=== PATIENT | female | born 1950 | race Caucasian/White ===

== ENCOUNTER 2019-07-05 10:00 | Outpatient (RCR) | payer MEDICARE, SELFPAY | END 2019-07-13 00:01 | LOC: SPT 10:00 | PROVIDERS: Family Provider Family Medicine; Visit Provider Family Medicine | DX: M54.40 Lumbago with sciatica, unspecified side (principal) | CPT/HCPCS: 97161 ==

== ENCOUNTER → 2019-07-16 12:27 | Outpatient (BNVA) | payer MEDICARE, SELFPAY | PROVIDERS: Family Provider Family Medicine; PCP Family Medicine; Visit Provider Family Medicine | DX: E11.40 Type 2 diabetes mellitus with diabetic neuropathy, unspecified (principal); F41.1 Generalized anxiety disorder; E55.9 Vitamin D deficiency, unspecified; F33.1 Major depressive disorder, recurrent, moderate | CPT/HCPCS: 36415; 80053; 80061; 83036 ==

== ENCOUNTER → 2019-08-11 15:36 | Outpatient (BNVA) | payer MEDICARE, SELFPAY | PROVIDERS: Family Provider Family Medicine; PCP Family Medicine; Visit Provider Specialist | DX: M25.562 Pain in left knee (principal); M17.12 Unilateral primary osteoarthritis, left knee; Z96.659 Presence of unspecified artificial knee joint | CPT/HCPCS: 73560; 73565 ==

== ENCOUNTER 2019-09-09 08:57 | Outpatient (CLI) | payer MEDICARE, SELFPAY ==
--- NOTE | 2019-09-09 09:15 | CT_ITS ---
WS: [id number] CT LUNG CANCER SCREENING DLP: 86.67 mGy.cm DIvol: 2.72 mGy CLINICAL INFORMATION SCREENING VISIT: Baseline COMPARISON: 05/27/2017 CTA chest. FINDINGS Diagnostic quality: Satisfactory Comments: None. Lung Nodules: None. Lungs: Minimal linear scar atelectasis in the anterior RIGHT middle lobe. No pleural effusions. Heart: Normal size heart. Mild increased pericardial fat. There is heavy calcification noted within t he LEFT main, LEFT circumflex and anterior descending coronary artery. Additional heavy calcification in the RIGHT coronary. Other findings: Moderate atherosclerosis aorta. No aneurysm. Pulmonary artery size is normal. No medi astinal or hilar adenopathy. LEFT thyroid extends substernal and is enlarged. No change since 017. Prior cholecystectomy. Heavy calcification in the splenic artery similar to prior studies. CT/CT lung screening [id number] IMPRESSION: LUNG-RADS: 1S-Negative with Significant Findings FOLLOW UP: 12 Month: Continue annual screening with LDCT 1. Moderate to severe three-vessel coronary artery calcifications. 2. Prior cholecystectomy.
== END 2019-09-09 08:58 | disposition home or self-care (01) ==
PROVIDERS: Family Provider Family Medicine; PCP Family Medicine; Visit Provider Family Medicine
DX: Z12.2 Encounter for screening for malignant neoplasm of respiratory organs (principal); F17.211 Nicotine dependence, cigarettes, in remission
CPT/HCPCS: G0297

== ENCOUNTER → 2019-09-23 10:33 | Outpatient (BNVA) | payer MEDICARE, SELFPAY | PROVIDERS: Family Provider Family Medicine; PCP Family Medicine; Visit Provider Family Medicine | DX: E11.9 Type 2 diabetes mellitus without complications (principal); E78.5 Hyperlipidemia, unspecified; N39.3 Stress incontinence (female) (male) | CPT/HCPCS: 80053; 81000 ==

== ENCOUNTER 2019-11-22 08:59 | Day surgery (SDC) | payer MEDICARE, SELFPAY ==
[2019-11-19 09:40] VITALS: BMI 47.2
--- NOTE | 2019-11-22 08:30 | P.HP_ITS ---
Same Day Surgery H&P Indication for Procedure/HPI DATE OF PROCEDURE: November 22, 2019 CHIEF COMPLAINT/INDICATIONFOR SURGICAL PROCEDURE: History of colon polyps PREOP DIAGNOSIS: History of colon polyps PLANNED PROCEDRUE: Operation Date: 11/22/19 10:25 Proposed Procedures p Colonoscopy/EGD [id number] [id number] Z86.010 K52.9(Not Applicable) - Faraz Gaming MD s EGD(Not Applicable) - Faraz Gaming MD Medications/Allergies* Home Medications Medication Instructions Recorded Confirmed Type alendronate 70 mg tablet 70 mg PO .ONCE WEEKLY tab 07/08/19 11/19/19 History atorvastatin 40 mg tablet 40 mg PO ONCE 07/08/19 11/19/19 History diphenhydramine HCl 25 mg tablet 50 mg PO ONCE PRN tab 07/08/19 11/19/19 History Allergies/Adverse Reactions Allergy/AdvReac Type Severity Reaction Status Date / Time levofloxacin [From Levaquin] Allergy ALGY-Hives Verified 11/17/19 15:51 Pertinent History/Comorbid Conditions* Medical History (Updated 11/02/19 @ 13:45 by Lexy Bardales DO) Benign essential HTN Enrolled in chronic care management Fatty infiltration of liver Hyperlipidemia Osteopenia Postmenopausal Sjogren's syndrome with keratoconjunctivitis sicca Spondylosis without myelopathy or radiculopathy, lumbosacral region Type 2 diabetes mellitus without complications Unilateral primary osteoarthritis, left knee Vitamin D deficiency Surgical History (Updated 08/16/19 @ 10:19 by Lexy Bardales DO) H/O cornea transplant History of surgery on arm surgery on nerves History of toe surgery History of tonsillectomy S/P hysterectomy S/P knee replacement Status post removal of thyroid nodule Family History (Updated 07/08/19 @ 15:12 by Cristina Estrada LPN) Diabetes CAD (coronary artery disease) Father Lung disease Cancer Mother Sister Brother Social History Smoking and tobacco status: current every day smoker cigarettes Packs smoked per day: 1 Alcohol intake: never Lives independently: Yes Current occupational status: retired Pertinent Exam Findings alert, oriented x 3, clear to auscultation bilaterally, regular rate & rhythm, operative site marked and procedure specific exam findings Recommendations Surgery/Procedure today Coding Level of Care Code Acute Food Porter for Lori Montoya
[2019-11-22 09:15] VITALS: BP 163/84; PULSE 79; RESP 18; TEMP 37.1; O2SAT 92
[2019-11-22 09:39] LABS: Glucose Point of Care 144 mg/dL (70-110)
--- NOTE | 2019-11-22 09:46 | P.ANESASSM_ITS ---
Pre-Anesthetic Assessment Pre-Anesthetic Assessment: Height/Weight: Height 1.55 m Weight 113.398 kg Temp Pulse Resp BP Pulse Ox 98.7 F 79 18 163/84 92 11/22/19 09:15 11/22/19 09:15 11/22/19 09:15 11/22/19 09:15 11/22/19 09:15 Preop Diagnosis: History of colon polyps Proposed Procedure: Operation Date: 11/22/19 10:25 Proposed Procedures p Colonoscopy/EGD [id number] Z86.010 K52.9(Not Applicable) - Faraz Gaming MD s EGD(Not Applicable) - Faraz Gaming MD Familial anesthetic complications: Delayed awakening Was Beta Jose taken within 24 hours: Yes Last intake: NPO > 8 hrs Social: Social History: No alcohol and No tobacco Comment: former smoker Exam: Pre-Anes Outpt Exam: alert, oriented x 3, clear to auscultation bilaterally and regular rate & rhythm Airway: Cervical ROM: WNL Dentition: Chipped and Other (bridge ) Addit ional comments: missing Pulmonary: Pulmonary: Cough (6-7 months (dry)) and SOB (with walking, unable to do stairs due to bad hip and kene) Comments: sinus drainage from allergies CV/HEM: CV/HEM: HTN and Murmur (in her early 20s) Comments: hx rheumatic fever : : None reported Hepatic: Hepatic: None reported GI: GI: None reported Metabolic: Metabolic: DM, Hyperlipidemia, Morbid obesity and Thyroid Musc/skel: Musc/skel: OA/DJD Neuropsych: Neuropsych: None reported Anesthetic Plan: ASA status: 3 Anesthesia: MAC Risk of > 500 ml blood loss (7ml/kg in children): No PFSH Anesthesia PFSH: Social History Smoking and tobacco status: current every day smoker cigarettes Packs smoked per day: 1 Alcohol intake: never Lives independently: Yes Current occupational status: retired Female Reproductive History: Para: 2 Spontaneous abortions: Yes Data Anesthesia Other Labs: Laboratory Results - last 48 hr 11/22/19 09:35 POC Glucose 144 Cardiac Studies: No Data to Display
[2019-11-22] MEDS: sodium chloride 0.9% 1,000 ML 30 ML IV (09:58)
[2019-11-22 10:28] VITALS: BP 149/76; PULSE 63; RESP 16; TEMP 36.3; O2SAT 96
[2019-11-22 10:43] VITALS: BP 160/82; PULSE 65; RESP 16; O2SAT 94
[2019-11-23 14:15] LABS: H. Pylori / CLO Test Negative
== END 2019-11-22 11:05 | disposition home or self-care (01) ==
PROVIDERS: Family Provider Family Medicine; PCP Family Medicine; Visit Provider Internal Medicine
PROC: 0DJD8ZZ Inspection of Lower Intestinal Tract, Via Natural or Artificial Opening Endoscopic (ICD-10-PCS; CPT 45378; principal; 2019-11-22 10:20)
PROC: 0DJ08ZZ Inspection of Upper Intestinal Tract, Via Natural or Artificial Opening Endoscopic (ICD-10-PCS; CPT 43235; 2019-11-22 10:20)
DX: Z86.010 Personal history of colon polyps (principal); I10 Essential (primary) hypertension; E11.9 Type 2 diabetes mellitus without complications; E78.5 Hyperlipidemia, unspecified; E66.01 Morbid (severe) obesity due to excess calories; Z68.42 Body mass index [BMI] 45.0-49.9, adult; M19.90 Unspecified osteoarthritis, unspecified site; F17.210 Nicotine dependence, cigarettes, uncomplicated
CPT/HCPCS: 45378; 12345; 36416; 43239; 82274; 82962; 83630; 87077; 87493; 87506; 88305; J2001; J2704; J7030

== ENCOUNTER → 2019-11-29 11:55 | Outpatient (BNVA) | payer MEDICARE, SELFPAY | PROVIDERS: Family Provider Family Medicine; PCP Family Medicine; Visit Provider Family Medicine | DX: E11.9 Type 2 diabetes mellitus without complications (principal) | CPT/HCPCS: 83036 ==

== ENCOUNTER → 2020-01-10 13:21 | Outpatient (BNVA) | payer MEDICARE, SELFPAY | PROVIDERS: Family Provider Family Medicine; PCP Family Medicine; Visit Provider Family Medicine | DX: E55.9 Vitamin D deficiency, unspecified (principal) | CPT/HCPCS: 82306 ==

== ENCOUNTER 2020-02-28 12:28 | Emergency (ER) | payer MEDICARE, SELFPAY ==
[2020-02-28] VITALS (9 sets, daily range): BP systolic 136–159; BP diastolic 59–78; PULSE 8–89; RESP 16–22; TEMP 36.3–36.6; O2SAT 93–97; BMI 45.1
[2020-02-28 12:46] LABS: Glucose Point of Care 146 mg/dL (70-110)
--- NOTE | 2020-02-28 13:10 | ECG_ITS ---
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 Measurements Intervals [place] Rate: 84 P: 53 CT: 226 QRS: 33 QRSD: 94 T: 60 QT: 361 QTc: 428 Interpretive Statements SINUS RHYTHM WITH FIRST DEGREE AV BLOCK LOW QRS VOLTAGE IN PRECORDIAL LEADS [QRS DEFLECTION < 1.0 mV IN CHEST LEADS] Compared to ECG 10/12/2018 13:06:41 First degree AV block now present Sinus bradycardia no longer present Myocardial infarct finding no longer present Electronically Signed On 02-28-2020 18:59:25 CDT by Ana Ho M.D. [id number]
--- NOTE | 2020-02-28 13:10 | CT_ITS ---
WS: [id number] CT HEAD NONCONTRAST HISTORY: Symptoms of Acute Stroke TECHNIQUE: Contiguous axial imaging performed through the brain in 2.5 mm imaging. Bone and soft tiss ue windows. Sagittal and coronal reformats reviewed. All CT scans at [facility] use at le ast one of these dose optimization techniques: automated exposure control; mA and/or kV adjustment pe r patient size (includes targeted exams where dose is matched to clinical indication); or iterative r econstruction. DLP: 725.61 mGy-cm. COMPARISON: 08/08/2009 There is an area of increased density measuring 4 mm in the LEFT centrum semiovale. This was not pres ent on the prior examination but suspicious for an acute small parenchymal hemorrhage. There is a mod erate amount of diffuse low attenuation from chronic microvascular ischemic disease. No midline shift or mass effect. Mild atrophy. Ventricles: Normal size with no hydrocephalus. Paranasal sinuses: Mucoperiosteal thickening throughout the sinus cavities. Mastoid air cells: Well pneumatized. Calvarium and scalp: Skull is intact with no soft tissue edema or swelling. Notified Sergey Curry MD [facility] at 02/28/2020 1:[address]/CT head wo con* [id number] IMPRESSION: 1. Highly suspicious for 4 mm acute LEFT frontal lobe hemorrhage. 2. Moderate chronic microvascular ischemic changes.
--- NOTE | 2020-02-28 13:10 | XR_ITS ---
WS: [id number] EXAM: AP CHEST: PORTABLE UPRIGHT DATE OF EXAM: 02/28/2020, 1343 hours COMPARISON: Chest x-rays from 05/26/2017 and 12/19/2007. HISTORY: Patient is 69 years old with neurological symptoms. FINDINGS: The cardiac silhouette is stable. Considered upper limits to minimally enlarged. The mediastinal co ntours are similar. Calcified plaque in the aorta. The pulmonary vascularity is normal. The lungs are clear of infiltrate. There is no effusion or pneumothorax. No acute bony abnormality is seen. XR/XR chest 1V portable [id number] IMPRESSION: No acute pulmonary disease.
--- NOTE | 2020-02-28 13:11 | PC.NURSE ---
Slow to answer but answer correctly. States headace is getting worse.
--- NOTE | 2020-02-28 13:11 | W.ED.NEUROSD ---
HPI - Neuro Symptoms/Deficit General: Chief Complaint: Neuro Symptoms/Deficit Stated Complaint: high bs Time Seen by Provider: 02/28/20 12:36 Source: patient Mode of arrival: ambulatory History of Present Illness: HPI Narrative: 69-year-old female patient who comes into the emergency department with some neurologic symptoms. Earlier this morning she received a steroid shot in her left knee in the office of the orthopedic surgeon and when she got home around 11 AM she noticed her vision became blurry, developed a frontal headache. Her daughter also says she became confused. Because of all this she was brought in to be evaluated. The patient has been feeling unwell for a few days also but nothing specific. The patient's complaint today is the headache in her frontal area and her blurry vision Onset (ago): hour(s) (1.5) Last Observed Normal: 11:00 History of same: No Severity: moderate Relieving factors: none Context: sudden onset On Anticoagulants: No Associated symptoms: Reports headache(s), malaise and weakness; Deny chest pain, cough, diaphoresis, fevers/chills, anorexia, nausea, seizures, short of breath, syncope, tingling, vertigo or vomiting Review of Systems General: Reports: 10 or more systems reviewed and unremarkable except in HPI and below Const: Reports: malaise; Denies: diaphoresis Eyes: Denies: change in vision or blurry vision ENMT: Denies: throat pain, enlarged tonsils, odynophagia, hoarseness, mouth pain or swelling of lips/tongue Card: Denies: chest pain or syncope Resp: Denies: dyspnea, productive cough or non-productive cough GI: Denies: nausea or vomiting : Denies: flank pain, difficulty voiding, dysuria, urinary frequency, urinary urgency or urinary hesitancy Musc: Denies: neck pain, back pain or extremity swelling Skin/Breast: Denies: rash, pruritus or erythema Neuro: Reports: headache(s); Denies: vertigo Endo: Denies: polyuria, polydipsia or tired all the time PFS ED PFSH: Medical History (Reviewed 02/28/20 @ 17:51 by Sergey Curry MD, [facility] [place]) Benign essential HTN Enrolled in chronic care management Fatty infiltration of liver Hyperlipidemia Osteopenia Postmenopausal Sjogren's syndrome with keratoconjunctivitis sicca Spondylosis without myelopathy or radiculopathy, lumbosacral region Type 2 diabetes mellitus without complications Unilateral primary osteoarthritis, left knee Vitamin D deficiency Surgical History (Reviewed 02/28/20 @ 17:51 by Sergey Curry MD, [facility] [place] H/O cornea transplant History of surgery on arm surgery on nerves History of toe surgery History of tonsillectomy S/P hysterectomy S/P knee replacement Status post removal of thyroid nodule Family History (Reviewed 02/28/20 @ 17:51 by Sergey Curry MD, [facility] [place]) Father CAD (coronary artery disease) Mother Cancer Sister Cancer Brother Cancer Other Diabetes Lung disease Social History (Reviewed 02/28/20 @ 17:51 by Sergey Curry MD, [facility] [place]) Smoking and tobacco status: current every day smoker cigarettes Packs smoked per day: 1 Alcohol intake: never Lives independently: Yes Current occupational status: retired History of recent travel: No Female Reproductive History: Para: 2 Spontaneous abortions: Yes NIH stroke score NIHSS: Level Of Consciousness - 1a: 0 Level Of Consciousness Questions - 1b: Both Correct Level Of Consciousness Commands - 1c: Both Correct Best Gaze - 2: Normal Visual Yu - 3: Partial Hemianopia Facial Palsy - 4: Normal Motor Arm Right - 5: No Drift Motor Arm Left - 5: No Drift Motor Leg Right - 6: No Drift Motor Leg Left - 6: No Drift Limb Ataxia - 7: Present In One Limb Sensory - 8: Mild To Moderate Loss Best Language - 9: No Aphasia Dysarthia - 10: Normal Extinction And Inattention - 11: 0 Score: Total Score: 3 Physical Exam Const: COMMON NORMALS: no acute distress, average body habitus, patient oriented x3, no limitations, healthy appearing, alert and well nourished HENMT: COMMON NORMALS: normocephalic, atraumatic and moist oral mucous membranes HEAD & SCALP: normocephalic and atraumatic Eye: COMMON NORMALS: Equal, round and reactive pupils present, EOMs intact bilaterally, conjunctivae normal and no scleral icterus CONJUNCTIVA: Yes conjunctivae normal PUPIL: Yes Equal, round and reactive pupils present Neck/C-Spine: COMMON NORMALS: full ROM, supple, no meningeal signs, no JVD and No carotid bruits Chest: COMMONS NORMALS: normal inspection of the chest and normal palpation of entire chest wall Resp: COMMON NORMALS: normal respiratory effort, No retractions, No use of accessory muscles, clear to auscultation bilaterally and percussion normal AUSCULTATION: clear to auscultation bilaterally PERCUSSION: percussion normal Cardio: COMMON NORMALS: no JVD, regular rate, regular rhythm, S1 normal heart sound present, S2 normal heart sound present, No gallops present (Cardio), No clicks present (Cardio), No rub (Cardio) and Peripheral pulses 2+ throughout RATE: regular rate RHYTHM: regular rhythm HEART SOUNDS: S1 normal heart sound present, S2 normal heart sound present and Murmur heart sound present PERIPHERAL PULSES: Peripheral pulses 2+ throughout GI: COMMON NORMALS: Normal to inspection, nondistended, normoactive bowel sounds present, Soft to palpation, non-tender, No hepatosplenomegaly present, no masses and no bruits PALPATION: Yes Soft to palpation and Yes No hepatosplenomegaly present Extremity: COMMON NORMALS: normal to inspection, full ROM, capillary refill normal, no calf tenderness and no pedal edema Neuro: COMMON NORMALS: patient oriented x3 SENSORIUM/ORIENTATION: Yes alert MENINGEAL SIGNS: Yes no meningeal signs Skin: COMMON NORMALS: no rashes or lesions noted, no wounds, turgor normal, no jaundice, no petechiae and no mottling GENERAL SKIN EXAM: no rashes or lesions noted and turgor normal Course Consultations: Consultation #1: Dr. Gaytan, neurosurgeon at [facility] and she kindly accepted the patient to her service. Vital Signs: Vital signs: Vital Signs Temperature 97.8 F 02/28/20 16:46 Pulse Rate 84 02/28/20 16:46 Respiratory Rate 18 02/28/20 16:46 Blood Pressure 144/78 02/28/20 16:46 Pulse Oximetry 95 02/28/20 16:46 MDM - Neuro Symptoms/Deficit MDM Narrative: Medical decision making narrative: Patient who presented to the emergency department with neurologic symptoms. Because of the acuity of her symptoms a stroke alert was called. Head CT done was highly suggestive of an intracranial hemorrhage. She therefore needed to be transferred to level 1 trauma center. The patient and family's preference was for [facility] in [place] but when I called them they were on ER divert and all their brain bleeds apparently go to the emergency department. I therefore called [facility] and the patient was kindly accepted to the ICU. Her blood pressure was mildly elevated in the 140s and 150s on initial arrival in the emergency department and she was started on a nicardipine drip following which her blood pressure improved. Medical Records: Attestation: I reviewed the patient's medical records. Lab Data: Attestation: I reviewed the patient's lab results. Labs: Lab Results 02/28/20 02/28/20 02/28/20 Range/Units 12:34 12:55 12:55 WBC 8.6 (4.0-10.0) 10^3/ uL RBC 4.43 (4.1-5.3) 10^6/u L Hgb 13.0 (11.5-15.3) g/dL Hct 40.8 (37.0-47.0) % MCV 92.1 (81-99) fL MCH 29.3 (28.0-34.0) pg MCHC 31.9 (30.0-36.0) g/dL RDW 16.2 H (12.1-15.1) % Plt Count 284 (130-400) 10^3/c mm MPV 10.9 H (7.4-10.4) fL Neut % (Auto) 72.6 % Lymph % (Auto) 20.2 % Boyd % (Auto) 4.1 % Eos % (Auto) 2.0 % Baso % (Auto) 0.8 % Neut # (Auto) 6.25 (1.8-7.7) 10^3/u L Lymph # (Auto) 1.7 (0.8-4.8) 10^3/u L Boyd # (Auto) 0.4 (0.2-0.9) 10^3/u L Eos # (Auto) 0.2 (0.0-0.8) 10^3/u L Baso # (Auto) 0.1 (0.0-0.1) 10^3/u L Nucleated RBC % (a uto) 0 % Nucleated RBCs # 0.0 /100WBC PT 12.40 (12.1-14.9) SECO NDS INR 0.90 (0.8-1.2) APTT 33.0 (23.9-36.7) SECO NDS Sodium (136-145) mmol/L Potassium (3.5-5.1) mmol/L Chloride (98-107) mmol/L Carbon Dioxide (22-29) mmol/L Anion Gap (5-19) BUN (8-23) mg/dL Creatinine (0.5-0.9) mg/dL GFR Calculation Glucose (65-115) mg/dL POC Glucose 146 (70-110) mg/dL Calculated Osmolal ity (285-295) mOsm/k g Calcium (8.5-10.5) mg/dL Total Bilirubin (0.15-1.2) mg/dL AST (0-32) U/L ALT (0-33) U/L Alkaline Phosphata se (35-105) IU/L Total Protein (6.6-8.7) g/dL Albumin (3.5-5.2) g/dL Globulin (1.3-4.6) g/dL Urine Color (Yellow) Urine Appearance (CLEAR) Urine pH (5-7) Ur Specific Gravit y (1.005-1.030) Urine Protein (Negative) Urine Glucose (UA) (Normal) Urine Ketones (Negative) Urine Blood (Negative) Urine Nitrate (Negative) Urine Bilirubin (NEGATIVE) Urine Urobilinogen (Negative) mg/dL Ur Leukocyte Elizabeth ase (Negative) Urine Opiates Scre en (Negative) ng/mL Ur Barbiturates Sc reen (Negative) ng/mL Ur Phencyclidine S crn (Negative) ng/mL Ur Amphetamines Sc reen (Negative) ng/mL U Benzodiazepines Scrn (Negative) ng/mL Urine Cocaine Scre en (Negative) ng/mL U Marijuana (THC) Screen (Negative) ng/mL 02/28/20 02/28/20 02/28/20 Range/Units 12:55 13:25 13:25 WBC (4.0-10.0) 10^3/ uL RBC (4.1-5.3) 10^6/u L Hgb (11.5-15.3) g/dL Hct (37.0-47.0) % MCV (81-99) fL MCH (28.0-34.0) pg MCHC (30.0-36.0) g/dL RDW (12.1-15.1) % Plt Count (130-400) 10^3/c mm MPV (7.4-10.4) fL Neut % (Auto) % Lymph % (Auto) % Boyd % (Auto) % Eos % (Auto) % Baso % (Auto) % Neut # (Auto) (1.8-7.7) 10^3/u L Lymph # (Auto) (0.8-4.8) 10^3/u L Boyd # (Auto) (0.2-0.9) 10^3/u L Eos # (Auto) (0.0-0.8) 10^3/u L Baso # (Auto) (0.0-0.1) 10^3/u L Nucleated RBC % (a uto) % Nucleated RBCs # /100WBC PT (12.1-14.9) SECO NDS INR (0.8-1.2) APTT (23.9-36.7) SECO NDS Sodium 140 (136-145) mmol/L Potassium 4.0 (3.5-5.1) mmol/L Chloride 104 (98-107) mmol/L Carbon Dioxide 26 (22-29) mmol/L Anion Gap 14.0 (5-19) BUN 15 (8-23) mg/dL Creatinine 0.8 (0.5-0.9) mg/dL GFR Calculation Not Reportable Glucose 161 H (65-115) mg/dL POC Glucose (70-110) mg/dL Calculated Osmolal ity 290 (285-295) mOsm/k g Calcium 9.4 (8.5-10.5) mg/dL Total Bilirubin 0.2 (0.15-1.2) mg/dL AST 19 (0-32) U/L ALT 20 (0-33) U/L Alkaline Phosphata se 76 (35-105) IU/L Total Protein 6.9 (6.6-8.7) g/dL Albumin 4.0 (3.5-5.2) g/dL Globulin 2.9 (1.3-4.6) g/dL Urine Color Yellow (Yellow) Urine Appearance Clear (CLEAR) Urine pH 5 (5-7) Ur Specific Gravit y 1.015 (1.005-1.030) Urine Protein Neg (Negative) Urine Glucose (UA) Norm (Normal) Urine Ketones Negative (Negative) Urine Blood Neg (Negative) Urine Nitrate Negative (Negative) Urine Bilirubin Neg (NEGATIVE) Urine Urobilinogen Norm (Negative) mg/dL Ur Leukocyte Elizabeth ase Negative (Negative) Urine Opiates Scre en Positive H (Negative) ng/mL Ur Barbiturates Sc reen Negative (Negative) ng/mL Ur Phencyclidine S crn Negative (Negative) ng/mL Ur Amphetamines Sc reen Negative (Negative) ng/mL U Benzodiazepines Scrn Positive H (Negative) ng/mL Urine Cocaine Scre en Negative (Negative) ng/mL U Marijuana (THC) Screen Negative (Negative) ng/mL 02/28/20 Range/Units 13:31 WBC (4.0-10.0) 10^3/ uL RBC (4.1-5.3) 10^6/u L Hgb (11.5-15.3) g/dL Hct (37.0-47.0) % MCV (81-99) fL MCH (28.0-34.0) pg MCHC (30.0-36.0) g/dL RDW (12.1-15.1) % Plt Count (130-400) 10^3/c mm MPV (7.4-10.4) fL Neut % (Auto) % Lymph % (Auto) % Boyd % (Auto) % Eos % (Auto) % Baso % (Auto) % Neut # (Auto) (1.8-7.7) 10^3/u L Lymph # (Auto) (0.8-4.8) 10^3/u L Boyd # (Auto) (0.2-0.9) 10^3/u L Eos # (Auto) (0.0-0.8) 10^3/u L Baso # (Auto) (0.0-0.1) 10^3/u L Nucleated RBC % (a uto) % Nucleated RBCs # /100WBC PT (12.1-14.9) SECO NDS INR (0.8-1.2) APTT (23.9-36.7) SECO NDS Sodium (136-145) mmol/L Potassium (3.5-5.1) mmol/L Chloride (98-107) mmol/L Carbon Dioxide (22-29) mmol/L Anion Gap (5-19) BUN (8-23) mg/dL Creatinine (0.5-0.9) mg/dL GFR Calculation Glucose (65-115) mg/dL POC Glucose 164 (70-110) mg/dL Calculated Osmolal ity (285-295) mOsm/k g Calcium (8.5-10.5) mg/dL Total Bilirubin (0.15-1.2) mg/dL AST (0-32) U/L ALT (0-33) U/L Alkaline Phosphata se (35-105) IU/L Total Protein (6.6-8.7) g/dL Albumin (3.5-5.2) g/dL Globulin (1.3-4.6) g/dL Urine Color (Yellow) Urine Appearance (CLEAR) Urine pH (5-7) Ur Specific Gravit y (1.005-1.030) Urine Protein (Negative) Urine Glucose (UA) (Normal) Urine Ketones (Negative) Urine Blood (Negative) Urine Nitrate (Negative) Urine Bilirubin (NEGATIVE) Urine Urobilinogen (Negative) mg/dL Ur Leukocyte Elizabeth ase (Negative) Urine Opiates Scre en (Negative) ng/mL Ur Barbiturates Sc reen (Negative) ng/mL Ur Phencyclidine S crn (Negative) ng/mL Ur Amphetamines Sc reen (Negative) ng/mL U Benzodiazepines Scrn (Negative) ng/mL Urine Cocaine Scre en (Negative) ng/mL U Marijuana (THC) Screen (Negative) ng/mL Imaging Data^: CT Head: Radiologist's impression: [place] [address] CT Scan Report Signed Patient: Jacqueline Alcazar #: [id number] : 9Acct#:[id number] Age/Sex: 69 / FADM Date: 02/28/20 Loc: ERRoom/Bed: Attending Dr: Ordering Provider/Ordering MD: Sergye Curry MD, [facility] [place] Date of Service: 02/28/20 Procedure(s): CT head wo con* [id number] Accession Number(s): [id number] Report Number: [id number] WS: [id number] CT HEAD NONCONTRAST HISTORY: Symptoms of Acute Stroke TECHNIQUE: Contiguous axial imaging performed through the brain in 2.5 mm imaging. Bone and soft tissue windows. Sagittal and coronal reformats reviewed. All CT scans at [facility] use at least one of these dose optimization techniques: automated exposure control; mA and/or kV adjustment per patient size (includes targeted exams where dose is matched to clinical indication); or iterative reconstruction. DLP: 725.61 mGy-cm. COMPARISON: 08/08/2009 There is an area of increased density measuring 4 mm in the LEFT centrum semiovale. This was not present on the prior examination but suspicious for an acute small parenchymal hemorrhage. There is a moderate amount of diffuse low attenuation from chronic microvascular ischemic disease. No midline shift or mass effect. Mild atrophy. Ventricles: Normal size with no hydrocephalus. Paranasal sinuses: Mucoperiosteal thickening throughout the sinus cavities. Mastoid air cells: Well pneumatized. Calvarium and scalp: Skull is intact with no soft tissue edema or swelling. Notified Sergey Curry MD [facility] [place] at 02/28/2020 1:[address]/CT head wo con* [id number] IMPRESSION: 1. Highly suspicious for 4 mm acute LEFT frontal lobe hemorrhage. 2. Moderate chronic microvascular ischemic changes. Dictated By:Judi Thomson DO Signed By:Judi Thomson DOSigned Date/Time:02/28/20 1321 DD/ 1315 CXR: Radiologist's impression: [address] [address] XRay Report Signed Patient: Jacqueline Alcazar #: [id number] : 9Acct#:[id number] Age/Sex: 69 / FADM Date: 02/28/20 Loc: ERRoom/Bed: Attending Dr: Ordering Provider/Ordering MD: Sergey Curry MD, [facility] [place] Date of Service: 02/28/20 Procedure(s): XR chest 1V portable [id number] Accession Number(s): [id number] Report Number: [id number] WS: [id number] EXAM: AP CHEST: PORTABLE UPRIGHT DATE OF EXAM: 02/28/2020, 1343 hours COMPARISON: Chest x-rays from 05/26/2017 and 12/19/2007. HISTORY: Patient is 69 years old with neurological symptoms. FINDINGS: The cardiac silhouette is stable. Considered upper limits to minimally enlarged. The mediastinal contours are similar. Calcified plaque in the aorta. The pulmonary vascularity is normal. The lungs are clear of infiltrate. There is no effusion or pneumothorax. No acute bony abnormality is seen. XR/XR chest 1V portable [id number] IMPRESSION: No acute pulmonary disease. EKG Data^: EKG 1: Attestation: I personally reviewed and interpreted this EKG as follows: EKG interpretation date: 02/28/20 EKG interpretation time: 13:30 Prior EKG tracings: not available for review Interpretation: Sinus rhythm referred degree AV block. Heart rate 84 bpm. Normal axis. No ST changes. No STEMI. Discharge Plan Discharge Patient Disposition: Xfer Short-Term Hosp Clinical Impression: Acute intracerebral hemorrhage Condition: Stable Discharge Orders: Transfer Out of Facility (Order); Ordered 02/28/20 Ordered By: Sergey Curry Referrals: Lexy Bardales DO [Primary Care Provider] - Discharge Date/Time: 02/28/20 16:51 Coding Level of Care Code ED [employer] for Chg Lindsay
[2020-02-28 13:23] LABS: Basophils # 0.1 10^3/uL (0.0-0.1); Basophils % 0.8 %; Eosinophils # 0.2 10^3/uL (0.0-0.8); Hematocrit 40.8 % (37.0-47.0); Lymphocytes # 1.7 10^3/uL (0.8-4.8); Lymphocytes % 20.2 %; Mean Corpuscular HGB Conc 31.9 g/dL (30.0-36.0); Mean Corpuscular Hemoglobin 29.3 pg (28.0-34.0); Mean Corpuscular Volume 92.1 fL (81-99); Mean Platelet Volume 10.9 fL (7.4-10.4); Monocytes # 0.4 10^3/uL (0.2-0.9); Monocytes % 4.1 %; Neutrophils # 6.25 10^3/uL (1.8-7.7); Neutrophils % 72.6 %; Nucleated Red Blood Cells % 0 %; Platelet Count 284 10^3/cmm (130-400); Red Blood Count 4.43 10^6/uL (4.1-5.3); Red Cell Distribution Width 16.2 % (12.1-15.1); White Blood Count 8.6 10^3/uL (4.0-10.0)
[2020-02-28 13:33] LABS: Alanine Aminotransferase 20 U/L (0-33); Alkaline Phosphatase 76 IU/L (35-105); Aspartate Amino Transferase 19 U/L (0-32); Blood Urea Nitrogen 15 mg/dL (8-23); Calcium 9.4 mg/dL (8.5-10.5); Carbon Dioxide 26 mmol/L (22-29); Chloride 104 mmol/L (98-107); Creatinine Clr Calc Pharmacy 76.2397; Globulin 2.9 g/dL (1.3-4.6); Glucose 161 mg/dL (65-115); Osmolality Calculated 290 mOsm/kg (285-295); Sodium 140 mmol/L (136-145); Total Bilirubin 0.2 mg/dL (0.15-1.2); Total Protein 6.9 g/dL (6.6-8.7)
[2020-02-28 13:35] LABS: Glucose Point of Care 164 mg/dL (70-110)
[2020-02-28 13:51] LABS: Add Urine Microscopic? NO
[2020-02-28 14:02] LABS: Bilirubin Urine Neg (NEGATIVE); Blood Urine Neg (Negative); Glucose Urine UA Norm (Normal); Ketones Urine Negative (Negative); Leukocyte Esterase Urine Negative (Negative); Nitrate Urine Negative (Negative); Protein Urine Neg (Negative); Specific Gravity, Urine 1.015 (1.005-1.030); Urine Appearance Clear (CLEAR); Urine Color Yellow (Yellow); Urobilinogen Urine Norm (Negative); pH Urine 5 (5-7)
[2020-02-28 14:04] LABS: Amphetamines Screen Urine Negative (Negative); Barbiturates Screen Urine Negative (Negative); Benzodiazepines Screen Urine Positive (Negative); Cocaine Screen Urine Negative (Negative); Opiate Screen Urine Positive (Negative); PCP Screen Urine Negative (Negative); THC Screen Urine Negative (Negative)
--- NOTE | 2020-02-28 14:25 | PC.NURSE ---
Did not start the Cardene because BP is 134/67. Informed Dr Curry.
[2020-02-28] MEDS: nicardipine 20 MG/200 ML PREMIX 50 MG IV (14:33)
--- NOTE | 2020-02-28 14:37 | PC.NURSE ---
Blood Pressure is 147/68. Informed Dr Villegas and informed to start Cardene drip at 5mg/hr.
--- NOTE | 2020-02-28 16:06 | PC.NURSE ---
Put on a bed hwang.
== END 2020-02-28 16:51 | disposition short-term general hospital (02) ==
PROVIDERS: Emergency Provider Family Medicine; PCP Family Medicine
DX: I61.9 Nontraumatic intracerebral hemorrhage, unspecified (principal); I10 Essential (primary) hypertension; E78.5 Hyperlipidemia, unspecified; E11.9 Type 2 diabetes mellitus without complications; F17.210 Nicotine dependence, cigarettes, uncomplicated
CPT/HCPCS: 12345; 36416; 70450; 71045; 80053; 80306; 81003; 82962; 85025; 85610; 85730; 93005; 96365; 96366; 96375; 99284; 99285; J0131

== ENCOUNTER → 2020-03-15 09:27 | Outpatient (BNVA) | payer MEDICARE, SELFPAY | PROVIDERS: PCP Family Medicine; Referring Provider Family Medicine; Visit Provider Anesthesiology Pain Medicine | DX: M47.816 Spondylosis without myelopathy or radiculopathy, lumbar region (principal); M54.9 Dorsalgia, unspecified; M17.12 Unilateral primary osteoarthritis, left knee; I61.9 Nontraumatic intracerebral hemorrhage, unspecified; R51 Headache; I10 Essential (primary) hypertension; E11.40 Type 2 diabetes mellitus with diabetic neuropathy, unspecified; F17.210 Nicotine dependence, cigarettes, uncomplicated; Z79.891 Long term (current) use of opiate analgesic | CPT/HCPCS: 99205 ==

== ENCOUNTER 2020-03-24 06:00 | Outpatient (RCR) | payer MEDICARE, SELFPAY | END 2020-04-12 23:59 | disposition home or self-care (01) | LOC: SPT 06:00 | PROVIDERS: PCP Family Medicine; Referring Provider Neurological Surgery; Visit Provider Neurological Surgery | DX: Q28.3 Other malformations of cerebral vessels (principal) | CPT/HCPCS: 97110; 97161 ==

== ENCOUNTER 2020-04-13 06:00 | Outpatient (RCR) | payer MEDICARE, SELFPAY | END 2020-05-13 23:59 | disposition home or self-care (01) | LOC: SPT 06:00 | PROVIDERS: PCP Family Medicine; Referring Provider Neurological Surgery; Visit Provider Neurological Surgery | DX: Q28.3 Other malformations of cerebral vessels (principal) | CPT/HCPCS: 97110; 99214 ==

== ENCOUNTER → 2020-04-13 09:31 | Outpatient (BNVA) | payer MEDICARE, SELFPAY | PROVIDERS: PCP Family Medicine; Visit Provider Anesthesiology Pain Medicine | DX: M17.12 Unilateral primary osteoarthritis, left knee (principal); M47.816 Spondylosis without myelopathy or radiculopathy, lumbar region; M54.9 Dorsalgia, unspecified; E11.40 Type 2 diabetes mellitus with diabetic neuropathy, unspecified; I61.9 Nontraumatic intracerebral hemorrhage, unspecified; I10 Essential (primary) hypertension; F17.210 Nicotine dependence, cigarettes, uncomplicated; Z79.891 Long term (current) use of opiate analgesic | CPT/HCPCS: 99214 ==

== ENCOUNTER → 2020-05-04 13:12 | Outpatient (BNVA) | payer MEDICARE, SELFPAY | PROVIDERS: PCP Family Medicine; Visit Provider Family Medicine | DX: M79.642 Pain in left hand (principal) | CPT/HCPCS: 73130 ==

== ENCOUNTER → 2020-05-11 10:44 | Outpatient (BNVA) | payer MEDICARE, SELFPAY | PROVIDERS: PCP Family Medicine; Visit Provider Anesthesiology Pain Medicine | DX: M17.12 Unilateral primary osteoarthritis, left knee (principal); M47.816 Spondylosis without myelopathy or radiculopathy, lumbar region; M54.9 Dorsalgia, unspecified; E11.40 Type 2 diabetes mellitus with diabetic neuropathy, unspecified; I61.9 Nontraumatic intracerebral hemorrhage, unspecified; I10 Essential (primary) hypertension; F17.210 Nicotine dependence, cigarettes, uncomplicated; Z79.891 Long term (current) use of opiate analgesic | CPT/HCPCS: 99214 ==

== ENCOUNTER → 2020-05-12 10:13 | Outpatient (BNVA) | payer MEDICARE, SELFPAY | PROVIDERS: PCP Family Medicine; Visit Provider Family Medicine | DX: E11.9 Type 2 diabetes mellitus without complications (principal); F17.219 Nicotine dependence, cigarettes, with unspecified nicotine-induced disorders; I10 Essential (primary) hypertension | CPT/HCPCS: 80053; 83036 ==

== ENCOUNTER 2020-05-14 06:00 | Outpatient (RCR) | payer MEDICARE, SELFPAY | END 2020-06-12 23:59 | disposition home or self-care (01) | LOC: SPT 06:00 | PROVIDERS: PCP Family Medicine; Referring Provider Neurological Surgery; Visit Provider Neurological Surgery | DX: Q28.3 Other malformations of cerebral vessels (principal) | CPT/HCPCS: 97110 ==

== ENCOUNTER 2020-05-16 07:35 | Outpatient (CLI) | payer MEDICARE, SELFPAY ==
--- NOTE | 2020-05-16 07:59 | MR_ITS ---
WS: [id number] MRI HEAD WITH CONTRAST TECHNIQUE: Sagittal T1, T2 axial, T2 axial FLAIR, axial susceptibility weighted imaging, axial diffus ion weighted images, and coronal T2 images were obtained. Pre and post-T1 axial and post T1 coronal i mages. ADC and FSPGR images. CLINICAL INFORMATION: CAVERNOUS MALFORMATIONS COMPARISON: CT February 28, 2020 FINDINGS: No evidence of restricted diffusion to suggest acute ischemia. Ventricular system and basal cisterns are patent. Moderate to advanced small vessel changes with moderate parenchymal volume loss. Normal p osterior fossa. Normal vascular flow voids at the skull base. No extra-axial fluid collections. No ev idence of mass or mass effect. Mild mucosal thickening in the ethmoid air cells. Mastoid air cells ar e well aerated. Mild mucosal thickening at the mastoid tips. Small vessel changes in the agus. Susceptibility artifact in the left posterior frontal deep white matter measuring 7 mm corresponding to the findings on the prior CT. Associated serpiginous enhancement compatible with cavernoma with ve nous angioma. No evidence of new or recent hemorrhage. Normal optic chiasm and pituitary infundibulum . Normal dural venous sinuses. No other abnormal enhancing intracranial lesions. Moderate symmetric a trophy involving the temporal lobes and hippocampal formations. MR/MR head wo/w con [id number] IMPRESSION: 1. Susceptibility artifact in the left frontal lobe measuring 7 mm with adjace nt serpiginous enhancement compatible with cavernoma with venous angioma. 2. No evidence of recent hemorrhage. 3. No other visualized cavernous malformations. 4. Moderate to advanced small vessel changes with moderate parenchymal volume loss. 5. No other significant findings.
== END 2020-05-16 07:36 | disposition home or self-care (01) ==
LOC: RADWPI 07:39
PROVIDERS: PCP Family Medicine; Visit Provider Neurological Surgery
DX: Q28.3 Other malformations of cerebral vessels (principal)
CPT/HCPCS: 70553; A9579

== ENCOUNTER 2020-05-30 10:20 | Outpatient (CLI) | payer MEDICARE, SELFPAY ==
--- NOTE | 2020-05-30 10:44 | XRR_ITS ---
PROCEDURE INFORMATION: Exam: XR Lumbosacral Spine, 2 or 3 Views Exam date and time: 05/30/2020 10:45 AM Age: 69 years old Clinical indication: Low back pain TECHNIQUE: Imaging protocol: XR of the lumbosacral spine, 2 or 3 views. COMPARISON: CR Lumbar Spine Flex/Extens [id number] 10/28/2017 8:58 AM FINDINGS: Bones/joints: The lumbar vertebral bodies maintain height. There is multilevel disc degeneration and facet arthropathy in the lumbar spine. There is a 5 mm grade 1 degenerative spondylolisthesis of L4 on L5 in the neutral position, slightly worse than on the prior comparison exam. No acute fracture. Soft tissues: No acute soft tissue abnormality. XR/XR lumbar spine min 4V [id number] IMPRESSION: 1. Multilevel degenerative changes. 2. Slight worsening of grade 1 degenerative L4-L5 spondylolisthesis.
== END 2020-05-30 10:21 | disposition home or self-care (01) ==
PROVIDERS: PCP Family Medicine; Visit Provider Anesthesiology Pain Medicine
DX: M54.5 Low back pain (principal); M43.16 Spondylolisthesis, lumbar region
CPT/HCPCS: 72114

== ENCOUNTER → 2020-06-06 09:29 | Outpatient (BNVA) | payer MEDICARE, SELFPAY | PROVIDERS: PCP Family Medicine; Visit Provider Anesthesiology Pain Medicine | DX: M47.816 Spondylosis without myelopathy or radiculopathy, lumbar region (principal); M54.12 Radiculopathy, cervical region; M17.12 Unilateral primary osteoarthritis, left knee; M54.9 Dorsalgia, unspecified; R51.9 Headache, unspecified; M25.562 Pain in left knee; I61.9 Nontraumatic intracerebral hemorrhage, unspecified; I10 Essential (primary) hypertension; E11.40 Type 2 diabetes mellitus with diabetic neuropathy, unspecified; F17.210 Nicotine dependence, cigarettes, uncomplicated; Z79.891 Long term (current) use of opiate analgesic | CPT/HCPCS: 99214; 99215 ==

== ENCOUNTER 2020-06-13 06:00 | Outpatient (RCR) | payer MEDICARE, SELFPAY | END 2020-07-13 23:59 | disposition home or self-care (01) | LOC: SPT 06:00 | PROVIDERS: PCP Family Medicine; Referring Provider Neurological Surgery; Visit Provider Neurological Surgery | DX: Q28.3 Other malformations of cerebral vessels (principal) | CPT/HCPCS: 97110 ==

== ENCOUNTER → 2020-06-19 11:04 | Outpatient (BNVA) | payer MEDICARE, SELFPAY | PROVIDERS: PCP Family Medicine; Visit Provider Family Medicine | DX: Z00.00 Encounter for general adult medical examination without abnormal findings (principal); E78.2 Mixed hyperlipidemia; F17.219 Nicotine dependence, cigarettes, with unspecified nicotine-induced disorders | CPT/HCPCS: 80061 ==

== ENCOUNTER 2020-06-28 13:20 | Outpatient (CLI) | payer MEDICARE, SELFPAY ==
--- NOTE | 2020-06-28 13:28 | MM_ITS ---
WS: [id number] BILATERAL SCREENING DIGITAL MAMMOGRAM WITH CAD HISTORY: SCREENING COMPARISON: 05/07/2019, 04/17/2018 Bilateral CC and MLO views submitted. Computer aided detection analyzed. Breast composition: There are scattered areas of fibroglandular density. No suspicious masses, microc alcifications or architectural distortion. Benign lymph nodes towards the axillary tails of each [address] [place] MM/[place] [id number] IMPRESSION: BI-RADS: 2-Benign FOLLOW UP: 1 Year Follow-up
== END 2020-06-28 13:21 | disposition home or self-care (01) ==
LOC: RADSHAW 13:24
PROVIDERS: PCP Family Medicine; Visit Provider Family Medicine
DX: Z12.31 Encounter for screening mammogram for malignant neoplasm of breast (principal)
CPT/HCPCS: 77067

== ENCOUNTER → 2020-06-29 13:29 | Outpatient (BNVA) | payer MEDICARE, SELFPAY | PROVIDERS: PCP Family Medicine; Visit Provider Anesthesiology Pain Medicine | DX: M47.816 Spondylosis without myelopathy or radiculopathy, lumbar region (principal); M54.9 Dorsalgia, unspecified; F17.210 Nicotine dependence, cigarettes, uncomplicated | CPT/HCPCS: 64493; 64494; 64495; J1030; J3490 ==

== ENCOUNTER → 2020-07-17 09:16 | Outpatient (BNVA) | payer MEDICARE, SELFPAY | PROVIDERS: PCP Family Medicine; Visit Provider Anesthesiology Pain Medicine | DX: M79.18 Myalgia, other site (principal); M54.12 Radiculopathy, cervical region; M54.9 Dorsalgia, unspecified; R51.9 Headache, unspecified; M25.562 Pain in left knee; I61.9 Nontraumatic intracerebral hemorrhage, unspecified; I10 Essential (primary) hypertension; M17.12 Unilateral primary osteoarthritis, left knee; M47.816 Spondylosis without myelopathy or radiculopathy, lumbar region; E11.40 Type 2 diabetes mellitus with diabetic neuropathy, unspecified; F17.210 Nicotine dependence, cigarettes, uncomplicated | CPT/HCPCS: 20553; 72050; 99214; 99215; J1030; J3490 ==

== ENCOUNTER 2020-07-17 11:28 | Outpatient (CLI) | payer MEDICARE, SELFPAY ==
--- NOTE | 2020-07-17 11:37 | XR_ITS ---
WS: [id number] CERVICAL SPINE TECHNIQUE: 3 views of the cervical spine CLINICAL INFORMATION: M54.12 - Radiculopathy, cervical region COMPARISON: None. FINDINGS: Straightening of the normal cervical lordosis. Normal C1-C2 articulation. Normal prevertebral soft ti ssues. No instability on flexion-extension. Moderate facet arthropathy in mid cervical spine. XR/XR cervical spine 4-5V [id number] IMPRESSION: No instability on flexion-extension.
== END 2020-07-17 11:29 | disposition home or self-care (01) ==
LOC: RADWPI 11:32
PROVIDERS: PCP Family Medicine; Visit Provider Anesthesiology Pain Medicine
DX: M54.12 Radiculopathy, cervical region (principal)
CPT/HCPCS: 72050

== ENCOUNTER → 2020-07-18 11:15 | Outpatient (BNVA) | payer MEDICARE, SELFPAY | PROVIDERS: PCP Family Medicine; Visit Provider Nurse Practitioner | DX: Z20.828 Contact with and (suspected) exposure to other viral communicable diseases (principal); J20.9 Acute bronchitis, unspecified; J01.90 Acute sinusitis, unspecified | CPT/HCPCS: 87635 ==

== ENCOUNTER → 2020-08-02 14:04 | Outpatient (BNVA) | payer MEDICARE, SELFPAY | PROVIDERS: PCP Family Medicine; Visit Provider Anesthesiology Pain Medicine | DX: M47.816 Spondylosis without myelopathy or radiculopathy, lumbar region (principal); M54.9 Dorsalgia, unspecified | CPT/HCPCS: 64635; 64636; J1030 ==

== ENCOUNTER → 2020-08-16 09:32 | Outpatient (BNVA) | payer MEDICARE, SELFPAY | PROVIDERS: PCP Family Medicine; Visit Provider Anesthesiology Pain Medicine | DX: M79.18 Myalgia, other site (principal); M47.816 Spondylosis without myelopathy or radiculopathy, lumbar region; M51.17 Intervertebral disc disorders with radiculopathy, lumbosacral region; M54.9 Dorsalgia, unspecified; R51.9 Headache, unspecified; I61.9 Nontraumatic intracerebral hemorrhage, unspecified; M17.12 Unilateral primary osteoarthritis, left knee; F17.210 Nicotine dependence, cigarettes, uncomplicated; Z79.891 Long term (current) use of opiate analgesic | CPT/HCPCS: 20553; 99214; J1030; J3490 ==

== ENCOUNTER → 2020-08-21 11:50 | Outpatient (BNVA) | payer MEDICARE, SELFPAY | PROVIDERS: PCP Family Medicine; Visit Provider Anesthesiology Pain Medicine | DX: M47.816 Spondylosis without myelopathy or radiculopathy, lumbar region (principal); M54.9 Dorsalgia, unspecified; M17.12 Unilateral primary osteoarthritis, left knee; F17.210 Nicotine dependence, cigarettes, uncomplicated | CPT/HCPCS: 64635; 64636; J1030 ==

== ENCOUNTER 2020-08-29 16:34 | Observation (INO) | payer MEDICARE, SELFPAY ==
[2020-08-29] VITALS (9 sets, daily range): BP systolic 125–164; BP diastolic 66–84; PULSE 71–84; RESP 17–18; TEMP 36–37.2; O2SAT 92–98; BMI 45.5
--- NOTE | 2020-08-29 17:06 | ECG_ITS ---
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 Measurements Intervals [place] Rate: 72 P: 31 IN: 206 QRS: -11 QRSD: 106 T: 55 QT: 396 QTc: 435 Interpretive Statements SINUS RHYTHM WITH FIRST DEGREE AV BLOCK LOW QRS VOLTAGE IN PRECORDIAL LEADS [QRS DEFLECTION < 1.0 mV IN CHEST LEADS] INFERIOR MYOCARDIAL INFARCTION , OF INDETERMINATE AGE [40+ ms Q WAVE AND/OR ST/T ABNORMALITY IN II/aVF] Compared to ECG 02/28/2020 13:30:29 Myocardial infarct finding now present First degree AV block no longer present Electronically Signed On 08-29-2020 21:44:12 [employer] by Rosa Melgar M.D. [email or web address]
--- NOTE | 2020-08-29 17:06 | CTR_ITS ---
PROCEDURE INFORMATION: Exam: CT Head Without Contrast Exam date and time: 08/29/2020 5:08 PM Age: 70 years old Clinical indication: Speech disturbance; Other: Can't get thoughts out; Additional info: Symptoms of acute stroke TECHNIQUE: Imaging protocol: Computed tomography of the head without contrast. Radiation optimization: All CT scans at this facility use at least one of these dose optimization techniques: automated exposure control; mA and/or kV adjustment per patient size (includes targeted exams where dose is matched to clinical indication); or iterative reconstruction. COMPARISON: CT head wo con* [id number] 02/28/2020 1:04 PM RADIATION DOSE METRICS: Total DLP (mGy-cm): 741.71 FINDINGS: Brain: There are global involutional changes of the brain which are in keeping with the patient's age. Periventricular hypodensities are nonspecific but most likely reflect chronic microvascular ischemic disease. There is stable appearance of the previously described 4 mm hyperdensity in left frontal centrum semiovale. This likely reflects sequela remote prior parenchymal insult in this location. No acute intracranial hemorrhage identified. No abnormal extra-axial fluid collections are identified. No mass effect or midline shift is seen. Cerebral ventricles: No hydrocephalus. Bones/joints: No acute fracture. Paranasal sinuses: There is mild sinus mucosal disease, with no air-fluid level identified. Mastoid air cells: There is minimal partial opacification of the left mastoid air cells. CT/CT head wo con* [id number] IMPRESSION: 1. Stable appearance of previously described small hyperdensity in the left frontal centrum semiovale, likely sequela of remote prior parenchymal insult. 2. No acute hemorrhage, mass effect or midline shift. Radiation Dose CTDIVOL = (mGy): DLP = 741.71 (mGy-cm)
--- NOTE | 2020-08-29 17:06 | XR_ITS ---
WS: [id number] PORTABLE CHEST HISTORY: dyspnea COMPARISON: 02/28/2020 Lungs are clear and well expanded. No pleural effusion or pneumothorax. Cardiac size: Mildly enlarged cardiac silhouette. Mediastinum/Aorta: Mild atherosclerosis aorta. No osseous abnormality seen. XR/XR chest 1V portable [id number] IMPRESSION: Very mild cardiomegaly and atherosclerosis aorta.
--- NOTE | 2020-08-29 17:16 | W.ED.NEUROSD ---
HPI - Neuro Symptoms/Deficit General: Chief Complaint: Neuro Symptoms/Deficit Stated Complaint: Poss Stroke/ Confused/AMS Time Seen by Provider: 08/29/20 16:58 History of Present Illness: HPI Narrative: 70-year-old female who presented to the emergency room with length of right-sided weakness. Family found her at 2 PM this afternoon. They last had contact with her by phone and and knew her to be normal at 6 PM last night. She has weakness with arm drift on the right arm weakness in her legs as well complete inability to do [id number]. Initial head CT and labs done unremarkable. He reports previously having had a stroke although there is some confusion as to exactly what happened it was a mild brain bleed. Onset (ago): hour(s) (22+ hours) Time: 16:34 Last Observed Normal: 18:00 Timing confirmed by: family member Location: speech, left face, dysarthria, right arm, right leg, ataxia and altered History of same: No Severity: moderate Quality: weak and numb Relieving factors: none Exacerbating factors: none On Anticoagulants: No Associated symptoms: Reports anorexia, malaise and weakness; Deny chest pain, cough, diaphoresis, fevers/chills, headache(s), nausea, seizures, short of breath, syncope, tingling, vertigo or vomiting Treatments Prior to Arrival: none Review of Systems Const: Reports: malaise; Denies: diaphoresis ENMT: Denies: throat pain, ear or mastoid pain, nasal discharge or nasal congestion Card: Denies: chest pain or syncope Resp: Denies: dyspnea, productive cough or non-productive cough GI: Denies: nausea or vomiting : Denies: flank pain, difficulty voiding, dysuria, urinary frequency or urinary urgency Skin/Breast: Denies: rash or pruritus Neuro: Denies: headache(s) or vertigo PFS ED PFSH: Medical History Acute CVA (cerebrovascular accident) Benign essential HTN Fatty infiltration of liver Hyperlipidemia 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 Osteopenia Pain management contract signed Postmenopausal Sjogren's syndrome with keratoconjunctivitis sicca Spondylosis without myelopathy or radiculopathy, lumbosacral region TIA (transient ischemic attack) Type 2 diabetes mellitus without complications Unilateral primary osteoarthritis, left knee Vitamin D deficiency Surgical History H/O cornea transplant History of surgery on arm surgery on nerves History of toe surgery History of tonsillectomy S/P hysterectomy S/P knee replacement Status post removal of thyroid nodule Family History Father CAD (coronary artery disease) Mother Cancer Sister Cancer Brother Cancer Other Diabetes Lung disease Social History Smoking and tobacco status: current every day smoker cigarettes Packs smoked per day: 0.5 Quit status (tobacco): considering quitting Alcohol intake: never Lives independently: Yes Current occupational status: retired History of recent travel: No Female Reproductive History: Para: 2 Spontaneous abortions: Yes NIH stroke score NIHSS: Level Of Consciousness - 1a: 2 Level Of Consciousness Questions - 1b: One Correct Level Of Consciousness Commands - 1c: Both Correct Best Gaze - 2: Normal Visual Yu - 3: No Visual Loss Facial Palsy - 4: Minor Paralysis Motor Arm Right - 5: Drift Motor Arm Left - 5: No Drift Motor Leg Right - 6: Drift Motor Leg Left - 6: No Drift Limb Ataxia - 7: Present In Two Limbs Sensory - 8: Normal Best Language - 9: No Aphasia Dysarthia - 10: Mild/Moderate Dysarthia Extinction And Inattention - 11: 1 Score: Total Score: 10 Physical Exam Const: COMMON NORMALS: no acute distress GENERAL APPEARANCE: cooperative and comfortable HENMT: COMMON NORMALS: normocephalic, atraumatic, hearing grossly normal bilaterally, external ears normal, EAC's normal, TM's normal bilaterally, Normal nasal mucous membranes and turbinates present, moist oral mucous membranes and oropharynx normal HEAD & SCALP: normocephalic and atraumatic NOSE: Normal nasal mucous membranes and turbinates present EXTERNAL EAR: Yes external ears normal EXTERNAL AUDITORY CANAL: EAC's normal TYMPANIC MEMBRANE: TM's normal bilaterally Eye: COMMON NORMALS: Equal, round and reactive pupils present, EOMs intact bilaterally, conjunctivae normal and no scleral icterus CONJUNCTIVA: Yes conjunctivae normal PUPIL: Yes Equal, round and reactive pupils present Neck/C-Spine: COMMON NORMALS: full ROM, no lymphadenopathy, supple and no JVD Lymph: LYMPHATIC: no lymphadenopathy noted and no lymphedema noted Resp: COMMON NORMALS: normal respiratory effort, No retractions, No use of accessory muscles and clear to auscultation bilaterally AUSCULTATION: clear to auscultation bilaterally Cardio: COMMON NORMALS: no JVD, regular rate, regular rhythm and No murmurs present (Cardio) RATE: regular rate RHYTHM: regular rhythm GI: COMMON NORMALS: Soft to palpation and No hepatosplenomegaly present AUSCULTATION: Yes normoactive bowel sounds PALPATION: Yes Soft to palpation, No Tenderness to palpation present (GI), No Guarding due to palpation present (GI) and Yes No hepatosplenomegaly present Skin: COMMON NORMALS: no rashes or lesions noted GENERAL SKIN EXAM: no rashes or lesions noted Course Vital Signs: Vital signs: Vital Signs Temperature 98.9 F 08/30/20 07:50 Pulse Rate 70 08/30/20 12:46 Respiratory Rate 18 08/30/20 12:46 Blood Pressure 119/62 08/30/20 07:50 Pulse Oximetry 95 08/30/20 09:02 MDM - Neuro Symptoms/Deficit MDM Narrative: Medical decision making narrative: Patient to be admitted for acute CVA. She is little over 22 hours since her last known well. Her stroke score initially was 10. CTA was done was negative. She is not a candidate for TPA there is no identifiable thrombosis, and she has been on the window where we could safely get her to a facility where thrombectomy could be completed. We will go ahead and admit for acute new CVA discussed with the patient and with the family. Lab Data: Labs: Lab Results 08/29/20 08/29/20 08/29/20 Range/Units 17:10 17:10 17:10 WBC 12.9 H (4.0-10.0) 10^3/ uL RBC 4.84 (4.1-5.3) 10^6/u L Hgb 14.3 (11.5-15.3) g/dL Hct 44.7 (37.0-47.0) % MCV 92.4 (81-99) fL MCH 29.5 (28.0-34.0) pg MCHC 32.0 (30.0-36.0) g/dL RDW 14.8 (12.1-15.1) % Plt Count 298 (130-400) 10^3/c mm MPV 10.6 H (7.4-10.4) fL Neut % (Auto) 59.2 % Lymph % (Auto) 31.9 % [place] % (Auto) 6.5 % Eos % (Auto) 1.6 % Baso % (Auto) 0.5 % Neut # (Auto) 7.62 (1.8-7.7) 10^3/u L Lymph # (Auto) 4.1 (0.8-4.8) 10^3/u L [place] # (Auto) 0.8 (0.2-0.9) 10^3/u L Eos # (Auto) 0.2 (0.0-0.8) 10^3/u L Baso # (Auto) 0.1 (0.0-0.1) 10^3/u L Nucleated RBC % (a uto) 0 % Nucleated RBCs # 0.0 /100WBC PT 13.40 (12.1-14.9) SECO NDS INR 0.99 (0.8-1.2) APTT 30.8 (23.9-36.7) SECO NDS Sodium 138 (136-145) mmol/L Potassium 3.7 (3.5-5.1) mmol/L Chloride 100 (98-107) mmol/L Carbon Dioxide 28 (22-29) mmol/L Anion Gap 13.7 (5-19) BUN 15 (8-23) mg/dL Creatinine 0.9 (0.5-0.9) mg/dL GFR Calculation Not Reportable Glucose 142 H (65-115) mg/dL POC Glucose (70-110) mg/dL Calculated Osmolal ity 289 (285-295) mOsm/k g Calcium 9.1 (8.5-10.5) mg/dL Total Bilirubin 0.4 (0.15-1.2) mg/dL AST 17 (0-32) U/L ALT 22 (0-33) U/L Alkaline Phosphata se 88 (35-105) IU/L Total Protein 7.1 (6.6-8.7) g/dL Albumin 3.8 (3.5-5.2) g/dL Globulin 3.3 (1.3-4.6) g/dL 08/29/20 Range/Units 18:08 WBC (4.0-10.0) 10^3/ uL RBC (4.1-5.3) 10^6/u L Hgb (11.5-15.3) g/dL Hct (37.0-47.0) % MCV (81-99) fL MCH (28.0-34.0) pg MCHC (30.0-36.0) g/dL RDW (12.1-15.1) % Plt Count (130-400) 10^3/c mm MPV (7.4-10.4) fL Neut % (Auto) % Lymph % (Auto) % [place] % (Auto) % Eos % (Auto) % Baso % (Auto) % Neut # (Auto) (1.8-7.7) 10^3/u L Lymph # (Auto) (0.8-4.8) 10^3/u L [place] # (Auto) (0.2-0.9) 10^3/u L Eos # (Auto) (0.0-0.8) 10^3/u L Baso # (Auto) (0.0-0.1) 10^3/u L Nucleated RBC % (a uto) % Nucleated RBCs # /100WBC PT (12.1-14.9) SECO NDS INR (0.8-1.2) APTT (23.9-36.7) SECO NDS Sodium (136-145) mmol/L Potassium (3.5-5.1) mmol/L Chloride (98-107) mmol/L Carbon Dioxide (22-29) mmol/L Anion Gap (5-19) BUN (8-23) mg/dL Creatinine (0.5-0.9) mg/dL GFR Calculation Glucose (65-115) mg/dL POC Glucose 133 H (70-110) mg/dL Calculated Osmolal ity (285-295) mOsm/k g Calcium (8.5-10.5) mg/dL Total Bilirubin (0.15-1.2) mg/dL AST (0-32) U/L ALT (0-33) U/L Alkaline Phosphata se (35-105) IU/L Total Protein (6.6-8.7) g/dL Albumin (3.5-5.2) g/dL Globulin (1.3-4.6) g/dL Discharge Plan Discharge Patient Disposition: Placed in Observation Admit Provider: Manolo Kline Clinical Impression: Acute CVA (cerebrovascular accident), Benign essential HTN, Hyperlipidemia, Type 2 diabetes mellitus without complications, Morbid obesity with BMI of 45.0-49.9, adult Discharge Diet: Cardiac, Low Cholesterol and Low Fat Discharge Activity: Resume usual activity Coding Level of Care Code ED Channel Marketing Program Manager for Lori Montoya
[2020-08-29 17:22] LABS: Basophils # 0.1 10^3/uL (0.0-0.1); Basophils % 0.5 %; Eosinophils # 0.2 10^3/uL (0.0-0.8); Eosinophils % 1.6 %; Hematocrit 44.7 % (37.0-47.0); Hemoglobin 14.3 g/dL (11.5-15.3); Lymphocytes # 4.1 10^3/uL (0.8-4.8); Lymphocytes % 31.9 %; Mean Corpuscular Hemoglobin 29.5 pg (28.0-34.0); Mean Corpuscular Volume 92.4 fL (81-99); Mean Platelet Volume 10.6 fL (7.4-10.4); Monocytes # 0.8 10^3/uL (0.2-0.9); Monocytes % 6.5 %; Neutrophils # 7.62 10^3/uL (1.8-7.7); Neutrophils % 59.2 %; Nucleated Red Blood Cells % 0 %; Platelet Count 298 10^3/cmm (130-400); Red Blood Count 4.84 10^6/uL (4.1-5.3); Red Cell Distribution Width 14.8 % (12.1-15.1); White Blood Count 12.9 10^3/uL (4.0-10.0)
[2020-08-29 17:42] LABS: INR 0.99 (0.8-1.2)
[2020-08-29 17:43] LABS: Partial Thromboplastin Time 30.8 SECONDS (23.9-36.7)
[2020-08-29 17:47] LABS: Alanine Aminotransferase 22 U/L (0-33); Albumin Level 3.8 g/dL (3.5-5.2); Alkaline Phosphatase 88 IU/L (35-105); Anion Gap 13.7 (5-19); Aspartate Amino Transferase 17 U/L (0-32); Blood Urea Nitrogen 15 mg/dL (8-23); Calcium 9.1 mg/dL (8.5-10.5); Carbon Dioxide 28 mmol/L (22-29); Chloride 100 mmol/L (98-107); Globulin 3.3 g/dL (1.3-4.6); Glucose 142 mg/dL (65-115); Osmolality Calculated 289 mOsm/kg (285-295); Potassium 3.7 mmol/L (3.5-5.1); Sodium 138 mmol/L (136-145); Total Bilirubin 0.4 mg/dL (0.15-1.2); Total Protein 7.1 g/dL (6.6-8.7)
[2020-08-29 18:11] LABS: Glucose Point of Care 133 mg/dL (70-110)
--- NOTE | 2020-08-29 18:58 | P.HP_ITS ---
Providers/Chief Complaint Primary Care Provider: Lexy Bardales DO Chief Complaint: Poss Stroke/ Confused/AMS History of Present Illness Jacqueline Alcazar is a 70 year old female who presented today with chief complaint of slurred speech and right-sided weakness. Patient is stating that she woke up this morning and was not feeling well. She is describing feeling funny as lightheaded and dizzy. She went to the bathroom and then made coffee, for last few days her right shoulder has been very painful for which she took some Tylenol which seemed to relieve her pain, then she sat down in her chair to enjoy her coffee. Patient is stating that she is not able to recall what happened afterwards she had intermittent dizzy spells while she was sitting in a chair, when her granddaughter came to see her, her speech was mildly slurred and she was complaining of headache due to bright light. She was brought to the ER for further evaluation. Her symptoms resolved by the time she was evaluated in the ER at the time of my evaluation NIH score was 0 she was not a TPA candidate because of unknown last well time. CT head showed previous hyperdense stroke findings without acute pathological findings. I have requested CTA head and neck. EKG showing nonspecific T wave changes V1 V2 otherwise unremarkable for ischemic or infarct changes. Of note, 2 weeks ago she had left L3-S1 medial branch rhizotomy radiofrequency treatment, her right shoulder pain is chronic and she has been told it is due to her chronic degenerative spine disease Review of Systems Const: Reports: body aches, fatigue and malaise; Denies: fever(s) or chills Eyes: Reports: change in vision and seeing flashes ENMT: Denies: throat pain Card: Denies: chest pain Resp: Denies: dyspnea GI: Denies: abdominal pain : Denies: flank pain Musc: Denies: neck pain Skin/Breast: Denies: rash Neuro: Reports: headache(s), numbness in extremities, weakness in extremities, sensory changes and confusion Psych: Reports: anxiety Endo: Denies: polyuria Malcom/Lymph: Denies: easy bruising All/Imm: Denies: urticaria Medications/Allergies Home Medications Medication Instructions Recorded Confirmed Last Taken Type diphenhydramine HCl 25 mg tablet 50 mg PO ONCE PRN tab 07/08/19 08/21/20 Unknown History pantoprazole 40 mg tablet,delayed 40 mg PO DAILY #90 tab 09/07/19 08/21/20 02/28/20 Rx release lisinopril 40 mg tablet 40 mg PO DAILY #90 tab 01/27/20 08/21/20 02/28/20 Rx blood-glucose meter #1 each 02/10/20 08/21/20 Unknown Rx Test strips 1 strip MISCELLANEOUS .4 times 02/17/20 08/21/20 Unknown Rx daily #100 strip lancets #100 each 02/17/20 08/21/20 Unknown Rx cholecalciferol (vitamin D3) 50 mcg PO DAILY 02/28/20 08/21/20 02/28/20 History [Vitamin D3] qepzqzzu-zrt-kqlp-FA-lutein 1 tab PO DAILY 02/28/20 08/21/20 02/27/20 History [Centrum Silver Women] naloxone 4 mg/actuation nasal spray 4 mg INTRANASAL Q3M PRN #2 each 03/15/20 08/21/20 Unknown Rx triamcinolone acetonide 0.1 % 1 applic TOPICAL BID #30 gm 04/25/20 08/21/20 Unknown Rx topical ointment albuterol sulfate 2.5 mg INHALATION QID PRN #180 ml 05/25/20 08/21/20 Unknown Rx budesonide-formoterol HFA 160 2 puff INHALATION BID #10.2 g 05/31/20 08/21/20 Unknown Rx mcg-4.5 mcg/actuation aerosol inhaler hydrochlorothiazide 12.5 mg tablet 12.5 mg PO DAILY #30 tab 06/07/20 08/21/20 Unknown Rx gabapentin 300 mg capsule 600 mg PO BID cap 06/19/20 08/21/20 Unknown History duloxetine 60 mg capsule,delayed 60 mg PO DAILY #90 cap 06/27/20 08/21/20 Unknown Rx release lorazepam 0.5 mg tablet 0.5 mg PO DAILY PRN #30 tab 06/27/20 08/21/20 Unknown Rx sitagliptin 100 mg tablet 50 mg PO DAILY #90 tab 06/27/20 08/21/20 Unknown Rx trazodone 150 mg tablet 150 mg PO .qhs #30 tab 07/12/20 08/21/20 Unknown Rx sitagliptin 100 mg tablet 100 mg PO DAILY 07/17/20 08/21/20 Unknown History sitagliptin 50 mg tablet 50 mg PO DAILY 07/17/20 08/21/20 Unknown History amlodipine 10 mg tablet 10 mg PO DAILY #90 tab 08/01/20 08/21/20 Unknown Rx cyclobenzaprine 5 mg tablet 5 mg PO TID PRN 30 Days #90 tab 08/03/20 08/21/20 Unknown Rx gabapentin 600 mg tablet 600 mg PO QID 30 Days #120 tab 08/16/20 08/21/20 Unknown Rx morphine 15 mg immediate release 15 mg PO TID PRN 7 Days #21 tab 08/16/20 08/21/20 Unknown Rx tablet atorvastatin 40 mg tablet 40 mg PO .at bedtime #6 tab 08/24/20 Unknown Rx Allergies Allergy/AdvReac Type Severity Reaction Status Date / Time levofloxacin [From Levaquin] Allergy ALGY-Hives Verified 08/29/20 16:45 PFSH Acute PFSH: Medical History (Updated 08/29/20 @ 22:14 by Ana Cameron MD) Benign essential HTN Fatty infiltration of liver Hyperlipidemia 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 Osteopenia Pain management contract signed Postmenopausal Sjogren's syndrome with keratoconjunctivitis sicca Spondylosis without myelopathy or radiculopathy, lumbosacral region Type 2 diabetes mellitus without complications Unilateral primary osteoarthritis, left knee Vitamin D deficiency Surgical History H/O cornea transplant History of surgery on arm surgery on nerves History of toe surgery History of tonsillectomy S/P hysterectomy S/P knee replacement Status post removal of thyroid nodule Family History Father CAD (coronary artery disease) Mother Cancer Sister Cancer Brother Cancer Other Diabetes Lung disease Social History Smoking and tobacco status: current every day smoker cigarettes Packs smoked per day: 0.5 Quit status (tobacco): considering quitting Alcohol intake: never Lives independently: Yes Current occupational status: retired History of recent travel: No Female Reproductive History: Para: 2 Spontaneous abortions: Yes Vitals/I&O/Wt Last Vital Signs Temp 96.8 F L 08/29/20 16:36 Pulse 71 08/29/20 18:31 Resp 17 08/29/20 18:31 BP 164/79 08/29/20 18:31 Pulse Ox 96 08/29/20 18:31 Weight last 48 hrs Weight 112.945 kg Physical Exam Narrative: EXAM NARRATIVE: Very pleasant elderly female who appears more than stated age Currently not in any distress laying in her bed without any active neurological signs or symptoms NIH is 0 S1, S2 sinus rhythm Abdomen soft distended central obesity nontender Lower extremity no edema gangrene ulcer Patient has irritable mood due to her forgetfulness otherwise able to mention above HPI No skin ulcer or gangrene or cyanosis noted No joint swelling No acute respiratory distress No cerebellar signs Pupils are equal and reactive and symmetrical no scleral icterus or hyperemia Data : 08/29/20 17:10 08/29/20 17:10 A&P Assessment and plan (1) TIA (transient ischemic attack): NIH 0, her symptoms have resolved, CT head unremarkable however showing hyperdense chronic hemorrhagic infarct finding in left frontal lobe, which might be contributing to her intermittent confusion and dizzy spells however she has good insight and pleasant to communicate, I do not see any red flags regarding her personality change We will start her on dual antiplatelet therapy and high-dose statins however her NIH is 0 CT head and neck has been requested by ER physician I do not think she will need speech evaluation she has no slurred speech at the time of my evaluation, Physical therapy evaluation in the morning Status: Acute Additional A&P Information Degenerative joint disease: Has chronic right shoulder pain recently had rhizotomy from lumbar to sacral area for chronic back pain Insomnia: She uses trazodone at night Opiate dependence for back pain: Judicious use of opioids to avoid sed[facility] Full code Cardiac diet DVT prophylaxis Lovenox Attestations Medical Necessity Statement*: Anticipating discharge in less than 48 hours will need overnight monitoring of physical therapy evaluation the morning after recent TIA Time Spent in Patient Care: (>than 50% of time spent in counselling and/or direct pt care on unit) . 50mins Coding Level of Care Code Acute Fire Prevention Specialist for Chg Fwd Diagnoses TIA (transient ischemic attack) G45.9
--- NOTE | 2020-08-29 22:20 | CTR_ITS ---
PROCEDURE INFORMATION: Exam: CT Angiography Head With Contrast Exam date and time: 08/29/2020 10:28 PM Age: 70 years old Clinical indication: Cognitive deficit and numbness; Altered mental status; Prior surgery; Surgery type: Thyroid; Patient HX: Having trouble getting thoughts out. C/O weakness with right arm tingling. ; Additional info: GOLDEN TECHNIQUE: Imaging protocol: Computed tomography angiography of the head with intravenous contrast. 3D rendering (Not supervised by radiologist): MIP and/or 3D reconstructed images were created by the technologist. Radiation optimization: All CT scans at this facility use at least one of these dose optimization techniques: automated exposure control; mA and/or kV adjustment per patient size (includes targeted exams where dose is matched to clinical indication); or iterative reconstruction. Contrast material: OMNI 350; Contrast volume: 95 ml; Contrast route: INTRAVENOUS (IV); COMPARISON: CT head wo con* [id number] 08/29/2020 5:37 PM RADIATION DOSE METRICS: Total DLP (mGy-cm): 2414.28 FINDINGS: ANTERIOR CIRCULATION: Right internal carotid artery: Calcified plaque causes mild stenosis of the right intracranial ICA. Right middle cerebral artery: Unremarkable. No occlusion or significant stenosis. No aneurysm. Right anterior cerebral artery: Unremarkable. No occlusion or significant stenosis. No aneurysm. Left internal carotid artery: Calcified plaque causes mild stenosis of the left intracranial ICA. Left middle cerebral artery: Unremarkable. No occlusion or significant stenosis. No aneurysm. Left anterior cerebral artery: Unremarkable. No occlusion or significant stenosis. No aneurysm. POSTERIOR CIRCULATION: Right vertebral artery: Unremarkable. No occlusion or significant stenosis. No aneurysm. Left vertebral artery: Unremarkable. No occlusion or significant stenosis. No aneurysm. Basilar artery: Unremarkable. No occlusion or significant stenosis. No aneurysm. Right posterior cerebral artery: Unremarkable. No occlusion or significant stenosis. No aneurysm. Left posterior cerebral artery: Unremarkable. No occlusion or significant stenosis. No aneurysm. 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 PROCEDURE INFORMATION: Exam: CT Angiography Neck With Contrast Exam date and time: 08/29/2020 10:28 PM Age: 70 years old Clinical indication: Cognitive deficit and numbness; Altered mental status; Prior surgery; Surgery type: Thyroid; Patient HX: Having trouble getting thoughts out. C/O weakness with right arm tingling. ; Additional info: GOLDEN TECHNIQUE: Imaging protocol: Computed tomography angiography of the neck with intravenous contrast. 3D rendering (Not supervised by radiologist): MIP and/or 3D reconstructed images were created by the technologist. Radiation optimization: All CT scans at this facility use at least one of these dose optimization techniques: automated exposure control; mA and/or kV adjustment per patient size (includes targeted exams where dose is matched to clinical indication); or iterative reconstruction. Contrast material: OMNI 350; Contrast volume: 95 ml; Contrast route: INTRAVENOUS (IV); COMPARISON: CT head wo con* [id number] 08/29/2020 5:37 PM RADIATION DOSE METRICS: Total DLP (mGy-cm): 2414.28 FINDINGS: Right common carotid artery: No stenosis. No dissection or occlusion. Right internal carotid artery: Calcified plaque causes mild less than 50% stenosis of the right proximal ICA. Right external carotid artery: No occlusion or stenosis of the origin. Right vertebral artery: No stenosis. No dissection or occlusion. Left common carotid artery: No stenosis. No dissection or occlusion. Left internal carotid artery: Calcified plaque causes mild less than 50% stenosis of the left proximal ICA. Left external carotid artery: No occlusion or stenosis of the origin. Left vertebral artery: No stenosis. No dissection or occlusion. CT/CT angio headneck* [id number] IMPRESSION: Mild less than 50% stenosis of the proximal ICAs bilaterally. REFERENCES: NASCET CRITERIA. The degree of internal carotid artery stenosis is based on NASCET criteria. Normal is no stenosis. Mild is less than 50% stenosis. Moderate is 50-69% stenosis. Severe is 70% to 99% stenosis. Total occlusion is no detectable patent lumen. Radiation Dose CTDIVOL = (mGy): DLP = 2414.28~2414.28 (mGy-cm)
[2020-08-29 22:21] LABS: Urine Appearance Hazy (CLEAR); Urine Color Yellow (Yellow)
[2020-08-29 22:22] LABS: Add Urine Microscopic? YES; Bilirubin Urine Neg (Negative); Blood Urine Neg (Negative); Glucose Urine UA Norm (Normal); Ketones Urine Negative (Negative); Leukocyte Esterase Urine Negative (Negative); Nitrate Urine Negative (Negative); Protein Urine Neg (Negative); Urobilinogen Urine Norm (Negative); pH Urine 5 (5-7)
[2020-08-29 22:36] LABS: Add Urine Culture? No; Bacteria Urine 2+ /hpf; Calcium Oxalate Crystals Urine 55-80 /hpf; RBC Urine 0-4 /hpf (0-2); Squamous Epithelial Cell Urine 15-25 /hpf (0-5); Transitional Epi Cells Urine 0-4 /hpf
[2020-08-29 22:43] LABS: Amphetamines Screen Urine Negative (Negative); Barbiturates Screen Urine Negative (Negative); Benzodiazepines Screen Urine Positive (Negative); Cocaine Screen Urine Negative (Negative); Opiate Screen Urine Negative (Negative); PCP Screen Urine Negative (Negative); THC Screen Urine Negative (Negative)
[2020-08-29] MEDS: iohexol 350 mg/mL 100 mL Btl IV (22:58)
[2020-08-29] MEDS: atorvastatin 40 mg Tablet 80 MG PO (23:32)
[2020-08-30] VITALS (7 sets, daily range): BP systolic 107–119; BP diastolic 62–68; PULSE 70–85; RESP 18; TEMP 37.2; O2SAT 91–95
--- NOTE | 2020-08-30 00:23 | PC.NURSE ---
spoke with Dr. Cameron regarding this patient's trazodone. Dr. Cameron restarted this medication however it was after the cut off for the patient to receive the dose tonight. A one time order for trazodone for now was ordered for the patient.
[2020-08-30] MEDS: trazodone 150 mg Tablet PO (00:48)
[2020-08-30 06:10] LABS: Basophils # 0.1 10^3/uL (0.0-0.1); Basophils % 0.8 %; Eosinophils # 0.2 10^3/uL (0.0-0.8); Eosinophils % 1.5 %; Hemoglobin 12.6 g/dL (11.5-15.3); Lymphocytes # 4.2 10^3/uL (0.8-4.8); Lymphocytes % 39.5 %; Mean Corpuscular HGB Conc 32.3 g/dL (30.0-36.0); Mean Corpuscular Hemoglobin 29.6 pg (28.0-34.0); Mean Corpuscular Volume 91.8 fL (81-99); Mean Platelet Volume 11.2 fL (7.4-10.4); Monocytes # 0.7 10^3/uL (0.2-0.9); Neutrophils # 5.38 10^3/uL (1.8-7.7); Nucleated Red Blood Cells % 0 %; Platelet Count 273 10^3/cmm (130-400); Red Blood Count 4.25 10^6/uL (4.1-5.3); Red Cell Distribution Width 14.8 % (12.1-15.1); White Blood Count 10.6 10^3/uL (4.0-10.0)
[2020-08-30 06:50] LABS: Blood Urea Nitrogen 15 mg/dL (8-23); Calcium 9.1 mg/dL (8.5-10.5); Carbon Dioxide 28 mmol/L (22-29); Chloride 101 mmol/L (98-107); Glucose 107 mg/dL (65-115); Osmolality Calculated 289 mOsm/kg (285-295); Sodium 139 mmol/L (136-145); Thyroid Stimulating Hormone 0.35 uIU/mL (0.27-4.20)
[2020-08-30 07:09] LABS: Glucose Point of Care 129 mg/dL (70-110)
[2020-08-30] MEDS: aspirin 81 mg EC Tablet PO (10:49)
[2020-08-30] MEDS: duloxetine 60 mg Capsule PO (10:50)
[2020-08-30] MEDS: pantoprazole DR 40 mg Tablet PO (10:50)
[2020-08-30] MEDS: clopidogrel 75 mg Tablet PO (10:50)
[2020-08-30] MEDS: lisinopril 20 mg Tablet 40 MG PO (10:50)
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
== END 2020-08-30 12:30 | disposition home or self-care (01) ==
LOC: ER 18:18 → MEDSURG 08-30 08:05
PROVIDERS: Internal Medicine; Admitting Provider Internal Medicine; Emergency Provider Family Medicine; PCP Family Medicine; Visit Provider Internal Medicine
DX: G45.9 Transient cerebral ischemic attack, unspecified (principal); E78.5 Hyperlipidemia, unspecified; I10 Essential (primary) hypertension; E11.9 Type 2 diabetes mellitus without complications; F17.210 Nicotine dependence, cigarettes, uncomplicated
CPT/HCPCS: 36415; 36416; 70450; 70496; 70498; 71045; 80048; 80053; 80306; 81001; 82962; 84443; 85025; 85610; 85730; 93005; 99285; G0378; Q9967

== ENCOUNTER → 2020-09-05 11:02 | Outpatient (BNVA) | payer MEDICARE, SELFPAY | PROVIDERS: PCP Family Medicine; Visit Provider Anesthesiology Pain Medicine | DX: M17.12 Unilateral primary osteoarthritis, left knee (principal); M54.16 Radiculopathy, lumbar region; M54.12 Radiculopathy, cervical region; M47.816 Spondylosis without myelopathy or radiculopathy, lumbar region; M54.9 Dorsalgia, unspecified; I61.9 Nontraumatic intracerebral hemorrhage, unspecified; I10 Essential (primary) hypertension; M62.830 Muscle spasm of back; E11.40 Type 2 diabetes mellitus with diabetic neuropathy, unspecified; F17.210 Nicotine dependence, cigarettes, uncomplicated | CPT/HCPCS: 20610; 99214; J1030; J3490 ==

== ENCOUNTER 2020-10-02 13:10 | Outpatient (CLI) | payer MEDICARE, SELFPAY ==
--- NOTE | 2020-10-02 13:45 | MR_ITS ---
WS: [id number] MRI BRAIN WITHOUT CONTRAST HISTORY: acute cva COMPARISON: 05/16/[address] head 08/29/2020 TECHNIQUE: Diffusion imaging, multiplanar T1, T2 and FLAIR imaging obtained. No evidence for an acute infarct. Susceptibility weighted imaging is positive in the posterior LEFT f rontal lobe. Hemosiderin measuring 7 mm has been noted on prior studies. Thought to be a cavernoma wi th a small venous angioma. No increase in size or acute hemorrhage. There is extensive confluent and patchy T2 and FLAIR signal hyperintensities throughout the white matter. No prior large territory inf arct. Mild bilateral symmetric atrophy is stable. Ventricles and extra-axial spaces are normal. No inferior displacement of cerebellar tonsils. The sella turcica and pituitary gland are unremarkabl e. Posterior fossa is also unremarkable. Dural venous sinuses and oneida of Silva demonstrate no abnormality on this unenhanced studies. Paranasal sinuses: Clear. Mastoid air cells: Normal. Calvarium and scalp: Intact. MR/MR head wo con* [id number] IMPRESSION: 1. No evidence for an acute infarct or hemorrhage. 2. Susceptibility artifact in the posterior LEFT frontal lobe has been previou s the described consistent with a cavernous malformation. No acute hemorrhage. 3. Advanced chronic microvascular ischemic disease similar to the prior study from 05/16/2020.
--- NOTE | 2020-10-02 14:53 | USCV_ITS ---
Jacqueline Alcazar Age: 70 Gender: F : 1950 Exam Date: 10/02/2020 15:09 Ordering Phys: Lexy Bardales DO Technologist: MARY Exam Location: [facility] [place] Indication: CVA BP: 153 / 79 HR: 80 Rhythm: Sinus Technical Quality: Technically difficult study MEASUREMENTS (Male / Female) Normal Values 2D ECHO LV Diastolic Diameter PLAX 3.5 cm 4.2 - 5.9 / 3.9 - 5.3 cm LV Systolic Diameter PLAX 2.3 cm LV Chamber Size 2.9 cm IVS Diastolic Thickness 1.4 cm 0.6 - 1.0 / 0.6 - 0.9 cm IVS Systolic Thickness 1.4 cm LVPW Diastolic Thickness 1.4 cm 0.6 - 1.0 / 0.6 - 0.9 cm LVPW Systolic Thickness 1.6 cm RV Chamber Size 3.5 cm LVOT Diameter 2.1 cm LV Ejection Fraction 2D Teich 67.1 % LV Ejection Fraction MOD 2C 54.7 % LV Ejection Fraction 2C AL 53.1 % LA Diameter 2.5 cm LA Width 3.3 cm LA Height 4.6 cm RA Width 3.3 cm RA Height 3.4 cm Aorta at Sinotubular Diameter 2.7 cm M-MODE LV Diastolic Diameter MM 4.4 cm 4.2 - 5.9 / 3.9 - 5.3 cm LV Systolic Diameter MM 2.9 cm LV Ejection Fraction MM Teich 65.2 % IVS Diastolic Thickness MM 1.2 cm 0.6 - 1.0 / 0.6 - 0.9 cm IVS Systolic Thickness MM 1.1 cm LVPW Diastolic Thickness MM 1.1 cm 0.6 - 1.0 / 0.6 - 0.9 cm LVPW Systolic Thickness MM 2.2 cm Aortic Annulus Diameter 3.3 cm LA Ao Ratio MM 0.9 MV E Point Septal Separation 0.3 cm DOPPLER AV Peak Velocity 162.0 cm/s LVOT Peak Velocity 121.0 cm/s AV Area Cont Eq vti 3.0 cm squared AV Area Cont Eq pk 2.5 cm squared MV Area PHT 3.0 cm squared Mitral E to A Ratio 0.7 MV E' Velocity 38.0 cm/s Mitral E to MV E' Ratio 13.6 Mitral E to LV E' Lateral Ratio 16.3 Mitral E to LV E' Septal Ratio 11.6 TR Peak Velocity 137.6 cm/s TR Peak Gradient 7.6 mmHg TR Mean Velocity 111.2 cm/s TR Mean Gradient 5.4 mmHg TR Velocity Time Integral 36.6 cm TV Peak E Velocity 75.0 cm/s PV Peak Velocity 127.0 cm/s FINDINGS Left Ventricle Normal left ventricular size and systolic function, EF 65 %. No regional wall motion abnormalities. Mild left ventricular hypertrophy. Grade I/IV diastolic dysfunction (abnormal relaxation filling pattern), normal to mildly elevated filling pressures. Right Ventricle The right ventricle is normal in size and function. Right Atrium The right atrium is normal in size. Left Atrium Mildly increased left atrial size. Mitral Valve No gross abnormalities noted Aortic Valve No gross abnormalities noted Tricuspid Valve Trace to mild tricuspid valve regurgitation. Pulmonic Valve Not visualized well Pericardium Normal pericardium without effusion. Aorta Normal ascending aorta dimension. CONCLUSIONS Normal left ventricular size and systolic function, EF 65 %. No regional wall motion abnormalities. Mild left ventricular hypertrophy. Grade I/IV diastolic dysfunction (abnormal relaxation filling pattern), normal to mildly elevated filling pressures. Normal chamber sizes. No significant stenotic or regurgitant lesions. Tachycardic masses. No significant pericardial effusion Dr Greyson Klein MD FACC (Electronically Signed) Final Date: 02 October 2020 18:33 S
== END 2020-10-02 13:11 | disposition home or self-care (01) ==
LOC: RADSHAW 13:11
PROVIDERS: PCP Family Medicine; Visit Provider Family Medicine
DX: I63.9 Cerebral infarction, unspecified (principal); I67.82 Cerebral ischemia
CPT/HCPCS: 70551; 80053; 93306

== ENCOUNTER 2020-10-03 15:42 | Outpatient (CLI) | payer MEDICARE, SELFPAY ==
--- NOTE | 2020-10-03 16:00 | MR_ITS ---
WS: [id number] MRI CERVICAL SPINE NONCONTRAST HISTORY: M54.12 - Radiculopathy, cervical region COMPARISON: None available. Technique: Multiplanar, multisequence noncontrast imaging of the cervical spine. Moderate straightening of the normal cervical lordosis may be positional or due to spasm. Very mild d isc space narrowing and desiccation with osteophytes. Most significant osteophytosis at C5 and C6. Signal within the cervical cord is normal. Visualized posterior fossa is unremarkable. Craniocervical junction, C1 and C2 relationship, odontoid process and soft tissues are normal. C2-C3: Normal. C3-C4: Annular disc bulge with a central disc protrusion causing near contact upon the cord. No displ acement or high-grade stenosis. C4-C5: Diffuse annular disc bulge. Central disc protrusion with minimal encroachment upon the ventral thecal sac. C5-C6: Mild annular disc bulging and osteophytic ridging. Very mild central stenosis. No foraminal st enosis. C6-C7: Diffuse osteophytic ridging and annular disc bulging. Near complete effacement of ventral CSF. Smaller disc osteophyte in the foramen. Mild central and bilateral foraminal stenosis. C7-T1: Normal. Paraspinal soft tissue are normal. MR/MR cervical spin wo con* [id number] IMPRESSION: 1. No severe central or foraminal stenosis. 2. Multilevel mild spondylosis with no fractures. 3. Mild central and bilateral foraminal stenosis at C6-7 due to disc osteophyt e disease. 4. Small central disc protrusions at C3-4 and C4-5 with minimal encroachment u chely the ventral thecal sac. 5. Very minimal central stenosis at C5-6.
--- NOTE | 2020-10-03 16:45 | MR_ITS ---
WS: [id number] MRI LUMBAR SPINE NONCONTRAST HISTORY: M54.16 - Radiculopathy, lumbar region COMPARISON: 10/28/2017 TECHNIQUE: Sagittal and axial multisequence imaging is submitted. Mild S-shaped curvature thoracolumbar spine. No fractures. L4 anterolisthesis by 2 mm. 2 mm retrolisthesis of L1 and L2. Mild disc desiccation throughout the solo mbar spine with no fractures or marrow edema. Benign incidental hemangioma at T10. Conus terminates normally at L1. L1-L2: Moderate diffuse annular disc bulging slightly asymmetric to the LEFT. No focal disc protrusio ns. Mild progression of disc bulging since the prior study. Mild encroachment into the LEFT foramen w ith only minimal narrowing. L2-L3: Diffuse moderate annular disc bulging. New focal protrusion in the LEFT foramen abutting the u ndersurface of the L2 nerve root. There is mild disc encroachment upon the subarticular foramen with mild progression since the prior study, especially on the LEFT. L3-L4: Moderate annular disc bulge with mild facet and ligamentum flavum hypertrophy. Increase fluid in the facet joints. Bilateral foraminal stenosis is mild to moderate without change. L4-L5: Moderate diffuse annular disc bulging with marked ligamentum flavum hypertrophy and facet arth ritis. Nerve roots are becoming clumped within the periphery of the thecal sac. Mild central and LEFT foraminal stenosis. More moderate stenosis in the RIGHT foramen and contact on the L4 nerve root. Th ere is also narrowing of the subarticular recesses. L5-S1: Mild annular disc bulging. No focal protrusions. Increased fat within the renal sinuses. MR/MR lumbar spine wo con* [id number] IMPRESSION: 1. New disc protrusion in the LEFT foramen and subarticular recess at L2-3 enc roaching upon the L2 and L3 nerve roots. Only mild stenosis. 2. Mild central and bilateral subarticular recess stenosis with LEFT foraminal stenosis at L4-5 with moderate RIGHT foraminal stenosis. 3. Mild to moderate bilateral foraminal stenosis at L3-4 without significant c hange. 4. Facet joint arthritis is most significant at the L4-5 level.
== END 2020-10-03 15:43 | disposition home or self-care (01) ==
LOC: RADSHAW 15:45
PROVIDERS: PCP Family Medicine; Visit Provider Anesthesiology Pain Medicine
DX: M54.12 Radiculopathy, cervical region (principal); M51.26 Other intervertebral disc displacement, lumbar region; M48.061 Spinal stenosis, lumbar region without neurogenic claudication; M47.816 Spondylosis without myelopathy or radiculopathy, lumbar region
CPT/HCPCS: 72141; 72148

== ENCOUNTER → 2020-10-09 10:16 | Outpatient (BNVA) | payer MEDICARE, SELFPAY | PROVIDERS: PCP Family Medicine; Visit Provider Family Medicine | DX: N39.46 Mixed incontinence (principal); E78.5 Hyperlipidemia, unspecified; F17.219 Nicotine dependence, cigarettes, with unspecified nicotine-induced disorders | CPT/HCPCS: 80061 ==

== ENCOUNTER → 2020-10-24 09:22 | Outpatient (BNVA) | payer MEDICARE, SELFPAY | PROVIDERS: PCP Family Medicine; Visit Provider Anesthesiology Pain Medicine | DX: M51.17 Intervertebral disc disorders with radiculopathy, lumbosacral region (principal); M47.816 Spondylosis without myelopathy or radiculopathy, lumbar region; M54.9 Dorsalgia, unspecified; M17.12 Unilateral primary osteoarthritis, left knee; I61.9 Nontraumatic intracerebral hemorrhage, unspecified; I10 Essential (primary) hypertension; E11.40 Type 2 diabetes mellitus with diabetic neuropathy, unspecified; M62.830 Muscle spasm of back; F17.210 Nicotine dependence, cigarettes, uncomplicated; Z79.891 Long term (current) use of opiate analgesic | CPT/HCPCS: 99215 ==

== ENCOUNTER → 2020-11-16 10:31 | Outpatient (BNVA) | payer MEDICARE, SELFPAY | PROVIDERS: PCP Family Medicine; Referring Provider Anesthesiology Pain Medicine; Visit Provider Orthopaedic Surgery | DX: M54.16 Radiculopathy, lumbar region (principal) | CPT/HCPCS: 72110 ==

== ENCOUNTER → 2020-11-17 09:29 | Outpatient (BNVA) | payer MEDICARE, SELFPAY | PROVIDERS: PCP Family Medicine; Visit Provider Psychiatry & Neurology Psychiatry | DX: F41.1 Generalized anxiety disorder (principal); F33.1 Major depressive disorder, recurrent, moderate | CPT/HCPCS: 90792 ==

== ENCOUNTER → 2020-11-21 10:36 | Outpatient (BNVA) | payer MEDICARE, SELFPAY | PROVIDERS: PCP Family Medicine; Visit Provider Anesthesiology Pain Medicine | DX: M51.17 Intervertebral disc disorders with radiculopathy, lumbosacral region (principal); M47.816 Spondylosis without myelopathy or radiculopathy, lumbar region; M54.9 Dorsalgia, unspecified; M17.12 Unilateral primary osteoarthritis, left knee; R51.9 Headache, unspecified; M62.830 Muscle spasm of back; E11.40 Type 2 diabetes mellitus with diabetic neuropathy, unspecified; F17.210 Nicotine dependence, cigarettes, uncomplicated | CPT/HCPCS: 99213 ==

== ENCOUNTER → 2020-12-15 14:00 | Outpatient (BNVA) | payer MEDICARE, SELFPAY | PROVIDERS: PCP Family Medicine; Visit Provider Orthopaedic Surgery | DX: Z01.812 Encounter for preprocedural laboratory examination (principal); Z20.822 Contact with and (suspected) exposure to COVID-19 | CPT/HCPCS: 87635 ==

== ENCOUNTER → 2020-12-18 14:49 | Outpatient (BNVA) | payer MEDICARE, SELFPAY | PROVIDERS: PCP Family Medicine; Visit Provider Family Medicine | DX: N28.9 Disorder of kidney and ureter, unspecified (principal); E86.0 Dehydration; N10 Acute pyelonephritis | CPT/HCPCS: 80048 ==

== ENCOUNTER 2020-12-20 09:45 | Day surgery (SDC) | payer MEDICARE, SELFPAY ==
[2020-12-19 10:59] VITALS: BMI 45.7
--- NOTE | 2020-12-19 11:25 | P.ANESASSM_ITS ---
Pre-Anesthetic Assessment Pre-Anesthetic Assessment: Height/Weight: Height 1.57 m Weight 113.398 kg Preop Diagnosis: lumbar stenosis Proposed Procedure: Operation Date: 12/20/20 14:40 Proposed Procedures p Lumbar Spine Decompression [id number] M47.816 L4/5(Not Applicable) - Etienne Moy DO Familial anesthetic complications: None Social: Social History: No alcohol and No tobacco Exam: Pre-Anes Outpt Exam: alert, oriented x 3, clear to auscultation bilaterally and regular rate & rhythm Airway: Cervical ROM: WNL MP: 4 Dentition: Other (bridge) Additional comments: small mouht opening Pulmonary: Pulmonary: COPD Comments: former smoker CV/HEM: CV/HEM: None reported Comments: Recent hypotensive episode associated w/ possible bacteremia/sepsis - they stopped her lisinopril 10 mg, but is going to restart at a lower dose hx rheumatic fever Echo CONCLUSIONS Normal left ventricular size and systolic function, EF 65 %. No regional wall motion abnormalities. Mild left ventricular hypertrophy. Grade I/IV diastolic dysfunction (abnormal relaxation filling pattern), normal to mildly elevated filling pressures. Normal chamber sizes. No significant stenotic or regurgitant lesions. Tachycardic masses. 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 Osteopenia Pain management contract signed Postmenopausal Sjogren's syndrome with keratoconjunctivitis sicca Spondylosis without myelopathy or radiculopathy, lumbosacral region TIA (transient ischemic attack) Type 2 diabetes mellitus without complications Unilateral primary osteoarthritis, left knee Vitamin D deficiency Surgical History H/O cornea transplant History of surgery on arm surgery on nerves History of toe surgery History of tonsillectomy S/P hysterectomy S/P knee replacement Status post removal of thyroid nodule Family History Father CAD (coronary artery disease) Mother Cancer Sister Cancer Brother Cancer Other Diabetes Lung disease Social History Smoking and tobacco status: former smoker Quit status (tobacco): has quit using tobacco Alcohol intake: never Lives independently: Yes Current occupational status: retired History of recent travel: No Female Reproductive History: Para: 2 Spontaneous abortions: Yes Data Anesthesia CBC & Chem 7: 12/19/20 11:15 Cardiac Studies: No Data to Display
[2020-12-19 11:35] LABS: Chloride 99 mmol/L (98-107); Potassium 4.3 mmol/L (3.5-5.1); Sodium 138 mmol/L (136-145)
[2020-12-19 11:43] LABS: Anion Gap 17.4 (5-19); Blood Urea Nitrogen 20 mg/dL (8-23); Calcium 9.2 mg/dL (8.5-10.5); Carbon Dioxide 26 mmol/L (22-29); Glucose 126 mg/dL (65-115); Osmolality Calculated 290 mOsm/kg (285-295)
[2020-12-20] VITALS (8 sets, daily range): BP systolic 122–182; BP diastolic 70–103; PULSE 81–97; RESP 18–20; TEMP 36.2–36.9; O2SAT 95–98
--- NOTE | 2020-12-20 | XR_ITS ---
WS: [id number] Lumbar spine, C-arm fluoroscopy, 12/20/2020 Clinical Data: LUMBAR DECOMPRESSION Comparison: Lumbar spine, 11/16/2020. Findings: A lumbar decompression at L4-L5 versus performed by Dr. Moy. XR/XR lumbar spine 2-3V* [id number] Impression: Lumbar decompression of L4-L5.
--- NOTE | 2020-12-20 | SCC_ITS ---
Procedure: L4/5 Laminectomy with Bilateral partial facetectomy 12 seconds of fluoroscopic guidance, for a cumulative dose of 4.79 mGy, was provided to Dr. Moy by the radiology department. C-arm images of the lumbar spine were saved for the patient's permanent record. [facility] [place] DIVISIONMarisol
[2020-12-20] MEDS: sodium chloride 0.9% 1,000 ML 30 ML IV (10:32)
[2020-12-20 10:33] LABS: Glucose Point of Care 173 mg/dL (70-110)
--- NOTE | 2020-12-20 10:35 | P.ANESUD_ITS ---
Pre-Anesthetic Update Pre-Anesthetic Assessment: Date of Surgery/Procedure: 12/20/20 Preop Shania gnosis: lumbar stenosis Proposed Procedure: Operation Date: 12/20/20 11:10 Proposed Procedures p Lumbar Spine Decompression [id number] M47.816 L4/5(Not Applicable) - Etienne Moy, DO Any changes to Pre-Anesthetic Assessment?: No Last Intake: Intake Last Liquid Date 12/19/20 Last Liquid Time 21:30 Last Solid Date 12/19/20 Last Solid Time 19:30 Labs Last 48hrs: Laboratory Results - last 48 hr 12/19/20 12/20/20 11:15 10:25 Sodium 138 Potassium 4.3 Chloride 99 Carbon Dioxide 26 Anion Gap 17.4 BUN 20 Creatinine 0.9 GFR Calculation Not Reportable Glucose 126 H POC Glucose 173 H Calculated Osmolal ity 290 Calcium 9.2 Vitals: Temperature 97.4 F L 12/20/20 10:13 Temperature Source Temporal Artery S can 12/20/20 10:13 Pulse Rate 84 12/20/20 10:13 Respiratory Rate 18 12/20/20 10:13 Blood Pressure 144/86 12/20/20 10:13 Blood Pressure Keyla n 105 12/20/20 10:13 Pulse Oximetry 95 12/20/20 10:13 Oxygen Delivery Me thod 12/20/20 10:19 Exam: Pre-Anes Outpt Exam: alert, oriented x 3, clear to auscultation bilaterally and regular rate & rhythm Cardiac Studies: No Data to Display
--- NOTE | 2020-12-20 10:41 | P.HP_ITS ---
Providers/Chief Complaint Primary Care Provider: Lexy Bardales DO Chief Complaint: lumbar decompression History of Present Illness Jacqueline Alcazar is a 70 year old female patient states she complains of low back pain, they believed it to be osteoarthritis Onset: years ago, 40 years ago patient fell off of chair and had to be hospi talized and put into traction to realign spine Duration: constant Characteristics: sharp, mostly aching Severity: 04/22 Location: lower right side of back Radiating symptoms: left side of the lower back, tailbone, and legs Aggravating factors: movement Alleviating factors: position Neuro deficits: patient states she has numbness, weakness in her right foot but tingling, incontinence of bowel/bladder, saddle anesthesia. Prior tx: Radiofrequency ablation Associated symptoms: Denies chills or feve r(s) Review of Systems Narrative: General ROS: negative for weight changes, fever ENT ROS: negative for nasal congestion, drainage or bleeding, sore throat, dysphagia or ear pain Eyes: PERRL Hematological and Lymphatic ROS: negative for swollen glands or abnormal bleeding Endocrine ROS: negative for polyuria/polydpsia or new changes in weight Respiratory ROS: negative for cough, shortness of breath, or wheezing Cardiovascular ROS: negative for chest pain or dyspnea on exertion Gastrointestinal ROS: negative for reflux, abdominal pain, change in bowel habits, or black or bloody stools Musculoskeletal ROS: negative for back pain, neck pain, or joint pain or swelling except for current problem Neurological ROS: negative for TIA or stoke symptoms Skin: no rashes Medications/Allergies Home Medications Medication Instructions Recorded Confirmed Last Taken Type diphenhydramine HCl 25 mg tablet 50 mg PO ONCE PRN tab 07/08/19 12/20/20 Unknown History pantoprazole 40 mg tablet,delayed 40 mg PO DAILY #90 tab 09/07/19 12/20/20 12/19/20 Rx release blood-glucose meter #1 each 02/10/20 12/18/20 Unknown Rx Test strips 1 strip MISCELLANEOUS .4 times 02/17/20 12/18/20 Unknown Rx daily #100 strip lancets #100 each 02/17/20 12/18/20 Unknown Rx Centrum Silver Women 1 tab PO DAILY 02/28/20 12/20/20 12/19/20 History cholecalciferol (vitamin D3) 50 mcg PO DAILY 02/28/20 12/20/2012/19/21 History [Vitamin D3] naloxone 4 mg/actuation nasal spray 4 mg INTRANASAL Q3M PRN #2 each 03/15/20 12/20/20 12/12/20 Rx triamcinolone acetonide 0.1 % 1 applic TOPICAL BID #30 gm 04/25/20 12/19/20 Unknown Rx topical ointment albuterol sulfate 2.5 mg INHALATION QID PRN #180 ml 05/25/20 12/20/20 11/29/20 Rx lorazepam 0.5 mg tablet 0.5 mg PO DAILY PRN #30 tab 06/27/20 12/20/20 12/12/20 Rx mirtazapine 15 mg tablet 15 mg PO .po q hs #30 tab 10/05/20 12/20/20 12/19/20 Rx atorvastatin 80 mg tablet 80 mg PO DAILY #90 tab 10/10/20 12/20/20 12/19/20 Rx amlodipine 10 mg tablet 10 mg PO DAILY #90 tab 10/30/20 12/20/20 12/20/20 08:30 Rx duloxetine 60 mg capsule,delayed 60 mg PO BID 90 Days #180 cap 11/19/20 12/20/20 12/19/20 Rx release cyclobenzaprine 5 mg tablet 5 mg PO TID PRN 30 Days #90 tab 11/21/20 12/20/20 Unknown Rx gabapentin 600 mg tablet 600 mg PO QID 30 Days #120 tab 11/21/20 12/20/20 12/20/20 08:30 Rx hydrochlorothiazide 12.5 mg tablet 12.5 mg PO DAILY #30 tab 12/04/20 12/20/20 12/19/20 Rx budesonide-formoterol [Symbicort] 2 puff INHALATION BID 12/19/20 12/20/20 12/12/20 History sitagliptin [Januvia] 50 mg PO DAILY 12/19/20 12/20/20 12/19/20 History Allergies Allergy/AdvReac Type Severity Reaction Status Date / Time levofloxacin [From Levaquin] Allergy ALGY-Hives Verified 12/20/20 10:05 oxybutynin AdvReac Mild swelling Verified 12/20/20 10:05 PFSH Acute PFSH: Medical History Acute CVA (cerebrovascular accident) Benign essential HTN Fatty infiltration of liver 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 Osteopenia Pain management contract signed Postmenopausal Sjogren's syndrome with keratoconjunctivitis sicca Spondylosis without myelopathy or radiculopathy, lumbosacral region TIA (transient ischemic attack) Type 2 diabetes mellitus without complications Unilateral primary osteoarthritis, left knee Vitamin D deficiency Surgical History H/O cornea transplant History of surgery on arm surgery on nerves History of toe surgery History of tonsillectomy S/P hysterectomy S/P knee replacement Status post removal of thyroid nodule Family History Father CAD (coronary artery disease) Mother Cancer Sister Cancer Brother Cancer Other Diabetes Lung disease Social History Smoking and tobacco status: former smoker Quit status (tobacco): has quit using tobacco Alcohol intake: never Lives independently: Yes Current occupational status: retired History of recent travel: No Female Reproductive History: Para: 2 Spontaneous abortions: Yes Vitals/I&O/Wt Last Vital Signs Temp 97.4 F L 12/20/20 10:13 Pulse 84 12/20/20 10:13 Resp 18 12/20/20 10:13 BP 144/86 12/20/20 10:13 Pulse Ox 95 12/20/20 10:13 Weight last 48 hrs Weight 250 lb Weight 250 lb Physical Exam Narrative: EXAM NARRATIVE: CONSTITUTIONAL: The patient is a normal appearing [] in no apparent distress. GENERAL: Patient in no acute distress. CARDIAC: Regular rate and rhythm. CHEST: Normal inspiratory effort, normal respiratory rate. ABDOMEN: Soft and nontender. SKIN: Clear, warm and intact. NEURO?PSYCH: The patient is alert and oriented to person, place and time. Sensorv /SILT Motor StrengthShoulder abduction C5 5/5Wrist extension C6 5/5Elbow extension C7 5/5Hand Trade Manager C8 5/5Finger abduction T15/5 Radial/ Ulnar/ Median n intact LowerSensory (SILT)Motor StrengthHin flexion L2/3Ant/inner thigh 5/5Hip adduction L2/3 5/5Knee extension L4 Lat thigh, 5/5Toe dorsiflexion L5 5/5Ankle dorsiflexion L5/ [id number] flexion S1 5/5 DTRBleeps 2+Triceps 2+Brachioradialis 2+Patellar 2+Achilles 2+ MUSCULOSKELETAL: [] UPPEREXTREMITIES: The patient had full active ROM in fingers, wrist, elbow, and shoulder. The patient demonstrated ability to fully flex/extend/abduct/adduct fingers, make ok sign, cross 2nd/3rd digits, extend 1st digit fully.. Radial pulse 2+, CR<2 seconds. LOWER EXTREMITIES: Pt has full, active ROM of toes, ankle, knee, and hip. Dorsalis pedis/posterior tibialis pulses 2+, CR<2 seconds. SPINE: Skin warm, dry, intact. Data : 12/19/20 11:15 A&P Assessment and plan (1) Lumbar radiculopathy: L4/5 MIS decompression Status: Acute Attestations Medical Necessity Statement*: faile conservative treatment Coding Level of Care Code Acute Training Coordinator for [facility] Fwd Diagnoses Lumbar radiculopathy M54.16
--- NOTE | 2020-12-20 10:43 | W.PM.OPSUD ---
Surgery/Procedure H&P Update DATE OF PROCEDURE: December 20, 2020 DATE H&P PERFORMED: 12/20/20 H&P UPDATE INFORMATION: I have reviewed H&P completed within last 30 days and I have examined patient prior to procedure PREOP DIAGNOSIS: lumbar stenosis PLANNED PROCEDURE: Operation Date: 12/20/20 11:10 Proposed Procedures p Lumbar Spine Decompression [id number] M47.816 L4/5(Not Applicable) - Etienne Moy DO
--- NOTE | 2020-12-20 12:28 | PM.OP ---
Operative Report Date of procedure: December 20, 2020 Pre-op Diagnosis: lumbar stenosis Post-op diagnosis: same Post-op Findings: L4/5 Laminectomy with Bilateral partial facetectomy Surgeon: Etienne Moy Anesthesia: General Estimated blood loss (mL): 5 Condition: stable Disposition: PACU Procedure: L4/5 Laminectomy with Bilateral partial facetectomy Patient is brought to the operative suite. After undergoing anesthesia they are placed in the supine position. All areas of impingement are well padded. Patient is then prepped and draped in the normal sterile fashion. A skin incision is made over the L4/5 level. This is confirmed under c-arm guidance. A series of dilators are passed and the tubular retractor is docked on the L4 lamina. A bovie is used to clear the soft tissue off the lamina and the L 4/5 facet joint. A high speed francesco is then used to perform the laminectomy and take down the medial aspect of the L 4/5 facet joint. A kerrison rongeure was then used to take down the remaining lamina and smooth the edged of the laminectomy up to the point where the ligamentum flavum attaches. Attention was then brought to the medial aspect of the facet joint. The remaining medial aspect of the superior and inferior aspect of the facet joint were taken down with the kerrison from the pedicle of L4 to L 5. The facet joint had significant hypertrophy. Attention was then brought to the Ligamentum Flavum. The ligament was taken down from the lamina of L4 to L5 and out medially to the remaining facet joint. The ligament was thickened. The dura was then exposed. The dura was in good repair. The L4 nerve was then traced with a curette out the L4/5 foramen and found to be adequately decompressed. The L5 nerve was traced with a curette around the L5 pedicle. The lateral recess was opened with a kerrison helping to further decompress the L5 nerve. The tubular retractor was then tilted to the contralateral side. The bovie was used to take down the soft tissue on the spinous process. The high speed francesco was used to take down the spinous process and then the contralateral lamina of L4. The kerrison rongeur was used to take down the remaining lamina to the point where the ligamentum flavum attached and the ligamentum flavum was taken down from L4 to L5. The kerrison rongeur was then used to reach across and take down the medial aspect of the contralateral L4/5 facet joint.The currete was used to trace the contralateral L4 nerve out the L4/5 foramen to make sure it was decompressed adequatesly and the L5 was traced around the L5 pedicle. The lateral recess was opened further with the kerrison to ensure the L5 is adequately decompressed. Wound is then irrigated copiously with saline and surgiflo is used to stop any bleeding. The tubular retractor is removed and the wound is closed with vicryl and monocryl suture. Glue is then used to protect the wound. A sterile dressing is then placed. Patient was then placed in the supine position and transferred to the PACU in stable condition.
[2020-12-20] MEDS: HYDROcodone-acetaminophen 5-325 mg Tablet 1 TAB PO (14:10)
--- NOTE | 2020-12-20 15:37 | ANE.PACU2 ---
Inpatient post-anesthesia follow up: Airway intact: Yes Vital signs: Temperature 98.4 F Pulse Rate 81 Respiratory Rate 18 Blood Pressure 168/96 Pulse Oximetry 96 Oxygen Delivery Me thod Room Air Oxygen Flow Rate 6 Fraction of Inspir ed Oxygen Hydration adequate: Yes Nausea and vomiting: No Pain level: 2 Mental status: Baseline
== END 2020-12-20 14:52 | disposition home or self-care (01) ==
PROVIDERS: Anesthesiology; PCP Family Medicine; Visit Provider Orthopaedic Surgery
PROC: (CPT 63005; principal; 2020-12-20 11:10)
DX: M48.061 Spinal stenosis, lumbar region without neurogenic claudication (principal); J44.9 Chronic obstructive pulmonary disease, unspecified; Z87.891 Personal history of nicotine dependence; E11.9 Type 2 diabetes mellitus without complications; E78.5 Hyperlipidemia, unspecified; E66.01 Morbid (severe) obesity due to excess calories; Z68.42 Body mass index [BMI] 45.0-49.9, adult; E55.9 Vitamin D deficiency, unspecified; Z86.73 Personal history of transient ischemic attack (TIA), and cerebral infarction without residual deficits; Z82.49 Family history of ischemic heart disease and other diseases of the circulatory system; Z83.3 Family history of diabetes mellitus
CPT/HCPCS: 63047; 36415; 36416; 72100; 76000; 80048; 82962; J0690; J1100; J2704; J2710; J3010; J3490; J7030

== ENCOUNTER 2020-12-23 15:28 | Emergency (ER) | payer MEDICARE, SELFPAY ==
[2020-12-23 16:05] VITALS: BP 169/84; PULSE 94; RESP 18; TEMP 37.6; O2SAT 93; BMI 47.0
--- NOTE | 2020-12-23 16:43 | XRR_ITS ---
PROCEDURE INFORMATION: Exam: XR Chest Exam date and time: 12/23/2020 4:43 PM Age: 70 years old Clinical indication: Shortness of breath; Prior surgery; Surgery type: Back; Additional info: Reduced breath sounds TECHNIQUE: Imaging protocol: XR of the chest. Views: 1 view. COMPARISON: CR XR chest 1V portable [id number] 08/29/2020 5:06 PM FINDINGS: Lungs: Lungs are clear. Pleural spaces: There is no pleural effusion or pneumothorax. Heart/Mediastinum: Cardiomediastinal contours are unremarkable. Bones/joints: Bones are unremarkable. XR/XR chest 1V portable [id number] IMPRESSION: No acute findings.
--- NOTE | 2020-12-23 16:44 | ECG_ITS ---
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 Measurements Intervals Dixie Rate: 93 P: 34 MD: 195 QRS: -15 QRSD: 98 T: 33 QT: 336 QTc: 420 Interpretive Statements SINUS RHYTHM LOW QRS VOLTAGE IN PRECORDIAL LEADS [QRS DEFLECTION < 1.0 mV IN CHEST LEADS] POSSIBLE ANTERIOR MYOCARDIAL INFARCTION [30 ms Q WAVE IN V3/V4, OR R < 0.2 mV IN V4], OF INDETERMINATE AGE INFERIOR MYOCARDIAL INFARCTION [40+ ms Q WAVE AND/OR ST/T ABNORMALITY IN II/aVF], OF INDETERMINATE AGE No previous ECG available for comparison Electronically Signed On 12-23-2020 20:21:20 CDT by Rosa Melgar M.D. [id number]
[2020-12-23 17:22] VITALS: BP 171/80; PULSE 91; RESP 16; O2SAT 92
--- NOTE | 2020-12-23 17:39 | USR_ITS ---
PROCEDURE INFORMATION: Exam: US Duplex Right Lower Extremity Veins, Limited Exam date and time: 12/23/2020 5:39 PM Age: 70 years old Clinical indication: Pain; Leg, upper and leg, lower; Right; Prior surgery; Surgery date: 6+ months; Surgery type: PT had recent back surgery. PT has had RT knee total replacement; Patient HX: HX of 2 cvas. Brain bleed. RT. Total knee replacement; Additional info: Pain. Dvt? TECHNIQUE: Imaging protocol: Real-time Duplex ultrasound of the Right Lower Extremity with 2-D kirby scale, color Doppler flow and spectral waveform analysis with image documentation. Limited exam was focused on the right lower extremity veins. COMPARISON: No relevant prior studies available. FINDINGS: Right deep veins: Unremarkable. The common femoral, femoral, proximal profunda femoral and popliteal veins are patent without thrombus. Normal Doppler waveforms. Normal compressibility and/or augmentation response. Right superficial veins: Unremarkable. Saphenofemoral junction is patent without thrombus. Soft tissues: Unremarkable. US/[place] [id number] IMPRESSION: No evidence of deep vein thrombosis.
[2020-12-23] MEDS: acetaminophen 325 mg Tablet 650 MG PO (17:53)
[2020-12-23 17:55] LABS: Basophils # 0.1 10^3/uL (0.0-0.1); Basophils % 0.9 %; Eosinophils # 0.8 10^3/uL (0.0-0.8); Eosinophils % 5.8 %; Hematocrit 41.5 % (37.0-47.0); Hemoglobin 13.6 g/dL (11.5-15.3); Lymphocytes # 2.7 10^3/uL (0.8-4.8); Lymphocytes % 18.5 %; Mean Corpuscular HGB Conc 32.8 g/dL (30.0-36.0); Mean Corpuscular Hemoglobin 29.6 pg (28.0-34.0); Mean Corpuscular Volume 90.4 fL (81-99); Mean Platelet Volume 11.4 fL (7.4-10.4); Monocytes # 0.9 10^3/uL (0.2-0.9); Monocytes % 6.3 %; Neutrophils # 9.74 10^3/uL (1.8-7.7); Neutrophils % 68.1 %; Nucleated Red Blood Cells % 0 %; Platelet Count 312 10^3/cmm (130-400); Red Blood Count 4.59 10^6/uL (4.1-5.3); White Blood Count 14.3 10^3/uL (4.0-10.0)
[2020-12-23] MEDS: sodium chloride 0.9% 1,000 ML 999 ML IV (17:56)
[2020-12-23] MEDS: vancomycin 1,000 MG in sodium chloride 0.9% 250 ML 250 MG IV (17:58)
[2020-12-23 18:05] LABS: D Dimer 2.05 ug/mIFEU (0-0.59)
[2020-12-23 18:09] LABS: Lactate (Lactic Acid level) 1.9 mmol/L (0.5-2.2)
[2020-12-23 18:10] LABS: Alanine Aminotransferase 26 U/L (0-33); Albumin Level 4.1 g/dL (3.5-5.2); Alkaline Phosphatase 94 IU/L (35-105); Anion Gap 15.6 (5-19); Aspartate Amino Transferase 24 U/L (0-32); Blood Urea Nitrogen 17 mg/dL (8-23); Carbon Dioxide 27 mmol/L (22-29); Chloride 97 mmol/L (98-107); Globulin 3.1 g/dL (1.3-4.6); Glucose 196 mg/dL (65-115); Osmolality Calculated 289 mOsm/kg (285-295); Potassium 3.6 mmol/L (3.5-5.1); Sodium 136 mmol/L (136-145); Total Bilirubin 0.2 mg/dL (0.15-1.2); Total Protein 7.2 g/dL (6.6-8.7)
--- NOTE | 2020-12-23 18:20 | CTR_ITS ---
PROCEDURE INFORMATION: Exam: CT Lumbar Spine With Contrast Exam date and time: 12/23/2020 6:20 PM Age: 70 years old Clinical indication: Low back pain; Prior surgery; Surgery date: 3-7 days post-operative; Patient HX: 3 days post op lami C/O lbp radiating down R leg; Additional info: Lower back pain shooting to right leg. Fever. Surgery pod 4 TECHNIQUE: Imaging protocol: Computed tomography images of the lumbar spine with intravenous contrast. Radiation optimization: All CT scans at this facility use at least one of these dose optimization techniques: automated exposure control; mA and/or kV adjustment per patient size (includes targeted exams where dose is matched to clinical indication); or iterative reconstruction. Contrast material: OMNI 350; Contrast volume: 95 ml; Contrast route: INTRAVENOUS (IV); COMPARISON: MR lumbar spine wo con* [id number] 10/03/2020 4:22 PM RADIATION DOSE METRICS: Total DLP (mGy-cm): 1935.81 FINDINGS: Vertebrae: Grade 1 anterior non-spondylitic spondylolisthesis of L4 on L5 with borderline central spinal stenosis and prominent facet degenerative changes. Status post right L4-L5 laminectomy. Mild bilateral L5-S1 facet hypertrophy and degenerative change. L1-L2: Moderate degenerative disc disease and spondylosis. L2-L3: Moderate degenerative disc disease and spondylosis. L3-L4: Mild degenerative disc disease and spondylosis. L4-L5: Mild L4-L5 posterior disc bulge. Interval appearance of borderline right L4-L5 lateral recess stenosis with possible right posterolateral disc protrusion or inflammation obliterating visualization of the traversing right L5 nerve root. Interval appearance of inflammation the region of the right L4-L5 foramen with possible foraminal stenosis. L5-S1: No significant disc protrusion. No severe spinal canal stenosis. No significant neural foraminal narrowing. Vasculature: Calcification of the abdominal aorta and/or iliac arteries consistent with atherosclerotic vessel disease. L5 spinal canal: Possible 1.3 x 1.2 x 0.7 cm lesion in the right posterolateral L5 spinal canal just medial to the right ligamentum flavum with some distortion of the thecal sac suggesting possible postoperative hematoma or fluid collection. Axial series 3, image 64. CT/CT lumbar spine w con [id number] IMPRESSION: 1. Grade 1 anterior non-spondylitic spondylolisthesis of L4 on L5 with borderline central spinal stenosis and prominent facet degenerative changes. 2. Status post right L4-L5 laminectomy. 3. Mild L4-L5 posterior disc bulge. 4. Interval appearance of borderline right L4-L5 lateral recess stenosis with possible right posterolateral disc protrusion or inflammation obliterating visualization of the traversing right L5 nerve root. 5. Interval appearance of inflammation the region of the right L4-L5 foramen with possible foraminal stenosis. 6. Mild bilateral L5-S1 facet hypertrophy and degenerative change. 7. Possible 1.3 x 1.2 x 0.7 cm lesion in the right posterolateral L5 spinal canal just medial to the right ligamentum flavum with some distortion of the thecal sac suggesting possible postoperative hematoma or fluid collection. Axial series 3, image 64. Radiation Dose CTDIVOL = (mGy): DLP = 1935.81 (mGy-cm)
--- NOTE | 2020-12-23 18:21 | CTR_ITS ---
PROCEDURE INFORMATION: Exam: CTA Chest With Contrast Exam date and time: 12/23/2020 6:21 PM Age: 70 years old Clinical indication: Fever and shortness of breath; Patient HX: 3 days post op back surgery C/O fever and SOB; Additional info: Fever, dyspnea. Post op day 4 for laminectomy. TECHNIQUE: Imaging protocol: Computed tomographic angiography of the chest with contrast. 3D rendering (Not supervised by radiologist): MIP and/or 3D reconstructed images were created by the technologist. Radiation optimization: All CT scans at this facility use at least one of these dose optimization techniques: automated exposure control; mA and/or kV adjustment per patient size (includes targeted exams where dose is matched to clinical indication); or iterative reconstruction. Contrast material: OMNI 350; Contrast volume: 72 ml; Contrast route: INTRAVENOUS (IV); COMPARISON: CTA Chest-Pulmonary Emb [id number] 05/27/2017 10:23 AM RADIATION DOSE METRICS: Total DLP (mGy-cm): 500.71 FINDINGS: Pulmonary arteries: No pulmonary embolus or aortic dissection. Aorta: Unremarkable. No aortic aneurysm. No aortic dissection. Great vessels off aortic arch: Calcification of the thoracic aorta and/or great vessels consistent with atherosclerotic vessel disease. Lungs: Unremarkable. No consolidation. No masses. Pleural spaces: Unremarkable. No pneumothorax. No pleural effusion. Heart: Severe calcified coronary artery disease. 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 Lymph nodes: Unremarkable. No enlarged lymph nodes. Gallbladder and bile ducts: Interval cholecystectomy since the previous exam. Bones/joints: Unremarkable. No acute fracture. Soft tissues: Unremarkable. CT/CT angio chest PE protcl [id number] IMPRESSION: 1. 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 2. Severe calcified coronary artery disease. 3. Interval cholecystectomy since the previous exam. 4. No pulmonary embolus or aortic dissection. Radiation Dose CTDIVOL = (mGy): DLP = 500.71 (mGy-cm)
--- NOTE | 2020-12-23 18:23 | CTR_ITS ---
PROCEDURE INFORMATION: Exam: CT Cervical Spine Without Contrast Exam date and time: 12/23/2020 6:23 PM Age: 70 years old Clinical indication: Numbness; Patient HX: C/O tingling b hands; Additional info: [place] in hands TECHNIQUE: Imaging protocol: Computed tomography images of the cervical spine without contrast. Radiation optimization: All CT scans at this facility use at least one of these dose optimization techniques: automated exposure control; mA and/or kV adjustment per patient size (includes targeted exams where dose is matched to clinical indication); or iterative reconstruction. COMPARISON: MR cervical spin wo con* [id number] 10/03/2020 3:57 PM RADIATION DOSE METRICS: Total DLP (mGy-cm): 746.71 FINDINGS: There is some straightening of the normal cervical lordosis. This may be due to muscle spasm or patient positioning. There is no evidence of fracture or subluxation. The vertebral bodies are of normal height. The disc spaces are well-maintained. The prevertebral soft tissues and the predental space are unremarkable. There is some calcification about the ligaments near the C1-C2 articulation. There is no significant central stenosis. There is no evidence for epidural hematoma. No significant neural foraminal stenosis is identified. The lung apices are clear. Carotid calcifications are noted. CT/CT cervical spin wo con* [id number] IMPRESSION: No evidence of fracture subluxation or significant stenosis. Radiation Dose CTDIVOL = (mGy): DLP = 746.71 (mGy-cm)
--- NOTE | 2020-12-23 18:31 | CTR_ITS ---
PROCEDURE INFORMATION: Exam: CT Head Without Contrast Exam date and time: 12/23/2020 6:31 PM Age: 70 years old Clinical indication: Speech disturbance; Patient HX: Slurred speech this am PT is 3 days post op back surgery; Additional info: Slurred speech this morning. H/o CVA / tias TECHNIQUE: Imaging protocol: Computed tomography of the head without contrast. Radiation optimization: All CT scans at this facility use at least one of these dose optimization techniques: automated exposure control; mA and/or kV adjustment per patient size (includes targeted exams where dose is matched to clinical indication); or iterative reconstruction. COMPARISON: CT head wo con* [id number] 08/29/2020 5:37 PM RADIATION DOSE METRICS: Total DLP (mGy-cm): 802 FINDINGS: There is mild generalized atrophy. There are mild areas of decreased attenuation in the periventricular white matter which is nonspecific but likely relates to small vessel ischemic change. There is no evidence for acute infarct. There is no evidence for mass. In the left frontal white matter, there is a 4 mm focus of increased density. It was present back in August but is slightly more conspicuous. Previous MRI also demonstrated susceptibility artifact in this region. 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 Acute hemorrhage is considered unlikely. No additional areas of hemorrhage are identified. There are no extra-axial fluid collections. There is no midline shift. The skull is intact. The visualized paranasal sinuses are well aerated. There is atherosclerotic change of the cavernous carotid arteries. CT/CT head wo con* [id number] IMPRESSION: 1. 4 mm focus of increased density in the left frontal white matter. This is slightly more conspicuous and back in August of 2020. 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 Hemorrhage is considered unlikely. 2. No evidence for acute infarct. Radiation Dose CTDIVOL = (mGy): DLP = 802 (mGy-cm)
[2020-12-23] MEDS: iohexol 350 mg/mL 100 mL Btl IV (19:22)
[2020-12-23 20:22] LABS: Add Urine Microscopic? NO; Charge for UA Resulting for Rev
[2020-12-23 20:30] LABS: Bilirubin Urine Neg (Negative); Blood Urine Neg (Negative); Glucose Urine UA Trace (Normal); Ketones Urine Negative (Negative); Leukocyte Esterase Urine Negative (Negative); Nitrate Urine Negative (Negative); Protein Urine Neg (Negative); Specific Gravity, Urine 1.005 (1.005-1.030); Urine Appearance Clear (CLEAR); Urine Color Yellow (Yellow); Urobilinogen Urine Norm (Negative); pH Urine 5 (5-7)
[2020-12-23 21:11] VITALS: BP 163/84; PULSE 82; RESP 18; TEMP 36.9; O2SAT 92
[2020-12-23] MEDS: cephALEXin 500 mg Capsule PO (21:24)
--- NOTE | 2020-12-23 21:24 | W.ED.GENADLT ---
HPI - General Adult General: Chief complaint: General Medical Stated complaint: o[place]; unable to walk; sleeping alot s/p back op Time Seen by Provider: 12/23/20 16:42 History of Present Illness: HPI narrative: The patient is a 70-year-old female with past medical history hypertension and diabetes who comes to the ER postoperative day 3 after a L4-L5 laminectomy. She complains of continued low back pain radiating to the posterior right thigh which is similar to prior to the surgery though she feels like it is slightly worse since she got home and has been moving around. She also complains she has difficulty walking. Her biggest concern though is that the past couple nights she has woke up in sweats and been feeling feverish. She did not measure her temperature at home. Temp on arrival was 99.6. She also complains and tingling in both of her fingers on both sides. She has had this sometimes chronically related to neck pain. She also has a history of a stroke in the past and multiple TIAs with slurring of speech. She says she has recently had an episode of slurring speech and that they told her nothing could be done about this. I recommended she follow-up with a neurologist [facility] and discuss statin and baby aspirin with her primary care physician later this week. She has had none of those symptoms in the ER today. Onset (ago): day(s) (4) Associated symptoms: Deny chest pain, confusion, dyspnea, headache(s), rash or palpitations Review of Systems General: Reports: 10 or more systems reviewed and unremarkable except in HPI and below Const: Denies: fatigue Eyes: Denies: change in vision, blurry vision or eye redness ENMT: Denies: throat pain, swelling of lips/tongue, ear or mastoid pain or nasal congestion Card: Denies: chest pain, palpitations, irregular heart rhythm, edema, dyspnea on exertion or orthopnea Resp: Denies: dyspnea, productive cough or non-productive cough GI: Denies: abdominal pain, diarrhea or GI cramping : Denies: flank pain, difficulty voiding, urinary frequency or urinary urgency Musc: Reports: back pain; Denies: neck pain, extremity pain, joint pain, joint redness, limited range of motion or muscle weakness Skin/Breast: Denies: rash, pruritus, erythema, skin pain or skin tenderness Neuro: Denies: headache(s), numbness in extremities, weakness in extremities, sensory changes, difficulty walking, dizziness, confusion or Slurred speech present Psych: Denies: anxiety or depression Endo: Denies: polyuria All/Imm: Denies: urticaria, throat swelling or tongue swelling PFSH ED PFSH: Medical History Acute CVA (cerebrovascular accident) Benign essential HTN Fatty infiltration of liver Hyperlipidemia 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 Osteopenia Pain management contract signed Postmenopausal Sjogren's syndrome with keratoconjunctivitis sicca Spondylosis without myelopathy or radiculopathy, lumbosacral region TIA (transient ischemic attack) Type 2 diabetes mellitus without complications Unilateral primary osteoarthritis, left knee Vitamin D deficiency Surgical History H/O cornea transplant History of surgery on arm surgery on nerves History of toe surgery History of tonsillectomy S/P hysterectomy S/P knee replacement Status post removal of thyroid nodule Family History Father CAD (coronary artery disease) Mother Cancer Sister Cancer Brother Cancer Other Diabetes Lung disease Social History Smoking and tobacco status: former smoker Quit status (tobacco): has quit using tobacco Alcohol intake: never Lives independently: Yes Current occupational status: retired History of recent travel: No Female Reproductive History: Para: 2 Spontaneous abortions: Yes Physical Exam Const: COMMON NORMALS: no acute distress, average body habitus, patient oriented x3, no limitations, healthy appearing, alert and well nourished GENERAL APPEARANCE: cooperative, comfortable, well kempt and well developed ORIENTATION/CONSCIOUSNESS: Yes awake, Yes oriented to person, Yes oriented to place and Yes oriented to time HENMT: COMMON NORMALS: normocephalic, external ears normal and Normal external nose present HEAD & SCALP: normal to inspection and normocephalic NOSE: Normal external nose present EXTERNAL EAR: Yes external ears normal MOUTH: Normal oral and palatal mucosa present THROAT: posterior oropharynx normal Eye: COMMON NORMALS: Equal, round and reactive pupils present and EOMs intact bilaterally GENERAL EYE: appearance normal, both eyes and all related structures PUPIL: Yes Equal, round and reactive pupils present Neck/C-Spine: COMMON NORMALS: full ROM, no lymphadenopathy, no meningeal signs and no JVD GENERAL: Yes normal visual inspection Lymph: LYMPHATIC: no lymphadenopathy noted Chest: COMMONS NORMALS: normal inspection of the chest and normal palpation of entire chest wall Resp: COMMON NORMALS: normal respiratory effort, No retractions, No use of accessory muscles, clear to auscultation bilaterally and percussion normal EFFORT & INSPECTION: Yes able to speak in complete sentences AUSCULTATION: clear to auscultation bilaterally PERCUSSION: percussion normal Cardio: COMMON NORMALS: no JVD, regular rate, regular rhythm, S1 normal heart sound present, S2 normal heart sound present and Peripheral pulses 2+ throughout RATE: regular rate RHYTHM: regular rhythm HEART SOUNDS: S1 normal heart sound present and S2 normal heart sound present PERIPHERAL PULSES: Peripheral pulses 2+ throughout GI: COMMON NORMALS: Normal to inspection, nondistended, normoactive bowel sounds present, Soft to palpation, non-tender and no masses INSPECTION: Yes normal to inspection PALPATION: Yes Soft to palpation : COMMON NORMALS: Yes no CVA tenderness BLADDER/KIDNEY EXAM: Yes no CVA tenderness Back/Pelvis: COMMON NORMALS: no CVA tenderness, thoracic and lumbar spine normal to inspection, no thoracic nor lumbar tenderness and thoraco-lumbar ROM normal OTHER: Normally healing surgical scar lower back in the midline. Extremity: COMMON NORMALS: normal to inspection, full ROM, capillary refill normal, no joint enlargement and no pedal edema GENERAL: Yes normal exam except as noted Neuro: COMMON NORMALS: patient oriented x3, CN's II-XII intact bilaterally, moves all extremities, no focal motor deficits, no sensory deficits noted and gait normal SENSORIUM/ORIENTATION: Yes alert, Yes oriented to person, Yes oriented to place and Yes oriented to time MENINGEAL SIGNS: Yes no meningeal signs Psych: COMMON NORMALS: mental status grossly normal, Normal thought process present, cooperative, normal affect and speech normal APPEARANCE: Yes well kempt ATTITUDE: Yes calm SPEECH: Yes normal speech THOUGHT PROCESS: Normal thought process present Skin: COMMON NORMALS: no rashes or lesions noted GENERAL SKIN EXAM: no rashes or lesions noted Course Vital Signs: Vital signs: Vital Signs Temperature 98 F 12/23/20 21:40 Pulse Rate 87 12/23/20 21:40 Respiratory Rate 18 12/23/20 21:40 Blood Pressure 163/86 12/23/20 21:40 Pulse Oximetry 95 12/23/20 21:40 MDM - General Adult MDM Narrative: Medical decision making narrative: The patient came to the ER primarily complaining of low back pain shooting to her right leg and having fevers at night. She does have a small white count but it is difficult to tell whether this is a postoperative healing reaction or from an infection process. Her surgical scar is healing well. Discussed with Dr. Moy the CT results of the lumbar spine as well and he recommends pain control and follow-up in clinic Friday. I gave her some extra hydrocodone as she is nearly out and she can follow-up Friday. Her elevated temperature on arrival reduced after Tylenol and she was stable for discharge. She also complained of tingling in her hands and some slurred speech early in the morning. She apparently has these episodes on and off chronically and they are thought to be possible TIAs. Imaging was negative for any acute stroke process. I also noted she is not on baby aspirin and a statin. She said she has been on a statin in the past but she is not currently. I recommended she talk to her primary care doctor this week about those 2 medications and whether or not they are appropriate for her. She will do so and I also recommended she follow-up with neurology [facility]. She understands the plan and will do so. Lab Data: Labs: Lab Results 12/23/20 12/23/20 12/23/20 Range/Units 17:38 17:38 17:38 WBC 14.3 H (4.0-10.0) 10^3/ uL RBC 4.59 (4.1-5.3) 10^6/u L Hgb 13.6 (11.5-15.3) g/dL Hct 41.5 (37.0-47.0) % MCV 90.4 (81-99) fL MCH 29.6 (28.0-34.0) pg MCHC 32.8 (30.0-36.0) g/dL RDW 14.0 (12.1-15.1) % Plt Count 312 (130-400) 10^3/c mm MPV 11.4 H (7.4-10.4) fL Neut % (Auto) 68.1 % Lymph % (Auto) 18.5 % [place] % (Auto) 6.3 % Eos % (Auto) 5.8 % Baso % (Auto) 0.9 % Neut # (Auto) 9.74 H (1.8-7.7) 10^3/u L Lymph # (Auto) 2.7 (0.8-4.8) 10^3/u L [place] # (Auto) 0.9 (0.2-0.9) 10^3/u L Eos # (Auto) 0.8 (0.0-0.8) 10^3/u L Baso # (Auto) 0.1 (0.0-0.1) 10^3/u L Nucleated RBC % (a uto) 0 % Nucleated RBCs # 0.0 /100WBC D-Dimer (0-0.59) ug/mIFE U Sodium 136 (136-145) mmol/L Potassium 3.6 (3.5-5.1) mmol/L Chloride 97 L (98-107) mmol/L Carbon Dioxide 27 (22-29) mmol/L Anion Gap 15.6 (5-19) BUN 17 (8-23) mg/dL Creatinine 0.8 (0.5-0.9) mg/dL GFR Calculation Not Reportable Glucose 196 H (65-115) mg/dL Calculated Osmolal ity 289 (285-295) mOsm/k g Lactate 1.9 (0.5-2.2) mmol/L Calcium 9.0 (8.5-10.5) mg/dL Total Bilirubin 0.2 (0.15-1.2) mg/dL AST 24 (0-32) U/L ALT 26 (0-33) U/L Alkaline Phosphata se 94 (35-105) IU/L Total Protein 7.2 (6.6-8.7) g/dL Albumin 4.1 (3.5-5.2) g/dL Globulin 3.1 (1.3-4.6) g/dL Urine Color (Yellow) Urine Appearance (CLEAR) Urine pH (5-7) Ur Specific Gravit y (1.005-1.030) Urine Protein (Negative) Urine Glucose (UA) (Normal) Urine Ketones (Negative) Urine Blood (Negative) Urine Nitrate (Negative) Urine Bilirubin (Negative) Urine Urobilinogen (Negative) mg/dL Ur Leukocyte Elizabeth ase (Negative) 12/23/20 12/23/20 Range/Units 17:40 20:16 WBC (4.0-10.0) 10^3/ uL RBC (4.1-5.3) 10^6/u L Hgb (11.5-15.3) g/dL Hct (37.0-47.0) % MCV (81-99) fL MCH (28.0-34.0) pg MCHC (30.0-36.0) g/dL RDW (12.1-15.1) % Plt Count (130-400) 10^3/c mm MPV (7.4-10.4) fL Neut % (Auto) % Lymph % (Auto) % [place] % (Auto) % Eos % (Auto) % Baso % (Auto) % Neut # (Auto) (1.8-7.7) 10^3/u L Lymph # (Auto) (0.8-4.8) 10^3/u L [place] # (Auto) (0.2-0.9) 10^3/u L Eos # (Auto) (0.0-0.8) 10^3/u L Baso # (Auto) (0.0-0.1) 10^3/u L Nucleated RBC % (a uto) % Nucleated RBCs # /100WBC D-Dimer 2.05 H (0-0.59) ug/mIFE U Sodium (136-145) mmol/L Potassium (3.5-5.1) mmol/L Chloride (98-107) mmol/L Carbon Dioxide (22-29) mmol/L Anion Gap (5-19) BUN (8-23) mg/dL Creatinine (0.5-0.9) mg/dL GFR Calculation Glucose (65-115) mg/dL Calculated Osmolal ity (285-295) mOsm/k g Lactate (0.5-2.2) mmol/L Calcium (8.5-10.5) mg/dL Total Bilirubin (0.15-1.2) mg/dL AST (0-32) U/L ALT (0-33) U/L Alkaline Phosphata se (35-105) IU/L Total Protein (6.6-8.7) g/dL Albumin (3.5-5.2) g/dL Globulin (1.3-4.6) g/dL Urine Color Yellow (Yellow) Urine Appearance Clear (CLEAR) Urine pH 5 (5-7) Ur Specific Gravit y 1.005 (1.005-1.030) Urine Protein Neg (Negative) Urine Glucose (UA) Trace H (Normal) Urine Ketones Negative (Negative) Urine Blood Neg (Negative) Urine Nitrate Negative (Negative) Urine Bilirubin Neg (Negative) Urine Urobilinogen Norm (Negative) mg/dL Ur Leukocyte Elizabeth ase Negative (Negative) Discharge Plan Discharge Patient Disposition: Home Clinical Impression: Low back pain Condition: Stable Prescriptions: New cephalexin 500 mg capsule 500 mg PO BID 7 Days Qty: 14 RF: 0 hydrocodone-acetaminophen 5-325 mg tablet 1 tab PO Q6H PRN (Reason: pain) Qty: 12 RF: 0 No Action naloxone 4 mg/actuation spray,non-aerosol 4 mg INTRANASAL Q3M PRN (Reason: opioid overdose) Qty: 2 RF: 0 triamcinolone acetonide 0.1 % ointment 1 applic TOPICAL BID Qty: 30 RF: 1 methylprednisolone acetate [Depo-Medrol] 40 mg/mL suspension 40 mg intra-articular ONCE Qty: 1 RF: 0 bupivacaine (PF) 0.25 % (2.5 mg/mL) solution 1 ml intra-articular ONCE Qty: 1 RF: 0 diphenhydramine HCl [Benadryl Allergy] 25 mg tablet 50 mg PO DAILY PRN (Reason: Itching) RF: 0 cyclobenzaprine 5 mg tablet 5 mg PO TID PRN (Reason: muscle spasm) 30 Days Qty: 90 RF: 1 (DME) blood-glucose meter Kit See Rx Instructions .ROUTE .MEDSUPPLY Qty: 1 RF: 0 (DME) lancets Misc See Rx Instructions .ROUTE .MEDSUPPLY Qty: 100 RF: 3 Test strips 1 strip miscellaneous .4 times daily Qty: 100 RF: 3 albuterol sulfate 2.5 mg /3 mL (0.083 %) solution for nebulization 2.5 mg inhalation QID PRN (Reason: shortness of breath or wheezing) Qty: 180 RF: 0 lorazepam [Ativan] 0.5 mg tablet 0.5 mg PO DAILY PRN (Reason: anxiety) Qty: 30 RF: 3 gabapentin 600 mg tablet 1,200 mg PO BID@1000,2200 RF: 0 hydrocodone-acetaminophen 5-325 mg tablet 1 - 2 tab PO Q4H PRN (Reason: Pain) RF: 0 amlodipine 10 mg tablet 10 mg PO DAILY@1000 RF: 0 Protonix 40 mg tablet,delayed release (DR/EC) 40 mg PO DAILY@1000 RF: 0 Remeron 15 mg tablet 15 mg PO BEDTIME@220 RF: 0 duloxetine 60 mg capsule,delayed release(DR/EC) 60 mg PO BID@1000,220 RF: 0 hydrochlorothiazide 12.5 mg tablet 12.5 mg PO DAILY@1000 RF: 0 cholecalciferol (vitamin D3) [Vitamin D3] 50 mcg (2,000 unit) Tablet 50 mcg PO DAILY@220 RF: 0 Centrum Silver Women 8 mg iron-400 mcg-300 mcg Tablet 1 tab PO DAILY@2199 RF: 0 Januvia 50 mg tablet 50 mg PO DAILY@1000 RF: 0 budesonide-formoterol [Symbicort] 160-4.5 mcg/actuation HFA aerosol inhaler 2 puff inhalation BID RF: 0 Discharge Orders: Discharge ED (Routine); Ordered 12/23/20 Ordered By: Teddy Varghese Referrals: Lexy Bardales DO [Primary Care Provider] - Discharge Diet: Advance as tolerated Discharge Activity: Resume usual activity Patient Instructions: Fever - Adult, Back Pain (ED), Opioid Safety Activity Restrictions/Additional Instructions: Who comes to the ER complaining of increased low back pain and possible fever at home. Please take Tylenol and the Keflex to treat a possible postoperative infection at home although it is not of the surgical site. The surgical site looks like it is healing well. I discussed the CT findings with Dr. Moy who recommends following up in his clinic Friday. I have also given you a few extra days of hydrocodone to help with your pain. Return to the ER with worsening symptoms at any time. Otherwise follow-up with Dr. Moy Friday and your primary care physician later that week. Also discussed with your doctor starting a cholesterol medicine as you have had a stroke in the past and likely have heart disease. Coding Level of Care Code ED Correction Officer for Lori Montoya
[2020-12-23 21:40] VITALS: BP 163/86; PULSE 87; RESP 18; TEMP 36.6; O2SAT 95
--- NOTE | 2020-12-25 06:32 | PC.NURSE ---
pt had a 1 of 4 positive blood culture for gram positive cocci in clusters prelim. Dr Patiño notified.
--- NOTE | 2020-12-25 06:34 | PC.NURSE ---
dr order to wait on final results.
== END 2020-12-23 21:42 | disposition home or self-care (01) ==
PROVIDERS: Emergency Provider Family Medicine; PCP Family Medicine
DX: M54.5 Low back pain (principal); I10 Essential (primary) hypertension; E11.9 Type 2 diabetes mellitus without complications; Z87.891 Personal history of nicotine dependence; Z79.84 Long term (current) use of oral hypoglycemic drugs; M79.651 Pain in right thigh
CPT/HCPCS: 36415; 70450; 71045; 71275; 72125; 72132; 80053; 81003; 83605; 85025; 85378; 87040; 87205; 93005; 93971; 96365; 99284; J3370; J7030; J7050; Q9967

== ENCOUNTER → 2021-01-05 09:15 | Outpatient (BNVA) | payer MEDICARE, SELFPAY | PROVIDERS: PCP Family Medicine; Visit Provider Psychiatry & Neurology Psychiatry | DX: F41.1 Generalized anxiety disorder (principal); F33.1 Major depressive disorder, recurrent, moderate | CPT/HCPCS: 99214 ==

== ENCOUNTER → 2021-02-05 10:31 | Outpatient (BNVA) | payer MEDICARE, SELFPAY | PROVIDERS: PCP Family Medicine; Visit Provider Social Worker | DX: F33.1 Major depressive disorder, recurrent, moderate (principal); F32.9 Major depressive disorder, single episode, unspecified; F41.1 Generalized anxiety disorder | CPT/HCPCS: 90834 ==

== ENCOUNTER → 2021-02-16 08:19 | Outpatient (BNVA) | payer MEDICARE, SELFPAY | PROVIDERS: PCP Family Medicine; Visit Provider Psychiatry & Neurology Psychiatry | DX: F41.1 Generalized anxiety disorder (principal); F33.1 Major depressive disorder, recurrent, moderate | CPT/HCPCS: 99214 ==

== ENCOUNTER → 2021-02-19 10:36 | Outpatient (BNVA) | payer MEDICARE, SELFPAY | PROVIDERS: PCP Family Medicine; Visit Provider Social Worker | DX: F41.1 Generalized anxiety disorder (principal); E11.9 Type 2 diabetes mellitus without complications; E87.2 Acidosis | CPT/HCPCS: 90834; 80053; 82043; 83036 ==

== ENCOUNTER → 2021-03-05 09:48 | Outpatient (BNVA) | payer MEDICARE, SELFPAY | PROVIDERS: PCP Family Medicine; Visit Provider Social Worker | DX: F41.1 Generalized anxiety disorder (principal) | CPT/HCPCS: 90834 ==

== ENCOUNTER 2021-03-13 13:12 | Outpatient (CLI) | payer MEDICARE, SELFPAY ==
--- NOTE | 2021-03-13 13:30 | US_ITS ---
WS: [id number] THYROID ULTRASOUND (TI-RADS CRITERIA) History: Goiter.. Technique: Ultrasound examination of the thyroid and adjacent soft tissues is performed. FINDINGS: Right lobe: Status post RIGHT thyroidectomy. No recurrent thyroid tissue or mass at the thyroid bed. No lymph nodes. Left lobe: 6.2 cm x 2.8 cm x 2.7 cm. Volume: 24.4 cm3. Enlarged thyroid with multiple nodules. There are hypoechoic nodules scattered throughout with mild i ncreased vascularity. Some of these nodules are colloid cysts. Majority of the nodules are subcentime ter. Lymph nodes: None. NODULE: Labeled #2 Size: 1.4 x 1.4 x 1.3 cm. Location: Inferior LEFT Composition: Mixed cystic and solid (1) Echogenicity: Hypoechoic (2) Shape: Not taller than wide (0) Margins: Cannot determine (0) Echogenic foci: Punctate echogenic foci (3) ACR TI-RADS total points: 5 ACR TI-RADS risk category: TR 4 Isthmus: 0.5 cm. US/US thyroid 50230 Impression: TR4 Recommendation:Follow up ultrasound in 1, 2, 3 and 5 years. If thyroid nodule(s) change on follow-up examinations the recommendations will be altered as necessary.
== END 2021-03-13 13:13 | disposition home or self-care (01) ==
LOC: US 13:13
PROVIDERS: PCP Family Medicine; Visit Provider Family Medicine
DX: E04.9 Nontoxic goiter, unspecified (principal)
CPT/HCPCS: 76536

== ENCOUNTER → 2021-03-15 10:16 | Outpatient (BNVA) | payer MEDICARE, SELFPAY | PROVIDERS: PCP Family Medicine; Visit Provider Psychiatry & Neurology Psychiatry | DX: F41.1 Generalized anxiety disorder (principal); F33.1 Major depressive disorder, recurrent, moderate | CPT/HCPCS: 99214 ==

== ENCOUNTER 2021-04-16 08:19 | Outpatient (CLI) | payer MEDICARE, SELFPAY ==
--- NOTE | 2021-04-16 08:42 | MR_ITS ---
WS: [id number] MRI LUMBAR SPINE NONCONTRAST HISTORY: M54.16 - Radiculopathy, lumbar region, recent surgery. COMPARISON: 10/03/2020 TECHNIQUE: Sagittal and axial multisequence imaging is submitted. Mild thoracolumbar scoliosis. Mild increase in lumbar lordosis. 2 mm retrolisthesis of L2 is similar to the prior study. 2 mm anterolisthesis of L4 is similar to the prior study. No acute marrow edema. No fractures. Mild disc space narrowing and desiccation and endplate osteophytes throughout the lumbar spine. Simil ar to the prior study. Conus terminates normally at L1. Soft tissue edema in the L4-5 paravertebral soft tissues from the prior surgery. Increasing fluid in the facet joints at this level. L1-L2: Moderate annular disc bulging is slightly asymmetric to the LEFT. Broad-based disc protrusion in the LEFT foramen similar to the prior study with mild foraminal narrowing. L2-L3: Moderate annular disc bulging with the disc extending into the subarticular recesses and jerica en. Similar to the prior study. Focal disc protrusion in the LEFT foramen causing mild displacement o f the exiting L2 nerve root. There is additional smaller disc protrusion in the RIGHT foramen contact ing the undersurface of the RIGHT L2 nerve root also. The RIGHT foraminal disc protrusion is more issa arent than on the prior study. Mild narrowing of the subarticular recesses greatest on the LEFT. Very mild facet and ligamentum flavum hypertrophy. L3-L4: Diffuse annular disc bulging slightly asymmetric to the LEFT. Far lateral LEFT disc protrusion resulting in mild contact on the exiting L3 nerve root. Mild LEFT foraminal narrowing. Mild bilatera l ligamentum flavum hypertrophy and facet arthritis with fluid in the facet joints. L4-L5: Mild osteophytic ridging and annular disc bulging. RIGHT hemilaminectomy defect. Moderate liga mentum flavum hypertrophy and fluid in the facet joints and bony hypertrophy. Increasing fluid in the facet joints bilaterally, RIGHT greater than LEFT. Very mild central stenosis. Mild disc encroachmen t upon the RIGHT exiting L4 nerve root. Mild RIGHT foraminal stenosis is stable. There is less disc c ontact upon the exiting L5 nerve roots as compared to the prior study. L5-S1: Mild disc bulging and a few small fissures. No stenosis. RIGHT renal cyst measures 4.8 cm. MR/MR lumbar spine wo con* [id number] IMPRESSION: 1. Postsurgical changes are noted at L4-5 with a RIGHT hemilaminectomy defect. Less disc contacting the traversing L5 nerve roots at this level. 2. Increase fluid in the facet joints at L4-5, greatest on the RIGHT with very minimal central stenosis. Mild persistent RIGHT foraminal narrowing at L4-5 is unchanged. 3. LEFT foraminal disc protrusions at L1-2 and L2-3 with mild contact on the e xiting nerve roots on the LEFT at each level. Similar to the prior study. No di splacement of the nerve roots. 4. Mild progression of the RIGHT foraminal disc protrusion at L2-3 with more contact on the exiting L2 nerve root on the RIGHT.
== END 2021-04-16 08:20 | disposition home or self-care (01) ==
PROVIDERS: PCP Family Medicine Adult Medicine; Visit Provider Orthopaedic Surgery
DX: M54.16 Radiculopathy, lumbar region (principal); Z98.890 Other specified postprocedural states; M51.26 Other intervertebral disc displacement, lumbar region
CPT/HCPCS: 72148

== ENCOUNTER 2021-04-16 10:53 | Outpatient (CLI) | payer MEDICARE, SELFPAY ==
--- NOTE | 2021-04-16 11:00 | FL_ITS ---
WS: [id number] FL barium swallow modifd [id number] REASON FOR EXAM: Difficulty swallowing FLUOROSCOPY TIME: 2.1 minutes FINDINGS: The swallowing of multiple consistencies of barium meal was observed and recorded fluoroscopically fo r later review. A detailed report of the swallowing will be rendered by the speech therapy department following the analysis of the fluoroscopy recording. No aspiration was identified. No significant tertiary contractions. FL/FL barium swallow modifd 07000 IMPRESSION: Modified barium swallow as above.
== END 2021-04-16 10:54 | disposition home or self-care (01) ==
LOC: RAD 10:56
PROVIDERS: PCP Family Medicine Adult Medicine; Visit Provider Otolaryngology
DX: R13.10 Dysphagia, unspecified (principal)
CPT/HCPCS: 74230; 92611

== ENCOUNTER → 2021-04-24 11:26 | Outpatient (BNVA) | payer MEDICARE, SELFPAY | PROVIDERS: PCP Family Medicine Adult Medicine; Visit Provider Physician Assistant | DX: M54.16 Radiculopathy, lumbar region (principal) | CPT/HCPCS: 72100 ==

== ENCOUNTER → 2021-05-01 11:01 | Outpatient (BNVA) | payer MEDICARE, SELFPAY | PROVIDERS: PCP Family Medicine Adult Medicine; Visit Provider Social Worker | DX: F41.1 Generalized anxiety disorder (principal) | CPT/HCPCS: 90834; 84439; 84481 ==

== ENCOUNTER → 2021-05-15 11:00 | Outpatient (BNVA) | payer MEDICARE, SELFPAY | PROVIDERS: PCP Family Medicine Adult Medicine; Visit Provider Social Worker | DX: F41.1 Generalized anxiety disorder (principal) | CPT/HCPCS: 90834 ==

== ENCOUNTER → 2021-05-18 10:43 | Outpatient (BNVA) | payer MEDICARE, SELFPAY | PROVIDERS: PCP Family Medicine; Visit Provider Psychiatry & Neurology Psychiatry | DX: F41.1 Generalized anxiety disorder (principal); F33.1 Major depressive disorder, recurrent, moderate | CPT/HCPCS: 99214 ==

== ENCOUNTER → 2021-06-05 10:34 | Outpatient (BNVA) | payer MEDICARE, SELFPAY | PROVIDERS: PCP Family Medicine Adult Medicine; Visit Provider Social Worker | DX: F41.1 Generalized anxiety disorder (principal) | CPT/HCPCS: 90837; 90834 ==

== ENCOUNTER → 2021-06-13 11:45 | Day surgery (SDC) | payer MEDICARE, SELFPAY | PROVIDERS: PCP Family Medicine Adult Medicine; Visit Provider Orthopaedic Surgery | DX: Z01.818 Encounter for other preprocedural examination (principal) | CPT/HCPCS: 93005 ==

== ENCOUNTER → 2021-06-13 13:17 | Outpatient (BNVA) | payer MEDICARE, SELFPAY | PROVIDERS: PCP Family Medicine Adult Medicine; Visit Provider Orthopaedic Surgery | DX: Z20.822 Contact with and (suspected) exposure to COVID-19 (principal); Z01.812 Encounter for preprocedural laboratory examination | CPT/HCPCS: 87635 ==

== ENCOUNTER 2021-06-20 11:27 | Inpatient (IN) | payer MEDICARE, SELFPAY ==
[2021-06-13 11:36] VITALS: BMI 45.5
--- NOTE | 2021-06-13 11:45 | ECG_ITS ---
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 Measurements Intervals [place] Rate: 88 P: 39 CA: 176 QRS: -25 QRSD: 98 T: 33 QT: 360 QTc: 438 Interpretive Statements SINUS RHYTHM LOW QRS VOLTAGE IN PRECORDIAL LEADS [QRS DEFLECTION < 1.0 mV IN CHEST LEADS] POSSIBLE ANTERIOR MYOCARDIAL INFARCTION , OF INDETERMINATE AGE [30 ms Q WAVE IN V3/V4, OR R < 0.2 mV IN V4] INFERIOR MYOCARDIAL INFARCTION , PROBABLY OLD [40+ ms Q WAVE AND/OR ST/T ABNORMALITY IN II/aVF] Compared to ECG 12/23/2020 16:56:42 No significant changes Electronically Signed On 06-13-2021 23:54:56 BUS PERSON by Greyson Klein M.D. [id number]
[2021-06-13 12:10] LABS: Basophils # 0.1 10^3/uL (0.0-0.1); Basophils % 0.8 %; Eosinophils # 0.2 10^3/uL (0.0-0.8); Hematocrit 45.4 % (37.0-47.0); Hemoglobin 14.6 g/dL (11.5-15.3); Lymphocytes # 2.6 10^3/uL (0.8-4.8); Lymphocytes % 22.5 %; Mean Corpuscular HGB Conc 32.2 g/dL (30.0-36.0); Mean Corpuscular Hemoglobin 29.8 pg (28.0-34.0); Mean Corpuscular Volume 92.7 fl (81-99); Mean Platelet Volume 10.9 fL (7.4-10.4); Monocytes # 0.6 10^3/uL (0.2-0.9); Monocytes % 5.4 %; Neutrophils # 7.78 10^3/uL (1.8-7.7); Neutrophils % 68.9 %; Nucleated Red Blood Cells % 0 %; Platelet Count 275 10^3/cmm (130-400); Red Cell Distribution Width 14.5 % (12.1-15.1); White Blood Count 11.3 10^3/uL (4.0-10.0)
[2021-06-13 12:55] LABS: Anion Gap 18.4 (5-19); Blood Urea Nitrogen 16 mg/dL (8-23); Calcium 9.3 mg/dL (8.5-10.5); Carbon Dioxide 26 mmol/L (22-29); Chloride 100 mmol/L (98-107); Glucose 143 mg/dL (65-115); Osmolality Calculated 294 mOsm/kg (285-295); Potassium 4.4 mmol/L (3.5-5.1); Sodium 140 mmol/L (136-145)
--- NOTE | 2021-06-13 17:36 | ANES.PREANE2 ---
Pre-Anesthetic Assessment Pre-Anesthetic Assessment: Height/Weight: Height 1.57 m Weight 112.945 kg Preop Diagnosis: Spondylolisthesis L4-5 Proposed Procedure: Operation Date: 06/20/21 10:20 Proposed Procedures p Posterior Lumbar Interbody Fusion L4/5 59680 [id number] M43.16(Not Applicable) - Etienne Moy DO Was Beta Jose taken within 24 hours: N/A Was Clonidine taken within 24 hours: N/A Social: Social History: Tobacco and No alcohol Exam: Pre-Anes Outpt Exam: alert, oriented x 3 and regular rate & rhythm Airway: Submandibular: WNL Cervical ROM: WNL MP: 2 Dentition: Chipped Pulmonary: Pulmonary: COPD CV/HEM: CV/HEM: CHF (Diastolic dysfxn) and HTN GI: GI: GERD Metabolic: Metabolic: DM, Hyperlipidemia and Morbid obesity Musc/skel: Musc/skel: Lower Back Pain Neuropsych: Neuropsych: Anxiety, Depression, Neuropathy and TIA Anesthetic Plan: ASA status: 3 Anesthesia: General Risk of > 500 ml blood loss (7ml/kg in children): No PFSH Anesthesia PFSH: Medical History Chronic gastritis COPD (chronic obstructive pulmonary disease) CVD (cerebrovascular disease) Diastolic CHF Dysphagia Enrolled in chronic care management Essential hypertension Fatty infiltration of liver History of cardiac murmur History of colon polyps History of rheumatic fever Hyperlipidemia correction (current) use of opiate analgesic Osteoarthritis involving multiple joints on both sides of body Osteopenia Pain management contract signed Postmenopausal Psychiatric care Sjogren's syndrome with keratoconjunctivitis sicca Skin cancer of nose Spondylosis without myelopathy or radiculopathy, lumbosacral region TIA (transient ischemic attack) Type 2 diabetes mellitus without complications Unilateral primary osteoarthritis, left knee Vitamin D deficiency Surgical History H/O cornea transplant History of surgery on arm surgery on nerves History of toe surgery History of tonsillectomy Previous back surgery S/P cholecystectomy S/P hysterectomy S/P knee replacement Status post removal of thyroid nodule Family History Father CAD (coronary artery disease) Mother Cancer Sister Cancer Brother Cancer Other Diabetes Lung disease Social History Smoking and tobacco status: never smoked Quit status (tobacco): has quit using tobacco Year quit tobacco: 2020 Former quit date comment: 1 PPD X 5 YEARS Alcohol intake: never Lives independently: Yes Current occupational status: retired History of recent travel: No Female Reproductive History: Para: 2 Spontaneous abortions: Yes Data Anesthesia CBC & Chem 7: 06/13/21 12:00 06/13/21 12:00 Other Labs: Laboratory Results - last 48 hr 06/13/21 06/13/21 12:00 12:00 WBC 11.3 H RBC 4.90 Hgb 14.6 Hct 45.4 MCV 92.7 MCH 29.8 MCHC 32.2 RDW 14.5 Plt Count 275 MPV 10.9 H Neut % (Auto) 68.9 Lymph % (Auto) 22.5 [place] % (Auto) 5.4 Eos % (Auto) 2.0 Baso % (Auto) 0.8 Neut # (Auto) 7.78 H Lymph # (Auto) 2.6 [place] # (Auto) 0.6 Eos # (Auto) 0.2 Baso # (Auto) 0.1 Nucleated RBC % (auto) 0 Nucleated RBCs # 0.0 Sodium 140 Potassium 4.4 Chloride 100 Carbon Dioxide 26 Anion Gap 18.4 BUN 16 Creatinine 0.9 GFR Calculation Not Reportable Glucose 143 H Calculated Osmolality 294 Calcium 9.3 Cardiac Studies: No Data to Display
[2021-06-20] VITALS (54 sets, daily range): BP systolic 91–163; BP diastolic 48–94; PULSE 84–103; RESP 12–33; TEMP 33.4–36.6; O2SAT 90–99
--- NOTE | 2021-06-20 | XR_ITS ---
WS: [id number] INTRAOPERATIVE TECHNIQUE: 5 Spot fluoroscopic images for intraoperative purposes. FLUOROSCOPY TIME: 13 seconds CLINICAL INFORMATION: Spondylosithesis lumbar region COMPARISON: None. FINDINGS: Pedicle screw fixation L4-5 with interbody fusion XR/XR lumbar spine 2-3V* [id number] IMPRESSION: Images obtained for intraoperative purposes.
--- NOTE | 2021-06-20 | SCC_ITS ---
Procedure Done: 1. L4/5 Interbody fusion with posterolateral fusion 2. Instrumentation L4/5 3. Cage at L4/5 4. Laminectomy L4 5. use of autograft from same incision 6. allograft 7. Bone marrow aspirate from right iliac crest 8. use of computer navigation/ stereotactic for spine 13 seconds of fluoroscopic guidance, for a cumulative dose of 72.2 mGy, was provided to Dr. Moy by the radiology department. C-arm images of the lumbar spine were saved for the patient's permanent record. KRISSY
--- NOTE | 2021-06-20 06:42 | P.ANESUD_ITS ---
Pre-Anesthetic Update Pre-Anesthetic Assessment: Date of Surgery/Procedure: 06/20/21 Preop Shania gnosis: lumbar stenosis Proposed Procedure: Operation Date: 06/20/21 07:00 Proposed Procedures p Posterior Lumbar Interbody Fusion L4/5 [id number] M43.16(Not Applicable) - Etienne Moy, DO Any changes to Pre-Anesthetic Assessment?: No Last Intake: Intake Last Liquid Date 06/19/21 Last Liquid Time 22:00 Last Solid Date 06/19/21 Last Solid Time 22:30 Vitals: Temperature 92.2 F L 06/20/21 06:09 Temperature Source Temporal Artery S can 06/20/21 06:09 Pulse Rate 88 06/20/21 06:09 Respiratory Rate 20 H 06/20/21 06:09 Blood Pressure 163/94 06/20/21 06:09 Blood Pressure Keyla n 117 06/20/21 06:09 Pulse Oximetry 95 06/20/21 06:09 Oxygen Delivery Me thod 06/20/21 06:14 Exam: Pre-Anes Outpt Exam: alert, oriented x 3, clear to auscultation bilaterally and regular rate & rhythm Cardiac Studies: No Data to Display
[2021-06-20] MEDS: sodium chloride 0.9% 1,000 ML 30 ML IV (06:45)
--- NOTE | 2021-06-20 06:47 | P.HP_ITS ---
Providers/Chief Complaint Primary Care Provider: Jean Claude Love MD Chief Complaint: Spondylolisthesis lumbar region History of Present Illness Jacqueline Alcazar is a 70 year old female her L4/5 Laminectomy with Bilateral partial facetectomy DOS: 12/20/20 Patient is 18 weeks post operative. Patient states she continues to have pain to the lumbar spine that has increased since her last visit, She states that her legs and feet have numbness and tingling. Nothing makes the pain better, She is unable to sleep at night. She rates her pain at 8/10 at this time. Associated symptoms: Reports dysuria Review of Systems Narrative: General ROS: negative for weight changes, fever ENT ROS: negative for nasal congestion, drainage or bleeding, sore throat, dysphagia or ear pain Eyes: PERRL Hematological and Lymphatic ROS: negative for swollen glands or abnormal bleeding Endocrine ROS: negative for polyuria/polydpsia or new changes in weight Respiratory ROS: negative for cough, shortness of breath, or wheezing Cardiovascular ROS: negative for chest pain or dyspnea on exertion Gastrointestinal ROS: negative for reflux, abdominal pain, change in bowel habits, or black or bloody stools Musculoskeletal ROS: negative for back pain, neck pain, or joint pain or swelling except for current problem Neurological ROS: negative for TIA or stoke symptoms Skin: no rashes Medications/Allergies Home Medications Medication Instructions Recorded Confirmed Last Taken Type diphenhydramine HCl 25 mg tablet 50 mg PO DAILY PRN tab 07/08/19 06/13/21 Unknown History blood-glucose meter #1 each 02/10/20 06/12/21 Unknown Rx Test strips 1 strip MISCELLANEOUS .4 times 02/17/20 06/12/21 Unknown Rx daily #100 strip lancets #100 each 02/17/20 06/12/21 Unknown Rx Centrum Silver Women 1 tab PO DAILY@219902/28/20 06/20/21 06/19/21 History cholecalciferol (vitamin D3) 50 mcg PO DAILY@219902/28/20 06/20/21 06/19/21 History [Vitamin D3] naloxone 4 mg/actuation nasal spray 4 mg INTRANASAL Q3M PRN #2 each 03/15/20 06/13/21 12/12/20 Rx duloxetine 60 mg capsule,delayed 60 mg PO BID 90 Days #180 cap 03/15/21 06/20/21 06/19/21 Rx release albuterol sulfate 2.5 mg INHALATION QID PRN #180 ml 03/22/21 06/13/21 Unknown Rx atorvastatin 80 mg tablet 80 mg PO DAILY #90 tab 03/22/21 06/20/21 06/19/21 Rx budesonide-formoterol HFA 160 2 puff INHALATION BID #10.2 g 03/22/21 06/13/21 Unknown Rx mcg-4.5 mcg/actuation aerosol inhaler gabapentin 600 mg tablet 1,200 mg PO BID@1000,2200 30 Days 03/22/21 06/20/21 06/20/21 Rx #120 tab hydrochlorothiazide 12.5 mg tablet 12.5 mg PO DAILY@1000 #90 tab 03/22/21 06/20/21 06/19/21 Rx lisinopril 40 mg tablet 40 mg PO DAILY #90 tab 03/22/21 06/20/21 06/19/21 Rx pantoprazole 40 mg tablet,delayed 40 mg PO DAILY@1000 #90 tab 03/22/21 06/20/21 06/19/21 Rx release rixgonc-xjyzrukxfwsuz-uzbzrwxy 250 1 tab PO Q6H PRN 04/10/21 06/13/21 Unknown History mg-250 mg-65 mg tablet ibuprofen 200 mg capsule 200 mg PO Q6H PRN 04/10/21 06/13/21 Unknown History isosorbide mononitrate 30 mg 30 mg PO DAILY #90 tab 04/10/21 06/20/21 06/20/21 Rx tablet,extended release 24 hr lorazepam 0.5 mg tablet 0.5 mg PO .hs tab 05/08/21 06/13/21 Unknown History cyclobenzaprine 5 mg tablet 5 mg PO TID tab 05/29/21 06/13/21 Unknown History triamcinolone acetonide 0.1 % 1 applic TOPICAL BID PRN gm 05/29/21 06/13/21 Unknown History topical ointment meloxicam 15 mg tablet See Rx Instructions .ROUTE 06/06/21 06/20/21 06/19/21 Rx .COMPLEX #90 tab mirtazapine 30 mg tablet 30 mg PO .qhs 30 Days #90 tab 06/06/21 06/20/21 06/19/21 Rx sitagliptin 50 mg tablet 50 mg PO DAILY@1000 #90 tab 06/18/21 06/19/21 Rx Allergies Allergy/AdvReac Type Severity Reaction Status Date / Time honey Allergy ALGY-Difficulty Verified 06/13/21 11:31 Breathing levofloxacin [From Levaquin] Allergy ALGY-Hives Verified 06/13/21 11:31 venom-honey bee Allergy ALGY-Difficulty Verified 06/13/21 11:31 Breathing venom-wasp Allergy ALGY-Difficulty Verified 06/13/21 11:31 Breathing oxybutynin AdvReac Mild swelling Verified 06/13/21 11:31 PFSH Acute PFSH: Medical History Chronic gastritis COPD (chronic obstructive pulmonary disease) CVD (cerebrovascular disease) Diastolic CHF Dysphagia Enrolled in chronic care management Essential hypertension Fatty infiltration of liver History of cardiac murmur History of colon polyps History of rheumatic fever Hyperlipidemia snf (current) use of opiate analgesic Osteoarthritis involving multiple joints on both sides of body Osteopenia Pain management contract signed Postmenopausal Psychiatric care Sjogren's syndrome with keratoconjunctivitis sicca Skin cancer of nose Spondylosis without myelopathy or radiculopathy, lumbosacral region TIA (transient ischemic attack) Type 2 diabetes mellitus without complications Unilateral primary osteoarthritis, left knee Vitamin D deficiency Surgical History H/O cornea transplant History of surgery on arm surgery on nerves History of toe surgery History of tonsillectomy Previous back surgery S/P cholecystectomy S/P hysterectomy S/P knee replacement Status post removal of thyroid nodule Family History Father CAD (coronary artery disease) Mother Cancer Sister Cancer Brother Cancer Other Diabetes Lung disease Social History Smoking and tobacco status: never smoked Quit status (tobacco): has quit using tobacco Year quit tobacco: 2020 Former quit date comment: 1 PPD X 5 YEARS Alcohol intake: never Lives independently: Yes Current occupational status: retired History of recent travel: No Female Reproductive History: Para: 2 Spontaneous abortions: Yes Vitals/I&O/Wt Last Vital Signs Temp 92.2 F L 06/20/21 06:09 Pulse 88 12/08/21 06:09 Resp 20 H 06/20/21 06:09 BP 163/94 06/20/21 06:09 Pulse Ox 95 06/20/21 06:09 Physical Exam Narrative: EXAM NARRATIVE: CONSTITUTIONAL: The patient is a normal appearing [] in no apparent distress. GENERAL: Patient in no acute distress. CARDIAC: Regular rate and rhythm. CHEST: Normal inspiratory effort, normal respiratory rate. ABDOMEN: Soft and nontender. SKIN: Clear, warm and intact. NEURO?PSYCH: The patient is alert and oriented to person, place and time. Sensorv /SILT Motor StrengthShoulder abduction C5 5/5Wrist extension C6 5 /5Elbow extension C7 5/5Hand Assistant [employer] C8 5/5Finger abduction T15/5 Radial/ Ulnar/ Median n intact LowerSensory (SILT)Motor StrengthHin flexion L2/3Ant/inner thigh 5/5Hip adduction L2/3 5/5Knee extension L4 Lat thigh, 5/5Toe dorsiflexion L5 5/5Ankle dorsiflexion L5/ A89Opbswcr flexion S1 5/5 DTRBleeps 2+Triceps 2+Brachioradialis 2+Patellar 2+Achilles 2+ MUSCULOSKELETAL: [] UPPEREXTREMITIES: The patient had full active ROM in fingers, wrist, elbow, and shoulder. The patient demonstrated ability to fully flex/extend/abduct/adduct fingers, make ok sign, cross 2nd/3rd digits, extend 1st digit fully.. Radial pulse 2+, CR<2 seconds. LOWER EXTREMITIES: Pt has full, active ROM of toes, ankle, knee, and hip. Dorsalis pedis/posterior tibialis pulses 2+, CR<2 seconds. SPINE: Skin warm, dry, intact. Data : 06/13/21 12:00 06/13/21 12:00 A&P Assessment and plan (1) Spondylolisthesis at L4-L5 level: L4/5 PLIF Status: Acute Attestations Medical Necessity Statement*: failed conservative tx Coding Level of Care Code Acute [facility] Fwd Diagnoses Spondylolisthesis at L4-L5 level M43.16
[2021-06-20 06:54] LABS: Glucose Point of Care 175 mg/dL (70-110)
[2021-06-20] MEDS: heparin, porcine 1,000 unit/mL INJ 10 mL 10000 UNIT IRRIGATION (08:07)
--- NOTE | 2021-06-20 09:48 | P.OP_ITS ---
Operative Report Date of procedure: June 20, 2021 Pre-op Diagnosis: lumbar stenosis with neurogenic claudication Post-op diagnosis: same Procedure Done: 1. L4/5 Interbody fusion with posterolateral fusion 2. Instrumentation L4/5 3. Cage at L4/5 4. Laminectomy L4 5. use of autograft from same incision 6. allograft 7. Bone marrow aspirate from right iliac crest 8. use of computer navigation/ stereotactic for spine Surgeon: Etienne Moy Anesthesia: General Estimated blood loss (mL): 200 Condition: stable Disposition: PACU Procedure: 1. L4/5 Interbody fusion with posterolateral fusion 2. Instrumentation L4/5 3. Cage at L4/5 4. Laminectomy L4 5. use of autograft from same incision 6. allograft 7. Bone marrow aspirate from right iliac crest 8. use of computer navigation/ stereotactic for spine Patient is brought to the operative suite. After undergoing anesthesia, the patient had neuro monitoring attached. Patient was then placed in the prone position on the Layo table. All areas of impingement were well-padded. Patient was then prepped and draped in the normal sterile fashion. Skin incision was then made over the L4-L5 space. Subperiosteal dissection was made out to the transverse processes of L4 and L5. Once the exposure was complete attention was then brought to obtaining bone marrow aspirate. The [employer] bone marrow aspirate kit was used to aspirate bone marrow aspirate from the right iliac crest. This was done by using the sharp probe to open up the bone. Aspiration was performed and then the blunt probe was then used to dissect down to through the bone tunnel. An aspirating well drawn back a millimeter approximately 20 cc of bone marrow aspirate was used. Admixed with the allograft and autograft bone that will be used. Next attention was brought to placing the fiducial for the computer navigation. 2 pins were placed into the iliac crest. The fusion was attached. The C-arm was brought in information was sent from the C arm to the fiducial to the computer length altogether in order to facilitate using computer navigation for placing the pedicle screws. The technique for placing the pedicle screws was to use a drill followed by the gearshift probe linked to computer navigation. Followed by the ball probe to feel the superior inferior medial lateral hart of the pedicles with computer navigation. Then placement of the screws. Was done at each pedicle. Screws were placed at L4 bilaterally and L5. Next attention was brought to performing the laminectomy of L4. This was done using the high-speed bur Kerrisons and curettes. Once the lamina was removed and then attention was brought to performing a partial facetectomy on the contralateral side. This was done again using the high-speed bur curettes and Kerrisons. The ligamentum flavum was taken down bilaterally from L4 to L5. Attention was then brought to the facet on the ipsilateral side. The facet was taken down. The L5 nerve was decompressed as it passed around the L5 pedicle. The laminectomy was done for purposes of decompressing the nerve as well as placement of the cage. The L4 nerve was identified as it traversed through the L4/5 foramen. The thecal sac was identified and retracted. The L4/5 disc base was identified. Using a knife the disc base was opened. And then sequential stefania were placed. The first shaver was a 6 and the last shaver was a 11. Using a pituitary and down going curette the endplates were scraped and disc material was removed from the space. Once adequate decompression of the disc base was felt to be had. Osteoamp sponge was packed into the anterior aspect of the disc base. Then a size 11 cage from [employer] was placed after packing osteoamp into the cage. While placing the cage the thecal sac and L5 nerve was protected. C arm was used to ensure that the cages placed in the appropriate position. Attention was then brought to attaching the rods to the screws placed in the L4 to L5 bilaterally. Caps were torqued into position. Locking the construct in place. Wound was copiously irrigated and then attention was brought to decorticating the facets and transverse processes laterally. Bone that was taken down from the lamina was used along with osteoamp fibers and sponges were packed into the lateral gutters along the facet joints. This was done bilaterally. Wound was then closed in a layered fashion starting with the thoracolumbar fascia. 0-vicryl was used the sub cutaneous tissue was closed with 2-0 vicryl and skin with 4-0 monocryl. Glue was then used to seal the skin and a steril dressing was applied. Patient was then placed in the supine position. The endotracheal tube was removed and patient was transferred to the PACU in stable condition.
--- NOTE | 2021-06-20 10:49 | SUR.PHASEI ---
RECIEVED PT TO PACU INTUBED ET AT 22 AT LIP, PT PLACED ON VENT FIO2 100% RATE 16 CMP, TV 450, PEEP 3 , IV PATENT TO RT HAND #20 , CUMMINS TO DD WITH STATLOCK TO RT THIGH , BILAT SCDS ON , PT SX ORALY WITH YANKER AND INLINE NEEDED PT NOW OPENS EYES TO DR COLIN AT BEDSIDE AND FOLLOWS SIMPLE COMMANDS BUT DOES NOT MOVE FEET OR HANDS, PT QUICKLY BACK TO SLEEP PT SX ORALLY WITH NO GAG REFLEX NOTED LUNGS BILAT WITH SCATTERED RHONCI NO WHEEZES TO ALL LOBES.
--- NOTE | 2021-06-20 11:04 | PM.CONSULT ---
Providers/Reason For Consult Consulting Physician/Specialty*: Spencer Sanchez MD, hospitalist Reason for Consult*: Medical management of problems as well as respiratory failure Attending Physician: Etienne Moy DO Primary Care Provider: Jean Claude Love MD History of Present Illness History of Present Illness Jacqueline Alcazar is a 70 year old female who underwent an L4/5 fusion with instrumentation earlier this morning per Dr. Moy. Following surgery she was slow to regain level of alertness to enable extubation. Secondary to this and reduced responsiveness I was consulted and arrangements were made for the patient to transition to ICU for ventilator need. From my understanding the patient has COPD, with history per patient of increased secretions. She has not been ill lately. Surgery was without complication and no evidence of severe blood loss during surgery. Estimated blood loss perhaps 100 cc. Further history is unable to obtain from the patient currently as she is intubated, and somewhat lethargic. Review of Systems General: Reports: ROS unobtainable due to mental status Meds/Allergies Home Medications and Allergies Home Medications Medication Instructions Recorded Confirmed Last Taken Type diphenhydramine HCl 25 mg tablet 50 mg PO DAILY PRN tab 07/08/19 06/13/21 Unknown History blood-glucose meter #1 each 02/10/20 06/12/21 Unknown Rx Test strips 1 strip MISCELLANEOUS .4 times 02/17/20 06/12/21 Unknown Rx daily #100 strip lancets #100 each 02/17/20 06/12/21 Unknown Rx Centrum Silver Women 1 tab PO DAILY@0 02/28/20 06/20/21 06/19/21 History cholecalciferol (vitamin D3) 50 mcg PO DAILY@2200 02/28/20 06/20/21 06/19/21 History [Vitamin D3] naloxone 4 mg/actuation nasal spray 4 mg INTRANASAL Q3M PRN #2 each 03/15/20 06/13/21 12/12/20 Rx duloxetine 60 mg capsule,delayed 60 mg PO BID 90 Days #180 cap 03/15/21 06/20/21 06/19/21 Rx release albuterol sulfate 2.5 mg INHALATION QID PRN #180 ml 03/22/21 06/13/21 Unknown Rx atorvastatin 80 mg tablet 80 mg PO DAILY #90 tab 03/22/21 06/20/21 06/19/21 Rx budesonide-formoterol HFA 160 2 puff INHALATION BID #10.2 g 03/22/21 06/13/21 Unknown Rx mcg-4.5 mcg/actuation aerosol inhaler gabapentin 600 mg tablet 1,200 mg PO BID@1000,2200 30 Days 03/22/21 06/20/21 06/20/21 Rx #120 tab hydrochlorothiazide 12.5 mg tablet 12.5 mg PO DAILY@1000 #90 tab 03/22/21 06/20/21 06/19/21 Rx lisinopril 40 mg tablet 40 mg PO DAILY #90 tab 03/22/21 06/20/21 06/19/21 Rx pantoprazole 40 mg tablet,delayed 40 mg PO DAILY@1000 #90 tab 03/22/21 06/20/21 06/19/21 Rx release zhktvkj-dspmairdaaaig-otqqhxid 250 1 tab PO Q6H PRN 04/10/21 06/13/21 Unknown History mg-250 mg-65 mg tablet ibuprofen 200 mg capsule 200 mg PO Q6H PRN 04/10/21 06/13/21 Unknown History isosorbide mononitrate 30 mg 30 mg PO DAILY #90 tab 04/10/21 06/20/21 06/20/21 Rx tablet,extended release 24 hr lorazepam 0.5 mg tablet 0.5 mg PO .hs tab 05/08/21 06/13/21 Unknown History cyclobenzaprine 5 mg tablet 5 mg PO TID tab 05/29/21 06/13/21 Unknown History triamcinolone acetonide 0.1 % 1 applic TOPICAL BID PRN gm 05/29/21 06/13/21 Unknown History topical ointment meloxicam 15 mg tablet See Rx Instructions .ROUTE 06/06/21 06/20/21 06/19/21 Rx .COMPLEX #90 tab mirtazapine 30 mg tablet 30 mg PO .qhs 30 Days #90 tab 06/06/21 06/20/21 06/19/21 Rx sitagliptin 50 mg tablet 50 mg PO DAILY@1000 #90 tab 06/18/21 06/19/21 Rx Allergies Allergy/AdvReac Type Severity Reaction Status Date / Time honey Allergy ALGY-Difficulty Verified 06/13/21 11:31 Breathing levofloxacin [From Levaquin] Allergy ALGY-Hives Verified 06/13/21 11:31 venom-honey bee Allergy ALGY-Difficulty Verified 06/13/21 11:31 Breathing venom-wasp Allergy ALGY-Difficulty Verified 06/13/21 11:31 Breathing oxybutynin AdvReac Mild swelling Verified 06/13/21 11:31 Current Medications Current Medications Generic Name Dose Route Start Last Admin Trade Name Freq PRN Reason Stop Dose Admin Sodium Chloride 1,000 mls @ 30 mls/hr 06/20/21 06:00 06/20/21 06:45 Sodium Chloride 0.9% IV 06/21/21 05:59 30 mls/hr .Q24H MABEL Administration PFSH Acute PFSH: Medical History (Updated 06/20/21 @ 11:10 by Spencer Sanchez MD) Chronic gastritis COPD (chronic obstructive pulmonary disease) CVD (cerebrovascular disease) Diastolic CHF Dysphagia Enrolled in chronic care management Essential hypertension Euthyroid goiter Fatty infiltration of liver PIERRE (generalized anxiety disorder) History of cardiac murmur History of colon polyps History of rheumatic fever Hyperlipidemia group home (current) use of opiate analgesic Major depressive disorder Osteoarthritis involving multiple joints on both sides of body Osteopenia Pain management contract signed Postmenopausal Psychiatric care Sjogren's syndrome with keratoconjunctivitis sicca Skin cancer of nose Spondylosis without myelopathy or radiculopathy, lumbosacral region TIA (transient ischemic attack) Type 2 diabetes mellitus without complications Unilateral primary osteoarthritis, left knee Vitamin D deficiency Surgical History H/O cornea transplant History of surgery on arm surgery on nerves History of toe surgery History of tonsillectomy Previous back surgery S/P cholecystectomy S/P hysterectomy S/P knee replacement Status post removal of thyroid nodule Family History Father CAD (coronary artery disease) Mother Cancer Sister Cancer Brother Cancer Other Diabetes Lung disease Social History Smoking and tobacco status: never smoked Quit status (tobacco): has quit using tobacco Year quit tobacco: 2020 Former quit date comment: 1 PPD X 5 YEARS Alcohol intake: never Lives independently: Yes Current occupational status: retired History of recent travel: No Female Reproductive History: Para: 2 Spontaneous abortions: Yes Vitals/I&O/Wt Last Vital Signs Temp 97.3 F L 06/20/21 10:20 Pulse 88 06/20/21 10:50 Resp 16 06/20/21 10:50 BP 108/51 06/20/21 10:50 Pulse Ox 98 06/20/21 10:50 06/19/21 06/20/21 06/20/21 22:59 06:59 14:59 Intake Total 1110 / 1110 Output Total 200 / 200 Balance 910 / 910 Physical Exam Narrative: EXAM NARRATIVE: General exam is a white female, intubated, who upon stimulation by me can open her eyes and follow some minor directions such as trying to open her mouth, and wiggling her toes. HEENT: Pupils equally round. Head is atraumatic and normocephalic. Oropharynx demonstrates endotracheal tube. Neck is supple no lymphadenopathy Cardiovascular regular rate and rhythm without murmur Lungs diminished breath sounds. Few wheezes. Abdomen is soft with positive bowel sounds. Obese. No obvious organomegaly exam demonstrates Hoang Extremities no cyanosis clubbing or edema, cap refill brisk Skin no rash Neuro unable to cooperate with full exam currently. Urinary Catheter Management^: Hoang: Cath Placed During This Visit: yes Urinary Catheter Date of Insertion: 06/20/21 Urinary Catheter Time of Insertion: 07:20 A&P Assessment and plan (1) Chronic back pain: Status post L4/5 fusion. From my understanding no complications with surgery Status: Acute (2) Respiratory failure: Difficult to awaken after surgery and placed on ventilator. During my assessment it appears the patient is becoming more alert, and may be able to be extubated soon. She will transition to the ICU until this happens. We will check glucose, CBC, CMP If level of alertness does not improve we will consider imaging studies and other testing but considering her current clinical improvement this may not be necessary. Status: Acute (3) COPD (chronic obstructive pulmonary disease): DuoNeb every 4 hours scheduled We will continue her home medications after review Status: Acute (4) Essential hypertension: Review home medicines and continue as appropriate Status: Acute (5) Diastolic CHF: No evidence of acute diastolic heart failure currently. Continue home medications. Status: Acute Qualifiers: Heart failure chronicity: chronic Qualified Code(s): I50.32 - Chronic diastolic (congestive) heart failure (6) Type 2 diabetes mellitus without complications: Sliding scale insulin Status: Chronic Qualifiers: Diabetes mellitus correction insulin use: without filler leaf cutter long use Qualified Code(s): E11.9 - Type 2 diabetes mellitus without complications Additional A&P Information Multiple other medical problems as outlined by past medical history Lovenox for DVT prophylaxis Consult Attestations Medical Necessity Statement: As per primary Time Spent in Patient Care: Greater than 35 minutes Coding Level of Care Code Acute Kiln Burner Helper for [facility] Diagnoses Chronic back pain M54.9; G89.29 Respiratory failure J96.90 COPD (chronic obstructive pulmonary disease) J44.9 Essential hypertension I10 Diastolic CHF I50.32 Heart failure chronicity: chronic Type 2 diabetes mellitus without complications E11.9 Diabetes mellitus filler leaf cutter long insulin use: without filler leaf cutter long use
[2021-06-20] MEDS: fentaNYL 50 mcg/mL INJ 2mL IVP (11:06)
--- NOTE | 2021-06-20 11:49 | SUR.PHASEI ---
1128 PT TO ICU PER BED PT BAGGED BY RESP, HANDOFF AT BEDSIDE, PT AWAKE ALERT FOLLOWING COMMANDS RESP AT BEDSIDE, DRAIN COMPRESSED DRESSING D/I VSS.
[2021-06-20 11:50] LABS: Glucose Point of Care 255 mg/dL (70-110)
[2021-06-20] MEDS: insulin lispro 100 unit/1 mL SUBCUT ×3 (12:08→22:46)
[2021-06-20] MEDS: ketorolac 30 mg/mL INJ IVP (13:28)
--- NOTE | 2021-06-20 13:41 | ANE.PACU2 ---
Inpatient post-anesthesia follow up: Airway intact: No Vital signs: Temperature 97.8 F Pulse Rate 93 Respiratory Rate 19 Blood Pressure 119/60 Pulse Oximetry 91 Oxygen Delivery Me thod Mechanical Ventila tion Oxygen Flow Rate 40 Fraction of Inspir ed Oxygen 40 Hydration adequate: Yes Nausea and vomiting: No Pain level: 2 Mental status: Baseline Additional Comments: Patient with delayed awakening. Still unreponsive 1 hr after anesthesia terminated with small tidal volumes, sat 89% on 100% FIO2. Decided to leave intubated. Patient waking up and responding in PACU, brought to ICU
[2021-06-20] MEDS: HYDROcodone-acetaminophen 5-325 mg Tablet PO ×2 (14:42→19:59)
[2021-06-20] MEDS: cyclobenzaprine 10 mg Tablet 5 MG PO ×2 (15:57→22:45)
[2021-06-20] MEDS: ipratropium-albuterol 3 mL Neb INHALATION ×3 (16:44→23:45)
[2021-06-20 17:34] LABS: Glucose Point of Care 284 mg/dL (70-110)
[2021-06-20] MEDS: docusate sodium 100 mg Capsule PO (17:39)
[2021-06-20] MEDS: duloxetine 60 mg Capsule PO (17:40)
[2021-06-20] MEDS: ibuprofen 200 mg Tablet PO (18:10)
--- NOTE | 2021-06-20 19:23 | PC.NURSE ---
Shift Note Patient came from surgery to ICU 4 via bed around 1130. Patient alert and able to more all extremities. Patient came intubated and not sedated. Patient was extubated around 1300. Patient able to talk and able to swallow ice. Patient alert and oriented. Patient's granddaughter at bedside. Granddaughter brought patient's phone and wallet. Patient ambulated with PT. Patient had back pain. Frequent safety and comfort rounds continue. Orders and/or nursing care completed as indicated. Patient monitored for response to intervention and treatment(s). Education provided includes medications, care plan, and new results. Patient and/or vendor representatives verbalized understanding.
[2021-06-20 21:54] LABS: Glucose Point of Care 226 mg/dL (70-110)
[2021-06-20] MEDS: gabapentin 400 mg Capsule 1200 MG PO (22:45)
[2021-06-20] MEDS: cholecalciferol (vitamin D3) 1,000 unit Tablet 2000 UNIT PO (22:45)
[2021-06-20] MEDS: LORazepam 0.5 mg Tablet PO (22:46)
[2021-06-20] MEDS: lactated ringers 1,000 ML 90 ML IV (22:46)
[2021-06-21] VITALS (42 sets, daily range): BP systolic 114–151; BP diastolic 60–100; PULSE 76–99; RESP 10–30; TEMP 36.6–36.9; O2SAT 91–98
[2021-06-21] MEDS: mirtazapine 15 mg Tablet 30 MG PO ×2 (00:07→20:34)
[2021-06-21] MEDS: ipratropium-albuterol 3 mL Neb INHALATION ×4 (03:33→19:43)
[2021-06-21] MEDS: enoxaparin 40 mg/0.4 mL Syringe SUBCUT (07:19)
--- NOTE | 2021-06-21 07:25 | PM.PN ---
Documented by User: JOSE Watson 06/21/21 07:27 Subjective Subjective: Interval history: POD 1 Patient resting comfortably. Denies any shortness of breath, chest pain, headaches. Her back pain is much improved legs have improved as well. Vitals/I&O/Wt Last Vital Signs Temp 98.2 F 06/21/21 06:00 Pulse 95 06/21/21 06:00 Resp 14 06/21/21 06:00 BP 128/77 06/21/21 06:00 Pulse Ox 92 06/21/21 06:00 06/20/21 06/21/21 06/21/21 22:59 06:59 14:59 Intake Total 1730 / 2840 580 / 3420 Output Total 500 / 700 100 / 800 2700 / 2700 Balance 1230 / 2140 480 / 2620 -2700 / -2700 Physical Exam Narrative: EXAM NARRATIVE: Patient presents alert and oriented x3 with a good general appearance normal normal affect. Mild tenderness around the incisional site with the incision appears clean and dry. Hemovac intact. 5/5 motor strength both lower extremities with negative straight leg raise bilaterally. Calves are supple no medial thigh tenderness. Pulses are 2+ at the dorsalis pedis and posterior tibial region. Good capillary refill throughout normal sensation light touch both lower extremities. Urinary Catheter Management^: Hoang: Cath Placed During This Visit: yes Reason for Continuing Indwelling Catheter: Accurate Measurement of Urinary Output in Critically Ill Patients Urinary Catheter Date of Insertion: 06/20/21 Urinary Catheter Time of Insertion: 07:20 Data : 06/21/21 07:33 06/21/21 07:33 A&P Assessment and plan (1) Status post lumbar spinal fusion: We will discontinue Hoang catheter and the Hemovac drain. Seen with physical therapy and a walker. We will consult home health care social worker for placement. Continue incentive spirometry for pulmonary toilet. Status: Acute Attestations Medical Necessity Statement*: DC tomorrow if medially stable Coding Level of Care Code Acute Rotary Saw Operator for [facility] Diagnoses Status post lumbar spinal fusion Z98.1 Lumbar stenosis with neurogenic claudication M48.062 Documented by User: Etienne Moy DO 06/21/21 09:14 Physical Exam Urinary Catheter Management^: Hoang: Cath Placed During This Visit: no Data : 06/21/21 07:33 06/21/21 07:33 A&P Assessment and plan (1) Lumbar stenosis with neurogenic claudication: Patient doing well will plan on discharging today if okay with Dr. Roman. Patient had difficulty extubating but is doing fine my understanding is she is in the ICU now because there is no beds available on the floor. Status: Acute Coding Level of Care Code Acute Rotary Saw Operator for [facility] Diagnoses Status post lumbar spinal fusion Z98.1 Lumbar stenosis with neurogenic claudication M48.062
[2021-06-21 07:43] LABS: Basophils % 0.2 %; Eosinophils % 0.1 %; Hematocrit 35.1 % (37.0-47.0); Hemoglobin 11.1 g/dL (11.5-15.3); Lymphocytes # 2.6 10^3/uL (0.8-4.8); Lymphocytes % 15.1 %; Mean Corpuscular HGB Conc 31.6 g/dL (30.0-36.0); Mean Corpuscular Hemoglobin 29.5 pg (28.0-34.0); Mean Corpuscular Volume 93.4 fl (81-99); Mean Platelet Volume 10.7 fL (7.4-10.4); Monocytes # 0.9 10^3/uL (0.2-0.9); Monocytes % 5.1 %; Neutrophils # 13.49 10^3/uL (1.8-7.7); Nucleated Red Blood Cells % 0 %; Platelet Count 232 10^3/cmm (130-400); Red Blood Count 3.76 10^6/uL (4.1-5.3); Red Cell Distribution Width 14.8 % (12.1-15.1); White Blood Count 17.1 10^3/uL (4.0-10.0)
--- NOTE | 2021-06-21 07:48 | XR_ITS ---
WS: [id number] Exam: XR chest 1V portable [id number] Date/Time of Exam: 06/21/2021 7:58 AM Reason For Exam: hypoxia Comparison 12/23/2020. The lungs are clear and fully expanded. Normal heart size. Widening of the superior mediastinum and r ightward tracheal deviation. No pleural effusions. Monitoring leads superimpose the chest. XR/XR chest 1V portable [id number] IMPRESSION: 1. No acute cardiopulmonary finding. 2. Rightward tracheal deviation and prominence of the superior mediastinum appa rently secondary to thyroid gland enlargement. This appears chronic.
[2021-06-21 08:04] LABS: Alanine Aminotransferase 34 U/L (0-33); Albumin Level 3.3 g/dL (3.5-5.2); Alkaline Phosphatase 65 IU/L (35-105); Anion Gap 13.4 (5-19); Aspartate Amino Transferase 50 U/L (0-32); Blood Urea Nitrogen 17 mg/dL (8-23); Carbon Dioxide 26 mmol/L (22-29); Chloride 110 mmol/L (98-107); Globulin 2.3 g/dL (1.3-4.6); Glucose 149 mg/dL (65-115); Osmolality Calculated 304 mOsm/kg (285-295); Potassium 4.4 mmol/L (3.5-5.1); Sodium 145 mmol/L (136-145); Total Bilirubin 0.2 mg/dL (0.15-1.2); Total Protein 5.6 g/dL (6.6-8.7)
[2021-06-21 08:29] LABS: Glucose Point of Care 144 mg/dL (70-110)
[2021-06-21] MEDS: insulin lispro 100 unit/1 mL SUBCUT ×4 (08:33→20:25)
[2021-06-21] MEDS: gabapentin 400 mg Capsule 1200 MG PO ×2 (08:34→20:28)
[2021-06-21] MEDS: pantoprazole DR 40 mg Tablet PO (08:34)
[2021-06-21] MEDS: isosorbide mononitrate ER 30 mg Tablet PO (08:34)
[2021-06-21] MEDS: docusate sodium 100 mg Capsule PO ×2 (08:34→17:11)
[2021-06-21] MEDS: duloxetine 60 mg Capsule PO ×2 (08:34→17:11)
[2021-06-21] MEDS: hydroCHLOROthiazide 25 mg Tablet 12.5 MG PO (08:34)
[2021-06-21] MEDS: atorvastatin 40 mg Tablet 80 MG PO (08:35)
[2021-06-21] MEDS: cyclobenzaprine 10 mg Tablet 5 MG PO ×3 (08:35→20:27)
[2021-06-21] MEDS: lisinopril 20 mg Tablet 40 MG PO (08:35)
[2021-06-21] MEDS: HYDROcodone-acetaminophen 5-325 mg Tablet PO ×3 (08:58→22:20)
--- NOTE | 2021-06-21 09:14 | PM.DCS ---
Discharge Providers Date of Admission: 06/20/21 11:27 Date of Discharge: June 21, 2021 Attending Provider at Admission: Etienne Moy DO Attending Provider at Discharge: Etienne Moy DO Primary Care Provider: Jean Claude Love MD Diagnoses at Discharge Discharge Diagnosis (1) Lumbar stenosis with neurogenic claudication: Status: Acute Reason for Visit Reason for Visit: Spondylolisthesis lumbar region Hospital Course Hospital Course Patient is mated on 06/20/2021 she had a posterior lumbar interbody fusion. She had difficulty extubating which ultimately led her to staying in the ICU. She was not able to be transferred to the floor because of no beds available. This point she be discharged on 06/21/2021. Physical Exam Urinary Catheter Management^: Hoang: Cath Placed During This Visit: yes Reason for Continuing Indwelling Catheter: Accurate Measurement of Urinary Output in Critically Ill Patients Urinary Catheter Date of Insertion: 06/20/21 Urinary Catheter Time of Insertion: 07:20 Discharge Data Data Completed and Pending: Completed Studies During Hospitalization Category Date Time Status XR chest 1V adam ble [id number] Routine Exams 06/21/21 07:48 Completed XR lumbar spine 2 -3V* [id number] Routine Exams 06/20/21 Completed Pending at discharge Category Date Time Status Complete Blood Co unt w/Auto Stat Lab 06/20/21 10:58 Uncollected Comprehensive Met abolic Panel Stat Lab 06/20/21 10:57 Uncollected Labs from last 24 hours 06/21/21 06/21/21 06/21/21 08:26 07:33 07:33 WBC 17.1 H RBC 3.76 L Hgb 11.1 L Hct 35.1 L MCV 93.4 MCH 29.5 MCHC 31.6 RDW 14.8 Plt Count 232 MPV 10.7 H Neut % (Auto) 79.0 Lymph % (Auto) 15.1 [place] % (Auto) 5.1 Eos % (Auto) 0.1 Baso % (Auto) 0.2 Neut # (Auto) 13.49 H Lymph # (Auto) 2.6 [place] # (Auto) 0.9 Eos # (Auto) 0.0 Baso # (Auto) 0.0 Nucleated RBC % (a uto) 0 Nucleated RBCs # 0.0 Sodium 145 Potassium 4.4 Chloride 110 H Carbon Dioxide 26 Anion Gap 13.4 BUN 17 Creatinine 0.9 GFR Calculation Not Reportable Glucose 149 H POC Glucose 144 H Calculated Osmolal ity 304 H Calcium 8.0 L Total Bilirubin 0.2 AST 50 H ALT 34 H Alkaline Phosphata se 65 Total Protein 5.6 L Albumin 3.3 L Globulin 2.3 06/20/21 06/20/21 06/20/21 21:51 17:29 11:24 WBC RBC Hgb Hct MCV MCH MCHC RDW Plt Count MPV Neut % (Auto) Lymph % (Auto) [place] % (Auto) Eos % (Auto) Baso % (Auto) Neut # (Auto) Lymph # (Auto) [place] # (Auto) Eos # (Auto) Baso # (Auto) Nucleated RBC % (a uto) Nucleated RBCs # Sodium Potassium Chloride Carbon Dioxide Anion Gap BUN Creatinine GFR Calculation Glucose POC Glucose 226 H 284 H 255 H Calculated Osmolal ity Calcium Total Bilirubin AST ALT Alkaline Phosphata se Total Protein Albumin Globulin Vitals: Last Vital Signs Temp 98.2 F 06/21/21 06:00 Pulse 83 06/21/21 08:25 Resp 16 06/21/21 08:25 BP 128/77 06/21/21 06:00 Pulse Ox 95 06/21/21 08:25 Discharge Plan Discharge Patient Disposition: Home Condition: Stable Prescriptions: New hydrocodone-acetaminophen 5-325 mg tablet 1 - 2 tab PO .Q4-6H Qty: 40 RF: 0 Continued naloxone 4 mg/actuation spray,non-aerosol 4 mg INTRANASAL Q3M PRN (Reason: opioid overdose) Qty: 2 RF: 0 Lipitor 80 mg tablet 80 mg PO DAILY Qty: 90 RF: 3 triamcinolone acetonide 0.1 % ointment 1 applic TOPICAL BID PRN (Reason: Allergy Symptoms) RF: 0 cyclobenzaprine 5 mg tablet 5 mg PO TID RF: 0 lorazepam [Ativan] 0.5 mg tablet 0.5 mg PO .hs RF: 0 diphenhydramine HCl [Benadryl Allergy] 25 mg tablet 50 mg PO DAILY PRN (Reason: Itching) RF: 0 duloxetine 60 mg capsule,delayed release(DR/EC) 60 mg PO BID 90 Days Qty: 180 RF: 1 Excedrin Migraine 250-250-65 mg tablet 1 tab PO Q6H PRN (Reason: Pain) RF: 0 ibuprofen 200 mg capsule 200 mg PO Q6H PRN (Reason: Pain) RF: 0 isosorbide mononitrate 30 mg tablet extended release 24 hr 30 mg PO DAILY Qty: 90 RF: 3 (DME) blood-glucose meter Kit See Rx Instructions .ROUTE .MEDSUPPLY Qty: 1 RF: 0 (DME) lancets Misc See Rx Instructions .ROUTE .MEDSUPPLY Qty: 100 RF: 3 Test strips 1 strip miscellaneous .4 times daily Qty: 100 RF: 3 albuterol sulfate 2.5 mg /3 mL (0.083 %) solution for nebulization 2.5 mg inhalation QID PRN (Reason: shortness of breath or wheezing) Qty: 180 RF: 3 gabapentin 600 mg tablet 1,200 mg PO BID@1000,2200 30 Days Qty: 120 RF: 5 hydrochlorothiazide 12.5 mg tablet 12.5 mg PO DAILY@1000 Qty: 90 RF: 3 lisinopril 40 mg tablet 40 mg PO DAILY Qty: 90 RF: 3 Protonix 40 mg tablet,delayed release (DR/EC) 40 mg PO DAILY@1000 Qty: 90 RF: 3 meloxicam 15 mg tablet See Rx Instructions .ROUTE .COMPLEX Qty: 90 RF: 1 mirtazapine 30 mg tablet 30 mg PO .qhs 30 Days Qty: 90 RF: 0 Januvia 50 mg tablet 50 mg PO DAILY@1000 Qty: 90 RF: 0 cholecalciferol (vitamin D3) [Vitamin D3] 50 mcg (2,000 unit) Tablet 50 mcg PO DAILY@2200 RF: 0 Centrum Silver Women 8 mg iron-400 mcg-300 mcg Tablet 1 tab PO DAILY@2200 RF: 0 budesonide-formoterol [Symbicort] 160-4.5 mcg/actuation HFA aerosol inhaler 2 puff inhalation BID Qty: 10.2 RF: 3 Discharge Orders: Discharge Order (Routine); Ordered 06/21/21 Ordered By: Etienne Moy Discharge Diet: Advance as tolerated Discharge Activity: Limit activity as instructed Patient Instructions: Opioid Safety Activity Restrictions/Additional Instructions: Thank you for [facility] for your care! The following is a list of instructions, from your provider, to follow upon your discharge to ensure you have the optimal recovery from your recent injury orsurgery. Follow-up care is a meier part of your treatment and safety. Be sure to make and go to all appointments, and call your doctor if you are having problems. If you do not already have a follow-up appointment made, call Dr. Moy office in the next 1-3 days to make follow up appointment for 1 weeks at [phone]. It is also a good idea to know your test results and keep a list of the medicines you take. Medications will be prescribed for you at your provider's discretion. These medications are to be used as instructed; if they are taken more often that prescribed they will not be refilled early and in most cases will not be refilled at all. > When a refill is needed,you should contact vielka carrillo 2-3 business days before your prescription runs out. Medications will NOT be refilled by information technology manager providers after hours! > Many pain medications contain Tylenol (Acetaminophen). Do not consume more than 4,000 mg of Tylenol per day in total with any combination ofmedications. > Pain medications can cause constipation. Please use an over the counter stool softener as directed, while taking pain medications. Consulty our local pharmacist with questions or recommendations on stool softeners. If constipation persists, contact our office or your primary care provider. > While under our care,you are not to receive pain medications or other controlled substances from any other provider unless our office is notified and approves. Any attempts to do so will result in refusal to prescribe any further pain medications and possible dismissal from our practice. ? keep dressing on at all times will change in clinic ? Walking is essential for the healing process after surgery. We would like you to slowly advance your walking. This should be done on relatively flat clear ground (inside or out) or can be done on a treadmill. Remember this goal does not have to happen all at once, slowly increase your distance and duration. This can be broken into more more than one walk per day as tolerated. Patients who walk as directed after surgery rarely require Physical Therapy. In the unlikely event this issue arises your provider will direct hospital staff to make the appropriate arrangements. ? No lifting over 5 pounds {a gallon of milk) or bending/twisting until further notice. Each of these activities places an unnecessary amount of stress onto the body and can impede the delicate healing process. > Instead of bending at the waist, keep your back straight and bend at the knees. > Instead of twisting your torso, keep your back straight and turn your entire body with your feet. ? You may sleep in any position which makes you comfortable. Many patients find comfort sleeping in a reclining chair. It is not abnormal to have difficulty sleeping for the first several weeks following your surgery. We recommend trying Benadry! or Tylenol PM as directed to help with your sleeping difficulties. Both medications are over the counter and available withoutprescription. ? NO SMOKING!!! Smoking dramatically increases the probability of developing postoperative wound infections. ? Common complaints after lumbar and/or thoracic spine surgery include, but are not limited to: numbness and/or tingling in the legs, pain around the incision and surrounding tissues, muscle spasms, or stiffness of the middle to low back. Contact our office if these symptoms persist or if an acute change occurs. ? No driving for the first 3-5days, and not while taking narcotics [] until seen at your follow-up appointment and cleared. There are no restrictions for riding on short trips, however if you take a longer trip, arrangements should be made to make regular stops to get out of the vehicle and stretch . ? Swelling is an unfortunate event that will take place with any surgery and is the primary source of your postoperative discomfort. While walking and regular approved activities helps control inflammation, there are additional steps you can take to minimizeswelling. > Place ice over the surgical site and surrounding tissue for twenty minutes, followed by applying a low/medium heat (heating pad) for an additional twenty minutes every 1-2 hours as needed for painrelief. > You may use of over the counter anti-inflammatory medications (Ibuprofen, Motrin, Aleve, Advil, etc) as directed on the package label. These types of medicines wm significantly reduce the amount of discomfort you experience after surgery from swelling. It should be noted that if you have and allergy to any of these medications, or a history of ulcers or kidney disease you should consult you primary care provider prior to starting these medications. Discharge Attestations Time Spent in Discharge Care*: less than 30 min Quality Metrics Clinical Quality Measures During this hospital stay, did patient experience: None Coding Level of Care Code Acute [facility] note Diagnoses Lumbar stenosis with neurogenic claudication M48.062
[2021-06-21 11:11] LABS: Glucose Point of Care 210 mg/dL (70-110)
[2021-06-21] MEDS: ibuprofen 200 mg Tablet PO (11:18)
--- NOTE | 2021-06-21 12:04 | PM.PN ---
Subjective Subjective: Interval history: Shelley reports she is doing okay. Slightly short of breath this morning. Medications: Reviewed: Yes Vitals/I&O/Wt Last Vital Signs Temp 98.2 F 06/21/21 06:00 Pulse 83 06/21/21 08:25 Resp 16 06/21/21 08:25 BP 128/77 06/21/21 06:00 Pulse Ox 95 06/21/21 08:25 06/20/21 06/21/21 06/21/21 22:59 06:59 14:59 Intake Total 1730 / 2840 580 / 3420 180 / 180 Output Total 500 / 700 100 / 800 2700 / 2700 Balance 1230 / 2140 480 / 2620 -2520 / -2520 Physical Exam Narrative: EXAM NARRATIVE: General exam no distress Neck is supple no lymphadenopathy Cardiovascular regular rate and rhythm without murmur Lungs diminished breath sounds. No wheezing currently Abdomen is soft with positive bowel sounds. Obese. No obvious organomegaly Extremities no cyanosis clubbing or edema, cap refill brisk. Able to dorsiflex bilaterally Urinary Catheter Management^: Hoang: Cath Placed During This Visit: yes, but has since been removed by the nurse Reason for Continuing Indwelling Catheter: Accurate Measurement of Urinary Output in Critically Ill Patients Urinary Catheter Date of Insertion: 06/20/21 Urinary Catheter Time of Insertion: 07:20 Date Urinary Catheter Removed: 06/21/21 Time Urinary Catheter Discontinued: 09:50 Data : 06/21/21 07:33 06/21/21 07:33 A&P Assessment and plan (1) Chronic back pain: Postoperative day #1 status post L4/5 fusion. Status: Acute (2) Respiratory failure: Difficult to awaken after surgery and placed on ventilator. She was extubated June 20 Chest x-ray obtained today demonstrates no infiltrate Status: Acute (3) COPD (chronic obstructive pulmonary disease): Continue DuoNeb every 4 hours scheduled Status: Acute (4) Essential hypertension: Review home medicines and continue as appropriate Status: Acute (5) Diastolic CHF: No evidence of acute diastolic heart failure currently. Continue home medications. Status: Acute Qualifiers: Heart failure chronicity: chronic Qualified Code(s): I50.32 - Chronic diastolic (congestive) heart failure (6) Type 2 diabetes mellitus without complications: Sliding scale insulin Status: Chronic Qualifiers: Diabetes mellitus medical terminologist insulin use: without group home use Qualified Code(s): E11.9 - Type 2 diabetes mellitus without complications Additional A&P Information Elevated white blood cell count. Check urinalysis. Multiple other medical problems as outlined by past medical history Lovenox for DVT prophylaxis Attestations Medical Necessity Statement*: Needs continued hospital stay for close monitoring status post fusion with respiratory failure directly after surgery. Coding Level of Care Code Acute Customer Care Voice Consultant for [facility] Fwd Diagnoses Chronic back pain M54.9; G89.29 Respiratory failure J96.90 COPD (chronic obstructive pulmonary disease) J44.9 Essential hypertension I10 Diastolic CHF I50.32 Heart failure chronicity: chronic Type 2 diabetes mellitus without complications E11.9 Diabetes mellitus group home insulin use: without group home use
[2021-06-21] MEDS: FUROsemide 10 mg/mL SDV 2mL 20 MG IVP (13:07)
[2021-06-21 14:49] LABS: Add Urine Culture? No; Bacteria Urine TRACE /hpf; Bilirubin Urine Neg (Negative); Blood Urine Neg (Negative); Glucose Urine UA Norm (Normal); Ketones Urine Negative (Negative); Leukocyte Esterase Urine Trace (Negative); Nitrate Urine Negative (Negative); Protein Urine Neg (Negative); Specific Gravity, Urine 1.015 (1.005-1.030); Squamous Epithelial Cell Urine 15-25 /hpf (0-5); Urine Appearance SL Hazy (CLEAR); Urine Color Straw (Yellow); Urobilinogen Urine Norm (Negative); pH Urine 5 (5-7)
[2021-06-21 17:10] LABS: Glucose Point of Care 179 mg/dL (70-110)
--- NOTE | 2021-06-21 17:45 | PC.NURSE ---
Shift Note Frequent safety and comfort rounds continue. Orders and nursing care completed as indicated. Pt walked with family member and PT around nurses station, tolerated well. Pt continues to need assistance of oxygen, requiring 2L NC. Hoang catheter removed earlier this am, pt tolerated well. Hemo-vac removed per physician's orders, 4x4 and tegaderm dressing placed. Family visited today aware of D/C plans for tomorrow, verbalized understanding. No drainage noted, pt tolerated well. Patient monitored for response to intervention and treatments. Education provided includes new medications, oxygen safety, activity importance, and s/s of infection. Patient and family verbalized understanding.Will continue to monitor.
[2021-06-21] MEDS: cholecalciferol (vitamin D3) 1,000 unit Tablet 2000 UNIT PO (20:26)
[2021-06-21] MEDS: LORazepam 0.5 mg Tablet PO (20:26)
[2021-06-21 20:31] LABS: Glucose Point of Care 252 mg/dL (70-110)
[2021-06-22] VITALS (7 sets, daily range): BP systolic 122–153; BP diastolic 63–67; PULSE 81–91; RESP 15–18; TEMP 36.5–36.7; O2SAT 85–95
[2021-06-22] MEDS: ipratropium-albuterol 3 mL Neb INHALATION (04:15)
[2021-06-22] MEDS: enoxaparin 40 mg/0.4 mL Syringe SUBCUT (06:03)
[2021-06-22 06:37] LABS: Basophils # 0.1 10^3/uL (0.0-0.1); Basophils % 0.5 %; Eosinophils # 0.2 10^3/uL (0.0-0.8); Eosinophils % 1.6 %; Hematocrit 35.9 % (37.0-47.0); Hemoglobin 11.4 g/dL (11.5-15.3); Lymphocytes # 3.8 10^3/uL (0.8-4.8); Lymphocytes % 28.2 %; Mean Corpuscular HGB Conc 31.8 g/dL (30.0-36.0); Mean Corpuscular Hemoglobin 29.7 pg (28.0-34.0); Mean Corpuscular Volume 93.5 fl (81-99); Mean Platelet Volume 11.7 fL (7.4-10.4); Monocytes % 7.7 %; Neutrophils # 8.19 10^3/uL (1.8-7.7); Neutrophils % 61.5 %; Nucleated Red Blood Cells % 0 %; Platelet Count 221 10^3/cmm (130-400); Red Blood Count 3.84 10^6/uL (4.1-5.3); White Blood Count 13.3 10^3/uL (4.0-10.0)
--- NOTE | 2021-06-22 06:48 | P.PN_ITS ---
Documented by User: JOSE Watson 06/22/21 06:56 Subjective Subjective: Interval history: POD 2 Patient resting comfortably reporting some left hip and groin pain. Mild SOB, CP. Vitals/I&O/Wt Last Vital Signs Temp 97.7 F 06/22/21 03:23 Pulse 84 06/22/21 04:13 Resp 15 06/22/21 04:13 BP 122/67 06/22/21 03:23 Pulse Ox 92 06/22/21 04:13 06/21/21 06/21/21 06/22/21 14:59 22:59 06:59 Intake Total 1611 / 1611 440 / 2051 1400 / 3451 Output Total 3100 / 3100 1900 / 5000 500 / 5500 Balance -1489 / -1489 -1460 / -2949 900 / -2049 Physical Exam Narrative: EXAM NARRATIVE: Patient presents alert and oriented x3 with a good general appearance normal normal affect. Normal coordination normal stability. Mild tenderness around the incisional site with the incision appear to be healing nicely. No signs of erythema or drainage. No signs of infection. Patient denies any fevers or chills. 5/5 motor strength both lower extremities with negative straight leg raise bilaterally. Calves are supple no medial thigh tenderness. Pulses are 2+ at the dorsalis pedis and posterior tibial region. Good capillary refill throughout normal sensation light touch both lower extremities. Urinary Catheter Management^: Hoang: Cath Placed During This Visit: yes, but has since been removed by the nurse Reason for Continuing Indwelling Catheter: Accurate Measurement of Urinary Output in Critically Ill Patients Urinary Catheter Date of Insertion: 06/20/21 Urinary Catheter Time of Insertion: 07:20 Date Urinary Catheter Removed: 06/21/21 Time Urinary Catheter Discontinued: 09:50 Data : 06/22/21 05:21 06/22/21 05:21 A&P Assessment and plan (1) Status post lumbar spinal fusion: Continue incentive spirometer for pulmonary we will see her back in the office in 1 week's time for wound check. She will call if she is having problems. Status: Acute Attestations Medical Necessity Statement*: defer to medical team Coding Level of Care Code Acute Restaurant Operations Manager for [facility] Diagnoses Status post lumbar spinal fusion Z98.1 Documented by User: Etienne Moy DO 06/22/21 08:25 Physical Exam Urinary Catheter Management^: Hoang: Cath Placed During This Visit: no Data : 06/22/21 05:21 06/22/21 05:21 A&P Assessment and plan (1) Status post lumbar spinal fusion: d/c home with home O2 today Status: Acute Attestations Medical Necessity Statement*: d/c today on Home O2 Coding Level of Care Code Acute Restaurant Operations Manager for [facility] Diagnoses Status post lumbar spinal fusion Z98.1
[2021-06-22 07:06] LABS: Anion Gap 16.9 (5-19); Blood Urea Nitrogen 20 mg/dL (8-23); Calcium 8.3 mg/dL (8.5-10.5); Carbon Dioxide 25 mmol/L (22-29); Chloride 103 mmol/L (98-107); Glucose 138 mg/dL (65-115); Osmolality Calculated 297 mOsm/kg (285-295); Potassium 3.9 mmol/L (3.5-5.1); Sodium 141 mmol/L (136-145)
--- NOTE | 2021-06-22 08:29 | ECG_ITS ---
[facility] Test Date: 2021-06-22 Pat Name: Jacqueline Alcazar Department: Room: 272 Gender: Female Dental Treatment Coordinator: : 1950 Requested By: Spencer Driver Order Number: [id number] Malina MD: Sandro Basilio M.D. Measurements Intervals [place] Rate: 89 P: 48 MN: 194 QRS: -3 QRSD: 93 T: 50 QT: 341 QTc: 415 Interpretive Statements SINUS RHYTHM LOW QRS VOLTAGE IN PRECORDIAL LEADS [QRS DEFLECTION < 1.0 mV IN CHEST LEADS] INCOMPLETE RIGHT BUNDLE BRANCH BLOCK [90+ ms QRS DURATION, TERMINAL R IN V1/V2, 40+ ms S IN I/aVL/V4/V5/V6] POSSIBLE INFERIOR MYOCARDIAL INFARCTION , OF INDETERMINATE AGE [30 ms Q WAVE IN II/aVF] Compared to ECG 06/13/2021 12:11:49 Incomplete right bundle-branch block now present Myocardial infarct finding still present Electronically Signed On 06-23-2021 7:45:55 MOTOR VEHICLE REPRESENTATIVE by Sandro Basilio M.D. [email or web address]
[2021-06-22 08:59] LABS: Troponin T (5th) Once 13 ng/L (0-10)
[2021-06-22 09:28] LABS: D Dimer 1.58 ug/mIFEU (0-0.59)
--- NOTE | 2021-06-22 10:31 | CT_ITS ---
WS: [id number] CT CHEST ANGIOGRAPHY WITH REFORMATS HISTORY: elevated dimer TECHNIQUE: Contiguous axial images are obtained through the chest during arterial injection of intrav enous contrast. Images are reconstructed to evaluate the pulmonary arteries. MIP imaging also reviewe d. All CT scans at [facility] use at least one of these dose optimization techniques: automat ed exposure control; mA and/or kV adjustment per patient size (includes targeted exams where dose is matched to clinical indication); or iterative reconstruction. CONTRAST: Visipaque 320; 84 mL IV. DLP: 556.88 mGy.cm COMPARISON: 12/23/2020 Suboptimal evaluation of the pulmonary arteries due to paucity habitus. There is a large amount of st reak artifact through the thorax. No pulmonary emboli are identified on this examination. There is no RIGHT heart strain. Mild atherosclerosis aorta. No cardiac enlargement. Diffuse groundglass attenuation and haziness throughout both lungs but greatest on the RIGHT. No dens e consolidation. No pneumothorax or pleural effusion. There are a few mildly reactive hilar lymph nod es. Enlarged substernal LEFT thyroid. Liver is enlarged and mildly heterogeneous with hepatic steatosis. Prior cholecystectomy. No adrenal mass. CT/CT angio chest PE protcl [id number] IMPRESSION: 1. Suboptimal evaluation of the pulmonary arteries. No pulmonary emboli identi fied. 2. No RIGHT heart strain. 3. Diffuse bilateral groundglass attenuation, greatest on the RIGHT.
[2021-06-22] MEDS: predniSONE 20 mg Tablet 40 MG PO (10:33)
[2021-06-22] MEDS: cyclobenzaprine 10 mg Tablet 5 MG PO (10:34)
[2021-06-22] MEDS: lisinopril 20 mg Tablet 40 MG PO (10:35)
[2021-06-22] MEDS: isosorbide mononitrate ER 30 mg Tablet PO (10:35)
[2021-06-22] MEDS: hydroCHLOROthiazide 25 mg Tablet 12.5 MG PO (10:35)
[2021-06-22] MEDS: atorvastatin 40 mg Tablet 80 MG PO (10:35)
[2021-06-22] MEDS: gabapentin 400 mg Capsule 1200 MG PO (10:35)
[2021-06-22] MEDS: docusate sodium 100 mg Capsule PO (10:36)
[2021-06-22] MEDS: pantoprazole DR 40 mg Tablet PO (10:37)
[2021-06-22] MEDS: duloxetine 60 mg Capsule PO (10:37)
[2021-06-22] MEDS: insulin lispro 100 unit/1 mL SUBCUT ×2 (10:38→13:14)
[2021-06-22] MEDS: nicotine 21 mg Patch 1 PATCH TRANSDERMA (10:45)
[2021-06-22] MEDS: HYDROcodone-acetaminophen 5-325 mg Tablet PO (10:45)
[2021-06-22] MEDS: doxycycline 100 mg Tablet PO (10:48)
[2021-06-22 11:52] LABS: Troponin T (5th) Once 10 ng/L (0-10)
[2021-06-22] MEDS: iodixanol 320 mg/mL 100mL Btl IV (13:08)
--- NOTE | 2021-06-22 13:38 | PM.PN ---
Subjective Subjective: Interval history: Jacqueline was wheezing this morning. She had a little bit of discomfort when she took a deep breath. Elevated dimer was noted so further studies ordered. When I followed up with her she is feeling much better this afternoon. Less wheezing. Less short of breath. Able to ambulate with oxygen. No chest tightness. Medications: Reviewed: Yes Vitals/I&O/Wt Last Vital Signs Temp 98.1 F 06/22/21 12:00 Pulse 91 06/22/21 12:00 Resp 18 06/22/21 12:00 BP 148/64 06/22/21 12:00 Pulse Ox 95 06/22/21 12:00 06/21/21 06/22/21 06/22/21 22:59 06:59 14:59 Intake Total 440 / 2051 1400 / 3451 Output Total 1900 / 5000 500 / 5500 Balance -1460 / -2949 900 / -2049 Physical Exam Narrative: EXAM NARRATIVE: General exam no distress Neck is supple no lymphadenopathy Cardiovascular regular rate and rhythm without murmur Lungs diminished breath sounds. A few faint expiratory wheezes Abdomen is soft with positive bowel sounds. Obese. No obvious organomegaly Extremities no cyanosis clubbing or edema, cap refill brisk. Able to dorsiflex bilaterally Urinary Catheter Management^: Hoang: Cath Placed During This Visit: yes, but has since been removed by the nurse Reason for Continuing Indwelling Catheter: Accurate Measurement of Urinary Output in Critically Ill Patients Urinary Catheter Date of Insertion: 06/20/21 Urinary Catheter Time of Insertion: 07:20 Date Urinary Catheter Removed: 06/21/21 Time Urinary Catheter Discontinued: 09:50 Data : 06/22/21 05:21 06/22/21 05:21 A&P Assessment and plan (1) Chronic back pain: Postoperative day #2 status post L4/5 fusion. Status: Acute (2) Respiratory failure: Difficult to awaken after surgery and placed on ventilator. She was extubated June 20 Chest x-ray obtained today demonstrates no infiltrate CTA performed today secondary to elevated dimer demonstrated no pulmonary embolism. Some groundglass opacities at the bases were noted. Currently she appears to clinically have a mild COPD exacerbation and will finish a course of prednisone and doxycycline. Status: Acute (3) COPD (chronic obstructive pulmonary disease): Continue pulmonary toilet at home Home oxygen 2 L Prednisone 40 mg a day for 4 days, doxycycline 100 mg twice daily for 7 days Status: Acute (4) Essential hypertension: Review home medicines and continue as appropriate Status: Acute (5) Diastolic CHF: No evidence of acute diastolic heart failure currently. Continue home medications. Status: Acute Qualifiers: Heart failure chronicity: chronic Qualified Code(s): I50.32 - Chronic diastolic (congestive) heart failure (6) Type 2 diabetes mellitus without complications: Sliding scale insulin Status: Chronic Qualifiers: Diabetes mellitus retirement insulin use: without machine long goods helper use Qualified Code(s): E11.9 - Type 2 diabetes mellitus without complications Additional A&P Information Elevated white blood cell count. Urinalysis appeared contaminated, no evidence of gross infection. Multiple other medical problems as outlined by past medical history Lovenox for DVT prophylaxis Ready for discharge today. Follow-up with your primary care provider discussed as well as home medicine regimen, and to return if any worsening breathing difficulty. Attestations Medical Necessity Statement*: As per primary Coding Level of Care Code Acute Novelty Printing Machine Operator for [facility] Fw Diagnoses Chronic back pain M54.9; G89.29 Respiratory failure J96.90 COPD (chronic obstructive pulmonary disease) J44.9 Essential hypertension I10 Diastolic CHF I50.32 Heart failure chronicity: chronic Type 2 diabetes mellitus without complications E11.9 Diabetes mellitus machine long goods helper insulin use: without retirement use
--- NOTE | 2021-06-22 14:39 | PC.CHAP ---
Pastoral Care Encounter/Spiritual Assessment Type of Contact [] Declined product merchandiser visit [] Patient/Family/Request visit [] Outpatient visit [] Follow-up visit [] Physician referral [] Code/Alert [xx] Routine visit [] Staff referral [] Actively dying [] Patient sleeping [] Family support [] [] Out of room [] Palliative care [] [] Receiving care in room [] Pre-surgical visit [] Trauma [] Long length of stay [] ICU visit [] Other: Relational/Emotional Strength [xx] Patient feels connected with others/family/visitors/staff [] Distress [] Loneliness/isolation [] Abandonment Spirituality of Patient [xx] Person of Irais [] Attends Latter-Day of their Irais [xx] Believes in Prayer [] Reads Bible or Lutheran materials [] There are Spiritual issues to be addressed District Scout Executive Interventions [] Prayer [xx] Active listening [xx] Non-anxious presence [] Spiritual/emotional support [] Crisis/trauma care [] Spiritual counseling [] Bereavement support [] Provided bereavement packet [] Provided Bible/devotional materials [] Provided toy/stuffed animal, coloring book to patient or family member [] Provided Communion [] Anointing/Maurice [] Salvation [xx] Completed spiritual assessment [] Other: Impact on Illness or Injury [] Angry [] Fearful [] Anxious [] Often cries [] Exhaustion [] Unable to work [] Unable to attend anglican [] Unable to walk/stand [] Unable to read [] Unable to drive [] Unable to eat/drink [] Unable to sleep [] Unable to be with family [] Patient intubated [] Other: Summary Daughter was present with patient. Short visit with no chance to pray as staff came to take patient for CT scan and daughter was going with her to extent possible. Revisit later. Time spent with patient 2 minutes
[2021-06-22 21:32] LABS: Glucose Point of Care 250 mg/dL (70-110)
[2021-06-22 21:32] LABS: Glucose Point of Care 251 mg/dL (70-110)
--- NOTE | 2021-06-25 14:42 | P.DS_ITS ---
Discharge Providers Date of Admission: 06/20/21 11:27 Date of Discharge: June 22, 2021 Attending Provider at Admission: Etienne Moctezuma DO Attending Provider at Discharge: Etienne Moctezuma DO Primary Care Provider: Jean Claude Love MD Diagnoses at Discharge Discharge Diagnosis (1) Chronic back pain: Status: Acute (2) Respiratory failure: Status: Acute (3) COPD (chronic obstructive pulmonary disease): Status: Acute (4) Essential hypertension: Status: Acute (5) Diastolic CHF: Status: Acute Qualifiers: Heart failure chronicity: chronic Qualified Code(s): I50.32 - Chronic diastolic (congestive) heart failure (6) Type 2 diabetes mellitus without complications: Status: Chronic Qualifiers: Diabetes mellitus nursing home insulin use: without middle or intermediate school principal use Qualified Code(s): E11.9 - Type 2 diabetes mellitus without complications Reason for Visit Reason for Visit: Spondylolisthesis lumbar region Hospital Course Hospital Course Patient is mated on 06/20/2021 she had a posterior lumbar interbody fusion. She had difficulty extubating which ultimately led her to staying in the ICU. She was not able to be transferred to the floor because of no beds available. This point she be discharged on 06/22/2021. Physical Exam Urinary Catheter Management^: Hoang: Cath Placed During This Visit: yes, but has since been removed by the nurse Reason for Continuing Indwelling Catheter: Accurate Measurement of Urinary Output in Critically Ill Patients Urinary Catheter Date of Insertion: 06/20/21 Urinary Catheter Time of Insertion: 07:20 Date Urinary Catheter Removed: 06/21/21 Time Urinary Catheter Discontinued: 09:50 Discharge Data Data Completed and Pending: Completed Studies During Hospitalization Category Date Time Status CT angio chest PE protcl [id number] Rout ine Cat Scan 06/22/21 10:31 Completed XR chest 1V adam ble [id number] Routine Exams 06/21/21 07:48 Completed XR lumbar spine 2 -3V* [id number] Routine Exams 06/20/21 Completed Vitals: Last Vital Signs Temp 98.1 F 06/22/21 14:56 Pulse 91 06/22/21 14:56 Resp 18 06/22/21 14:56 BP 148/64 06/22/21 14:56 Pulse Ox 95 06/22/21 14:56 Discharge Plan Discharge Patient Disposition: Home Condition: Stable Prescriptions: New hydrocodone-acetaminophen 5-325 mg tablet 1 - 2 tab PO .Q4-6H Qty: 40 RF: 0 prednisone 20 mg Tablet 40 mg PO DAILY Qty: 8 RF: 0 doxycycline monohydrate 100 mg Tablet 100 mg PO BID Qty: 14 RF: 0 Continued naloxone 4 mg/actuation spray,non-aerosol 4 mg INTRANASAL Q3M PRN (Reason: opioid overdose) Qty: 2 RF: 0 Lipitor 80 mg tablet 80 mg PO DAILY Qty: 90 RF: 3 triamcinolone acetonide 0.1 % ointment 1 applic TOPICAL BID PRN (Reason: Allergy Symptoms) RF: 0 cyclobenzaprine 5 mg tablet 5 mg PO TID RF: 0 lorazepam [Ativan] 0.5 mg tablet 0.5 mg PO BEDTIME RF: 0 diphenhydramine HCl [Benadryl Allergy] 25 mg tablet 50 mg PO DAILY PRN (Reason: Itching) RF: 0 Excedrin Migraine 250-250-65 mg tablet 1 tab PO Q6H PRN (Reason: Pain) RF: 0 ibuprofen 200 mg capsule 200 - 400 mg PO Q6H PRN (Reason: Pain) RF: 0 isosorbide mononitrate 30 mg tablet extended release 24 hr 30 mg PO DAILY Qty: 90 RF: 3 (DME) blood-glucose meter Kit See Rx Instructions .ROUTE .MEDSUPPLY Qty: 1 RF: 0 (DME) lancets Misc See Rx Instructions .ROUTE .MEDSUPPLY Qty: 100 RF: 3 Test strips 1 strip miscellaneous .4 times daily Qty: 100 RF: 3 albuterol sulfate 2.5 mg /3 mL (0.083 %) solution for nebulization 2.5 mg inhalation QID PRN (Reason: shortness of breath or wheezing) Qty: 180 RF: 3 gabapentin 600 mg tablet 1,200 mg PO BID@1000,2200 30 Days Qty: 120 RF: 5 hydrochlorothiazide 12.5 mg tablet 12.5 mg PO DAILY@1000 Qty: 90 RF: 3 Protonix 40 mg tablet,delayed release (DR/EC) 40 mg PO DAILY@1000 Qty: 90 RF: 3 Januvia 50 mg tablet 50 mg PO DAILY@1000 Qty: 90 RF: 0 cholecalciferol (vitamin D3) [Vitamin D3] 50 mcg (2,000 unit) Tablet 50 mcg PO QAM RF: 0 Centrum Silver Women 8 mg iron-400 mcg-300 mcg Tablet 1 tab PO DAILY@2200 RF: 0 meloxicam 15 mg tablet 15 mg PO DAILY RF: 0 mirtazapine 30 mg tablet 30 mg PO BEDTIME RF: 0 lisinopril 40 mg tablet 40 mg PO QAM RF: 0 duloxetine 60 mg capsule,delayed release(DR/EC) 120 mg PO QAM RF: 0 Symbicort 160-4.5 mcg/actuation Hfa Aerosol Inhaler 2 puff INHALATION BID PRN (Reason: pts granddaughter states the pt uses prn) RF: 0 Discharge Orders: Discharge Order (Routine); Ordered 06/21/21 Ordered By: Etienne Moctezuma Other Ambulatory Orders: DME: Oxygen (Order) Location: None Selected Ordered By: Spencer Sanchez Referrals: Etienne Moctezuma, [Physician] - 06/26/21 3:15 pm (THIS FOLLOW UP APPOINTMENT BEEN SCHEDULED ,DR[facility] . FOR DATE OF JUNE 26, 2021 AT 3:15 PM ) Jean Claude Love MD [Primary Care Provider] - 4-7 days (follow up of COPD exacerbation) [facility], [Staff Physician] - ([facility] has accepted you to their services. If you have any questions or concerns please call them at [phone].) Discharge Diet: Advance as tolerated Discharge Activity: Limit activity as instructed Patient Instructions: Hydrocodone/Acetaminophen (By mouth), Using Oxygen at Home (DC), Lumbar Spinal Stenosis (DC), Lumbar Spinal Fusion (DC), Opioid Safety Activity Restrictions/Additional Instructions: Thank you for [facility] for your care! The following is a list of instructions, from your provider, to follow upon your discharge to ensure you have the optimal recovery from your recent injury orsurgery. Follow-up care is a meier part of your treatment and safety. Be sure to make and go to all appointments, and call your doctor if you are having problems. If you do not already have a follow-up appointment made, call Dr. Moctezuma office in the next 1-3 days to make follow up appointment for 1 weeks at [phone]. It is also a good idea to know your test results and keep a list of the medicines you take. Medications will be prescribed for you at your provider's discretion. These medications are to be used as instructed; if they are taken more often that prescribed they will not be refilled early and in most cases will not be refilled at all. > When a refill is needed,you should contact vielka carrillo 2-3 business days before your prescription runs out. Medications will NOT be refilled by communications tower climber providers after hours! > Many pain medications contain Tylenol (Acetaminophen). Do not consume more than 4,000 mg of Tylenol per day in total with any combination ofmedications. > Pain medications can cause constipation. Please use an over the counter stool softener as directed, while taking pain medications. Consulty our local pharmacist with questions or recommendations on stool softeners. If constipation persists, contact our office or your primary care provider. > While under our care,you are not to receive pain medications or other controlled substances from any other provider unless our office is notified and approves. Any attempts to do so will result in refusal to prescribe any further pain medications and possible dismissal from our practice. ? keep dressing on at all times will change in clinic ? Walking is essential for the healing process after surgery. We would like you to slowly advance your walking. This should be done on relatively flat clear ground (inside or out) or can be done on a treadmill. Remember this goal does not have to happen all at once, slowly increase your distance and duration. This can be broken into more more than one walk per day as tolerated. Patients who walk as directed after surgery rarely require Physical Therapy. In the unlikely event this issue arises your provider will direct hospital staff to make the appropriate arrangements. ? No lifting over 5 pounds {a gallon of milk) or bending/twisting until further notice. Each of these activities places an unnecessary amount of stress onto the body and can impede the delicate healing process. > Instead of bending at the waist, keep your back straight and bend at the knees. > Instead of twisting your torso, keep your back straight and turn your entire body with your feet. ? You may sleep in any position which makes you comfortable. Many patients find comfort sleeping in a reclining chair. It is not abnormal to have difficulty sleeping for the first several weeks following your surgery. We recommend trying Benadry! or Tylenol PM as directed to help with your sleeping difficulties. Both medications are over the counter and available withoutprescription. ? NO SMOKING!!! Smoking dramatically increases the probability of developing postoperative wound infections. ? Common complaints after lumbar and/or thoracic spine surgery include, but are not limited to: numbness and/or tingling in the legs, pain around the incision and surrounding tissues, muscle spasms, or stiffness of the middle to low back. Contact our office if these symptoms persist or if an acute change occurs. ? No driving for the first 3-5days, and not while taking narcotics [] until seen at your follow-up appointment and cleared. There are no restrictions for riding on short trips, however if you take a longer trip, arrangements should be made to make regular stops to get out of the vehicle and stretch . ? Swelling is an unfortunate event that will take place with any surgery and is the primary source of your postoperative discomfort. While walking and regular approved activities helps control inflammation, there are additional steps you can take to minimizeswelling. > Place ice over the surgical site and surrounding tissue for twenty minutes, followed by applying a low/medium heat (heating pad) for an additional twenty minutes every 1-2 hours as needed for painrelief. > You may use of over the counter anti-inflammatory medications (Ibuprofen, Motrin, Aleve, Advil, etc) as directed on the package label. These types of medicines wm significantly reduce the amount of discomfort you experience after surgery from swelling. It should be noted that if you have and allergy to any of these medications, or a history of ulcers or kidney disease you should consult you primary care provider prior to starting these medications. return for any worsening breathing difficulties Coding Level of Care Code Acute [facility] note Diagnoses Chronic back pain M54.9; G89.29 Respiratory failure J96.90 COPD (chronic obstructive pulmonary disease) J44.9 Essential hypertension I10 Diastolic CHF I50.32 Heart failure chronicity: chronic Type 2 diabetes mellitus without complications E11.9 Diabetes mellitus middle or intermediate school principal insulin use: without nursing home use
== END 2021-06-22 14:56 | disposition home health service (06) | DRG 460 ==
LOC: ICU 11:27 → MEDSURG 06-22 02:53
PROVIDERS: Anesthesiology; Internal Medicine; Admitting Provider Orthopaedic Surgery; PCP Family Medicine Adult Medicine; Visit Provider Orthopaedic Surgery
PROC: 0SG00AJ Fusion of Lumbar Vertebral Joint with Interbody Fusion Device, Posterior Approach, Anterior Column, Open Approach (ICD-10-PCS; CPT 22612; principal; 2021-06-20 07:00)
DX: M48.062 Spinal stenosis, lumbar region with neurogenic claudication (principal); I50.32 Chronic diastolic (congestive) heart failure; M43.16 Spondylolisthesis, lumbar region; K29.50 Unspecified chronic gastritis without bleeding; J44.9 Chronic obstructive pulmonary disease, unspecified; I11.0 Hypertensive heart disease with heart failure; K76.0 Fatty (change of) liver, not elsewhere classified; E78.5 Hyperlipidemia, unspecified; Z79.891 Long term (current) use of opiate analgesic; M19.90 Unspecified osteoarthritis, unspecified site; Z78.0 Asymptomatic menopausal state; M35.01 Sjogren syndrome with keratoconjunctivitis; Z85.828 Personal history of other malignant neoplasm of skin; Z86.73 Personal history of transient ischemic attack (TIA), and cerebral infarction without residual deficits; E11.9 Type 2 diabetes mellitus without complications; E55.9 Vitamin D deficiency, unspecified; Z96.652 Presence of left artificial knee joint; Z87.891 Personal history of nicotine dependence; G89.29 Other chronic pain; Z79.51 Long term (current) use of inhaled steroids; Z79.84 Long term (current) use of oral hypoglycemic drugs
CPT/HCPCS: 36415; 36416; 51702; 71045; 71275; 72100; 76000; 80048; 80053; 81001; 82962; 84484; 85025; 85378; 86850; 86900; 93005; 94002; 94640; 94799; 96372; 97161; 97530; C1713; J0690; J1100; J1644; J1650; J1815; J1885; J1940; J2370; J2405; J2704; J3010; J3490; J7030; J7512; P9041; Q9967

== ENCOUNTER → 2021-07-24 11:28 | Outpatient (BNVA) | payer MEDICARE, SELFPAY | PROVIDERS: PCP Family Medicine Adult Medicine; Visit Provider Physician Assistant | DX: Z48.89 Encounter for other specified surgical aftercare (principal) | CPT/HCPCS: 72100 ==

== ENCOUNTER → 2021-07-25 11:02 | Outpatient (BNVA) | payer MEDICARE, SELFPAY | PROVIDERS: PCP Family Medicine Adult Medicine; Visit Provider Specialist | DX: M17.12 Unilateral primary osteoarthritis, left knee (principal) | CPT/HCPCS: 73560; 73565 ==

== ENCOUNTER → 2021-08-23 11:26 | Outpatient (BNVA) | payer MEDICARE, SELFPAY | PROVIDERS: PCP Family Medicine Adult Medicine; Visit Provider Physician Assistant | DX: Z48.89 Encounter for other specified surgical aftercare (principal); Z98.1 Arthrodesis status; E11.8 Type 2 diabetes mellitus with unspecified complications; I10 Essential (primary) hypertension; E78.5 Hyperlipidemia, unspecified | CPT/HCPCS: 72100; 80053; 80061; 83036; 85025 ==

== ENCOUNTER → 2021-12-06 12:43 | Outpatient (BNVA) | payer MEDICARE, SELFPAY | PROVIDERS: PCP Family Medicine Adult Medicine; Visit Provider Internal Medicine Cardiovascular Disease | DX: R06.02 Shortness of breath (principal); I50.33 Acute on chronic diastolic (congestive) heart failure; I10 Essential (primary) hypertension | CPT/HCPCS: 36415; 80048; 83880; 99214; 99215 ==

== ENCOUNTER → 2021-12-13 08:25 | Outpatient (BNVA) | payer MEDICARE, SELFPAY | PROVIDERS: PCP Family Medicine Adult Medicine; Visit Provider Specialist | DX: M17.12 Unilateral primary osteoarthritis, left knee (principal); E66.01 Morbid (severe) obesity due to excess calories; Z68.42 Body mass index [BMI] 45.0-49.9, adult | CPT/HCPCS: 20610; J1100; J2795; J3301 ==

== ENCOUNTER → 2022-01-02 09:21 | Outpatient (BNVA) | payer MEDICARE, SELFPAY | PROVIDERS: PCP Family Medicine Adult Medicine; Visit Provider Anesthesiology Pain Medicine | DX: G89.29 Other chronic pain (principal); M47.816 Spondylosis without myelopathy or radiculopathy, lumbar region; M17.12 Unilateral primary osteoarthritis, left knee; Z98.1 Arthrodesis status; Z79.891 Long term (current) use of opiate analgesic | CPT/HCPCS: 99215 ==

== ENCOUNTER 2022-01-16 08:18 | Outpatient (CLI) | payer MEDICARE, SELFPAY ==
[2022-01-16 08:42] VITALS: BMI 47.0
--- NOTE | 2022-01-16 08:57 | ECG_ITS ---
[facility] Test Date: 2022-01-16 Pat Name: Jacqueline Alcazar Department: Room: Gender: Female Furnace Checker: Crystal Tovar : 1950 Requested By: Greyson Klein Order Number: [id number] Malina MD: Sandro Basilio M.D. Interpretive Statements NAME OF STUDY: LEXISCAN SESTAMIBI STRESS TEST INDICATION: [CHF] Procedure: At the baseline, the blood pressure was 123/70 mmHg with a heart rate of 72 bpm. The electrocardiogram showed normal sinus rhythm, normal axis with normal ST and T's. The Lexiscan was infused over a period of 20 seconds. A total of 0.4 mg of Lexiscan was infused. The stress phase was continued for a total of 5 minutes. Heart rate was at the end of stress phase was 83 bpm and a blood pressure of 150/76 mmHg. The EKG at the peak infusion revealed since normal sinus rhythm with no significant ST-T wave changes. Sestamibi was injected 20 seconds after the Lexiscan infusion. Blood pressure at the end of recovery phase was 151/76 mmHg with a heart rate of 80 bpm. Conclusion: 1. Normal EKG response to Lexiscan infusion 2. No Lexiscan induced chest pain or cardiac arrhythmia. 3. Normal blood pressure and heart rate response. 4. Sestamibi/sestamibi perfusion scan pending; see separate report. Electronically Signed On 02-02-2022 12:07:41 CDT by Sandro Basilio M.D. [id number]
--- NOTE | 2022-01-16 08:58 | NMCV_ITS ---
NM gonzalez perf SPECT r/s* [id number] Jacqueline Alcazar Age: 71 Gender: F : 1950 Exam Date: 01/16/2022 08:58 Ordering Phys: Greyson Klein MD ([email or web address]) Technologist: ALVARO Kendrick Exam Location: [facility] Indications: CHRONIC DIASTOLIC CONGESTIVE HEART FAILURE STRESS TEST Please [facility] for [facility] IMAGE PROTOCOL Rest/Stress 1 Radiopharmaceutical Dose (mCi) Administration Site Administered by Rest: Tc-99m 10.8 IV ALVARO Brown Sestamibi Stress:Tc-99m 32.3 IV ALVARO Brown Sestamibi Rest: 16-Jan-2022 60 Discovery 630 Stress: 16-Jan-2022 30 Discovery 630 Images obtained in supine and prone position. Supine position only as patient was unable to lay prone. SPECT RESULTS Technical Quality: Excellent Raw Data Analysis: Normal Image Corrections: No attenuation or motion correction applied Summed Stress Score: 7 Summed Rest Score: 13 Summed Difference Score: 0 PERFUSION FINDINGS Moderate area of decreased tracer uptake in the mid anterolateral, inferolateral, apical lateral and LV apex. No significant reversibility was noted in these regions FUNCTIONAL RESULTS (calculated via Gated SPECT) Stress Image LV EF (%): 81 Stress EDV (mL):67 TID: 0.88 Stress ESV (mL):13 FUNCTIONAL FINDINGS: Segmental wall motion analysis revealing no gross wall motion abnormalities IMPRESSIONS 1. Myocardial perfusion imaging revealing a moderate area of persistent decreased tracer uptake in the anterolateral, inferolateral and apical regions, suggestive of myocardial scarring versus attenuation artifact. 2. Normal LV ejection fraction of 81%. 3. LV wall motion analysis revealing no gross wall motion abnormalities. 4. Normal LV volume. No similar previous studies are available for comparison Low probability for coronary ischemia, based on the above findings Dr Greyson Klein MD FACC (Electronically Signed) Final Date: 17 January 2022 08:00 S
[2022-01-16] MEDS: regadenoson 0.4 Mg/5 ml Syringe IVP (11:00)
[2022-01-16 11:09] VITALS: BP 151/76; PULSE 81
== END 2022-01-16 08:19 | disposition home or self-care (01) ==
LOC: CDL 08:22
PROVIDERS: PCP Family Medicine Adult Medicine; Visit Provider Internal Medicine Cardiovascular Disease
DX: I50.32 Chronic diastolic (congestive) heart failure (principal)
CPT/HCPCS: 78452; 93017; A9500; J2785

== ENCOUNTER 2022-01-26 13:59 | Emergency (ER) | payer MEDICARE, SELFPAY ==
[2022-01-26 14:12] VITALS: BP 169/82; PULSE 81; RESP 16; TEMP 36.9; O2SAT 95
--- NOTE | 2022-01-26 15:49 | XRR_ITS ---
PROCEDURE INFORMATION: Exam: XR Chest Exam date and time: 01/26/2022 4:23 PM Age: 71 years old Clinical indication: Shortness of breath; Additional info: SOB TECHNIQUE: Imaging protocol: Radiologic exam of the chest. Views: 1 view. COMPARISON: CR XR chest 1V portable [id number] 06/21/2021 7:53 AM FINDINGS: Lungs: Unremarkable. No consolidation. Pleural spaces: Unremarkable. No pleural effusion. No pneumothorax. Heart/Mediastinum: Similar cardiomegaly. Bones/joints: Unremarkable. XR/XR chest 1V portable [id number] IMPRESSION: Stable exam, no acute findings.
--- NOTE | 2022-01-26 18:19 | W.ED.SOB ---
HPI - SOB/Dyspnea General: Chief Complaint: Shortness of Breath/Dyspnea Stated Complaint: Chest pain, headache, cough Time Seen by Provider: 01/26/22 18:09 Source: patient History of Present Illness: HPI Narrative: 71-year-old female with increasing shortness of breath, wheezing, and dry cough for the past 2 to 3 days. She notes that she tested negative for COVID twice at home. She has had some b neck aches, along with fever. She has a sore throat. 3 days ago she had some diarrhea which is now resolved. MD elicited complaint: shortness of breath, cough and chest pain (with cough) Pertinent past history: COPD Onset (ago): day(s) (2-3) Timing: constant and progressively worsening Severity: moderate Exacerbating factors: lying flat and exertion Relieving factors: oxygen and bronchodilators Known history of: COPD Associated symptoms: Reports chest congestion, chest pain, cough and orthopnea; Deny abdominal pain, extremity pain, fever(s), nausea or palpitations Treatment prior to arrival: oxygen and bronchodilator Review of Systems Const: Denies: fever(s) Eyes: Denies: change in vision ENMT: Reports: throat pain and odynophagia; Denies: hoarseness Card: Reports: chest pain and orthopnea; Denies: palpitations Resp: Reports: dyspnea, non-productive cough, wheezing, pain on inspiration and chest congestion; Denies: stridor GI: Denies: abdominal pain or nausea Musc: Denies: extremity pain PFSH ED PFSH: Medical History Chronic gastritis COPD (chronic obstructive pulmonary disease) CVD (cerebrovascular disease) Diabetes mellitus type 2 with complications Diastolic CHF Dupuytren's contracture syndrome Enrolled in chronic care management Essential hypertension Euthyroid goiter Fatty infiltration of liver PIERRE (generalized anxiety disorder) History of cardiac murmur History of colon polyps History of rheumatic fever 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 Major depressive disorder Osteoarthritis involving multiple joints on both sides of body Osteopenia Pain management contract signed Pneumonia Postmenopausal Preoperative clearance Psychiatric care Sjogren's syndrome with keratoconjunctivitis sicca Skin cancer of nose Spondylosis without myelopathy or radiculopathy, lumbosacral region TIA (transient ischemic attack) Vitamin D deficiency Surgical History H/O cornea transplant History of surgery on arm surgery on nerves History of toe surgery History of tonsillectomy Previous back surgery S/P cholecystectomy S/P hysterectomy S/P knee replacement Right Status post laminectomy Status post removal of thyroid nodule Family History Father CAD (coronary artery disease) Mother Cancer Lung disease Sister Cancer Lung disease Dementia Diabetes Brother Cancer Lung disease Diabetes Family/Other Diabetes Suicide Denies family history of Clotting disorder Chronic kidney disease (CKD) Anesthesia complication Bleeding disorder Stroke Social History Smoking and tobacco status: never smoked Quit status (tobacco): has quit using tobacco Year quit tobacco: 2020 Former quit date comment: 1 PPD X 5 YEARS Alcohol intake: never Lives independently: Yes Current occupational status: retired History of recent travel: No Female Reproductive History: Para: 2 Spontaneous abortions: Yes Physical Exam Const: GENERAL APPEARANCE: cooperative and well kempt HENMT: COMMON NORMALS: normocephalic, atraumatic and Normal external nose present HEAD & SCALP: normocephalic and atraumatic FACE & SINUS: normal facial exam and face symmetric NOSE: Normal external nose present and Normal nares present THROAT: posterior oropharynx abnormal erythema Eye: COMMON NORMALS: Equal, round and reactive pupils present and EOMs intact bilaterally GENERAL EYE: appearance normal, both eyes and all related structures PUPIL: Yes Equal, round and reactive pupils present Neck/C-Spine: GENERAL: Yes trachea midline Chest: CHEST: Yes Symmetrical chest wall rise and Yes tenderness (L>R ant chest) Resp: COMMON NORMALS: normal respiratory effort and No use of accessory muscles AUSCULTATION: no rhonchi and wheezes Cardio: COMMON NORMALS: regular rate and regular rhythm RATE: regular rate RHYTHM: regular rhythm GI: COMMON NORMALS: Normal to inspection, nondistended, normoactive bowel sounds present, Soft to palpation and non-tender PALPATION: Yes Soft to palpation Extremity: COMMON NORMALS: no pedal edema Neuro: NARCISO COMA SCALE: document GCS findings Narciso coma scale eye opening: Spontaneous Narciso coma scale verbal response: Orientated [place] coma scale motor response: Obey commands [place] coma scale total score: 15 Psych: APPEARANCE: Yes well kempt Course Vital Signs: Vital signs: Vital Signs Temperature 98.4 F 01/26/22 14:12 Pulse Rate 87 01/26/22 20:23 Respiratory Rate 20 H 01/26/22 20:23 Blood Pressure 157/62 01/26/22 20:23 Pulse Oximetry 98 01/26/22 20:23 MDM - SOB/Dyspnea Medical Decision Making Chest x-ray is negative. She's feeling better after breathing treatment here. She will be treated for COPD exacerbation. Lab Data : 01/26/22 19:02 01/26/22 19:02 Labs/Radiology: Radiology Impressions Chest X-Ray 01/26/22 15:49 IMPRESSION: Stable exam, no acute findings. Laboratory Results WBC 8.6 10^3/uL (4.0-10.0) 01/26/22 19: RBC 4.50 10^6/uL (4.1-5.3) 01/26/22 19:02 Hgb 13.6 g/dL (11.5-15.3) 01/26/22 19:02 Hct 40.8 % (37.0-47.0) 01/26/22 19:02 MCV 90.7 fl (81-99) 01/26/22 19:02 MCH 30.2 pg (28.0-34.0) 01/26/22 19: MCHC 33.3 g/dL (30.0-36.0) 01/26/22 19:02 RDW 14.0 % (12.1-15.1) 01/26/22 19:02 Plt Count 240 10^3/cmm (130-400) 01/26/22 19:02 MPV 10.9 fL (7.4-10.4) H 01/26/22 19:02 Neut % (Auto) 53.2 % 01/26/22 19:02 Lymph % (Auto) 32.5 % 01/26/22 19:02 [place] % (Auto) 10.4 % 01/26/22 19:02 Eos % (Auto) 2.2 % 01/26/22 19:02 Baso % (Auto) 1.0 % 01/26/22 19:02 Neut # (Auto) 4.58 10^3/uL (1.8-7.7) 01/26/22 19:02 Lymph # (Auto) 2.8 10^3/uL (0.8-4.8) 01/26/22 19:02 [place] # (Auto) 0.9 10^3/uL (0.2-0.9) 01/26/22 19:02 Eos # (Auto) 0.2 10^3/uL (0.0-0.8) 01/26/22 19:02 Baso # (Auto) 0.1 10^3/uL (0.0-0.1) 01/26/22 19:02 Nucleated RBC % (auto) 0 % 01/26/22 19:02 Nucleated RBCs # 0.0 /100WBC 01/26/22 19:02 Sodium 141 mmol/L (136-145) 01/26/22 19:02 Potassium 3.4 mmol/L (3.5-5.1) L 01/26/22 19:02 Chloride 100 mmol/L (98-107) 01/26/22 19:02 Carbon Dioxide 28 mmol/L (22-29) 01/26/22 19:02 Anion Gap 16.4 (5-19) 01/26/22 19:02 BUN 19 mg/dL (8-23) 01/26/22 19:02 Creatinine 1.0 mg/dL (0.5-0.9) H 01/26/22 19:02 GFR Calculation Not Reportable 01/26/22 19:02 Glucose 181 mg/dL (65-115) H 01/26/22 19:02 Calculated Osmolality 299 mOsm/kg (285-295) H 01/26/22 19:02 Calcium 9.4 mg/dL (8.5-10.5) 01/26/22 19:02 Total Bilirubin 0.2 mg/dL (0.15-1.2) 01/26/22 19:02 AST 25 U/L (0-32) 01/26/22 19:02 ALT 31 U/L (0-33) 01/26/22 19:02 Alkaline Phosphatase 90 IU/L (35-105) 01/26/22 19:02 Total Protein 6.8 g/dL (6.6-8.7) 01/26/22 19:02 Albumin 3.9 g/dL (3.5-5.2) 01/26/22 19:02 Globulin 2.9 g/dL (1.3-4.6) 01/26/22 19:02 Discharge Plan Discharge Patient Disposition: Home Clinical Impression: Acute exacerbation of chronic obstructive pulmonary disease Condition: Stable Prescriptions: New Medrol (Ronaldo) 4 mg tablets,dose pack See Rx Instructions .ROUTE .COMPLEX Qty: 21 0RF Rx Instructions: orally per package directions doxycycline hyclate 100 mg capsule 100 mg PO BID 7 Days Qty: 14 0RF No Action naloxone 4 mg/actuation spray,non-aerosol 4 mg INTRANASAL Q3M PRN (Reason: opioid overdose) Qty: 2 0RF Rx Instructions: spray 1 dose into ONE nostril; alternate nostrils w each dose until help arrives triamcinolone acetonide 0.1 % ointment 1 applic TOPICAL BID PRN (Reason: Allergy Symptoms) 0RF Rx Instructions: Apply twice daily to affected areas on the arms, trunk, and legs x1 to 2 weeks as needed diphenhydramine HCl [Benadryl Allergy] 25 mg tablet 50 mg PO DAILY PRN (Reason: Itching) 0RF Excedrin Migraine 250-250-65 mg tablet 1 tab PO Q6H PRN (Reason: Pain) 0RF ibuprofen 200 mg capsule 200 - 400 mg PO Q6H PRN (Reason: Pain) 0RF isosorbide mononitrate 30 mg tablet extended release 24 hr 30 mg PO DAILY Qty: 90 3RF benzonatate 100 mg capsule 100 mg PO TID PRN (Reason: cough) Qty: 30 0RF duloxetine 60 mg capsule,delayed release(DR/EC) 120 mg PO QAM 30 Days Qty: 60 3RF mirtazapine 30 mg tablet 30 mg PO .qhs 30 Days Qty: 30 3RF gabapentin 600 mg tablet 1,200 mg PO BID@1000,2200 30 Days Qty: 120 5RF lorazepam [Ativan] 0.5 mg tablet 0.5 mg PO BEDTIME 30 Days Qty: 30 3RF Jardiance 25 mg tablet 25 mg PO DAILY Qty: 90 1RF (DME) blood-glucose meter Kit See Rx Instructions .ROUTE .MEDSUPPLY Qty: 1 0RF Rx Instructions: test four times daily (DME) lancets Misc See Rx Instructions .ROUTE .MEDSUPPLY Qty: 100 3RF Rx Instructions: As directed to test blood sugar 4 times daily Test strips 1 strip miscellaneous .4 times daily Qty: 100 3RF albuterol sulfate 2.5 mg /3 mL (0.083 %) solution for nebulization 2.5 mg inhalation QID PRN (Reason: shortness of breath or wheezing) Qty: 180 3RF hydrochlorothiazide 12.5 mg tablet 12.5 mg PO DAILY@1000 Qty: 90 3RF Protonix 40 mg tablet,delayed release (DR/EC) 40 mg PO DAILY@1000 Qty: 90 3RF atorvastatin 80 mg tablet See Rx Instructions .ROUTE .COMPLEX Qty: 90 3RF Dose Instruction: TAKE 1 TABLET BY MOUTH EVERY DAY Rx Instructions: TAKE 1 TABLET BY MOUTH EVERY DAY Januvia 100 mg tablet 100 mg PO DAILY Qty: 90 1RF hydrocodone-acetaminophen 5-325 mg tablet 1 tab PO BID PRN (Reason: pain) 30 Days Qty: 60 0RF meloxicam 15 mg tablet See Rx Instructions .ROUTE .COMPLEX Qty: 90 1RF Dose Instruction: TAKE 1 TABLET BY MOUTH EVERY DAY NEEDED FOR ARTHRITIS PAIN Rx Instructions: TAKE 1 TABLET BY MOUTH EVERY DAY NEEDED FOR ARTHRITIS PAIN cholecalciferol (vitamin D3) [Vitamin D3] 50 mcg (2,000 unit) Tablet 50 mcg PO QAM 0RF Centrum Silver Women 8 mg iron-400 mcg-300 mcg Tablet 1 tab PO DAILY@2200 0RF lisinopril 40 mg tablet 40 mg PO QAM 0RF Discharge Orders: Discharge ED (Routine); Ordered 01/26/22 Ordered By: Tip Jara Referrals: Jean Claude Love MD [Primary Care Provider] - Discharge Diet: Advance as tolerated and Diabetic Discharge Activity: Increase activity as tolerated Patient Instructions: COPD (Chronic Obstructive Pulmonary Disease) (ED) Activity Restrictions/Additional Instructions: Antibiotics and steroids as directed. The steroids will drive your sugar up for a few days. Return for fever despite 3-4 doses of antibiotics, worsening shortness of breath despite treatment, worsening chest pain, any other concerning symptoms. Use your albuterol nebulizer every 4 hours while awake for the next 48 hours, then as needed. Coding Level of Care Code ED Information Clerk for Chg Fwd Exam Comprehensive
--- NOTE | 2022-01-26 18:21 | ECG_ITS ---
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 Measurements Intervals [place] Rate: 83 P: 33 DC: 187 QRS: -32 QRSD: 100 T: 39 QT: 362 QTc: 426 Interpretive Statements SINUS RHYTHM LOW QRS VOLTAGE IN PRECORDIAL LEADS [QRS DEFLECTION < 1.0 mV IN CHEST LEADS] POSSIBLE ANTERIOR MYOCARDIAL INFARCTION , OF INDETERMINATE AGE [30 ms Q WAVE IN V3/V4, OR R < 0.2 mV IN V4] INFERIOR MYOCARDIAL INFARCTION , PROBABLY OLD [40+ ms Q WAVE AND/OR ST/T ABNORMALITY IN II/aVF] Compared to ECG 06/22/2021 09:42:21 Incomplete right bundle-branch block no longer present Myocardial infarct finding still present Electronically Signed On 01-28-2022 8:10:48 CDT by Sandro Basilio M.D. [id number]
[2022-01-26 18:35] VITALS: PULSE 73; RESP 18; O2SAT 98
[2022-01-26] MEDS: ipratropium-albuterol 3 mL Neb INHALATION (18:35)
[2022-01-26 18:42] VITALS: PULSE 74
--- NOTE | 2022-01-26 19:00 | PC.NURSE ---
REPORT GIVEN TO GINA JALLOH ASSUMED CARE.
[2022-01-26 19:11] LABS: Basophils # 0.1 10^3/uL (0.0-0.1); Eosinophils # 0.2 10^3/uL (0.0-0.8); Eosinophils % 2.2 %; Hematocrit 40.8 % (37.0-47.0); Hemoglobin 13.6 g/dL (11.5-15.3); Lymphocytes # 2.8 10^3/uL (0.8-4.8); Lymphocytes % 32.5 %; Mean Corpuscular HGB Conc 33.3 g/dL (30.0-36.0); Mean Corpuscular Hemoglobin 30.2 pg (28.0-34.0); Mean Corpuscular Volume 90.7 fl (81-99); Mean Platelet Volume 10.9 fL (7.4-10.4); Monocytes # 0.9 10^3/uL (0.2-0.9); Monocytes % 10.4 %; Neutrophils # 4.58 10^3/uL (1.8-7.7); Neutrophils % 53.2 %; Nucleated Red Blood Cells % 0 %; Platelet Count 240 10^3/cmm (130-400); White Blood Count 8.6 10^3/uL (4.0-10.0)
[2022-01-26 19:34] LABS: Alanine Aminotransferase 31 U/L (0-33); Albumin Level 3.9 g/dL (3.5-5.2); Alkaline Phosphatase 90 IU/L (35-105); Anion Gap 16.4 (5-19); Aspartate Amino Transferase 25 U/L (0-32); Blood Urea Nitrogen 19 mg/dL (8-23); Calcium 9.4 mg/dL (8.5-10.5); Carbon Dioxide 28 mmol/L (22-29); Chloride 100 mmol/L (98-107); Globulin 2.9 g/dL (1.3-4.6); Glucose 181 mg/dL (65-115); Osmolality Calculated 299 mOsm/kg (285-295); Potassium 3.4 mmol/L (3.5-5.1); Sodium 141 mmol/L (136-145); Total Bilirubin 0.2 mg/dL (0.15-1.2); Total Protein 6.8 g/dL (6.6-8.7)
[2022-01-26 19:37] VITALS: BP 124/65; PULSE 80; RESP 18; O2SAT 95
[2022-01-26 20:23] VITALS: BP 157/62; PULSE 87; RESP 20; O2SAT 98
== END 2022-01-26 20:24 | disposition home or self-care (01) ==
PROVIDERS: Emergency Medicine; Emergency Provider Emergency Medicine; PCP Family Medicine Adult Medicine
DX: J44.1 Chronic obstructive pulmonary disease with (acute) exacerbation (principal); E11.9 Type 2 diabetes mellitus without complications; I11.0 Hypertensive heart disease with heart failure; I50.30 Unspecified diastolic (congestive) heart failure; E78.5 Hyperlipidemia, unspecified; Z86.73 Personal history of transient ischemic attack (TIA), and cerebral infarction without residual deficits; Z87.891 Personal history of nicotine dependence
CPT/HCPCS: 36415; 71045; 80053; 85025; 93005; 94640; 96374; 99285; J2930

== ENCOUNTER → 2022-02-07 09:14 | Outpatient (BNVA) | payer MEDICARE, SELFPAY | PROVIDERS: PCP Family Medicine Adult Medicine; Visit Provider Anesthesiology Pain Medicine | DX: G89.29 Other chronic pain (principal); M47.816 Spondylosis without myelopathy or radiculopathy, lumbar region; M17.12 Unilateral primary osteoarthritis, left knee; Z98.1 Arthrodesis status; Z79.891 Long term (current) use of opiate analgesic | CPT/HCPCS: 99215 ==

== ENCOUNTER → 2022-03-07 12:06 | Outpatient (BNVA) | payer MEDICARE, SELFPAY | PROVIDERS: PCP Family Medicine Adult Medicine; Visit Provider Nurse Practitioner Family | DX: I50.32 Chronic diastolic (congestive) heart failure (principal) | CPT/HCPCS: 82607; 82746; 99214 ==

== ENCOUNTER → 2022-03-27 13:02 | Outpatient (BNVA) | payer MEDICARE, SELFPAY | PROVIDERS: PCP Family Medicine Adult Medicine; Visit Provider Anesthesiology Pain Medicine | DX: G89.29 Other chronic pain (principal); M47.816 Spondylosis without myelopathy or radiculopathy, lumbar region; Z01.812 Encounter for preprocedural laboratory examination; M17.12 Unilateral primary osteoarthritis, left knee; Z98.1 Arthrodesis status; F17.290 Nicotine dependence, other tobacco product, uncomplicated; E11.8 Type 2 diabetes mellitus with unspecified complications | CPT/HCPCS: 36416; 64635; 64636; 82962; J1030 ==

== ENCOUNTER → 2022-03-28 08:30 | Outpatient (BNVA) | payer MEDICARE, SELFPAY | PROVIDERS: PCP Family Medicine Adult Medicine; Visit Provider Specialist | DX: M17.12 Unilateral primary osteoarthritis, left knee (principal); Z71.89 Other specified counseling | CPT/HCPCS: 20610; J1100; J2795; J3301 ==

== ENCOUNTER → 2022-04-03 12:25 | Outpatient (BNVA) | payer MEDICARE, SELFPAY | PROVIDERS: PCP Family Medicine Adult Medicine; Visit Provider Nurse Practitioner Family | DX: I50.32 Chronic diastolic (congestive) heart failure (principal); F17.290 Nicotine dependence, other tobacco product, uncomplicated | CPT/HCPCS: 99213 ==

== ENCOUNTER → 2022-04-10 13:05 | Outpatient (BNVA) | payer MEDICARE, SELFPAY | PROVIDERS: PCP Family Medicine Adult Medicine; Visit Provider Anesthesiology Pain Medicine | DX: M47.816 Spondylosis without myelopathy or radiculopathy, lumbar region (principal); G89.29 Other chronic pain; E11.8 Type 2 diabetes mellitus with unspecified complications; F17.290 Nicotine dependence, other tobacco product, uncomplicated | CPT/HCPCS: 36416; 64635; 64636; 82962; J1030 ==

== ENCOUNTER 2022-04-15 12:07 | Emergency (ER) | payer MEDICARE, SELFPAY ==
--- NOTE | 2022-04-15 12:13 | XR_ITS ---
WS: [id number] PORTABLE CHEST HISTORY: chest pain COMPARISON: 01/26/2022 Lungs are clear and well expanded. No pleural effusion or pneumothorax. Cardiac size: Mild cardiomegaly. Mediastinum/Aorta: Mild atherosclerosis aorta. No osseous abnormality seen. XR/XR chest 1V portable [id number] IMPRESSION: Stable chest. No acute cardiopulmonary disease.
--- NOTE | 2022-04-15 12:13 | ECG_ITS ---
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 Measurements Intervals [place] Rate: 90 P: 66 [place]: 181 QRS: -31 QRSD: 97 T: 57 QT: 356 QTc: 437 Interpretive Statements SINUS RHYTHM LOW QRS VOLTAGE IN PRECORDIAL LEADS [QRS DEFLECTION < 1.0 mV IN CHEST LEADS] POSSIBLE RIGHT VENTRICULAR CONDUCTION DELAY [RSR (QR) IN V1/V2] INFERIOR MYOCARDIAL INFARCTION , OF INDETERMINATE AGE [40+ ms Q WAVE AND/OR ST/T ABNORMALITY IN II/aVF] ANTEROLATERAL MYOCARDIAL INFARCTION , PROBABLY OLD [40+ ms Q WAVE IN I/aVL/V3-V6] Compared to ECG 01/26/2022 14:11:23 No significant changes Electronically Signed On 04-15-2022 17:36:34 CDT by Sandro Basilio M.D. [id number]
[2022-04-15 12:22] VITALS: BP 150/80; PULSE 91; RESP 18; TEMP 36.9; O2SAT 95; BMI 44.2
[2022-04-15 12:44] LABS: Basophils # 0.1 10^3/uL (0.0-0.1); Basophils % 0.7 %; Eosinophils # 0.2 10^3/uL (0.0-0.8); Hematocrit 45.7 % (37.0-47.0); Hemoglobin 14.4 g/dL (11.5-15.3); Lymphocytes # 2.8 10^3/uL (0.8-4.8); Lymphocytes % 28.5 %; Mean Corpuscular HGB Conc 31.5 g/dL (30.0-36.0); Mean Corpuscular Hemoglobin 30.2 pg (28.0-34.0); Mean Corpuscular Volume 95.8 fl (81-99); Monocytes # 0.6 10^3/uL (0.2-0.9); Monocytes % 6.2 %; Neutrophils # 6.06 10^3/uL (1.8-7.7); Neutrophils % 62.2 %; Nucleated Red Blood Cells % 0 %; Platelet Count 257 10^3/cmm (130-400); Red Blood Count 4.77 10^6/uL (4.1-5.3); Red Cell Distribution Width 13.6 % (12.1-15.1); White Blood Count 9.7 10^3/uL (4.0-10.0)
--- NOTE | 2022-04-15 12:53 | W.ED.CHESTPA ---
HPI - Chest Pain General: Chief Complaint: Chest Pain Stated Complaint: Chest Pain Time Seen by Provider: 04/15/22 12:53 Source: patient Mode of arrival: ambulatory History of Present Illness: 21-year-old female presents emergency room with complaint of chest pain and shoulder pain. This seems to be clearly 2 different pains. She has pain when she moves her shoulder at all. A few weeks ago she fell he has been mildly aching since then the last couple of days of sharp pain. Additionally she has sharp chest wall pain on the left under the breast laterally is reproducible with palpation and deep inhalation. MD complaint: chest pain Onset (ago): day(s) Timing of current episode: constant Prior episodes: Yes Onset: during rest Pain location: left chest Pain radiation: none Relieving factors: rest Exacerbating factors: palpation and movement Associated symptoms: Deny abdominal pain, diaphoresis, dyspnea, fever(s), leg edema, nausea, palpitations, sense of impending doom, syncope or vomiting Review of Systems Const: Denies: fever(s), chills, fatigue, malaise or diaphoresis ENMT: Denies: throat pain, ear or mastoid pain, nasal discharge or nasal congestion Card: Reports: chest pain; Denies: palpitations, irregular heart rhythm, edema or syncope Resp: Denies: dyspnea GI: Denies: abdominal pain, nausea or vomiting : Denies: flank pain, difficulty voiding, dysuria, urinary frequency or urinary urgency Musc: Reports: joint pain (Left shoulder) Skin/Breast: Denies: rash or pruritus PFSH ED PFSH: Medical History Chronic gastritis COPD (chronic obstructive pulmonary disease) CVD (cerebrovascular disease) Diabetes mellitus type 2 with complications Diastolic CHF Dupuytren's contracture syndrome Enrolled in chronic care management Essential hypertension Euthyroid goiter Facet arthritis, degenerative, lumbar spine Fatty infiltration of liver PIERRE (generalized anxiety disorder) History of cardiac murmur History of colon polyps History of rheumatic fever 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 Major depressive disorder Mixed incontinence Osteoarthritis involving multiple joints on both sides of body Osteopenia Pain management contract signed Postmenopausal Preoperative clearance Primary osteoarthritis of left knee Psychiatric care Sjogren's syndrome with keratoconjunctivitis sicca Skin cancer of nose Spondylosis without myelopathy or radiculopathy, lumbosacral region TIA (transient ischemic attack) Vitamin D deficiency Surgical History H/O cornea transplant History of back surgery History of surgery on arm surgery on nerves History of toe surgery History of tonsillectomy Previous back surgery S/P cholecystectomy S/P hysterectomy S/P knee replacement Right Status post laminectomy Status post lumbar spinal fusion 06/20/2021 L4 & L5 fusion, after L4-L5 laminectomy 12/20/2020, by Dr. Moy Status post removal of thyroid nodule Family History Father CAD (coronary artery disease) Mother Cancer Lung disease Sister Cancer Lung disease Dementia Diabetes Brother Cancer Lung disease Diabetes Family/Other Diabetes Suicide Denies family history of Clotting disorder Chronic kidney disease (CKD) Anesthesia complication Bleeding disorder Stroke Social History Smoking and tobacco status: current every day smoker (vape) Quit status (tobacco): has quit using tobacco Year quit tobacco: 2020 Former quit date comment: 1 PPD X 5 YEARS Alcohol intake: never Lives independently: Yes Current occupational status: retired History of recent travel: No Female Reproductive History: Para: 2 Spontaneous abortions: Yes Physical Exam Const: GENERAL APPEARANCE: cooperative and comfortable ORIENTATION/CONSCIOUSNESS: Yes awake, Yes oriented to person, Yes oriented to place and Yes oriented to time HENMT: COMMON NORMALS: normocephalic, atraumatic and hearing grossly normal bilaterally HEAD & SCALP: normocephalic and atraumatic Resp: COMMON NORMALS: normal respiratory effort, No retractions, No use of accessory muscles and clear to auscultation bilaterally AUSCULTATION: clear to auscultation bilaterally Cardio: COMMON NORMALS: regular rate, regular rhythm and No murmurs present (Cardio) RATE: regular rate RHYTHM: regular rhythm GI: COMMON NORMALS: Soft to palpation and No hepatosplenomegaly present AUSCULTATION: Yes normoactive bowel sounds PALPATION: Yes Soft to palpation, No Tenderness to palpation present (GI), No Guarding due to palpation present (GI) and Yes No hepatosplenomegaly present Extremity: COMMON NORMALS: normal to inspection, capillary refill normal, no clubbing, cyanosis or edema, no calf tenderness and no pedal edema NARRATIVE EXTREMITY EXAM: Any flexion or abduction range of motion palpation of the shoulder causes exquisite pain. At rest patient has comfortable. Neuro: SENSORIUM/ORIENTATION: Yes oriented to person, Yes oriented to place and Yes oriented to time Skin: COMMON NORMALS: no rashes or lesions noted GENERAL SKIN EXAM: no rashes or lesions noted Course Vital Signs: Vital signs: Vital Signs Temperature 98.5 F 04/15/22 12: Pulse Rate 80 04/15/22 15:00 Respiratory Rate 16 04/15/22 15:00 Blood Pressure 132/84 04/15/22 15:00 Pulse Oximetry 96 04/15/22 15:00 Oxygen Delivery Me thod 04/15/22 15:00 MDM - Chest Pain Medical Decision Making Chest pain is reproducible with inspiration and palpation in the lower anterior chest and with range of motion and palpation in the left shoulder. Discharge patient home this most likely musculoskeletal. Medical Records I reviewed the patient's medical records. Lab Data I reviewed the patient's lab results. : 04/15/22 12:33 04/15/22 12:33 Radiology Impressions Chest X-Ray 04/15/22 12:13 IMPRESSION: Stable chest. No acute cardiopulmonary disease. Laboratory Results WBC 9.7 10^3/uL (4.0-10.0) 04/15/22 12:33 RBC 4.77 10^6/uL (4.1-5.3) 04/15/22 12:33 Hgb 14.4 g/dL (11.5-15.3) 04/15/22 12:33 Hct 45.7 % (37.0-47.0) 04/15/22 12:33 MCV 95.8 fl (81-99) 04/15/22 12:33 MCH 30.2 pg (28.0-34.0) 04/15/22 12:33 MCHC 31.5 g/dL (30.0-36.0) 04/15/22 12:33 RDW 13.6 % (12.1-15.1) 04/15/22 12:33 Plt Count 257 10^3/cmm (130-400) 04/15/22 12:33 MPV 11.0 fL (7.4-10.4) H 04/15/22 12:33 Neut % (Auto) 62.2 % 04/15/22 12:33 Lymph % (Auto) 28.5 % 04/15/22 12:33 [place] % (Auto) 6.2 % 04/15/22 12:33 Eos % (Auto) 2.0 % 04/15/22 12:33 Baso % (Auto) 0.7 % 04/15/22 12:33 Neut # (Auto) 6.06 10^3/uL (1.8-7.7) 04/15/22 12:33 Lymph # (Auto) 2.8 10^3/uL (0.8-4.8) 04/15/22 12:33 [place] # (Auto) 0.6 10^3/uL (0.2-0.9) 04/15/22 12:33 Eos # (Auto) 0.2 10^3/uL (0.0-0.8) 04/15/22 12:33 Baso # (Auto) 0.1 10^3/uL (0.0-0.1) 04/15/22 12:33 Nucleated RBC % (auto) 0 % 04/15/22 12:33 Nucleated RBCs # 0.0 /100WBC 04/15/22 12:33 Sodium 137 mmol/L (136-145) 04/15/22 12:33 Potassium 3.7 mmol/L (3.5-5.1) 04/15/22 12:33 Chloride 100 mmol/L (98-107) 04/15/22 12:33 Carbon Dioxide 23 mmol/L (22-29) 04/15/22 12:33 Anion Gap 17.7 (5-19) 04/15/22 12:33 BUN 20 mg/dL (8-23) 04/15/22 12:33 Creatinine 1.0 mg/dL (0.5-0.9) H 04/15/22 12:33 GFR Calculation Not Reportable 04/15/22 12:33 Glucose 285 mg/dL (65-115) H 04/15/22 12:33 Calculated Osmolality 297 mOsm/kg (285-295) H 04/15/22 12:33 Calcium 9.2 mg/dL (8.5-10.5) 04/15/22 12:33 Troponin T Baseline 10 ng/L (0-10) 04/15/22 12:33 Troponin T 120 Minute 8.10 ng/L (0-10) 04/15/22 15:12 Delta Troponin T 1.9 ABS# (0-10) 04/15/22 15:12 Discharge Plan Discharge Patient Disposition: Home Clinical Impression: Chest wall pain, Left shoulder pain Condition: Stable Prescriptions: New hydrocodone-acetaminophen 5-325 mg tablet 1 tab PO Q6H PRN (Reason: pain) Qty: 10 0RF prednisone 20 mg tablet 20 mg PO TID Qty: 15 0RF Rx Instructions: 1 p.o. 3 times daily x3 days, 1 p.o. twice daily x2 days, 1 p.o. daily x2 days No Action gabapentin 600 mg tablet 1,200 mg PO BID@1000,2200 30 Days Qty: 120 5RF (DME) MOBILITY SCOOTER ANY See Rx Instructions .Route .MEDSUPPLY Qty: 1 0RF Rx Instructions: As directed duloxetine 60 mg capsule,delayed release(DR/EC) 120 mg PO QAM 30 Days Qty: 60 3RF lorazepam [Ativan] 0.5 mg tablet 0.5 mg PO BEDTIME 30 Days Qty: 30 3RF Jardiance 25 mg tablet 25 mg PO DAILY Qty: 90 1RF Januvia 100 mg tablet 100 mg PO DAILY Qty: 90 1RF Protonix 40 mg tablet,delayed release (DR/EC) 40 mg PO DAILY@1000 Qty: 90 3RF Centrum Silver Women 8 mg iron-400 mcg-300 mcg tablet 1 tab PO DAILY@2200 Qty: 90 3RF hydrochlorothiazide 12.5 mg tablet 12.5 mg PO DAILY@1000 Qty: 90 3RF cholecalciferol (vitamin D3) [Vitamin D3] 50 mcg (2,000 unit) tablet 50 mcg PO QAM Qty: 90 3RF (DME) blood-glucose meter Kit See Rx Instructions .ROUTE .MEDSUPPLY Qty: 1 0RF Rx Instructions: test four times daily albuterol sulfate 2.5 mg /3 mL (0.083 %) solution for nebulization 2.5 mg inhalation QID PRN (Reason: shortness of breath or wheezing) Qty: 180 3RF hydrocodone-acetaminophen 5-325 mg tablet 1 tab PO BID PRN (Reason: pain) 30 Days Qty: 60 0RF Rx Instructions: may fill 30 days after previous. lisinopril 10 mg tablet 10 mg PO DAILY PRN (Reason: blood pressure and kidney) Qty: 90 3RF Hold Instructions: hypotension Rx Instructions: TAKE IF BP ABOVE 140 (DME) lancets Misc See Rx Instructions .ROUTE .MEDSUPPLY Qty: 100 3RF Rx Instructions: As directed to test blood sugar 3 times daily (DME) Accu-Chek Guide test strips Strip See Rx Instructions .Route Qty: 100 6RF Rx Instructions: As directed, test blood sugar, 3 times, daily. (DME) mobility scooter See Rx Instructions .Route .MEDSUPPLY Qty: 1 0RF Rx Instructions: As directed isosorbide mononitrate 30 mg tablet extended release 24 hr 30 mg PO DAILY Qty: 30 0RF atorvastatin 80 mg tablet 80 mg PO QPM mirtazapine 30 mg tablet 30 mg PO QPM Benadryl Allergy 25 mg tablet 50 mg PO QPM PRN (Reason: Itching and post nasal drip) Discharge Orders: Discharge ED (Routine); Ordered 04/15/22 Ordered By: Arjun Fay Referrals: Jean Claude Love MD [Primary Care Provider] - Patient Instructions: Opioid Safety, Pain Management Activity Restrictions/Additional Instructions: This management make arrangements for her to follow-up with orthopedics regarding the left shoulder. Coding Level of Care Code ED Director Of Speech Pathology for Lori Montoya
[2022-04-15 12:59] VITALS: BP 142/95; PULSE 85; RESP 18; O2SAT 94
[2022-04-15 13:01] LABS: Troponin(5th) Baseline 10 ng/L (0-10)
[2022-04-15 13:02] LABS: Anion Gap 17.7 (5-19); Blood Urea Nitrogen 20 mg/dL (8-23); Calcium 9.2 mg/dL (8.5-10.5); Carbon Dioxide 23 mmol/L (22-29); Chloride 100 mmol/L (98-107); Glucose 285 mg/dL (65-115); Osmolality Calculated 297 mOsm/kg (285-295); Potassium 3.7 mmol/L (3.5-5.1); Sodium 137 mmol/L (136-145)
[2022-04-15 15:00] VITALS: BP 132/84; PULSE 80; RESP 16; O2SAT 96
[2022-04-15 16:10] LABS: Troponin 5 2HR Delta 1.9 ABS# (0-10)
--- NOTE | 2022-04-16 07:10 | DCPLANNER ---
Addendum entered by Niki Pena 07/03/22 11:05: This appointment was cancelled Addendum entered by Niki Pena 04/17/22 15:38: Patient has a follow up appointment scheduled for Sunday April 24, 2022 at 3:[address] Raymundo at ortho. Clinic will call patient with appointment information. Original Note: system administration manager had message to schedule a follow up appointment for patient with ortho. system administration manager sent patients information to the front office staff at ortho. Patients information will be printed and reviewed. Clinic will call patient with appointment information.
== END 2022-04-15 16:36 | disposition home or self-care (01) ==
PROVIDERS: Emergency Medicine; Emergency Provider Family Medicine; PCP Family Medicine Adult Medicine
DX: R07.89 Other chest pain (principal); M25.512 Pain in left shoulder; I11.0 Hypertensive heart disease with heart failure; I50.30 Unspecified diastolic (congestive) heart failure; E11.9 Type 2 diabetes mellitus without complications; E78.5 Hyperlipidemia, unspecified; J44.9 Chronic obstructive pulmonary disease, unspecified; F17.290 Nicotine dependence, other tobacco product, uncomplicated; Z86.73 Personal history of transient ischemic attack (TIA), and cerebral infarction without residual deficits
CPT/HCPCS: 36415; 71045; 80048; 84484; 85025; 93005; 99285

== ENCOUNTER → 2022-04-26 15:43 | Outpatient (BNVA) | payer MEDICARE, SELFPAY | PROVIDERS: PCP Family Medicine Adult Medicine; Visit Provider Family Medicine Adult Medicine | DX: I10 Essential (primary) hypertension (principal); G25.0 Essential tremor; E11.40 Type 2 diabetes mellitus with diabetic neuropathy, unspecified; E11.8 Type 2 diabetes mellitus with unspecified complications; Z23 Encounter for immunization; Z09 Encounter for follow-up examination after completed treatment for conditions other than malignant neoplasm; M54.9 Dorsalgia, unspecified; G89.29 Other chronic pain; F41.1 Generalized anxiety disorder; F33.1 Major depressive disorder, recurrent, moderate; M15.9 Polyosteoarthritis, unspecified; I50.32 Chronic diastolic (congestive) heart failure; J44.9 Chronic obstructive pulmonary disease, unspecified; I67.9 Cerebrovascular disease, unspecified; E78.2 Mixed hyperlipidemia; E66.01 Morbid (severe) obesity due to excess calories; Z68.42 Body mass index [BMI] 45.0-49.9, adult; F17.219 Nicotine dependence, cigarettes, with unspecified nicotine-induced disorders | CPT/HCPCS: 83036; 84443; 85025 ==

== ENCOUNTER 2022-04-30 12:09 | Outpatient (CLI) | payer MEDICARE, SELFPAY ==
--- NOTE | 2022-04-30 13:08 | XRR_ITS ---
PROCEDURE INFORMATION: Exam: XR Left Shoulder Exam date and time: 04/30/2022 1:10 PM Age: 71 years old Clinical indication: Injury or trauma; Fall; Blunt trauma (contusions or hematomas); Left; Injury details: History--lt shoulder pain, PT fell 1 1/2 months ago; Additional info: M25.512 - pain in left shoulder TECHNIQUE: Imaging protocol: Radiologic exam of the Left shoulder. Views: 2 or more views. COMPARISON: CR XR chest 1V portable [id number] 04/15/2022 12:43 PM FINDINGS: Bones/joints: No dislocation. However, possible prior impaction injury of the proximal humerus as can be seen with a anterior subcoracoid dislocation. Has the patient ever had a dislocation? The glenohumeral and acromioclavicular joints are within normal limits. Soft tissues: No acute soft tissue abnormality. XR/XR shoulder LT min 2V* [id number] IMPRESSION: Possible prior humeral impaction injury. Has the patient ever had a humeral head dislocation?
== END 2022-04-30 12:10 | disposition home or self-care (01) ==
LOC: RAD 12:15
PROVIDERS: PCP Family Medicine Adult Medicine; Visit Provider Anesthesiology Pain Medicine
DX: G89.29 Other chronic pain (principal); M25.512 Pain in left shoulder; M47.816 Spondylosis without myelopathy or radiculopathy, lumbar region; M17.12 Unilateral primary osteoarthritis, left knee; Z98.1 Arthrodesis status; F17.290 Nicotine dependence, other tobacco product, uncomplicated
CPT/HCPCS: 73030; 99214

== ENCOUNTER → 2022-05-09 10:24 | Outpatient (BNVA) | payer MEDICARE, SELFPAY | PROVIDERS: PCP Family Medicine Adult Medicine; Visit Provider Anesthesiology Pain Medicine | DX: M79.18 Myalgia, other site (principal); G89.29 Other chronic pain; M17.12 Unilateral primary osteoarthritis, left knee; M25.512 Pain in left shoulder; M47.816 Spondylosis without myelopathy or radiculopathy, lumbar region; F17.290 Nicotine dependence, other tobacco product, uncomplicated; Z98.1 Arthrodesis status | CPT/HCPCS: 20553; 99213 ==

== ENCOUNTER 2022-05-28 08:18 | Outpatient (CLI) | payer MEDICARE, SELFPAY ==
--- NOTE | 2022-05-28 08:27 | XR_ITS ---
WS: [id number] Exam: XR lumbar spine min 4V [id number] Date/Time of Exam: 05/28/2022 8:48 AM Reason For Exam: M47.816 - Spondylosis without myelopathy or radiculopathy... Comparison 08/23/2021. There is posterior fusion of the spine at the L4-5 disc level with pedicle screws and posterior rods. An intervening disc spacer is noted. The fusion remains in good alignment without change. No sign of hardware failure. Degenerative disc changes noted at the L1-2, L2-3 and T12-L1. Mild spondylosis. Os teopenia. XR/XR lumbar spine min 4V [id number] IMPRESSION: 1. Stable-appearing interbody fusion at L4-5. No significant change or complica tion. 2. Degenerative changes and osteopenia.
== END 2022-05-28 08:19 | disposition home or self-care (01) ==
LOC: RAD 08:20
PROVIDERS: PCP Family Medicine Adult Medicine; Visit Provider Anesthesiology Pain Medicine
DX: G89.29 Other chronic pain (principal); M47.816 Spondylosis without myelopathy or radiculopathy, lumbar region; M54.16 Radiculopathy, lumbar region; M17.12 Unilateral primary osteoarthritis, left knee; M25.512 Pain in left shoulder; Z98.1 Arthrodesis status; F17.290 Nicotine dependence, other tobacco product, uncomplicated
CPT/HCPCS: 72110; 99214

== ENCOUNTER → 2022-06-10 09:42 | Outpatient (BNVA) | payer MEDICARE, SELFPAY | PROVIDERS: PCP Family Medicine Adult Medicine; Visit Provider Anesthesiology Pain Medicine | DX: G89.29 Other chronic pain (principal); M54.50 Low back pain, unspecified; M17.12 Unilateral primary osteoarthritis, left knee; M25.512 Pain in left shoulder; Z98.1 Arthrodesis status; F17.290 Nicotine dependence, other tobacco product, uncomplicated | CPT/HCPCS: 99214 ==

== ENCOUNTER → 2022-06-20 12:18 | Outpatient (BNVA) | payer MEDICARE, SELFPAY | PROVIDERS: PCP Family Medicine Adult Medicine; Visit Provider Anesthesiology Pain Medicine | DX: M54.16 Radiculopathy, lumbar region (principal); E11.8 Type 2 diabetes mellitus with unspecified complications; G89.29 Other chronic pain; Z79.84 Long term (current) use of oral hypoglycemic drugs | CPT/HCPCS: 36416; 62323; 82962 ==

== ENCOUNTER 2022-06-24 10:26 | Outpatient (CLI) | payer MEDICARE, SELFPAY ==
--- NOTE | 2022-06-24 10:44 | MM_ITS ---
WS: [id number] BILATERAL SCREENING DIGITAL TOMOSYNTHESIS MAMMOGRAM WITH CAD HISTORY: SCREENING COMPARISON: 06/28/2020, 05/07/2019 Bilateral CC and MLO views with tomosynthesis and synthetic mammography submitted. Computer aided det ection analyzed. Breast composition: There are scattered areas of fibroglandular density. No suspicious masses, microc alcifications or architectural distortion. MM/[place] [id number] IMPRESSION: BI-RADS: 1-Negative FOLLOW UP: 1 Year Follow-up
== END 2022-06-24 10:27 | disposition home or self-care (01) ==
LOC: RAD 10:26
PROVIDERS: PCP Family Medicine Adult Medicine; Visit Provider Family Medicine Adult Medicine
DX: Z12.31 Encounter for screening mammogram for malignant neoplasm of breast (principal)
CPT/HCPCS: 77063; 77067

== ENCOUNTER → 2022-07-01 09:01 | Outpatient (BNVA) | payer MEDICARE, SELFPAY | PROVIDERS: PCP Family Medicine Adult Medicine; Visit Provider Anesthesiology Pain Medicine | DX: G89.29 Other chronic pain (principal); M54.50 Low back pain, unspecified; M17.12 Unilateral primary osteoarthritis, left knee; M25.512 Pain in left shoulder | CPT/HCPCS: 99213 ==

== ENCOUNTER → 2022-07-04 08:30 | Outpatient (BNVA) | payer MEDICARE, SELFPAY | PROVIDERS: PCP Family Medicine Adult Medicine; Visit Provider Specialist | DX: M17.12 Unilateral primary osteoarthritis, left knee (principal); Z71.89 Other specified counseling | CPT/HCPCS: 20610; J1100; J2795; J3301 ==

== ENCOUNTER 2022-07-18 16:49 | Outpatient (CLI) | payer MEDICARE, SELFPAY ==
--- NOTE | 2022-07-18 17:00 | CTR_ITS ---
PROCEDURE INFORMATION: Exam: CT Lumbar Spine Without Contrast Exam date and time: 07/18/2022 5:41 PM Age: 72 years old Clinical indication: Prior surgery; Surgery type: Lumbar; Patient HX: History--worsening low back pain, denies recent injury; Additional info: M54.16 - radiculopathy, lumbar region TECHNIQUE: Imaging protocol: Computed tomography of the lumbar spine without contrast. Radiation optimization: All CT scans at this facility use at least one of these dose optimization techniques: automated exposure control; mA and/or kV adjustment per patient size (includes targeted exams where dose is matched to clinical indication); or iterative reconstruction. COMPARISON: MR lumbar spine wo con* [id number] 04/16/2021 8:53 AM RADIATION DOSE METRICS: Total DLP (mGy-cm): 1168.83 FINDINGS: Bones/joints: No acute fracture. There is mild S shaped scoliosis. There is grade 1 retrolisthesis of L2 on L3 and anterolisthesis of L4 on L5, unchanged. There is posterior laminectomy and posterior fusion with bilateral pedicle screws at L4-L5. There is mild lucency surrounding the L5 screws. There is interbody fusion graft well positioned within the L4-L5 disc space. There is mild persistent disc space loss at L4-L5. There is greater disc space loss with vacuum phenomena at T12-L1 through L2-L3. There are small marginal osteophytes, generalized disc bulges, and facet degenerative changes. There appears to be development of spinal stenosis from comparison MRI L2-L3 and L3-L4 likely [id number]. Spinal canal is obscured at L4-L5 but is surgically decompressed. Remaining levels show no significant stenosis. There is similar and [id number] lumbar neural foraminal narrowing from L1-L2 through L4-L5. Vasculature: There is atherosclerotic change without aneurysm. Soft tissues: There are posterior postsurgical soft tissue changes. CT/CT lumbar spine wo con* [id number] IMPRESSION: 1. L4-L5 fusion with lucency around bilateral L5 screws. Hardware is intact and well positioned. 2. Degenerative changes and scoliosis are described.
== END 2022-07-18 16:50 | disposition home or self-care (01) ==
PROVIDERS: PCP Family Medicine Adult Medicine; Visit Provider Anesthesiology Pain Medicine
DX: M54.16 Radiculopathy, lumbar region (principal); Z98.1 Arthrodesis status
CPT/HCPCS: 72131

== ENCOUNTER → 2022-08-22 10:59 | Outpatient (BNVA) | payer MEDICARE, SELFPAY | PROVIDERS: PCP Family Medicine Adult Medicine; Visit Provider Physician Assistant | DX: Z48.89 Encounter for other specified surgical aftercare (principal); Z98.1 Arthrodesis status; M17.10 Unilateral primary osteoarthritis, unspecified knee | CPT/HCPCS: 72100; 99213 ==

== ENCOUNTER → 2022-09-06 15:16 | Outpatient (BNVA) | payer MEDICARE, SELFPAY | PROVIDERS: PCP Family Medicine Adult Medicine; Visit Provider Family Medicine Adult Medicine | DX: G25.81 Restless legs syndrome (principal); J44.9 Chronic obstructive pulmonary disease, unspecified; G47.30 Sleep apnea, unspecified; G47.00 Insomnia, unspecified; E11.40 Type 2 diabetes mellitus with diabetic neuropathy, unspecified; E11.8 Type 2 diabetes mellitus with unspecified complications; I63.9 Cerebral infarction, unspecified; F41.1 Generalized anxiety disorder; N39.46 Mixed incontinence; I10 Essential (primary) hypertension; E78.2 Mixed hyperlipidemia; E66.01 Morbid (severe) obesity due to excess calories; Z68.42 Body mass index [BMI] 45.0-49.9, adult; F17.219 Nicotine dependence, cigarettes, with unspecified nicotine-induced disorders | CPT/HCPCS: 80053; 80061; 83036; 85025 ==

== ENCOUNTER → 2022-09-17 09:23 | Outpatient (BNVA) | payer MEDICARE, SELFPAY | PROVIDERS: PCP Family Medicine Adult Medicine; Visit Provider Anesthesiology Pain Medicine | DX: G89.29 Other chronic pain (principal); R51.9 Headache, unspecified; M54.50 Low back pain, unspecified; M25.562 Pain in left knee; M25.512 Pain in left shoulder; Z98.1 Arthrodesis status | CPT/HCPCS: 99213 ==

== ENCOUNTER → 2022-10-10 09:48 | Outpatient (BNVA) | payer MEDICARE, SELFPAY | PROVIDERS: PCP Family Medicine Adult Medicine; Visit Provider Specialist | DX: M17.12 Unilateral primary osteoarthritis, left knee (principal) | CPT/HCPCS: 20610; J1100; J2795; J3301 ==

== ENCOUNTER 2022-10-28 12:21 | Emergency (ER) | payer MEDICARE, SELFPAY ==
[2022-10-28 12:32] VITALS: BP 141/83; PULSE 80; RESP 18; TEMP 36.6; O2SAT 95; BMI 45.5
--- NOTE | 2022-10-28 14:52 | XR_ITS ---
WS: [email or web address] Portable AP upright chest, 10/28/2022 Clinical Data: SOB Comparison: Portable chest, 04/15/2022 Findings: No nodules, masses or effusions are seen. The heart is normal. The pulmonary vascularity is not increased. No pneumonia or pneumothorax is seen. The aortic arch and descending thoracic aorta s how minimal tortuosity and calcification. XR/XR chest 1V portable [id number] Impression: Atherosclerosis.
[2022-10-28 16:03] LABS: Basophils # 0.1 10^3/uL (0.0-0.1); Eosinophils # 0.3 10^3/uL (0.0-0.8); Eosinophils % 3.9 %; Hematocrit 41.8 % (37.0-47.0); Hemoglobin 13.3 g/dL (11.5-15.3); Lymphocytes # 3.1 10^3/uL (0.8-4.8); Lymphocytes % 43.2 %; Mean Corpuscular HGB Conc 31.8 g/dL (30.0-36.0); Mean Corpuscular Hemoglobin 29.2 pg (28.0-34.0); Mean Corpuscular Volume 91.7 fl (81-99); Mean Platelet Volume 10.6 fL (7.4-10.4); Monocytes # 0.4 10^3/uL (0.2-0.9); Neutrophils # 3.24 10^3/uL (1.8-7.7); Neutrophils % 45.5 %; Nucleated Red Blood Cells % 0 %; Platelet Count 266 10^3/cmm (130-400); Red Blood Count 4.56 10^6/uL (4.1-5.3); Red Cell Distribution Width 13.8 % (12.1-15.1); White Blood Count 7.1 10^3/uL (4.0-10.0)
[2022-10-28 16:27] LABS: Alanine Aminotransferase 32 U/L (0-33); Albumin Level 3.7 g/dL (3.5-5.2); Alkaline Phosphatase 76 U/L (35-105); Anion Gap 14.4 (5-19); Aspartate Amino Transferase 22 U/L (0-32); Blood Urea Nitrogen 19 mg/dL (8-23); Calcium 9.7 mg/dL (8.5-10.5); Carbon Dioxide 29 mmol/L (22-29); Chloride 100 mmol/L (98-107); Globulin 2.8 g/dL (1.3-4.6); Glucose 184 mg/dL (65-115); NT Pro B Type Natriuretic Pept 199 pg/mL (0-125); Osmolality Calculated 297 mOsm/kg (285-295); Potassium 3.4 mmol/L (3.5-5.1); Sodium 140 mmol/L (136-145); Total Bilirubin 0.2 mg/dL (0.15-1.2); Total Protein 6.5 g/dL (6.6-8.7)
--- NOTE | 2022-10-28 17:30 | W.ED.SOB ---
HPI - SOB/Dyspnea General: Chief Complaint: Back Pain/Injury Stated Complaint: back pain Time Seen by Provider: 10/28/22 17:29 History of Present Illness: HPI Narrative: 72-year-old lady with history of chronic back pain presenting due to worsening back pain. There is radiation down the back of the right leg. Medications have not helped. She has also endorses right lower extremity swelling which is atypical from normal. Intensity symptoms is moderate to severe. Course has worsened. No other specific changes in health, exacerbating, or alleviating factors identified. Onset (ago): day(s) Timing: constant Exacerbating factors: exertion and movement Associated symptoms: Reports no associated symptoms Review of Systems General: Reports: 10 or more systems reviewed and unremarkable except in HPI and below PFSH ED PFSH: Medical History Chronic gastritis COPD (chronic obstructive pulmonary disease) CVD (cerebrovascular disease) Diabetes mellitus type 2 with complications Diastolic CHF Dupuytren's contracture syndrome Enrolled in chronic care management Essential hypertension Essential tremor Facet arthritis, degenerative, lumbar spine PIERRE (generalized anxiety disorder) History of rheumatic fever Hx of heart murmur Hyperlipidemia Insomnia 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 Major depressive disorder Mixed incontinence Osteoarthritis involving multiple joints on both sides of body Osteopenia Pain management contract signed Primary osteoarthritis of left knee Psychiatric care Restless legs syndrome (RLS) Sjogren's syndrome with keratoconjunctivitis sicca Sleep apnea Spondylosis without myelopathy or radiculopathy, lumbosacral region TIA (transient ischemic attack) Vitamin D deficiency Surgical History H/O cornea transplant History of back surgery History of surgery on arm surgery on nerves History of toe surgery History of tonsillectomy Previous back surgery S/P cholecystectomy S/P hysterectomy S/P knee replacement Right Status post laminectomy Status post lumbar spinal fusion 06/20/2021 L4 & L5 fusion, after L4-L5 laminectomy 12/20/2020, by Dr. Moy Status post removal of thyroid nodule Family History Father CAD (coronary artery disease) Mother Cancer Lung disease Sister Cancer Lung disease Dementia Diabetes Brother Cancer Lung disease Diabetes Family/Other Diabetes Suicide Denies family history of Clotting disorder Chronic kidney disease (CKD) Anesthesia complication Bleeding disorder Stroke Social History Smoking and tobacco status: current every day smoker (vape) Quit status (tobacco): has quit using tobacco Year quit tobacco: 2020 Former quit date comment: 1 PPD X 5 YEARS Alcohol intake: never Substance/Drug Use: never Lives independently: Yes Female Reproductive History: Para: 2 Spontaneous abortions: Yes Physical Exam Const: COMMON NORMALS: alert GENERAL APPEARANCE: cooperative and well developed HENMT: COMMON NORMALS: normocephalic and atraumatic HEAD & SCALP: normocephalic and atraumatic Eye: COMMON NORMALS: conjunctivae normal CONJUNCTIVA: Yes conjunctivae normal SCLERA: sclerae normal Neck/C-Spine: COMMON NORMALS: supple GENERAL: Yes trachea midline Resp: COMMON NORMALS: normal respiratory effort EFFORT & INSPECTION: Yes able to speak in complete sentences Cardio: COMMON NORMALS: regular rate and regular rhythm RATE: regular rate RHYTHM: regular rhythm GI: COMMON NORMALS: Soft to palpation PALPATION: Yes Soft to palpation and No Tenderness to palpation present (GI) Back/Pelvis: OTHER: Lumbar and right paraspinal tenderness palpation, right SI joint tenderness palpation. Extremity: GENERAL: Yes normal exam except as noted and No edema Neuro: COMMON NORMALS: moves all extremities SENSORIUM/ORIENTATION: Yes alert and No Orientation impaired Psych: COMMON NORMALS: mental status grossly normal and Normal thought process present THOUGHT PROCESS: Normal thought process present Course Vital Signs: Vital signs: Vital Signs Temperature 97.8 F 10/28/22 12:32 Pulse Rate 70 10/28/22 18:22 Respiratory Rate 16 10/28/22 20:35 Blood Pressure 163/73 10/28/22 18:22 Pulse Oximetry 94 10/28/22 18:22 Oxygen Delivery Me thod Room Air 10/28/22 18:22 MDM - SOB/Dyspnea Medical Decision Making 72-year-old lady presenting with possible respiratory symptoms, right lower extremity swelling, exacerbation of chronic back pain. Patient does have radicular components and tenderness at the SI joint. Of note she has missed a spinal injection with pain management which may explain worsening. EKG demonstrates sinus rhythm with left axis deviation first-degree AV block, no STEMI. Labs with no significant hematologic or metabolic abnormality to explain symptoms. Negative range 2R delta troponin. BNP is only minimally elevated. Negative DVT study. CT with chronic findings the likely correlating symptoms for severity. With multiple redoses of multimodal approach to analgesia patient has some improvement. No red flag symptoms, patient is satisfactory for continued outpatient management. The results of ED evaluation were discussed with the patient including prescriptions and/or symptomatic cares (if applicable) including appropriate and responsible use, followup plan, and return precautions. The patient verbalized understanding and felt safe for discharge. Medical Records I reviewed the patient's medical records. Lab Data I reviewed the patient's lab results. 10/28/22 15:50 10/28/22 15:50 Labs/Radiology: Radiology Impressions Chest X-Ray 10/28/22 14:52 Impression: Atherosclerosis. Venous Duplex 10/28/22 17:39 IMPRESSION: No evidence of deep vein thrombosis. Lumbar Spine CT 10/28/22 18:32 IMPRESSION: 1. No acute fracture. 2. Stable intact L4-L5 fusion. 3. Multilevel degenerative changes as described. 4. The most significant central canal stenosis is estimated at moderate at L3-L4. 5. The most significant foraminal stenosis is severe on the right at L3-L4 and moderate on the left at L2-L3 and L3-L4. Laboratory Results WBC 7.1 10^3/uL (4.0-10.0) 10/28/22 15:50 RBC 4.56 10^6/uL (4.1-5.3) 10/28/22 15:50 Hgb 13.3 g/dL (11.5-15.3) 10/28/22 15:50 Hct 41.8 % (37.0-47.0) 10/28/22 15:50 MCV 91.7 fl (81-99) 10/28/22 15:50 MCH 29.2 pg (28.0-34.0) 10/28/22 15:50 MCHC 31.8 g/dL (30.0-36.0) 10/28/22 15:50 RDW 13.8 % (12.1-15.1) 10/28/22 15:50 Plt Count 266 10^3/cmm (130-400) 10/28/22 15:50 MPV 10.6 fL (7.4-10.4) H 10/28/22 15:50 Neut % (Auto) 45.5 % 10/28/22 15:50 Lymph % (Auto) 43.2 % 10/28/22 15:50 [place] % (Auto) 6.0 % 10/28/22 15:50 Eos % (Auto) 3.9 % 10/28/22 15:50 Baso % (Auto) 1.0 % 10/28/22 15:50 Neut # (Auto) 3.24 10^3/uL (1.8-7.7) 10/28/22 15:50 Lymph # (Auto) 3.1 10^3/uL (0.8-4.8) 10/28/22 15:50 [place] # (Auto) 0.4 10^3/uL (0.2-0.9) 10/28/22 15:50 Eos # (Auto) 0.3 10^3/uL (0.0-0.8) 10/28/22 15:50 Baso # (Auto) 0.1 10^3/uL (0.0-0.1) 10/28/22 15:50 Nucleated RBC % (auto) 0 % 10/28/22 15:50 Nucleated RBCs # 0.0 /100WBC 10/28/22 15:50 Sodium 140 mmol/L (136-145) 10/28/22 15:50 Potassium 3.4 mmol/L (3.5-5.1) L 10/28/22 15:50 Chloride 100 mmol/L (98-107) 10/28/22 15:50 Carbon Dioxide 29 mmol/L (22-29) 10/28/22 15:50 Anion Gap 14.4 (5-19) 10/28/22 15:50 BUN 19 mg/dL (8-23) 10/28/22 15:50 Creatinine 0.8 mg/dL (0.5-0.9) 10/28/22 15:50 GFR Calculation Not Reportable 10/28/22 15:50 Glucose 184 mg/dL (65-115) H 10/28/22 15:50 Calculated Osmolality 297 mOsm/kg (285-295) H 10/28/22 15:50 Calcium 9.7 mg/dL (8.5-10.5) 10/28/22 15:50 Total Bilirubin 0.2 mg/dL (0.15-1.2) 10/28/22 15:50 AST 22 U/L (0-32) 10/28/22 15:50 ALT 32 U/L (0-33) 10/28/22 15:50 Alkaline Phosphatase 76 U/L (35-105) 10/28/22 15:50 Troponin T Baseline 9 ng/L (0-10) 10/28/22 14:52 Troponin T 120 Minute 9.16 ng/L (0-10) 10/28/22 17:39 Delta Troponin T 0.16 ABS# (0-10) 10/28/22 17:39 Troponin T Hi Sens 6Hr 11.06 ng/L (0-10) H 10/28/22 21:00 Troponin T Hi Sens 6Hr Delta 2.06 ng/L (0-12) 10/28/22 21:00 NT-Pro-B Natriuret Pep 199 pg/mL (0-125) H 10/28/22 15:50 Total Protein 6.5 g/dL (6.6-8.7) L 10/28/22 15:50 Albumin 3.7 g/dL (3.5-5.2) 10/28/22 15:50 Globulin 2.8 g/dL (1.3-4.6) 10/28/22 15:50 Discharge Plan Discharge Patient Disposition: Home Clinical Impression: Leg swelling, Lumbar radiculopathy, Degenerative disc disease Condition: Stable Prescriptions: New oxycodone 5 mg tablet 5 mg PO Q4H PRN (Reason: pain) Qty: 20 0RF prednisone 5 mg tablet See Rx Instructions .ROUTE .COMPLEX Qty: 36 0RF Rx Instructions: prednisone 5 mg: take 8 tablets (40 mg) on Day 1; 7 tablets (35 mg) on Day 2; then decrease by 1 tablet every day until finished No Action (DME) MOBILITY SCOOTER ANY See Rx Instructions .Route .MEDSUPPLY Qty: 1 0RF Rx Instructions: As directed duloxetine 60 mg capsule,delayed release(DR/EC) 120 mg PO QAM 30 Days Qty: 60 3RF lorazepam [Ativan] 0.5 mg tablet 0.5 mg PO BEDTIME 30 Days Qty: 30 3RF Centrum Silver Women 8 mg iron-400 mcg-300 mcg tablet 1 tab PO DAILY@2200 Qty: 90 3RF hydrochlorothiazide 12.5 mg tablet 12.5 mg PO DAILY@1000 Qty: 90 3RF cholecalciferol (vitamin D3) [Vitamin D3] 50 mcg (2,000 unit) tablet 50 mcg PO QAM Qty: 90 3RF albuterol sulfate 2.5 mg /3 mL (0.083 %) solution for nebulization 2.5 mg inhalation QID PRN (Reason: shortness of breath or wheezing) Qty: 180 3RF tolterodine [Detrol] 2 mg tablet 2 mg PO BID Qty: 60 5RF hydrocodone-acetaminophen 5-325 mg tablet 1 tab PO BID PRN (Reason: pain) 30 Days Qty: 60 0RF Rx Instructions: may fill 30 days after previous. ropinirole 0.5 mg tablet 0.5 mg PO .qhs Qty: 30 5RF doxepin 10 mg capsule 10 mg PO .qhs PRN (Reason: sleep) Qty: 30 5RF Protonix 40 mg tablet,delayed release (DR/EC) 40 mg PO DAILY@1000 Qty: 90 3RF fluconazole [Diflucan] 200 mg tablet 200 mg PO DAILY Qty: 10 0RF Myrbetriq 25 mg tablet extended release 24 hr 25 mg PO DAILY Qty: 30 6RF isosorbide mononitrate 30 mg tablet extended release 24 hr 30 mg PO DAILY Qty: 90 3RF gabapentin 600 mg tablet 1,200 mg PO BID@1000,2200 30 Days Qty: 120 5RF pioglitazone [Actos] 30 mg tablet 30 mg PO DAILY Qty: 90 3RF propranolol 10 mg tablet 10 mg PO TID Qty: 90 5RF Januvia 100 mg tablet 100 mg PO DAILY Qty: 90 1RF mirtazapine 30 mg tablet 30 mg PO QPM Discharge Orders: Discharge ED (Routine); Ordered 10/28/22 Ordered By: Ismael Harry Referrals: Jean Claude Love MD [Primary Care Provider] - Discharge Diet: Usual diet Discharge Activity: Increase activity as tolerated Patient Instructions: Leg Edema (ED), Lumbar Radiculopathy (ED), Opioid Safety Activity Restrictions/Additional Instructions: Thank you for visiting the emergency department. You were seen and evaluated for leg swelling and back pain. The exact cause of your symptoms is unclear though likely secondary to nerve root irritation. We are pleased that you had some improvement with treatment in the emergency department Please follow-up with your specialist and primary care provider. Return to the emergency department for uncontrolled symptoms, any new neurologic symptoms, changes inability to control bowel or bladder, or anything else that you are concerned about and feel needs emergency department evaluation. Coding Level of Care Code ED Early Childhood Associate for Lori Montoya
--- NOTE | 2022-10-28 17:39 | USR_ITS ---
PROCEDURE INFORMATION: Exam: US Duplex Right Lower Extremity Veins, Limited Exam date and time: 10/28/2022 6:11 PM Age: 72 years old Clinical indication: Pain; Leg, lower; Right; Prior surgery; Surgery date: 6+ months; Surgery type: Knee replacement 15-20 years ago; Additional info: Swelling, pain, atraumatic TECHNIQUE: Imaging protocol: Real-time duplex ultrasound of the right extremity with 2-D kirby scale, color Doppler flow and spectral waveform analysis including responses to compression and other maneuvers (when performed) with image documentation. Limited exam was focused on the right lower extremity veins. COMPARISON: No relevant prior studies available. FINDINGS: Right deep veins: Unremarkable. The common femoral, femoral, proximal profunda femoral and popliteal veins are patent without thrombus. Normal Doppler waveforms. Normal compressibility and/or augmentation response. Right superficial veins: Unremarkable. Saphenofemoral junction is patent without thrombus. Soft tissues: Unremarkable. US/[place] [id number] IMPRESSION: No evidence of deep vein thrombosis.
[2022-10-28 17:40] VITALS: BP 142/79; PULSE 70; RESP 16; O2SAT 93
--- NOTE | 2022-10-28 17:40 | ECG_ITS ---
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 Measurements Intervals [place] Rate: 69 P: 88 WA: 210 QRS: -20 QRSD: 97 T: 34 QT: 393 QTc: 423 Interpretive Statements SINUS RHYTHM WITH FIRST DEGREE AV BLOCK LOW QRS VOLTAGE IN PRECORDIAL LEADS [QRS DEFLECTION < 1.0 mV IN CHEST LEADS] POSSIBLE ANTERIOR MYOCARDIAL INFARCTION , PROBABLY OLD [30 ms Q WAVE IN V3/V4, OR R < 0.2 mV IN V4] Compared to ECG 04/15/2022 12:17:39 First degree AV block now present Myocardial infarct finding still present Electronically Signed On 10-29-2022 15:03:56 CDT by Sandro Basilio M.D. [id number]
[2022-10-28 17:53] VITALS: RESP 16; O2SAT 94
[2022-10-28] MEDS: morphine 4 mg/mL SDV 1 mL IVP (17:53)
[2022-10-28] MEDS: ketorolac 30 mg/mL INJ 15 MG IVP (17:54)
[2022-10-28 18:22] VITALS: BP 163/73; PULSE 70; RESP 16; O2SAT 94
[2022-10-28 18:28] LABS: Troponin(5th) Baseline 9 ng/L (0-10)
[2022-10-28 18:29] LABS: Troponin 5 2HR 9.16 ng/L (0-10)
--- NOTE | 2022-10-28 18:32 | CTR_ITS ---
PROCEDURE INFORMATION: Exam: CT Lumbar Spine Without Contrast Exam date and time: 10/28/2022 7:46 PM Age: 72 years old Clinical indication: Low back pain; Prior surgery; Surgery date: 6+ months; Surgery type: Spine; Additional info: Low back pain, acute on chronic, R radiculopathy TECHNIQUE: Imaging protocol: Computed tomography of the lumbar spine without contrast. Radiation optimization: All CT scans at this facility use at least one of these dose optimization techniques: automated exposure control; mA and/or kV adjustment per patient size (includes targeted exams where dose is matched to clinical indication); or iterative reconstruction. REPORTING DATA: Count of CT and Cardiac NM exams in prior 12 months: This patient has received 2 known CTs and 0 known cardiac nuclear medicine studies in the 12 months prior to the current study. COMPARISON: CT lumbar spine wo con* [id number] 07/18/2022 5:41 PM RADIATION DOSE METRICS: Total DLP (mGy-cm): 3075 FINDINGS: Bones/joints: The vertebral body alignment and stature is maintained. Posterior mechanical fusion of L4-L5 with anterior spacer. Stable mild anterior subluxation of L4 on L5. L4 decompressive laminectomies. Severe disc space narrowing with degenerative endplate changes from T12-L1 through L2-L3. Resection of the inferior left L4 facet. The facets are otherwise intact with degenerative changes. No acute fracture. T12-L1: Trace posterior disc bulge. No foraminal or central canal stenosis. L1-L2: Circumferential disc bulge. Mild left foraminal stenosis. No right foraminal stenosis. No central canal stenosis. L2-L3: Mild circumferential disc bulge. Moderate left and mild right foraminal stenosis. Mild central canal stenosis. L3-L4: Posterior disc bulge. Moderate left and severe right foraminal stenosis. Moderate central canal stenosis. L4-L5: Partial discectomy with mild posterior disc bulge. Mild bilateral foraminal stenosis. No central canal stenosis. L5-S1: Trace posterior disc bulge. No foraminal or central canal stenosis. Soft tissues: Postsurgical scar in the lumbar soft tissues. CT/CT lumbar spine wo con* [id number] IMPRESSION: 1. No acute fracture. 2. Stable intact L4-L5 fusion. 3. Multilevel degenerative changes as described. 4. The most significant central canal stenosis is estimated at moderate at L3-L4. 5. The most significant foraminal stenosis is severe on the right at L3-L4 and moderate on the left at L2-L3 and L3-L4.
[2022-10-28 18:40] LABS: Troponin 5 2HR Delta 0.16 ABS# (0-10)
[2022-10-28] MEDS: dexamethasone 10 mg/mL INJ IVP (18:46)
[2022-10-28] MEDS: diazePAM 2 mg Tablet PO (18:48)
[2022-10-28 20:35] VITALS: RESP 16
[2022-10-28] MEDS: acetaminophen 500 mg Tablet 1000 MG PO (20:35)
[2022-10-28] MEDS: HYDROmorphone 1 mg/mL INJ 1 mL 0.5 MG IVP (20:35)
[2022-10-28 21:31] LABS: Troponin 5 6HR 11.06 ng/L (0-10)
[2022-10-28 21:34] LABS: Troponin 5 6HR Delta 2.06 ng/L (0-12)
== END 2022-10-28 21:20 | disposition home or self-care (01) ==
PROVIDERS: Family Medicine; Emergency Provider Emergency Medicine; PCP Family Medicine Adult Medicine
DX: M51.16 Intervertebral disc disorders with radiculopathy, lumbar region (principal); M79.89 Other specified soft tissue disorders; F17.290 Nicotine dependence, other tobacco product, uncomplicated; J44.9 Chronic obstructive pulmonary disease, unspecified; E11.9 Type 2 diabetes mellitus without complications; I11.0 Hypertensive heart disease with heart failure; I50.9 Heart failure, unspecified; E78.5 Hyperlipidemia, unspecified; Z86.73 Personal history of transient ischemic attack (TIA), and cerebral infarction without residual deficits
CPT/HCPCS: 36415; 71045; 72131; 80053; 83880; 84484; 85025; 93005; 93971; 96374; 96375; 99285; J1100; J1170; J1885; J2270

== ENCOUNTER → 2022-10-29 13:01 | Outpatient (BNVA) | payer MEDICARE, SELFPAY | PROVIDERS: PCP Family Medicine Adult Medicine; Visit Provider Internal Medicine Cardiovascular Disease | DX: I11.0 Hypertensive heart disease with heart failure (principal); I50.32 Chronic diastolic (congestive) heart failure; M79.89 Other specified soft tissue disorders; G47.00 Insomnia, unspecified; G25.81 Restless legs syndrome; G47.30 Sleep apnea, unspecified; G25.0 Essential tremor; E11.8 Type 2 diabetes mellitus with unspecified complications; Z79.84 Long term (current) use of oral hypoglycemic drugs; J44.9 Chronic obstructive pulmonary disease, unspecified; E78.2 Mixed hyperlipidemia; E66.01 Morbid (severe) obesity due to excess calories; Z68.42 Body mass index [BMI] 45.0-49.9, adult; F17.290 Nicotine dependence, other tobacco product, uncomplicated | CPT/HCPCS: 99214 ==

== ENCOUNTER → 2022-11-11 08:21 | Outpatient (BNVA) | payer MEDICARE, SELFPAY | PROVIDERS: PCP Family Medicine Adult Medicine; Visit Provider Anesthesiology Pain Medicine | DX: G89.29 Other chronic pain (principal); M17.12 Unilateral primary osteoarthritis, left knee; M54.50 Low back pain, unspecified; M25.512 Pain in left shoulder; Z98.1 Arthrodesis status | CPT/HCPCS: 99214 ==

== ENCOUNTER → 2022-12-16 13:02 | Outpatient (BNVA) | payer MEDICARE, SELFPAY | PROVIDERS: PCP Family Medicine Adult Medicine; Visit Provider Obstetrics & Gynecology | DX: N39.46 Mixed incontinence (principal) | CPT/HCPCS: 81000 ==

== ENCOUNTER → 2022-12-24 08:46 | Outpatient (BNVA) | payer MEDICARE, SELFPAY | PROVIDERS: PCP Family Medicine Adult Medicine; Visit Provider Anesthesiology Pain Medicine | DX: G89.29 Other chronic pain (principal); M54.50 Low back pain, unspecified; M25.551 Pain in right hip; M25.512 Pain in left shoulder; M17.12 Unilateral primary osteoarthritis, left knee; Z98.1 Arthrodesis status; Z79.84 Long term (current) use of oral hypoglycemic drugs | CPT/HCPCS: 99215 ==

== ENCOUNTER → 2022-12-26 14:42 | Outpatient (BNVA) | payer MEDICARE, SELFPAY | PROVIDERS: PCP Family Medicine Adult Medicine; Visit Provider Orthopaedic Surgery | DX: Z48.89 Encounter for other specified surgical aftercare (principal); M54.9 Dorsalgia, unspecified; G89.29 Other chronic pain | CPT/HCPCS: 99214 ==

== ENCOUNTER → 2023-01-09 14:20 | Outpatient (BNVA) | payer MEDICARE, SELFPAY | PROVIDERS: PCP Family Medicine Adult Medicine; Visit Provider Specialist | DX: M17.12 Unilateral primary osteoarthritis, left knee (principal) | CPT/HCPCS: 20610; J7327 ==

== ENCOUNTER → 2023-01-23 09:33 | Outpatient (BNVA) | payer MEDICARE, SELFPAY | PROVIDERS: PCP Family Medicine Adult Medicine; Visit Provider Anesthesiology Pain Medicine | DX: G89.29 Other chronic pain (principal); M54.50 Low back pain, unspecified; R51.9 Headache, unspecified; M25.512 Pain in left shoulder; M17.12 Unilateral primary osteoarthritis, left knee | CPT/HCPCS: 99214 ==

== ENCOUNTER → 2023-02-24 10:56 | Outpatient (BNVA) | payer MEDICARE, SELFPAY | PROVIDERS: PCP Family Medicine Adult Medicine; Visit Provider Anesthesiology Pain Medicine | DX: G89.29 Other chronic pain; M54.50 Low back pain, unspecified; M17.12 Unilateral primary osteoarthritis, left knee; M25.512 Pain in left shoulder | CPT/HCPCS: 99213 ==

== ENCOUNTER → 2023-03-03 10:37 | Outpatient (BNVA) | payer MEDICARE, SELFPAY | PROVIDERS: PCP Family Medicine Adult Medicine; Visit Provider Specialist | DX: M17.12 Unilateral primary osteoarthritis, left knee (principal); E66.01 Morbid (severe) obesity due to excess calories; Z68.42 Body mass index [BMI] 45.0-49.9, adult | CPT/HCPCS: 20610; 73560; 73565; 99214; J1100; J2795; J3301 ==

== ENCOUNTER → 2023-03-14 13:51 | Outpatient (BNVA) | payer MEDICARE, SELFPAY | PROVIDERS: PCP Family Medicine Adult Medicine; Visit Provider Family Medicine Adult Medicine | DX: E11.40 Type 2 diabetes mellitus with diabetic neuropathy, unspecified (principal); E11.8 Type 2 diabetes mellitus with unspecified complications; E66.01 Morbid (severe) obesity due to excess calories; Z68.42 Body mass index [BMI] 45.0-49.9, adult; F17.219 Nicotine dependence, cigarettes, with unspecified nicotine-induced disorders; J44.9 Chronic obstructive pulmonary disease, unspecified; I10 Essential (primary) hypertension; M15.9 Polyosteoarthritis, unspecified; M54.9 Dorsalgia, unspecified; G89.29 Other chronic pain; G47.30 Sleep apnea, unspecified; G47.00 Insomnia, unspecified | CPT/HCPCS: 83036 ==

== ENCOUNTER → 2023-03-27 10:55 | Outpatient (BNVA) | payer MEDICARE, SELFPAY | PROVIDERS: PCP Family Medicine Adult Medicine; Visit Provider Anesthesiology Pain Medicine | DX: G89.29 Other chronic pain; M17.12 Unilateral primary osteoarthritis, left knee; M25.512 Pain in left shoulder; R51.9 Headache, unspecified | CPT/HCPCS: 99214 ==

== ENCOUNTER → 2023-04-11 13:26 | Outpatient (BNVA) | payer MEDICARE, SELFPAY | PROVIDERS: PCP Family Medicine Adult Medicine; Visit Provider Family Medicine Adult Medicine | DX: G47.30 Sleep apnea, unspecified (principal); G47.33 Obstructive sleep apnea (adult) (pediatric); E66.01 Morbid (severe) obesity due to excess calories; Z68.42 Body mass index [BMI] 45.0-49.9, adult; I10 Essential (primary) hypertension; E11.40 Type 2 diabetes mellitus with diabetic neuropathy, unspecified; E11.8 Type 2 diabetes mellitus with unspecified complications; J44.9 Chronic obstructive pulmonary disease, unspecified; I50.32 Chronic diastolic (congestive) heart failure; M15.9 Polyosteoarthritis, unspecified | CPT/HCPCS: 80048; 83036 ==

== ENCOUNTER → 2023-04-28 10:54 | Outpatient (BNVA) | payer MEDICARE, SELFPAY | PROVIDERS: PCP Family Medicine Adult Medicine; Visit Provider Anesthesiology Pain Medicine | DX: G89.29 Other chronic pain; M54.50 Low back pain, unspecified; M17.12 Unilateral primary osteoarthritis, left knee; M25.512 Pain in left shoulder | CPT/HCPCS: 99214 ==

== ENCOUNTER → 2023-05-12 11:46 | Outpatient (BNVA) | payer MEDICARE, SELFPAY | PROVIDERS: PCP Family Medicine Adult Medicine; Visit Provider Family Medicine Adult Medicine | DX: R07.89 Other chest pain (principal) | CPT/HCPCS: 71046 ==

== ENCOUNTER → 2023-06-17 10:45 | Outpatient (BNVA) | payer MEDICARE, SELFPAY | PROVIDERS: PCP Family Medicine Adult Medicine; Visit Provider Anesthesiology Pain Medicine | DX: M54.9 Dorsalgia, unspecified; G89.29 Other chronic pain; M17.12 Unilateral primary osteoarthritis, left knee; M25.512 Pain in left shoulder | CPT/HCPCS: 99214 ==

== ENCOUNTER 2023-06-26 11:40 | Outpatient (CLI) | payer MEDICARE, SELFPAY ==
--- NOTE | 2023-06-26 11:45 | MM_ITS ---
WS: [email or web address] VIEWS: MLO and CC views both breasts. 3D digital tomosynthesis is also included in this exam. Comparison made with prior exam of 05/27/2007, 02/20/2010, 05/18/2015, 04/17/2018, 05/07/2019, 0, 06/24/2022.. Findings: There was no sign of mass, architectural distortion or suspicious calcification in either breast. Sta ble appearing nodular densities noted bilaterally. There are scattered areas of fibroglandular densit y Impression: MM/[place] [id number] BI-RADS: 2-Benign finding. FOLLOW-UP: 1 Year Follow-up This mammogram was also analyzed by the Computer Aided Detection System [employer]2 [employer] Wharfage Clerk.
== END 2023-06-26 11:41 | disposition home or self-care (01) ==
LOC: RAD 11:40
PROVIDERS: PCP Family Medicine Adult Medicine; Visit Provider Family Medicine Adult Medicine
DX: Z12.31 Encounter for screening mammogram for malignant neoplasm of breast (principal)
CPT/HCPCS: 77063; 77067

== ENCOUNTER → 2023-07-17 09:22 | Outpatient (BNVA) | payer MEDICARE, SELFPAY | PROVIDERS: PCP Family Medicine Adult Medicine; Visit Provider Anesthesiology Pain Medicine | DX: G89.29 Other chronic pain; M17.12 Unilateral primary osteoarthritis, left knee; M25.512 Pain in left shoulder | CPT/HCPCS: 99214 ==

== ENCOUNTER → 2023-07-31 14:20 | Outpatient (BNVA) | payer MEDICARE, SELFPAY | PROVIDERS: PCP Family Medicine Adult Medicine; Visit Provider Nurse Practitioner | DX: M17.12 Unilateral primary osteoarthritis, left knee (principal) | CPT/HCPCS: 20610; J1100; J2795; J3301 ==

== ENCOUNTER → 2023-08-21 10:43 | Outpatient (BNVA) | payer MEDICARE, SELFPAY | PROVIDERS: PCP Family Medicine Adult Medicine; Visit Provider Anesthesiology Pain Medicine | DX: G89.29 Other chronic pain; M54.50 Low back pain, unspecified; R51.9 Headache, unspecified; M17.12 Unilateral primary osteoarthritis, left knee; R63.5 Abnormal weight gain; I10 Essential (primary) hypertension; E78.2 Mixed hyperlipidemia; E11.40 Type 2 diabetes mellitus with diabetic neuropathy, unspecified; I50.32 Chronic diastolic (congestive) heart failure | CPT/HCPCS: 80053; 80061; 83036; 84443; 99214 ==

== ENCOUNTER → 2023-09-17 10:37 | Outpatient (BNVA) | payer MEDICARE, SELFPAY | PROVIDERS: PCP Family Medicine Adult Medicine; Visit Provider Anesthesiology Pain Medicine | DX: G89.29 Other chronic pain; M17.12 Unilateral primary osteoarthritis, left knee; M54.50 Low back pain, unspecified; M25.512 Pain in left shoulder | CPT/HCPCS: 99214 ==

== ENCOUNTER 2023-09-20 21:53 | Emergency (ER) | payer MEDICARE, SELFPAY ==
[2023-09-20 21:57] VITALS: BP 168/76; PULSE 73; RESP 22; TEMP 36.3; O2SAT 93; BMI 52.9
--- NOTE | 2023-09-20 22:06 | XRR_ITS ---
PROCEDURE INFORMATION: Exam: XR Chest Exam date and time: 09/20/2023 10:16 PM Age: 73 years old Clinical indication: Shortness of breath; Prior surgery; Surgery date: 6+ months; Surgery type: Spinal stimulator; Patient HX: C/O SOB. History of chf and copd. TECHNIQUE: Imaging protocol: Radiologic exam of the chest. Views: 1 view. COMPARISON: CR XR chest 2V* [id number] 05/12/2023 11:54 AM FINDINGS: Tubes, catheters and devices: Stimulator lead in the midthoracic spinal canal. Lungs: Unremarkable. No consolidation. Pleural spaces: Unremarkable. No pleural effusion. No pneumothorax. Heart/Mediastinum: Unremarkable. No cardiomegaly. Bones/joints: Unremarkable. XR/XR chest 1V portable [id number] IMPRESSION: No acute findings.
--- NOTE | 2023-09-20 22:11 | ED_ITS ---
HPI - Female Genitourinary 2 General: Chief complaint: Urogenital-Female Stated complaint: fluid build up, cant void Time Seen by Provider: 09/20/23 22:11 Source: patient Mode of arrival: ambulatory Limitations: no limitations History of Present Illness: 73-year-old female states that she urina isaura this morning at 3 AM but then has had a difficult time urinating since then. She states that she feels like she needs to go but she is not able to go she had a history of chronic kidney disease she never had any history of urinary retention. States she is also had some increase swelling to her lower extremities with some slight dyspnea she does have a history of CHF she is supposed be on 2 L oxygen at home she is on HCTZ. Associated symptoms: Deny abdominal pain, headache(s) or nausea Review of Systems 2 Const: Denies: fever(s), chills, body aches or change in appetite Eyes: Denies: eye discomfort ENMT: Denies: throat pain or dental pain Card: Denies: chest pain Resp: Reports: dyspnea GI: Denies: abdominal pain, nausea, vomiting or diarrhea : Reports: difficulty voiding Musc: Reports: extremity swelling; Denies: neck pain or back pain Skin/Breast: Denies: rash Neuro: Denies: headache(s) PFSH ED 2 PFSH: Medical History Weight gain, abnormal Supplemental oxygen dependent Left-sided chest wall pain Abnormality of gait and mobility Chronic pain syndrome Intervention PM, Mtn Home, recommend Lumbar spinal cord implant Obstructive sleep apnea of adult Insomnia Restless legs syndrome (RLS) Yeast infection involving the vagina and surrounding area Essential tremor Facet arthritis, degenerative, lumbar spine Primary osteoarthritis of left knee Dupuytren's contracture syndrome Diabetes mellitus type 2 with complications Psychiatric care Osteoarthritis involving multiple joints on both sides of body Essential hypertension Diastolic CHF Chronic gastritis COPD (chronic obstructive pulmonary disease) CVD (cerebrovascular disease) History of rheumatic fever Hx of heart murmur Mixed incontinence TIA (transient ischemic attack) 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 Moy S/P cholecystectomy Previous back surgery Status post laminectomy History of toe surgery History of surgery on arm surgery on nerves History of tonsillectomy H/O cornea transplant S/P knee replacement Right S/P hysterectomy Status post removal of thyroid nodule Family History Father CAD (coronary artery disease) Mother Cancer Lung disease Sister Cancer Lung disease Dementia Diabetes Brother Cancer Lung disease Diabetes Family/Other Diabetes Suicide Denies family history of Clotting disorder Chronic kidney disease (CKD) Anesthesia complication Bleeding disorder Stroke Social History Smoking and tobacco/nicotine status: current every day tobacco/nicotine user (vape) Quit status (tobacco/nicotine): has quit using Year quit tobacco: 2020 Former quit date comment: 1 PPD X 5 YEARS Alcohol intake: never Substance/Drug Use: never Lives independently: Yes Female Reproductive History: Para: 2 Spontaneous abortions: Yes Physical Exam 2 Const: COMMON NORMALS: no acute distress, patient oriented x3 and healthy appearing HENMT: COMMON NORMALS: normocephalic and atraumatic HEAD & SCALP: n ormocephalic and atraumatic Neck/C-Spine: COMMON NORMALS: full ROM and supple Chest: COMMONS NORMALS: normal inspection of the chest and normal palpation of entire chest wall Resp: COMMON NORMALS: normal respiratory effort, No retractions, No use of accessory muscles and clear to auscultation bilaterally AUSCULTATION: clear to auscultation bilaterally Cardio: COMMON NORMALS: regular rate, regular rhythm and No murmurs present (Cardio) RATE: regular rate RHYTHM: regular rhythm GI: COMMON NORMALS: Normal to inspection, nondistended, normoactive bowel sounds present, Soft to palpation, non-tender and no masses PALPATION: Yes Soft to palpation Extremity: COMMON NORMALS: full ROM NARRATIVE EXTREMITY EXAM: 2+ edema Neuro: COMMON NORMALS: patient oriented x3, moves all extremities and no focal motor deficits Psych: COMMON NORMALS: mental status grossly normal, Normal thought process present and cooperative THOUGHT PROCESS: Normal thought process present Skin: COMMON NORMALS: no rashes or lesions noted and no wounds GENERAL SKIN EXAM: no rashes or lesions noted Course 2 Vital Signs: Vital signs: Vital Signs Temperature 97.4 F L 09/20/23 21:57 Pulse Rate 64 09/20/23 23:13 Respiratory Rate 16 09/20/23 23:13 Blood Pressure 151/58 09/20/23 23:13 Pulse Oximetry 92 09/20/23 23:13 Oxygen Delivery Me thod Nasal Cannula 09/20/23 23:13 Oxygen Flow Rate 2 09/20/23 23:13 MDM - Female Medical Decision Making Patient presents here she states difficulty urinating we did place a Hoang she was not retaining urine her kidney function here is normal no UTI she is in no distress here she does have some slight edema did give her Lasix she is stable for discharge she is follow-up with PCP and return if worsening Medical Records I reviewed the patient's medical records. Lab Data I reviewed the patient's lab results. 09/20/23 22:25 09/20/23 22:25 Radiology Impressions Chest X-Ray 09/20/23 22:06 IMPRESSION: No acute findings. Laboratory Results WBC 7.00 10^3/uL (3.29-11.43) 09/20/23 22: RBC 4.39 10^6/uL (3.85-5.65) 09/20/23 22:25 Hgb 13.10 g/dL (11.27-16.99) 09/20/23 22:25 Hct 42.3 % (36-47) 09/20/23 22:25 MCV 96.4 fl (85-98) 09/20/23 22:25 MCH 29.8 pg (27-33) 09/20/23 22: MCHC 31.0 g/dL (30-55) 09/20/23 22: RDW 14.6 % (12.1-15.1) 09/20/23 22:25 Plt Count 287 10^3/cmm (157-399) 09/20/23 22:25 MPV 10.5 fL (7.4-10.4) H 09/20/23 22:25 Neut % (Auto) 40.7 % 09/20/23 22:25 Lymph % (Auto) 45.3 % 09/20/23 22:25 [place] % (Auto) 7.6 % 09/20/23: Eos % (Auto) 4.7 % 09/20/23 22: Baso % (Auto) 1.1 % 09/20/23: Neut # (Auto) 2.85 10^3/uL (1.8-7.7) 09/20/23: Lymph # (Auto) 3.2 10^3/uL (0.8-4.8) 09/20/23 22: [place] # (Auto) 0.5 10^3/uL (0.2-0.9) 09/20/23: Eos # (Auto) 0.3 10^3/uL (0.0-0.8) 09/20/23: Baso # (Auto) 0.1 10^3/uL (0.0-0.1) 09/20/23: Nucleated RBC % (auto) 0 % 09/20/23: Nucleated RBCs # 0.0 /100WBC 09/20/23 22: Sodium 141 mmol/L (136-145) 09/20/23 22: Potassium 4.0 mmol/L (3.5-5.1) 09/20/23 22: Chloride 100 mmol/L (98-107) 09/20/23 22: Carbon Dioxide 30 mmol/L (22-29) H 09/20/23 22:25 Anion Gap 15.0 (5-19) 09/20/23 22: BUN 23 mg/dL (8-23) 09/20/23 22: Creatinine 0.9 mg/dL (0.5-0.9) 09/20/23 22: GFR Calculation Not Reportable 09/20/23 22: Glucose 244 mg/dL (65-115) H 09/20/23 22: Calculated Osmolality 304 mOsm/kg (285-295) H 09/20/23 22:25 Calcium 9.2 mg/dL (8.5-10.5) 09/20/23 22: Total Bilirubin 0.2 mg/dL (0.15-1.2) 09/20/23 22: AST 17 U/L (0-32) 09/20/23 22:25 ALT 22 U/L (0-33) 09/20/23 22:25 Alkaline Phosphatase 97 U/L (35-105) 09/20/23 22:25 NT-Pro-B Natriuret Pep 77 pg/mL (0-450) 09/20/23 22:25 Total Protein 6.5 g/dL (6.6-8.7) L 09/20/23 22: Albumin 3.7 g/dL (3.5-5.2) 09/20/23 22: Globulin 2.8 g/dL (1.3-4.6) 09/20/23 22:25 Urine Color Dark yellow (Yellow) 09/20/23 22: Urine Appearance Clear (CLEAR) 09/20/23 22: Urine pH 5 (5-7) 09/20/23 22:25 Ur Specific [place] 1.025 (1.005-1.030) 09/20/23 22:25 Urine Protein Neg (Negative) 09/20/23 22:25 Urine Glucose (UA) 4+ (Normal) H 09/20/23 22:25 Urine Ketones Negative (Negative) 09/20/23 22:25 Urine Blood Neg (Negative) 09/20/23 22:25 Urine Nitrate Negative (Negative) 09/20/23 22:25 Urine Bilirubin Neg (Negative) 09/20/23 22:25 Urine Urobilinogen 1 mg/dL (Negative) H 09/20/23 22:25 Ur Leukocyte Esterase Negative (Negative) 09/20/23 22:25 All radiology interpretation(s) finalized by discharge EKG Data EKG 1: I personally reviewed and interpreted this EKG as follows: EKG Data: 09/20/23 EKG interpretation time: 22:56 Interpretation: nsr hr [address] elevation qrs 101 qtc 425 Discharge Plan Discharge Patient Disposition: Home Clinical Impression: Difficulty urinating, Edema of lower extremity Condition: Stable Prescriptions: No Action (DME) MOBILITY SCOOTER ANY See Rx Instructions .Route .MEDSUPPLY Qty: 1 0RF Rx Instructions: As directed Centrum Silver Women 8 mg iron-400 mcg-300 mcg tablet 1 tab PO DAILY@2200 Qty: 90 3RF albuterol sulfate 2.5 mg /3 mL (0.083 %) solution for nebulization 2.5 mg inhalation QID PRN (Reason: shortness of breath or wheezing) Qty: 180 3RF mirabegron 50 mg tablet extended release 24 hr 50 mg PO DAILY Qty: 30 5RF duloxetine 60 mg capsule,delayed release(DR/EC) 120 mg PO QAM 90 Days Qty: 180 3RF hydrocodone-acetaminophen 7.5-325 mg tablet 1 tab PO BID MDD 2 PRN (Reason: pain) 30 Days Qty: 60 0RF Rx Instructions: Not to be taken with other opioids or alcohol doxepin 10 mg capsule 10 mg PO .qhs PRN (Reason: sleep) Qty: 30 5RF mirtazapine 45 mg tablet 45 mg PO QPM 90 Days Qty: 90 3RF gabapentin 600 mg tablet 1,200 mg PO BID@1000,2200 30 Days Qty: 120 5RF lorazepam [Ativan] 0.5 mg tablet 0.5 mg PO BEDTIME 30 Days Qty: 30 3RF isosorbide mononitrate 30 mg tablet extended release 24 hr 30 mg PO DAILY Qty: 90 3RF cholecalciferol (vitamin D3) [Vitamin D3] 50 mcg (2,000 unit) tablet 50 mcg PO QAM Qty: 100 3RF (DME) blood-glucose meter [True Metrix Glucose Meter] Misc See Rx Instructions .Route Qty: 1 0RF Rx Instructions: Test daily. (DME) blood sugar diagnostic Strip See Rx Instructions .Route Qty: 100 3RF Rx Instructions: Test daily (DME) lancets 28 gauge misc See Rx Instructions .Route Qty: 100 3RF Rx Instructions: Test daily glyburide 5 mg tablet 5 mg PO BID Qty: 180 1RF celecoxib 200 mg capsule 200 mg PO BID PRN (Reason: pain) Qty: 30 3RF propranolol 20 mg tablet 20 mg PO TID Qty: 90 5RF solifenacin 5 mg tablet See Rx Instructions .ROUTE .COMPLEX Qty: 30 3RF Dose Instruction: TAKE 1 TABLET EVERY DAY Rx Instructions: TAKE 1 TABLET EVERY DAY losartan 50 mg tablet 50 mg PO DAILY Qty: 30 5RF hydrochlorothiazide 12.5 mg tablet 12.5 mg PO DAILY@1000 Qty: 100 3RF Protonix 40 mg tablet,delayed release (DR/EC) 40 mg PO DAILY@1000 Qty: 100 3RF pioglitazone [Actos] 30 mg tablet 30 mg PO DAILY Qty: 100 3RF atorvastatin 80 mg tablet See Rx Instructions .ROUTE .COMPLEX Qty: 90 0RF Dose Instruction: TAKE 1 TABLET ONCE DAILY FOR HIGH CHOLESTEROL Rx Instructions: TAKE 1 TABLET ONCE DAILY FOR HIGH CHOLESTEROL Discharge Orders: Discharge ED (Routine); Ordered 09/21/23 Ordered By: Janeth Alaniz Referrals: Jean Claude Love MD [Primary Care Provider] - 4-7 days Discharge Diet: Advance as tolerated Discharge Activity: Resume usual activity Patient Instructions: Edema (ED) Coding Level of Care Code ED Lump Receiver for Lori Montoya
[2023-09-20 22:35] LABS: Basophils # 0.1 10^3/uL (0.0-0.1); Basophils % 1.1 %; Eosinophils # 0.3 10^3/uL (0.0-0.8); Eosinophils % 4.7 %; Hematocrit 42.3 % (36-47); Lymphocytes # 3.2 10^3/uL (0.8-4.8); Lymphocytes % 45.3 %; Mean Corpuscular Hemoglobin 29.8 pg (27-33); Mean Corpuscular Volume 96.4 fl (85-98); Mean Platelet Volume 10.5 fL (7.4-10.4); Monocytes # 0.5 10^3/uL (0.2-0.9); Monocytes % 7.6 %; Neutrophils # 2.85 10^3/uL (1.8-7.7); Neutrophils % 40.7 %; Nucleated Red Blood Cells % 0 %; Platelet Count 287 10^3/cmm (157-399); Red Blood Count 4.39 10^6/uL (3.85-5.65); Red Cell Distribution Width 14.6 % (12.1-15.1)
[2023-09-20 22:37] LABS: Add Urine Microscopic? NO; Charge for UA Resulting for Rev
[2023-09-20 22:41] LABS: Bilirubin Urine Neg (Negative); Blood Urine Neg (Negative); Glucose Urine UA 4+ (Normal); Ketones Urine Negative (Negative); Leukocyte Esterase Urine Negative (Negative); Nitrate Urine Negative (Negative); Protein Urine Neg (Negative); Specific Gravity, Urine 1.025 (1.005-1.030); Urine Appearance Clear (CLEAR); Urine Color Dark Yellow (Yellow); Urobilinogen Urine 1 mg/dL (Negative); pH Urine 5 (5-7)
--- NOTE | 2023-09-20 22:56 | ECG_ITS ---
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 Measurements Intervals [place] Rate: 65 P: 88 [place]: 218 QRS: -16 QRSD: 101 T: 31 QT: 413 QTc: 431 Interpretive Statements SINUS RHYTHM WITH FIRST DEGREE AV BLOCK LOW QRS VOLTAGE IN PRECORDIAL LEADS [QRS DEFLECTION < 1.0 mV IN CHEST LEADS] POSSIBLE ANTERIOR MYOCARDIAL INFARCTION , PROBABLY OLD [30 ms Q WAVE IN V3/V4, OR R < 0.2 mV IN V4] INFERIOR MYOCARDIAL INFARCTION , PROBABLY OLD [40+ ms Q WAVE AND/OR ST/T ABNORMALITY IN II/aVF] Compared to ECG 10/28/2022 17:51:10 No significant changes Electronically Signed On 09-21-2023 10:24:21 CDT by Ladarius Pagan M.D. [id number]
[2023-09-20 23:03] LABS: Alanine Aminotransferase 22 U/L (0-33); Albumin Level 3.7 g/dL (3.5-5.2); Alkaline Phosphatase 97 U/L (35-105); Aspartate Amino Transferase 17 U/L (0-32); Blood Urea Nitrogen 23 mg/dL (8-23); Calcium 9.2 mg/dL (8.5-10.5); Carbon Dioxide 30 mmol/L (22-29); Chloride 100 mmol/L (98-107); Creatinine Clr Calc Pharmacy 67.7686; Globulin 2.8 g/dL (1.3-4.6); Glucose 244 mg/dL (65-115); NT Pro B Type Natriuretic Pept 77 pg/mL (0-450); Osmolality Calculated 304 mOsm/kg (285-295); Sodium 141 mmol/L (136-145); Total Bilirubin 0.2 mg/dL (0.15-1.2); Total Protein 6.5 g/dL (6.6-8.7)
[2023-09-20 23:13] VITALS: BP 151/58; PULSE 64; RESP 16; O2SAT 92
[2023-09-20] MEDS: FUROsemide 10 mg/mL SDV 10mL 60 MG IVP (23:13)
[2023-09-21 00:39] VITALS: BP 154/90; PULSE 77; O2SAT 97
== END 2023-09-21 00:45 | disposition home or self-care (01) ==
PROVIDERS: Emergency Provider Emergency Medicine; PCP Family Medicine Adult Medicine
DX: R39.198 Other difficulties with micturition (principal); R60.0 Localized edema; F17.290 Nicotine dependence, other tobacco product, uncomplicated; E11.22 Type 2 diabetes mellitus with diabetic chronic kidney disease; I13.0 Hypertensive heart and chronic kidney disease with heart failure and stage 1 through stage 4 chronic kidney disease, or unspecified chronic kidney disease; N18.9 Chronic kidney disease, unspecified; I50.9 Heart failure, unspecified; J44.9 Chronic obstructive pulmonary disease, unspecified; Z86.73 Personal history of transient ischemic attack (TIA), and cerebral infarction without residual deficits; E78.5 Hyperlipidemia, unspecified
CPT/HCPCS: 51702; 71045; 80053; 81003; 83880; 85025; 93005; 96374; 99285; J1940

== ENCOUNTER → 2023-10-15 12:41 | Outpatient (BNVA) | payer MEDICARE, SELFPAY | PROVIDERS: PCP Family Medicine Adult Medicine; Visit Provider Anesthesiology Pain Medicine | DX: G89.29 Other chronic pain; M17.12 Unilateral primary osteoarthritis, left knee; M54.50 Low back pain, unspecified; M25.512 Pain in left shoulder; R51.9 Headache, unspecified; Z86.73 Personal history of transient ischemic attack (TIA), and cerebral infarction without residual deficits | CPT/HCPCS: 20610; 99214 ==

== ENCOUNTER 2023-10-16 13:51 | Emergency (ER) | payer MEDICARE, SELFPAY ==
--- NOTE | 2023-10-16 13:53 | XR_ITS ---
WS: [id number] Examination: XR chest 1V portable [id number] Reason for Exam: sob Date: October 16, 2023 Comparison: September 20, 2023 Findings: The heart is prominent in size. The mediastinum not widened There is no overt failure or large effusion. There is no dense consolidation Again thoracic stimulator wires are in place. Impression: The heart is prominent in size I see no evidence of failure or dense consolidation. If symptoms persist PA and lateral imaging may b e of benefit.
[2023-10-16 13:55] VITALS: BP 207/71; PULSE 74; RESP 18; TEMP 36.4; O2SAT 90; BMI 56.1
--- NOTE | 2023-10-16 14:13 | ECG_ITS ---
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 Measurements Intervals [place] Rate: 69 P: -84 GA: 365 QRS: -7 QRSD: 85 T: 53 QT: 379 QTc: 407 Interpretive Statements Sinus rhythm with a first-degree AV block. Electrical artifact ABNORMAL RHYTHM ECG Comparison with the previous EKG is difficult because of the artifact Electronically Signed On 10-17-2023 17:00:59 CDT by Greyson Klein M.D. [id number]
--- NOTE | 2023-10-16 14:19 | W.ED.SOB ---
HPI - SOB/Dyspnea General: Chief Complaint: Shortness of Breath/Dyspnea Stated Complaint: sob, low o2 Time Seen by Provider: 10/16/23 14:03 Source: patient Mode of arrival: ambulatory Limitations: no limitations History of Present Illness: HPI Narrative: 73-year-old female history of COPD states that over the last 2 days she has had some chest congestion she is also had increasing shortness of breath she states she has had some more shortness of breath at night as well with laying down. No known history of CHF she had a slight cough denies any fevers patient's pulse ox here is 96% on room air in the room. Associated symptoms: Reports chest congestion; Deny abdominal pain, chest pain, fever(s), nausea or vomiting Review of Systems Const: Denies: fever(s), chills, body aches or change in appetite ENMT: Denies: throat pain or dental pain Card: Denies: chest pain Resp: Reports: dyspnea and chest congestion GI: Denies: abdominal pain, nausea, vomiting or diarrhea Musc: Denies: neck pain or back pain Skin/Breast: Denies: rash Neuro: Denies: headache(s) PFSH ED PFSH: Medical History Weight gain, abnormal Supplemental oxygen dependent Abnormality of gait and mobility Chronic pain syndrome Intervention PM, Mtn Home, recommend Lumbar spinal cord implant Obstructive sleep apnea of adult Insomnia Restless legs syndrome (RLS) Yeast infection involving the vagina and surrounding area Essential tremor Facet arthritis, degenerative, lumbar spine Primary osteoarthritis of left knee Dupuytren's contracture syndrome Diabetes mellitus type 2 with complications Psychiatric care Osteoarthritis involving multiple joints on both sides of body Essential hypertension Diastolic CHF Chronic gastritis COPD (chronic obstructive pulmonary disease) CVD (cerebrovascular disease) History of rheumatic fever Hx of heart murmur Mixed incontinence TIA (transient ischemic attack) 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 Moy S/P cholecystectomy Previous back surgery Status post laminectomy History of toe surgery History of surgery on arm surgery on nerves History of tonsillectomy H/O cornea transplant S/P knee replacement Right S/P hysterectomy Status post removal of thyroid nodule Family History Father CAD (coronary artery disease) Mother Cancer Lung disease Sister Cancer Lung disease Dementia Diabetes Brother Cancer Lung disease Diabetes Family/Other Diabetes Suicide Denies family history of Clotting disorder Chronic kidney disease (CKD) Anesthesia complication Bleeding disorder Stroke Social History Smoking and tobacco/nicotine status: current every day tobacco/nicotine user (vape) Quit status (tobacco/nicotine): has quit using Year quit tobacco: 2020 Former quit date comment: 1 PPD X 5 YEARS Alcohol intake: never Substance/Drug Use: never Lives independently: Yes Female Reproductive History: Para: 2 Spontaneous abortions: Yes Physical Exam Const: COMMON NORMALS: no acute distress, patient oriented x3 and healthy appearing HENMT: COMMON NORMALS: normocephalic and atraumatic HEAD & SCALP: normocephalic and atraumatic Neck/C-Spine: COMMON NORMALS: full ROM and supple Chest: COMMONS NORMALS: normal inspection of the chest Resp: COMMON NORMALS: normal respiratory effort and No retractions AUSCULTATION: wheezes Cardio: COMMON NORMALS: regular rate, regular rhythm and No murmurs present (Cardio) RATE: regular rate RHYTHM: regular rhythm GI: COMMON NORMALS: Normal to inspection, nondistended, normoactive bowel sounds present, Soft to palpation, non-tender and no masses PALPATION: Yes Soft to palpation Extremity: COMMON NORMALS: normal to inspection and full ROM Neuro: COMMON NORMALS: patient oriented x3, moves all extremities and no focal motor deficits Psych: COMMON NORMALS: mental status grossly normal, Normal thought process present and cooperative THOUGHT PROCESS: Normal thought process present Skin: COMMON NORMALS: no rashes or lesions noted and no wounds GENERAL SKIN EXAM: no rashes or lesions noted Course Vital Signs: Vital signs: Vital Signs Temperature 97.6 F 10/16/23 13:55 Pulse Rate 60 10/16/23 16:14 Respiratory Rate 11 L 10/16/23 14:30 Blood Pressure 168/56 10/16/23 16:14 Pulse Oximetry 97 10/16/23 16:14 Oxygen Delivery Me thod Nasal Cannula 10/16/23 15:30 MDM - SOB/Dyspnea Medical Decision Making Patient presents here with dyspnea does have a history of COPD she is no signs of pneumonia or oxygenation here has been normal we will place her on 5 days of steroids she is follow-up with PCP return if worsening she understands agrees to plan. Medical Records I reviewed the patient's medical records. Lab Data I reviewed the patient's lab results. 10/16/23 14:33 10/16/23 14:33 Labs/Radiology: Laboratory Results WBC 6.49 10^3/uL (3.29-11.43) 10/16/23 14:33 RBC 4.05 10^6/uL (3.85-5.65) 10/16/23 14:33 Hgb 12.00 g/dL (11.27-16.99) 10/16/23 14:33 Hct 38.3 % (36-47) 10/16/23 14:33 MCV 94.6 fl (85-98) 10/16/23 14:33 MCH 29.6 pg (27-33) 10/16/23 14:33 MCHC 31.3 g/dL (30-55) 10/16/23 14:33 RDW 14.7 % (12.1-15.1) 10/16/23 14:33 Plt Count 230 10^3/cmm (157-399) 10/16/23 14:33 MPV 10.4 fL (7.4-10.4) 10/16/23 14:33 Neut % (Auto) 55.1 % 10/16/23 14:33 Lymph % (Auto) 32.2 % 10/16/23 14:33 [place] % (Auto) 6.8 % 10/16/23 14:33 Eos % (Auto) 4.6 % 10/16/23 14:33 Baso % (Auto) 0.8 % 10/16/23 14:33 Neut # (Auto) 3.58 10^3/uL (1.8-7.7) 10/16/23 14:33 Lymph # (Auto) 2.1 10^3/uL (0.8-4.8) 10/16/23 14:33 [place] # (Auto) 0.4 10^3/uL (0.2-0.9) 10/16/23 14:33 Eos # (Auto) 0.3 10^3/uL (0.0-0.8) 10/16/23 14:33 Baso # (Auto) 0.1 10^3/uL (0.0-0.1) 10/16/23 14:33 Nucleated RBC % (auto) 0 % 10/16/23 14:33 Nucleated RBCs # 0.0 /100WBC 10/16/23 14:33 PT 12.90 SECONDS (12.1-14.9) 10/16/23 14:33 INR 0.95 (0.8-1.2) 10/16/23 14:33 Sodium 145 mmol/L (136-145) 10/16/23 14:33 Potassium 3.0 mmol/L (3.5-5.1) L 10/16/23 14:33 Chloride 101 mmol/L (98-107) 10/16/23 14:33 Carbon Dioxide 34 mmol/L (22-29) H 10/16/23 14:33 Anion Gap 13.0 (5-19) 10/16/23 14:33 BUN 14 mg/dL (8-23) 10/16/23 14:33 Creatinine 0.8 mg/dL (0.5-0.9) 10/16/23 14:33 GFR Calculation Not Reportable 10/16/23 14:33 Glucose 233 mg/dL (65-115) H 10/16/23 14:33 Calculated Osmolality 308 mOsm/kg (285-295) H 10/16/23 14:33 Calcium 8.5 mg/dL (8.5-10.5) 10/16/23 14:33 Total Bilirubin 0.3 mg/dL (0.15-1.2) 10/16/23 14:33 AST 18 U/L (0-32) 10/16/23 14:33 ALT 25 U/L (0-33) 10/16/23 14:33 Alkaline Phosphatase 81 U/L (35-105) 10/16/23 14:33 NT-Pro-B Natriuret Pep 576 pg/mL (0-450) H 10/16/23 14:33 Total Protein 6.3 g/dL (6.6-8.7) L 10/16/23 14:33 Albumin 3.4 g/dL (3.5-5.2) L 10/16/23 14:33 Globulin 2.9 g/dL (1.3-4.6) 10/16/23 14:33 Influenza Type A Ag negative (Negative) 10/16/23 14:13 Influenza Type B Ag negative (Negative) 10/16/23 14:13 SARS-CoV-2 Ag (Rapid) negative (Negative) 10/16/23 14:13 All radiology interpretation(s) finalized by discharge EKG Data EKG 1: I personally reviewed and interpreted this EKG as follows: EKG Interpretation Date: 10/16/23 EKG interpretation time: 14:13 Interpretation: paced hr [address] or t wave abnormalities qrs 85 qtc 398 Discharge Plan Discharge Patient Disposition: Home Clinical Impression: Acute exacerbation of chronic obstructive airways disease Condition: Stable Prescriptions: New prednisone 50 mg tablet 50 mg PO DAILY Qty: 5 0RF No Action (DME) MOBILITY SCOOTER ANY See Rx Instructions .Route .MEDSUPPLY Qty: 1 0RF Rx Instructions: As directed Centrum Silver Women 8 mg iron-400 mcg-300 mcg tablet 1 tab PO DAILY@2200 Qty: 90 3RF duloxetine 60 mg capsule,delayed release(DR/EC) 120 mg PO QAM 90 Days Qty: 180 3RF hydrocodone-acetaminophen 7.5-325 mg tablet 1 tab PO BID MDD 2 PRN (Reason: pain) 30 Days Qty: 60 0RF Rx Instructions: Not to be taken with other opioids or alcohol mirtazapine 45 mg tablet 45 mg PO QPM 90 Days Qty: 90 3RF gabapentin 600 mg tablet 1,200 mg PO BID@1000,2200 30 Days Qty: 120 5RF lorazepam [Ativan] 0.5 mg tablet 0.5 mg PO BEDTIME 30 Days Qty: 30 3RF isosorbide mononitrate 30 mg tablet extended release 24 hr 30 mg PO DAILY Qty: 90 3RF cholecalciferol (vitamin D3) [Vitamin D3] 50 mcg (2,000 unit) tablet 50 mcg PO QAM Qty: 100 3RF (DME) blood-glucose meter [True Metrix Glucose Meter] Misc See Rx Instructions .Route Qty: 1 0RF Rx Instructions: Test daily. (DME) blood sugar diagnostic Strip See Rx Instructions .Route Qty: 100 3RF Rx Instructions: Test daily (DME) lancets 28 gauge misc See Rx Instructions .Route Qty: 100 3RF Rx Instructions: Test daily propranolol 20 mg tablet 20 mg PO TID Qty: 90 5RF losartan 50 mg tablet 50 mg PO DAILY Qty: 30 5RF hydrochlorothiazide 12.5 mg tablet 12.5 mg PO DAILY@1000 Qty: 100 3RF Protonix 40 mg tablet,delayed release (DR/EC) 40 mg PO DAILY@1000 Qty: 100 3RF pioglitazone [Actos] 30 mg tablet 30 mg PO DAILY Qty: 100 3RF glyburide 5 mg tablet 5 mg PO BID Qty: 180 1RF atorvastatin 80 mg tablet 80 mg PO DAILY doxepin 10 mg capsule 10 mg PO BEDTIME PRN (Reason: sleep) Discharge Orders: Discharge ED (Routine); Ordered 10/16/23 Ordered By: Janeth Alaniz Referrals: Jean Claude Love MD [Primary Care Provider] - 4-7 days Discharge Diet: Advance as tolerated Discharge Activity: Resume usual activity Patient Instructions: COPD (Chronic Obstructive Pulmonary Disease) (ED) Coding Level of Care Code ED 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
--- NOTE | 2023-10-16 14:21 | PC.NURSE ---
Patient placed on 3L/NC for O2 sat of 88%. Patient utilizes 4L/NC at home. 94% now while on 3L/NC. EKG performed in room.
[2023-10-16 14:30] VITALS: PULSE 64; RESP 11; O2SAT 94
[2023-10-16 14:34] LABS: Influenza A by IFA negative (Negative); Influenza B by IFA negative (Negative); SARS Covid-2 Antigen negative (Negative)
[2023-10-16 14:45] LABS: Basophils # 0.1 10^3/uL (0.0-0.1); Basophils % 0.8 %; Eosinophils # 0.3 10^3/uL (0.0-0.8); Eosinophils % 4.6 %; Hematocrit 38.3 % (36-47); Lymphocytes # 2.1 10^3/uL (0.8-4.8); Lymphocytes % 32.2 %; Mean Corpuscular HGB Conc 31.3 g/dL (30-55); Mean Corpuscular Hemoglobin 29.6 pg (27-33); Mean Corpuscular Volume 94.6 fl (85-98); Mean Platelet Volume 10.4 fL (7.4-10.4); Monocytes # 0.4 10^3/uL (0.2-0.9); Monocytes % 6.8 %; Neutrophils # 3.58 10^3/uL (1.8-7.7); Neutrophils % 55.1 %; Nucleated Red Blood Cells % 0 %; Platelet Count 230 10^3/cmm (157-399); Red Blood Count 4.05 10^6/uL (3.85-5.65); Red Cell Distribution Width 14.7 % (12.1-15.1); White Blood Count 6.49 10^3/uL (3.29-11.43)
[2023-10-16 14:57] LABS: INR 0.95 (0.8-1.2)
[2023-10-16 15:00] VITALS: PULSE 60; O2SAT 96
[2023-10-16 15:14] LABS: Alanine Aminotransferase 25 U/L (0-33); Albumin Level 3.4 g/dL (3.5-5.2); Alkaline Phosphatase 81 U/L (35-105); Aspartate Amino Transferase 18 U/L (0-32); Blood Urea Nitrogen 14 mg/dL (8-23); Calcium 8.5 mg/dL (8.5-10.5); Carbon Dioxide 34 mmol/L (22-29); Chloride 101 mmol/L (98-107); Creatinine Clr Calc Pharmacy 79.1982; Globulin 2.9 g/dL (1.3-4.6); Glucose 233 mg/dL (65-115); NT Pro B Type Natriuretic Pept 576 pg/mL (0-450); Osmolality Calculated 308 mOsm/kg (285-295); Sodium 145 mmol/L (136-145); Total Bilirubin 0.3 mg/dL (0.15-1.2); Total Protein 6.3 g/dL (6.6-8.7)
[2023-10-16 15:30] VITALS: PULSE 58; O2SAT 97
[2023-10-16] MEDS: FUROsemide 10 mg/mL SDV 4mL 40 MG IVP (15:36)
[2023-10-16 16:14] VITALS: BP 168/56; PULSE 60; O2SAT 97
== END 2023-10-16 16:16 | disposition home or self-care (01) ==
PROVIDERS: Emergency Provider Emergency Medicine; PCP Family Medicine Adult Medicine
DX: J44.1 Chronic obstructive pulmonary disease with (acute) exacerbation (principal); Z11.52 Encounter for screening for COVID-19; F17.290 Nicotine dependence, other tobacco product, uncomplicated; E11.9 Type 2 diabetes mellitus without complications; I11.0 Hypertensive heart disease with heart failure; I50.30 Unspecified diastolic (congestive) heart failure; Z86.73 Personal history of transient ischemic attack (TIA), and cerebral infarction without residual deficits; E78.5 Hyperlipidemia, unspecified
CPT/HCPCS: 71045; 80053; 83880; 85025; 85610; 87426; 87804; 93005; 96374; 99285; J1940

== ENCOUNTER → 2023-11-13 09:52 | Outpatient (BNVA) | payer MEDICARE, SELFPAY | PROVIDERS: PCP Family Medicine Adult Medicine; Visit Provider Anesthesiology Pain Medicine | DX: G89.29 Other chronic pain; M17.12 Unilateral primary osteoarthritis, left knee; M54.50 Low back pain, unspecified; R51.9 Headache, unspecified; M25.512 Pain in left shoulder | CPT/HCPCS: 99214 ==

== ENCOUNTER → 2023-12-16 09:49 | Outpatient (BNVA) | payer MEDICARE, SELFPAY | PROVIDERS: PCP Family Medicine Adult Medicine; Visit Provider Anesthesiology Pain Medicine | DX: G89.29 Other chronic pain; M17.12 Unilateral primary osteoarthritis, left knee; M54.50 Low back pain, unspecified; M25.512 Pain in left shoulder | CPT/HCPCS: 99214 ==

== ENCOUNTER → 2023-12-30 10:35 | Outpatient (BNVA) | payer MEDICARE, SELFPAY | PROVIDERS: PCP Family Medicine Adult Medicine; Visit Provider Anesthesiology Pain Medicine | DX: G89.29 Other chronic pain (principal); M17.12 Unilateral primary osteoarthritis, left knee; M25.512 Pain in left shoulder | CPT/HCPCS: 20610; 99214; J1010; J3490 ==

== ENCOUNTER → 2024-02-26 15:11 | Outpatient (BNVA) | payer MEDICARE, SELFPAY | PROVIDERS: PCP Family Medicine Adult Medicine; Visit Provider Podiatrist Foot & Ankle Surgery | DX: L60.3 Nail dystrophy (principal); I73.9 Peripheral vascular disease, unspecified; G62.9 Polyneuropathy, unspecified; E11.42 Type 2 diabetes mellitus with diabetic polyneuropathy | CPT/HCPCS: 11721; 99203 ==

== ENCOUNTER 2024-03-23 08:09 | Emergency (ER) | payer MEDICARE, SELFPAY ==
[2024-03-23 08:31] VITALS: BP 228/88; PULSE 74; RESP 18; TEMP 37.1; O2SAT 97; BMI 55.5
[2024-03-23 08:37] VITALS: BP 228/88; PULSE 74; RESP 18; TEMP 37.1; O2SAT 95
--- NOTE | 2024-03-23 09:13 | XR_ITS ---
WS: [id number] XR chest 1V portable [id number] REASON FOR EXAM: dyspnea/cough FINDINGS: The chest is unchanged compared to the examination of 10/16/2023. Moderate tortuosity and ectasia of the thoracic aorta with a heart size at the upper limits of normal . Eventration of the right hemidiaphragm. Calcified granulomas disease bilaterally. No acute pulmonary parenchymal or pleural abnormality is identified. Dorsal column stimulator at T8. XR/XR chest 1V portable [id number] IMPRESSION: Stable chest without acute abnormality.
--- NOTE | 2024-03-23 09:19 | ECG_ITS ---
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 Measurements Intervals [place] Rate: 67 P: 46 AL: 210 QRS: -12 QRSD: 97 T: 49 QT: 381 QTc: 403 Interpretive Statements SINUS RHYTHM WITH FIRST DEGREE AV BLOCK LOW QRS VOLTAGE IN PRECORDIAL LEADS [QRS DEFLECTION < 1.0 mV IN CHEST LEADS] POSSIBLE ANTERIOR MYOCARDIAL INFARCTION , OF INDETERMINATE AGE [30 ms Q WAVE IN V3/V4, OR R < 0.2 mV IN V4] Compared to ECG 10/16/2023 14:13:55 First degree AV block now present Low QRS voltage now present Myocardial infarct finding now present Electronically Signed On 03-23-2024 21:32:03 CDT by Greyson Klein M.D. [id number]
--- NOTE | 2024-03-23 09:27 | PC.PHAR ---
Addendum entered by Krystal Cruz 03/23/24 09:32: I did not remove from med list. Original Note: Pt and family state that Pt is not taking Eliquis 5 mg twice daily. Verified with Dr Love office-pt should be taking this new medication sent to mail order pharmacy on 02/26/24 90ds.
[2024-03-23 09:40] LABS: Basophils # 0.1 10^3/uL (0.0-0.1); Basophils % 0.7 %; Eosinophils # 0.2 10^3/uL (0.0-0.8); Eosinophils % 3.2 %; Hematocrit 42.5 % (36-47); Lymphocytes # 0.7 10^3/uL (0.8-4.8); Lymphocytes % 10.4 %; Mean Corpuscular HGB Conc 31.5 g/dL (30-55); Mean Corpuscular Hemoglobin 30.6 pg (27-33); Mean Platelet Volume 10.4 fL (7.4-10.4); Monocytes # 0.5 10^3/uL (0.2-0.9); Monocytes % 7.4 %; Neutrophils # 5.37 10^3/uL (1.8-7.7); Neutrophils % 77.7 %; Nucleated Red Blood Cells % 0 %; Platelet Count 210 10^3/cmm (157-399); Red Blood Count 4.38 10^6/uL (3.85-5.65); Red Cell Distribution Width 14.6 % (12.1-15.1); White Blood Count 6.91 10^3/uL (3.29-11.43)
[2024-03-23 09:50] VITALS: PULSE 68; RESP 18; O2SAT 97
[2024-03-23 10:07] LABS: Alanine Aminotransferase 19 U/L (0-33); Albumin Level 3.7 g/dL (3.5-5.2); Alkaline Phosphatase 87 U/L (35-105); Anion Gap 13.2 (5-19); Aspartate Amino Transferase 19 U/L (0-32); Blood Urea Nitrogen 13 mg/dL (8-23); Calcium 8.8 mg/dL (8.5-10.5); Carbon Dioxide 34 mmol/L (22-29); Chloride 96 mmol/L (98-107); Creatinine Clr Calc Pharmacy 62.9408; Globulin 3.2 g/dL (1.3-4.6); Glucose 137 mg/dL (65-115); Osmolality Calculated 292 mOsm/kg (285-295); Potassium 3.2 mmol/L (3.5-5.1); Sodium 140 mmol/L (136-145); Total Bilirubin 0.4 mg/dL (0.15-1.2); Total Protein 6.9 g/dL (6.6-8.7)
[2024-03-23 10:12] LABS: Influenza A NEGATIVE (Negative); Influenza B NEGATIVE (Negative); Respiratory Syncytial Virus Ce NEGATIVE (Negative)
--- NOTE | 2024-03-23 10:27 | ED_ITS ---
HPI - COVID 2 General: Chief Complaint: COVID symptoms Stated Complaint: covid symptoms Time Seen by Provider: 03/23/24 08:24 History of Present Illness: 73-year-old female presents emergency ro om complaining of shortness of breath and diarrhea and headache. Started last week she was exposed several other family members who had COVID he tested positive. She has not yet tested. She had generalized aches and pains myalgias. Cough has been nonproductive. Oxygen saturation stable here. Blood pressure initially elevated but improved on its own. COVID 19 common symptoms: positive fever(s), chills, fatigue and body aches; negative dyspnea COVID 19 other sytmptoms: negative chest pain COVID Results: 2 SARS-CoV-2 Antigen (Rapid) negative (Negative) 10/16/23 14:13 SARS-CoV-2 RNA (RT-PCR) Not detected (NOT DETECTED) 12/15/20 1 4:00 Nasal/Oral Coronavirus 2019 PCR Not detected 06/13/21 13:17 Coronavirus (PCR) Positive (Negative) A 03/23/24 09:24 Related Data Home Medications Medication Instructions Recorded Confirmed gabapentin 600 mg tablet 1,200 mg PO BID@1000,2200 03/23/24 03/23/24 trazodone 50 mg tablet 50 mg PO BEDTIME sleep 03/23/24 03/23/24 Previous Rx's Medication Instructions Recorded ixeojrvm-dzvu-[id number] 8 mg-folic 400 1 tab PO DAILY@2200 Multivitamin 01/30/22 mcg-K 50 mcg-lutein 300 mcg tablet #90 tabs (Centrum Silver Women) MOBILITY SCOOTER #1 ea 02/07/22 cholecalciferol (vitamin D3) 50 50 mcg PO QAM #100 tabs 11/05/22 mcg (2,000 unit) tablet (Vitamin D3) blood sugar diagnostic #100 ea 11/06/22 blood-glucose meter (True Metrix #1 ea 11/06/22 Glucose Meter) lancets 28 gauge #100 ea 11/06/22 pantoprazole 40 mg tablet,delayed 40 mg PO DAILY@1000 #100 tabs 08/12/23 release (Protonix) pioglitazone 30 mg tablet (Actos) 30 mg PO DAILY #100 tabs 08/12/23 glyburide 5 mg tablet 10 mg (2 x 5 mg) PO BID diabetes 10/22/23 #360 tabs hydrochlorothiazide 25 mg tablet 25 mg PO QAM #90 tabs 10/22/23 atorvastatin 80 mg tablet 80 mg PO DAILY #90 tabs 10/24/23 losartan 50 mg tablet 50 mg PO DAILY high blood pressure 11/26/23 #90 tabs doxepin 10 mg capsule 10 mg PO BEDTIME PRN sleep 90 days 02/25/24 #90 caps duloxetine 60 mg capsule,delayed 120 mg (2 x 60 mg) PO QAM mental 02/25/24 release health 90 days #180 caps lorazepam 0.5 mg tablet (Ativan) 0.5 mg PO BEDTIME anxiety 30 days 02/25/24 #30 tabs propranolol 20 mg tablet 20 mg PO TID tremor #270 tabs 02/25/24 apixaban 5 mg tablet (Eliquis) 5 mg PO BID circulation #180 tabs 02/26/24 diabetic shoes with 3 inserts #1 ea 02/26/24 hydrocodone 7.5 mg-acetaminophen 1 tab PO DAILY PRN pain 30 days 03/23/24 325 mg tablet #30 tabs Allergies Allergy/AdvReac Type Severity Reaction Status Date / Time honey Allergy ALGY-Difficulty Verified 03/04/24 09:48 Breathing levofloxacin [From Levaquin] Allergy ALGY-Hives Verified 03/04/24 09:48 venom-honey bee Allergy ALGY-Difficulty Verified 03/04/24 09:48 Breathing venom-wasp Allergy ALGY-Difficulty Verified 03/04/24 09:48 Breathing oxybutynin AdvReac Mild swelling Verified 03/04/24 09:48 Review of Systems 2 Const: Reports: fever(s), chills, body aches, change in appetite, fatigue and malaise Card: Denies: chest pain Resp: Denies: dyspnea GI: Denies: abdominal pain : Denies: dysuria, urinary frequency or urinary urgency Musc: Denies: neck pain or back pain Skin/Breast: Denies: rash PFSH ED 2 PFSH: Medical History PVD (peripheral vascular disease) Toe blister without infection Supplemental oxygen dependent Abnormality of gait and mobility Chronic pain syndrome Intervention PM, Mtn Home, recommend Lumbar spinal cord implant Obstructive sleep apnea of adult Insomnia Restless legs syndrome (RLS) Yeast infection involving the vagina and surrounding area Essential tremor Facet arthritis, degenerative, lumbar spine Primary osteoarthritis of left knee Dupuytren's contracture syndrome Diabetes mellitus type 2 with complications Psychiatric care Osteoarthritis involving multiple joints on both sides of body Essential hypertension Diastolic CHF Chronic gastritis COPD (chronic obstructive pulmonary disease) CVD (cerebrovascular disease) History of rheumatic fever Hx of heart murmur Mixed incontinence TIA (transient ischemic attack) longterm (current) use of opiate analgesic Pain management contract signed Major depressive disorder PIERRE (generalized anxiety disorder) Osteopenia Vitamin D deficiency Spondylosis without myelopathy or radiculopathy, lumbosacral region Hyperlipidemia Sjogren's syndrome with keratoconjunctivitis sicca Enrolled in chronic care management Surgical History History of back surgery Status post lumbar spinal fusion 06/20/2021 L4 & L5 fusion, after L4-L5 laminectomy 12/20/2020, by Dr. Moy S/P cholecystectomy Previous back surgery Status post laminectomy History of toe surgery History of surgery on arm surgery on nerves History of tonsillectomy H/O cornea transplant S/P knee replacement Right S/P hysterectomy Status post removal of thyroid nodule Family History Father CAD (coronary artery disease) Mother Cancer Lung disease Sister Cancer Lung disease Dementia Diabetes Brother Cancer Lung disease Diabetes Family/Other Diabetes Suicide Denies family history of Clotting disorder Chronic kidney disease (CKD) Anesthesia complication Bleeding disorder Stroke Social History Smoking and tobacco/nicotine status: current every day tobacco/nicotine user (vape) Quit status (tobacco/nicotine): has quit using Year quit tobacco: 2020 Former quit date comment: 1 PPD X 5 YEARS Alcohol intake: never Substance/Drug Use: never Lives independently: Yes Female Reproductive History: Para: 2 Spontaneous abortions: Yes Physical Exam 2 Const: COMMON NORMALS: no acute distress GENERAL APPEARANCE: cooperative and comfortable ORIENTATION/CONSCIOUSNESS: Yes awake, Yes oriented to person, Yes oriented to place and Yes oriented to time HENMT: COMMON NORMALS: normocephalic, atraumatic and hearing grossly normal bilaterally HEAD & SCALP: normocephalic and atraumatic Resp: COMMON NORMALS: normal respiratory effort, No retractions, No use of accessory muscles and clear to auscultation bilaterally AUSCULTATION: clear to auscultation bilaterally Cardio: COMMON NORMALS: regular rate, regular rhythm and No murmurs present (Cardio) RATE: regular rate RHYTHM: regular rhythm GI: COMMON NORMALS: Soft to palpation and No hepatosplenomegaly present A USCULTATION: Yes normoactive bowel sounds PALPATION: Yes Soft to palpation, No Tenderness to palpation present (GI), No Guarding due to palpation present (GI) and Yes No hepatosplenomegaly present Extremity: COMMON NORMALS: normal to inspection, capillary refill normal, no clubbing, cyanosis or edema, no calf tenderness and no pedal edema Neuro: SENSORIUM/ORIENTATION: Yes oriented to person, Yes oriented to place and Yes oriented to time Skin: COMMON NORMALS: no rashes or lesions noted GENERAL SKIN EXAM: no rashes or lesions noted Course 2 Vital Signs: Vital signs: Vital Signs Temperature 98.8 F 03/23/24 08:37 Pulse Rate 73 03/23/24 11:49 Respiratory Rate 16 03/23/24 10:45 Blood Pressure 172/95 03/23/24 11:49 Pulse Oximetry 96 03/23/24 11:49 Oxygen Delivery Me thod Room Air 03/23/24 10:45 MDM - COVID Medical Decision Making Patient test positive for COVID overall is tolerating well no hypoxia. Labs and imaging reviewed she does have a mild hypokalemia. No emergent condition found at this time does not require hospitalization for COVID she is past the window of opportunity for Paxlovid and still tolerating the COVID well does not recommend any intervention. Supportive cares follow-up as needed Medical Records I reviewed the patient's medical records. Lab Data I reviewed the patient's lab results. 03/23/24 09:34 03/23/24 09:34 Radiology Impressions Chest X-Ray 03/23/24 09:13 IMPRESSION: Stable chest without acute abnormality. Laboratory Results WBC 6.91 10^3/uL (3.29-11.43) 03/23/24 09:34 RBC 4.38 10^6/uL (3.85-5.65) 03/23/24 09:34 Hgb 13.40 g/dL (11.27-16.99) 03/23/24 09:34 Hct 42.5 % (36-47) 03/23/24 09:34 MCV 97.0 fl (85-98) 03/23/24 09:34 MCH 30.6 pg (27-33) 03/23/24 09:34 MCHC 31.5 g/dL (30-55) 03/23/24 09:34 RDW 14.6 % (12.1-15.1) 03/23/24 09:34 Plt Count 210 10^3/cmm (157-399) 03/23/24 09:34 MPV 10.4 fL (7.4-10.4) 03/23/24 09:34 Neut % (Auto) 77.7 % 03/23/24 09:34 Lymph % (Auto) 10.4 % 03/23/24 09:34 Mcmullen % (Auto) 7.4 % 03/23/24 09:34 Eos % (Auto) 3.2 % 03/23/24 09:34 Baso % (Auto) 0.7 % 03/23/24 09:34 Neut # (Auto) 5.37 10^3/uL (1.8-7.7) 03/23/24 09:34 Lymph # (Auto) 0.7 10^3/uL (0.8-4.8) L 03/23/24 09:34 Mcmullen # (Auto) 0.5 10^3/uL (0.2-0.9) 03/23/24 09:34 Eos # (Auto) 0.2 10^3/uL (0.0-0.8) 03/23/24 09:34 Baso # (Auto) 0.1 10^3/uL (0.0-0.1) 03/23/24 09:34 Nucleated RBC % (auto) 0 % 03/23/24 09:34 Nucleated RBCs # 0.0 /100WBC 03/23/24 09:34 Sodium 140 mmol/L (136-145) 03/23/24 09:34 Potassium 3.2 mmol/L (3.5-5.1) L 03/23/24 09:34 Chloride 96 mmol/L (98-107) L 03/23/24 09:34 Carbon Dioxide 34 mmol/L (22-29) H 03/23/24 09:34 Anion Gap 13.2 (5-19) 03/23/24 09:34 BUN 13 mg/dL (8-23) 03/23/24 09:34 Creatinine 1.0 mg/dL (0.5-0.9) H 03/23/24 09:34 GFR Calculation Not Reportable 03/23/24 09:34 Glucose 137 mg/dL (65-115) H 03/23/24 09:34 Calculated Osmolality 292 mOsm/kg (285-295) 03/23/24 09:34 Calcium 8.8 mg/dL (8.5-10.5) 03/23/24 09:34 Total Bilirubin 0.4 mg/dL (0.15-1.2) 03/23/24 09:34 AST 19 U/L (0-32) 03/23/24 09:34 ALT 19 U/L (0-33) 03/23/24 09:34 Alkaline Phosphatase 87 U/L (35-105) 03/23/24 09:34 Total Protein 6.9 g/dL (6.6-8.7) 03/23/24 09:34 Albumin 3.7 g/dL (3.5-5.2) 03/23/24 09:34 Globulin 3.2 g/dL (1.3-4.6) 03/23/24 09:34 Coronavirus (PCR) Positive (Negative) A 03/23/24 09:24 Influenza A (PCR) Negative (Negative) 03/23/24 09:24 Influenza Type B (PCR) Negative (Negative) 03/23/24 09:24 RSV (PCR) Negative (Negative) 03/23/24 09:24 2 SARS-CoV-2 Antigen (Rapid) negative (Negative) 10/16/23 14:13 SARS-CoV-2 RNA (RT-PCR) Not detected (NOT DETECTED) 12/15/20 1 4:00 Nasal/Oral Coronavirus 2019 PCR Not detected 06/13/21 13:17 Coronavirus (PCR) Positive (Negative) A 03/23/24 09:24 All radiology interpretation(s) finalized by discharge Discharge Plan Discharge Patient Disposition: Home Clinical Impression: COVID-19 Condition: Stable Prescriptions: No Action (DME) MOBILITY SCOOTER ANY See Rx Instructions .Route .MEDSUPPLY Qty: 1 0RF Rx Instructions: As directed Centrum Silver Women 8 mg iron-400 mcg-300 mcg tablet 1 tab PO DAILY@2200 Qty: 90 3RF duloxetine 60 mg capsule,delayed release(DR/EC) 120 mg PO QAM 90 Days Qty: 180 1RF doxepin 10 mg capsule 10 mg PO BEDTIME PRN (Reason: sleep) 90 Days Qty: 90 1RF lorazepam [Ativan] 0.5 mg tablet 0.5 mg PO BEDTIME 30 Days Qty: 30 5RF propranolol 20 mg tablet 20 mg PO TID Qty: 270 1RF Eliquis 5 mg tablet 5 mg PO BID Qty: 180 1RF hydrochlorothiazide 25 mg tablet 25 mg PO QAM Qty: 90 3RF glyburide 5 mg tablet 10 mg PO BID Qty: 360 1RF (DME) diabetic shoes with 3 inserts See Rx Instructions .Route .MEDSUPPLY Qty: 1 0RF Rx Instructions: As directed to the shoe eleonora cholecalciferol (vitamin D3) [Vitamin D3] 50 mcg (2,000 unit) tablet 50 mcg PO QAM Qty: 100 3RF (DME) blood-glucose meter [True Metrix Glucose Meter] Misc See Rx Instructions .Route Qty: 1 0RF Rx Instructions: Test daily. (DME) blood sugar diagnostic Strip See Rx Instructions .Route Qty: 100 3RF Rx Instructions: Test daily (DME) lancets 28 gauge misc See Rx Instructions .Route Qty: 100 3RF Rx Instructions: Test daily Protonix 40 mg tablet,delayed release (DR/EC) 40 mg PO DAILY@1000 Qty: 100 3RF pioglitazone [Actos] 30 mg tablet 30 mg PO DAILY Qty: 100 3RF atorvastatin 80 mg tablet 80 mg PO DAILY Qty: 90 3RF losartan 50 mg tablet 50 mg PO DAILY Qty: 90 1RF hydrocodone-acetaminophen 7.5-325 mg tablet 1 tab PO DAILY MDD 2 PRN (Reason: pain) 30 Days Qty: 30 0RF Rx Instructions: Refill on or after 30 days gabapentin 600 mg tablet 1,200 mg PO BID@1000,2200 trazodone 50 mg tablet 50 mg PO BEDTIME Discharge Orders: Discharge ED (Routine); Ordered 03/23/24 Ordered By: Arjun Fay Referrals: Jean Claude Love MD [Primary Care Provider] - Patient Instructions: COVID-19 (Coronavirus Disease 2019) (ED), Opioid Safety, Pain Management Activity Restrictions/Additional Instructions: Thank you for choosing [facility] for your healthcare needs today. It is very important that you follow up as instructed or that you return to the Emergency Department should you have concerns or if your condition changes or worsens in any way. Coding Level of Care Code ED Process Improvement Engineer for Lori Montoya
[2024-03-23 10:45] VITALS: BP 160/73; PULSE 69; RESP 16; O2SAT 97
[2024-03-23 11:20] LABS: Covid PCR Positive (Negative)
[2024-03-23 11:49] VITALS: BP 172/95; PULSE 73; O2SAT 96
== END 2024-03-23 11:51 | disposition home or self-care (01) ==
PROVIDERS: Emergency Provider Family Medicine; PCP Family Medicine Adult Medicine
DX: U07.1 COVID-19 (principal); Z79.01 Long term (current) use of anticoagulants; Z79.84 Long term (current) use of oral hypoglycemic drugs; F17.290 Nicotine dependence, other tobacco product, uncomplicated; E11.9 Type 2 diabetes mellitus without complications; I11.0 Hypertensive heart disease with heart failure; I50.30 Unspecified diastolic (congestive) heart failure; J44.9 Chronic obstructive pulmonary disease, unspecified; Z86.73 Personal history of transient ischemic attack (TIA), and cerebral infarction without residual deficits; E78.5 Hyperlipidemia, unspecified
CPT/HCPCS: 0241U; 36415; 71045; 80053; 85025; 93005; 99285

== ENCOUNTER → 2024-04-29 15:16 | Outpatient (BNVA) | payer MEDICARE, SELFPAY | PROVIDERS: PCP Family Medicine Adult Medicine; Visit Provider Podiatrist Foot & Ankle Surgery | DX: L60.3 Nail dystrophy (principal); I73.9 Peripheral vascular disease, unspecified; E11.8 Type 2 diabetes mellitus with unspecified complications; G62.9 Polyneuropathy, unspecified; E11.42 Type 2 diabetes mellitus with diabetic polyneuropathy | CPT/HCPCS: 11721 ==

== ENCOUNTER → 2024-06-23 11:28 | Outpatient (BNVA) | payer MEDICARE, SELFPAY | PROVIDERS: PCP Family Medicine; Visit Provider Family Medicine | DX: E11.42 Type 2 diabetes mellitus with diabetic polyneuropathy (principal) | CPT/HCPCS: 80053; 80061; 83036; 85025 ==

== ENCOUNTER → 2024-07-01 15:30 | Outpatient (BNVA) | payer MEDICARE, SELFPAY | PROVIDERS: PCP Family Medicine; Visit Provider Podiatrist Foot & Ankle Surgery | DX: L60.3 Nail dystrophy (principal); I73.9 Peripheral vascular disease, unspecified; G62.9 Polyneuropathy, unspecified; E11.42 Type 2 diabetes mellitus with diabetic polyneuropathy | CPT/HCPCS: 11056; 11721 ==

== ENCOUNTER 2024-07-19 14:39 | Outpatient (CLI) | payer MEDICARE, SELFPAY ==
--- NOTE | 2024-07-19 15:00 | USCV_ITS ---
Jacqueline Alcazar Age: 74 Gender: F : 1950 Exam Date: 07/19/2024 15:05 Ordering Phys: Cruzito Morrow MD Technologist: KEO [place]am [place] [facility] [place]ication: CHRONIC HEART FAILURE BP: 128 / 70 HR: 57 Rhythm: Sinus Technical Quality: Adequate MEASUREMENTS (Male / Female) Normal Values 2D ECHO LV Diastolic Diameter PLAX 4.7 cm 4.2 - 5.9 / 3.9 - 5.3 cm IVS Diastolic Thickness 1.4 cm 0.6 - 1.0 / 0.6 - 0.9 cm IVS Systolic Thickness 1.9 cm LVPW Diastolic Thickness 1.5 cm 0.6 - 1.0 / 0.6 - 0.9 cm LVPW Systolic Thickness 2.5 cm LVOT Diameter 2.0 cm LV Ejection Fraction 2D Teich 62.4 % LV Ejection Fraction MOD 4C 62.1 % LV Ejection Fraction MOD 2C 58.5 % LV Ejection Fraction 2C AL 60.3 % LA Diameter 4.3 cm RA Systolic Volume 4C AL 18.0 ml RA Systolic Volume 4C MOD 17.6 ml LA Sys Volume AL 42.3 cm cubed LA Sys Volume Index AL 17.3 cm cubed/m squared Aorta at Sinotubular Diameter 2.7 cm IVC Diameter 1.7 cm M-MODE LA Ao Ratio MM 1.5 AV Cusp Separation MM 1.8 cm DOPPLER AV Peak Velocity 166.0 cm/s LVOT Peak Velocity 118.0 cm/s AV Area Cont Eq vti 2.4 cm squared AV Area Cont Eq pk 2.2 cm squared MV Peak Velocity 129.0 cm/s MV Area PHT 2.3 cm squared Mitral E to A Ratio 0.8 TR Peak Velocity 234.0 cm/s TR Peak Gradient 21.9 mmHg TR Mean Velocity 179.0 cm/s TR Mean Gradient 14.4 mmHg TR Velocity Time Integral 75.9 cm TV Peak E Velocity 54.0 cm/s PV Peak Velocity 129.0 cm/s RV Ejection Time 0.4 s FINDINGS Left Ventricle Normal left ventricular size, systolic function and wall thickness, with no regional wall motion abnormalities. Left ventricular ejection fraction is estimated at 60 %. Grade I/IV diastolic dysfunction (abnormal relaxation filling pattern), normal to mildly elevated filling pressures. Right Ventricle The right ventricle is normal in size and function. Right Atrium The right atrium is normal in size. Left Atrium The left atrium is normal in size. Mitral Valve Structurally normal mitral valve without significant stenosis or prolapse. There is mild mitral regurgitation. Aortic Valve Structurally normal aortic valve without significant sclerosis or stenosis. There is trace aortic regurgitation. Tricuspid Valve Structurally normal tricuspid valve without significant stenosis or regurgitation. Pulmonic Valve Structurally normal pulmonic valve without significant stenosis. There is no pulmonic regurgitation. Pericardium Normal pericardium without effusion. Aorta Normal ascending aorta dimension. IVC The inferior vena cava appears normal. CONCLUSIONS Normal left ventricular size, systolic function and wall thickness, with no regional wall motion abnormalities. Left ventricular ejection fraction is estimated at 60 %. Grade I/IV diastolic dysfunction (abnormal relaxation filling pattern), normal to mildly elevated filling pressures. Structurally normal mitral valve without significant stenosis or prolapse. There is mild mitral regurgitation. There is no pericardial effusion. Right atrial pressure is around 5 mm of mercury. Ana Ho MD (Electronically Signed) Final Date: 19 July 2024 21:02 S
== END 2024-07-19 14:40 | disposition home or self-care (01) ==
PROVIDERS: PCP Family Medicine; Visit Provider Family Medicine
DX: I50.32 Chronic diastolic (congestive) heart failure (principal); I34.0 Nonrheumatic mitral (valve) insufficiency; R93.1 Abnormal findings on diagnostic imaging of heart and coronary circulation
CPT/HCPCS: 93306

== ENCOUNTER 2024-08-17 13:24 | Outpatient (CLI) | payer MEDICARE, SELFPAY | END 2024-08-17 13:25 | disposition home or self-care (01) | LOC: SLEEP 13:25 | PROVIDERS: PCP Family Medicine; Visit Provider Family Medicine | DX: G47.33 Obstructive sleep apnea (adult) (pediatric) (principal); G47.36 Sleep related hypoventilation in conditions classified elsewhere | CPT/HCPCS: G0399 ==

== ENCOUNTER → 2024-09-16 14:45 | Outpatient (BNVA) | payer MEDICARE, SELFPAY | PROVIDERS: PCP Family Medicine; Visit Provider Podiatrist Foot & Ankle Surgery | DX: E11.42 Type 2 diabetes mellitus with diabetic polyneuropathy (principal); L60.3 Nail dystrophy; I73.9 Peripheral vascular disease, unspecified; E11.8 Type 2 diabetes mellitus with unspecified complications; G62.9 Polyneuropathy, unspecified | CPT/HCPCS: 11721; 99213 ==

== ENCOUNTER 2024-10-04 12:44 | Outpatient (CLI) | payer MEDICARE, SELFPAY ==
--- NOTE | 2024-10-04 13:00 | USR_ITS ---
PROCEDURE INFORMATION: Exam: US Duplex Bilateral Lower Extremity Arteries Exam date and time: 10/04/2024 1:28 PM Age: 74 years old Clinical indication: Pain; Leg, lower; Bilateral; Additional info: Check circulation / pad, patient has had 2 episodes of discolored toes TECHNIQUE: Imaging protocol: Real-time ultrasound scan of the arteries of the bilateral lower extremities with 2-D kirby scale, color Doppler flow and spectral waveform analysis. Images documented and saved. COMPARISON: MR knee LT wo con* [id number] 01/23/2018 8:53 AM FINDINGS: Right common femoral artery: No occlusion or significant stenosis. Normal waveform. Right superficial femoral artery: No occlusion or significant stenosis. Monophasic waveform distally. Right popliteal artery: No occlusion or significant stenosis. Monophasic waveform. Right calf/foot arteries: No occlusion or significant stenosis in the visualized arteries. Monophasic waveforms. Dorsalis pedis artery is patent. Left common femoral artery: No occlusion or significant stenosis. Normal waveform. Left superficial femoral artery: No occlusion or significant stenosis. Monophasic waveform distally. Left popliteal artery: No occlusion or significant stenosis. Normal waveform. Left calf/foot arteries: No occlusion or significant stenosis in the visualized arteries. Normal waveforms. Dorsalis pedis artery is patent. US/[place] [id number] IMPRESSION: No stenosis or occlusion.
== END 2024-10-04 12:45 | disposition home or self-care (01) ==
PROVIDERS: PCP Family Medicine; Visit Provider Podiatrist Foot & Ankle Surgery
DX: I73.9 Peripheral vascular disease, unspecified (principal)
CPT/HCPCS: 93925

== ENCOUNTER → 2024-10-14 14:40 | Outpatient (BNVA) | payer MEDICARE, SELFPAY | PROVIDERS: PCP Family Medicine; Visit Provider Family Medicine | DX: E66.01 Morbid (severe) obesity due to excess calories (principal); Z68.42 Body mass index [BMI] 45.0-49.9, adult; Z86.39 Personal history of other endocrine, nutritional and metabolic disease; E11.8 Type 2 diabetes mellitus with unspecified complications | CPT/HCPCS: 80053; 83036; 84439; 84443; 86376 ==

== ENCOUNTER 2024-10-27 11:06 | Outpatient (CLI) | payer MEDICARE, SELFPAY ==
--- NOTE | 2024-10-27 11:15 | US_ITS ---
WS: [id number] THYROID ULTRASOUND HISTORY: thyroid US COMPARISON: 10/11/2020 Right lobe: RIGHT thyroidectomy. No mass at the thyroid bed or lymphadenopathy. Left lobe: 2.5 cm x 2.6 cm x 5.9 cm (w x ap x l). Volume: 18.8 cm3. Heterogeneous enlarged LEFT thyroid. Multiple ill-defined areas of heterogeneity and nodularity. Majority of these nodules contain a large cystic component and/or colloid cysts. There is no solid mass or echogenic focus. Largest colloid cyst is 1.7 x 0.7 x 1.5 cm in the inferior pole. Isthmus: 0.7 cm. US/US thyroid [id number] IMPRESSION: 1. Status post RIGHT thyroidectomy. 2. Heterogeneous enlarged LEFT thyroid with multiple nodules, predominantly cy stic and/or colloid cyst in nature.
== END 2024-10-27 11:07 | disposition home or self-care (01) ==
PROVIDERS: PCP Family Medicine; Visit Provider Family Medicine
DX: E04.2 Nontoxic multinodular goiter (principal); Z98.890 Other specified postprocedural states; E07.89 Other specified disorders of thyroid
CPT/HCPCS: 76536

== ENCOUNTER → 2024-11-18 14:44 | Outpatient (BNVA) | payer MEDICARE, SELFPAY | PROVIDERS: PCP Family Medicine; Visit Provider Podiatrist Foot & Ankle Surgery | DX: E11.42 Type 2 diabetes mellitus with diabetic polyneuropathy (principal); L60.3 Nail dystrophy; I73.9 Peripheral vascular disease, unspecified; E11.8 Type 2 diabetes mellitus with unspecified complications; G62.9 Polyneuropathy, unspecified; R60.9 Edema, unspecified | CPT/HCPCS: 11721; 99213 ==

== ENCOUNTER → 2025-01-19 14:21 | Outpatient (BNVA) | payer MEDICARE, SELFPAY | PROVIDERS: PCP Family Medicine; Visit Provider Podiatrist Foot & Ankle Surgery | DX: I73.9 Peripheral vascular disease, unspecified (principal); L60.3 Nail dystrophy; G62.9 Polyneuropathy, unspecified; E11.8 Type 2 diabetes mellitus with unspecified complications; R60.9 Edema, unspecified; M20.10 Hallux valgus (acquired), unspecified foot | CPT/HCPCS: 11721; 99213 ==

== ENCOUNTER → 2025-01-27 16:13 | Outpatient (BNVA) | payer MEDICARE, SELFPAY | PROVIDERS: PCP Family Medicine; Visit Provider Family Medicine | DX: G25.81 Restless legs syndrome (principal); E11.8 Type 2 diabetes mellitus with unspecified complications | CPT/HCPCS: 80053; 83036; 85651; 86140; 86160; 86162; 86235; 86255; 86376 ==

== ENCOUNTER → 2025-03-09 13:24 | Outpatient (BNVA) | payer MEDICARE, SELFPAY | PROVIDERS: PCP Family Medicine; Visit Provider Family Medicine | DX: M15.9 Polyosteoarthritis, unspecified (principal) | CPT/HCPCS: 86160; 86162; 86235; 86255; 86376 ==

== ENCOUNTER → 2025-06-30 10:43 | Outpatient (BNVA) | payer MEDICARE, SELFPAY | PROVIDERS: PCP Family Medicine; Visit Provider Podiatrist Foot & Ankle Surgery | DX: E11.42 Type 2 diabetes mellitus with diabetic polyneuropathy (principal); L60.3 Nail dystrophy; I73.9 Peripheral vascular disease, unspecified; G62.9 Polyneuropathy, unspecified; R60.9 Edema, unspecified; M20.10 Hallux valgus (acquired), unspecified foot | CPT/HCPCS: 11721 ==